=== PATIENT | female | born 1940 | race Two or more races ===

== ENCOUNTER 2020-01-07 10:50 | Inpatient (IN) | payer MEDICARE, OTHER ==
[2020-01-07 11:22] LABS: ABSOLUTE LYMPHOCYTES (AUTO) 0.8 10^3/uL (0.5-4.7); ABSOLUTE NEUT (AUTO) 9.6 10^3/uL (1.7-8.2); BASOPHILS % (AUTO) 0.4 % (0-2); EOSINOPHILS % (AUTO) 0.1 % (0-6); HEMATOCRIT 37.6 % (36.0-47.0); HEMOGLOBIN 12.6 g/dL (12.0-15.5); LYMPHOCYTES % (AUTO) 6.9 % (13-45); MEAN CORPUSCULAR HEMOGLOBIN 28.9 pg (27.0-33.4); MEAN CORPUSCULAR HGB CONC 33.5 g/dL (32.0-36.0); MEAN CORPUSCULAR VOLUME 87 fl (80-97); MONOCYTES % (AUTO) 8.4 % (3-13); PLATELET COUNT 240 10^3/uL (150-450); RED BLOOD COUNT 4.35 10^6/uL (3.72-5.28); RED CELL DISTRIBUTION WIDTH 13.8 % (11.5-14.0); SEGMENTED NEUTROPHILS % (AUTO) 84.2 % (42-78); TOTAL CELLS COUNTED % (AUTO) 100 %; WHITE BLOOD COUNT 11.3 10^3/uL (4.0-10.5)
[2020-01-07 11:39] LABS: ALBUMIN 3.8 g/dL (3.5-5.0); ALKALINE PHOSPHATASE 93 U/L (38-126); ANION GAP 17 (5-19); ASPARTATE AMINO TRANSFERASE 33 U/L (14-36); BILIRUBIN,DIRECT 0.4 mg/dL (0.0-0.4); BILIRUBIN,TOTAL 1.8 mg/dL (0.2-1.3); BLOOD UREA NITROGEN 39 mg/dL (7-20); CALCIUM 11.4 mg/dL (8.4-10.2); CARBON DIOXIDE 24 mmol/L (22-30); CHLORIDE 97 mmol/L (98-107); GLUCOSE 156 mg/dL (75-110); TOTAL PROTEIN 7.4 g/dL (6.3-8.2)
[2020-01-07 11:43] LABS: ALCOHOL < 10 mg/dL (NONE DETECTED)
--- NOTE | 2020-01-07 12:05 | RADIOLOGY REPORT (SQ) ---
EXAM DESCRIPTION: CT HEAD WITHOUT IMAGES COMPLETED DATE/TIME: 01/07/2020 11:52 am REASON FOR STUDY: falls COMPARISON: 06/18/2016 TECHNIQUE: Axial images acquired through the brain without intravenous contrast. Images reviewed wi th bone, brain and subdural windows. Additional sagittal and coronal reconstructions were generated. Images stored on PACS. All CT scanners at this facility use dose modulation, iterative reconstruction, and/or weight based d osing when appropriate to reduce radiation dose to as low as reasonably achievable (ALARA). [facility]: Dose Right [facility]: CareDose [facility]: Dose Right [facility]: Teradose 4D [facility]: [employer] RADIATION DOSE: CT Rad equipment meets quality standard of care and radiation dose reduction techniq ues were employed. CTDIvol: 53.2 mGy. DLP: 1044 mGy-cm. mGy. LIMITATIONS: None. FINDINGS: VENTRICLES: Prominent. CEREBRUM: No masses. No hemorrhage. No midline shift. Areas of low density in the white matter mos t likely due to chronic micro-vascular ischemic change. No evidence for acute infarction. CEREBELLUM: No masses. No hemorrhage. No alteration of density. No evidence for acute infarction. EXTRAAXIAL SPACES: Mild age-related involutional change. No fluid collections. No masses. ORBITS AND GLOBE: No intra- or extraconal masses. Normal contour of globe without masses. CALVARIUM: No fracture. PARANASAL SINUSES: No fluid or mucosal thickening. SOFT TISSUES: No mass or hematoma. OTHER: No other significant finding. IMPRESSION: MILD CHRONIC CHANGES OF ATROPHY AND MICROVASCULAR ISCHEMIA. NO ACUTE PROCESS. EVIDENCE OF ACUTE STROKE: NO. TECHNICAL DOCUMENTATION: JOB ID: [id number] Quality ID # [id number]: Final reports with documentation of one or more dose reduction techniques (e.g., Au tomated exposure control, adjustment of the mA and/or kV according to patient size, use of iterative reconstruction technique) 2010 [employer]- All Rights Reserved Reading location - IP/workstation name: [email or web address]
--- NOTE | 2020-01-07 12:06 | RADIOLOGY REPORT (SQ) ---
EXAM DESCRIPTION: CT CERVICAL SPINE WITHOUT IMAGES COMPLETED DATE/TIME: 01/07/2020 11:52 am REASON FOR STUDY: fall COMPARISON: None. TECHNIQUE: Axial images acquired through the cervical spine without intravenous contrast. Images re viewed with lung, soft tissue and bone windows. Reconstructed coronal and sagittal MPR images review ed. Images stored on PACS. All CT scanners at this facility use dose modulation, iterative reconstruction, and/or weight based d osing when appropriate to reduce radiation dose to as low as reasonably achievable (ALARA). [facility]: Dose Right [facility]: CareDose [facility]: Dose Right [facility]: Teradose 4D [facility]: [employer] RADIATION DOSE: CT Rad equipment meets quality standard of care and radiation dose reduction techniq ues were employed. CTDIvol: 18.7 mGy. DLP: 363 mGy-cm. mGy. LIMITATIONS: None. FINDINGS: ALIGNMENT: Anatomic. MINERALIZATION: Normal. VERTEBRAL BODIES: No fractures or dislocation. DISCS: Mild disc space narrowing. No significant osteophytes posteriorly. Small anterior osteophyte s throughout the cervical spine. FACETS, LATERAL MASSES, POSTERIOR ELEMENTS: No fractures. No dislocation. No acute findings. HARDWARE: None in the spine. VISUALIZED RIBS: No fractures. LUNG APICES AND SOFT TISSUES: No significant or acute findings. OTHER: Calcification in the ligamentum flavum bilaterally at C3-4 C5-C6 and C6-C7. IMPRESSION: Degenerative changes. No acute fracture or dislocation. TECHNICAL DOCUMENTATION: JOB ID: [id number] Quality ID # [id number]: Final reports with documentation of one or more dose reduction techniques (e.g., Au tomated exposure control, adjustment of the mA and/or kV according to patient size, use of iterative reconstruction technique) 2010 [employer]- All Rights Reserved Reading location - IP/workstation name: [email or web address]
[2020-01-07 13:48] LABS: APPEARANCE,URINE CLOUDY; BILIRUBIN,URINE NEGATIVE (NEGATIVE); COLOR,URINE YELLOW; GLUCOSE, URINE NEGATIVE (NEGATIVE); KETONES,URINE 20 mg/dL (NEGATIVE); LEUKOCYTE ESTERASE,URINE MODERATE (NEGATIVE); NITRITE,URINE POSITIVE (NEGATIVE); PROTEIN,URINE NEGATIVE (NEGATIVE); URINE SPECIFIC GRAVITY 1.014; UROBILINOGEN,URINE NEGATIVE mg/dL (<2.0)
[2020-01-07 13:58] LABS: URINE AMPHETAMINES SCREEN NEGATIVE; URINE BARBITURATES SCREEN NEGATIVE; URINE BENZODIAZEPINES SCREEN NEGATIVE; URINE COCAINE SCREEN NEGATIVE; URINE MARIJUANA (THC) SCREEN NEGATIVE; URINE METHADONE SCREEN NEGATIVE; URINE PHENCYCLIDINE SCREEN NEGATIVE
[2020-01-07] MEDS ORDERED: AZITHROMYCIN INJ 500 MG VIAL IV ONE (14:21)
[2020-01-07] MEDS ORDERED: CEFTRIAXONE 1 GM/D5W RTU 1 GM/50 ML RTUPB IV ONE (14:21)
[2020-01-07] MEDS ORDERED: NORMAL SALINE 1000 ML 1,000 ML IV ONE (14:22)
--- NOTE | 2020-01-07 14:23 | ER Document Report ---
ED General - General Chief Complaint: Altered Mental Status Stated Complaint: ALTERED MENTAL STATUS Time Seen by Provider: 01/07/20 13:59 Primary Care Provider: DULCE BAPTISTE MD [Primary Care Provider] - Follow up as needed Mode of Arrival: Medic Information source: Relative - Notes: Patient is a 79-year-old female with hypertension and diabetes presenting to the emergency department via EMS for altered mental status and recurrent falls. Patient's is at the bedside as historian. He states over the last 30 days she has had increased falls at home but has refused to come to the hospital. Over the last week she has developed altered mental status, confusion and continues to have falls at home. Patient's reports that patient has not had anything to eat or drink in the last 3 days. He also reports that she has had a cough over the last week but denies any fevers. She has not had any medications for her symptoms. The reports that EMS has been out to the house several times over the last month to help her up after she has fallen but she has refused transport. TRAVEL OUTSIDE OF THE [place] IN LAST 30 DAYS: No - Related Data Allergies/Adverse Reactions: No Known Allergies Allergy (Verified 01/07/20 12:13) Past Medical History - General Information source: Relative - Social History Smoking Status: Current Every Day Smoker Frequency of alcohol use: None Drug Abuse: None Family History: Other - Unable to obtain, unaware of patient's family medical history - Past Medical History Cardiac Medical History: Reports: Hx Hypercholesterolemia Denies: Hx Atrial Fibrillation, Hx Congestive Heart Failure, Hx Coronary Art yodit Disease, Hx Heart Attack, Hx Hypertension, Hx Peripheral Vascular Disease, Hx Pulmonary Embolism, Hx Heart Murmur Pulmonary Medical History: Denies: Hx Asthma, Hx Bronchitis, Hx COPD, Hx Pneumonia, Hx Respiratory Failure, Hx Sleep Apnea, Hx Tuberculosis Neurological Medical History: Denies: Hx Cerebrovascular Accident, Hx Seizures, Hx Parkinson's Disease Endocrine Medical History: Reports: Hx Diabetes Mellitus Type 2. Denies: Hx Graves' Disease, Hx Hyperthyroidism, Hx Hypothyroidism Renal/ Medical History: Denies: Hx End Stage Renal Disease, Hx Kidney Stones, Hx Peritoneal Dialysis Malignancy Medical History: Denies: Hx Breast Cancer, Hx Cervical Cancer, Hx Leukemia, Hx Lung Cancer, Hx Ovarian Cancer GI Medical History: Denies: Hx Crohn's Disease, Hx Gastroesophageal Reflux Disease, Hx Hiatal Hernia, Hx Irritable Bowel, Hx Liver Failure, Hx Pancreatitis, Hx Ulcer Musculoskeletal Medical History: Reports Hx Arthritis - KNEE, Denies Hx Fibromyalgia, Denies Hx Multiple Sclerosis, Denies Hx Muscular Dystrophy, Denies Hx Systemic Lupus Erythematosus Psychiatric Medical History: Reports: Hx Depression Denies: Hx Bipolar Disorder, Hx Dementia, Hx Post Traumatic Stress Disorder, Hx Schizophrenia Traumatic Medical History: Denies: Hx Fractures Infectious Medical History: Denies: Hx HIV Past Surgical History: Reports: Hx Hysterectomy. Denies: Hx Appendectomy, Hx Bowel Surgery, Hx Section, Hx Cholecystectomy, Hx Colostomy, Hx Coronary Artery Bypass Graft, Hx Gastric Bypass Surgery, Hx Herniorrhaphy, Hx Mastectomy, Hx Pacemaker, Hx Tonsillectomy, Hx Tubal Ligation Review of Systems - Review of Systems Constitutional: Malaise, Other - recurrent falls Respiratory: Cough Neurological/Psychological: Confusion Physical Exam - Vital signs Vitals: Temp Resp Pulse Ox 98.2 F 22 H 96 01/07/20 11:03 01/07/20 11:03 01/07/20 11:03 - Notes Notes: PHYSICAL EXAMINATION: GENERAL: Appears to be stated age, no acute distress. HEAD: Atraumatic, normocephalic. EYES: Pupils equal round and reactive to light, extraocular movements intact, conjunctiva are normal, small amount of yellowish exudates noted to bilateral eyes. ENT: Nares patent, oropharynx clear without exudates. Dry mucous membranes. NECK: Normal range of motion, supple without lymphadenopathy LUNGS: Breath sounds clear to auscultation bilaterally and equal. No wheezes rales or rhonchi. HEART: Regular rate and rhythm without murmurs ABDOMEN: Soft, nontender, nondistended abdomen. No guarding, no rebound. No masses appreciated. Female : deferred Musculoskeletal: Normal range of motion, no pitting or edema. No cyanosis. NEUROLOGICAL: Cranial nerves grossly intact. PSYCH: Normal mood, normal affect. SKIN: Healing abrasions to bilateral knees. Course - Re-evaluation Re-evalutation: 01/07/20 16:50 Call placed the diffuser operator to Dr. Baptiste. Awaiting callback. 01/07/20 17:[address] Baptiste for AMS/UTI. - Vital Signs Vital signs: Temp Pulse Resp BP Pulse Ox 98.2 F 85 15 122/67 96 01/07/20 11:03 01/07/20 11:29 01/07/20 15:01 01/07/20 15:00 01/07/20 15:01 - Laboratory Result Diagrams: 01/07/20 11:10 01/07/20 11:10 Laboratory results interpreted by me: 01/07/20 01/07/20 01/07/20 11:10 11:10 13:30 WBC 11.3 H Lymph % (Auto) 6.9 L Absolute Neuts (auto) 9.6 H Seg Neutrophils % 84.2 H Potassium 3.0 L* Chloride 97 L BUN 39 H Creatinine 1.30 H Est GFR ( Amer) 48 L Est GFR (MDRD) Non-Af 40 L Glucose 156 H POC Glucose Calcium 11.4 H Total Bilirubin 1.8 H Urine Ketones 20 H Urine Blood SMALL H Urine Nitrite POSITIVE H Ur Leukocyte Esterase MODERATE H 01/07/20 15:00 WBC Lymph % (Auto) Absolute Neuts (auto) Seg Neutrophils % Potassium Chloride BUN Creatinine Est GFR ( Amer) Est GFR (MDRD) Non-Af Glucose POC Glucose 138 H Calcium Total Bilirubin Urine Ketones Urine Blood Urine Nitrite Ur Leukocyte Esterase Discharge - Discharge Clinical Impression: Hypokalemia Altered mental status Qualifiers: Altered mental status type: unspecified Qualified Code(s): R41.82 - Altered mental status, unspecified Urinary tract infection Qualifiers: Urinary tract infection type: site unspecified Hematuria presence: with hematuria Qualified Code(s): N39.0 - Urinary tract infection, site not specified Condition: Fair Disposition: ADMITTED INPATIENT Admitting Provider: Cassy Unit Admitted: IMCU Referrals: DULCE BAPTISTE MD [Primary Care Provider] - Follow up as needed
--- NOTE | 2020-01-07 15:15 | RADIOLOGY REPORT (SQ) ---
EXAM DESCRIPTION: CHEST SINGLE VIEW IMAGES COMPLETED DATE/TIME: 01/07/2020 3:04 pm REASON FOR STUDY: cough/altered mental status COMPARISON: 12/09/2012 EXAM PARAMETERS: NUMBER OF VIEWS: One view. TECHNIQUE: Single frontal radiographic view of the chest acquired. RADIATION DOSE: NA LIMITATIONS: None. FINDINGS: LUNGS AND PLEURA: No opacities, masses or pneumothorax. No pleural effusion. MEDIASTINUM AND HILAR STRUCTURES: No masses. Contour normal. HEART AND VASCULAR STRUCTURES: Heart normal in size. Normal vasculature. BONES: No acute findings. HARDWARE: None in the chest. OTHER: No other significant finding. IMPRESSION: NO ACUTE RADIOGRAPHIC FINDING IN THE CHEST. TECHNICAL DOCUMENTATION: JOB ID: [id number] 2010 [employer]- All Rights Reserved Reading location - IP/workstation name: [email or web address]
[2020-01-07] MEDS: POTASSI CL 20 MEQ/50 ML RIDER 20 MEQ/50 ML RTUPB IV SCH ×2 (15:46→17:47)
--- NOTE | 2020-01-07 17:35 | EKG REPORT ---
SEVERITY:- ABNORMAL ECG - SINUS TACHYCARDIA SINUS PAUSE/ARREST WITH ATRIAL ESCAPE BORDERLINE T ABNORMALITIES, DIFFUSE LEADS : Confirmed by: Stefania Mitchell MD 07-Jan-2020 17:35:01
--- NOTE | 2020-01-07 20:40 | PDOC H&P ---
History of Present Illness Admission Date/PCP: 01/07/20 17:44 DULCE BAPTISTE MD History of Present Illness: SITA ROLLINS is a 79 year old femaleShe has a history of type 2 diabetes mellitus, severe osteoarthritis of the right knee, she was brought to the emergency room by family for evaluation of altered mental status, recurrent falls. Patient stated that the last 30 days she has had increased fall at home but she has refused to come to the hospital she is confused, she continues to fall.Patient is well-known to me she has a history of primary hyperparathyroidism with hypercalcemia, in the emergency room she was found to have grossly abnormal urinalysis that suggest urinary tract infection. Past Medical History Cardiac Medical History: Reports: Hyperlipidema Endocrine Medical History: Reports: Diabetes Mellitus Type 2, Obesity, Other - Primary hyperparathyroidism Musculoskeltal Medical History: 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 Denies: Fibromyalgia Psychiatric Medical History: Reports: Depression Past Surgical History Past Surgical History: Reports: Hysterectomy Social History Smoking Status: Current Every Day Smoker Hx Recreational Drug Use: No Hx Prescription Drug Abuse: No Family History Family History: Other - Unable to obtain, unaware of patient's family me dical history Parental Family History Reviewed: Yes Children Family History Reviewed: Yes Sibling(s) Family History Reviewed.: Yes Medication/Allergy Home Medications: Atorvastatin Calcium [Lipitor 20 mg Tablet] 20 mg PO DAILY 12/08/12 Sitagliptin Phosphate [Januvia] 100 mg PO DAILY 12/08/12 Telmisartan/Hydrochlorothiazid [Micardis HCT 80-25 mg Tablet] 1 each PO QHS 12/08/12 Aspirin [Ecotrin 81 mg EC Tablet] 81 mg PO DAILY 01/07/20 Duloxetine HCl 60 mg PO DAILY 01/07/20 Allergies/Adverse Reactions: No Known Allergies Allergy (Verified 01/07/20 12:13) Review of Systems ROS unobtainable: Due to mental status - She is confused Physical Exam Vital Signs: Temp Pulse Resp BP Pulse Ox 97.8 F 85 14 112/56 L 97 01/07/20 19:01 01/07/20 11:29 01/07/20 19:01 01/07/20 19:01 01/07/20 19:01 Intake & Output 01/06/20 01/07/20 01/08/20 06:59 06:59 06:59 Intake Total 1150 Balance 1150 Weight 72.575 kg General appearance: PRESENT: obese Head exam: PRESENT: atraumatic, normocephalic Eye exam: PRESENT: PERRLA Mouth exam: PRESENT: moist, tongue midline Neck exam: PRESENT: full ROM Respiratory exam: PRESENT: clear to auscultation jason Cardiovascular exam: PRESENT: RRR, +S1, +S2 GI/Abdominal exam: PRESENT: normal bowel sounds, soft Rectal exam: PRESENT: deferred Extremities exam: PRESENT: pedal edema Musculoskeletal exam: PRESENT: deformity, other - Swelling and deformity of the right knee Neurological exam: PRESENT: alert, CN II-XII grossly intact Psychiatric exam: PRESENT: appropriate affect, normal mood Skin exam: PRESENT: dry, intact, warm Results Laboratory Results: 01/07/20 11:10 01/07/20 11:10 01/07/20 01/07/20 01/07/20 11:10 11:10 13:30 WBC 11.3 H RBC 4.35 Hgb 12.6 Hct 37.6 MCV 87 MCH 28.9 MCHC 33.5 RDW 13.8 Plt Count 240 Seg Neutrophils % 84.2 H Sodium 137.5 Potassium 3.0 L* Chloride 97 L Carbon Dioxide 24 Anion Gap 17 BUN 39 H Creatinine 1.30 H Est GFR ( Amer) 48 L Glucose 156 H Calcium 11.4 H Magnesium 1.6 Total Bilirubin 1.8 H AST 33 Alkaline Phosphatase 93 Total Protein 7.4 Albumin 3.8 Urine Color YELLOW Urine Appearance CLOUDY Urine pH 5.0 Ur Specific Holly 1.014 Urine Protein NEGATIVE Urine Glucose (UA) NEGATIVE Urine Ketones 20 H Urine Blood SMALL H Urine Nitrite POSITIVE H Ur Leukocyte Esterase MODERATE H Urine WBC (Auto) 28 Urine RBC (Auto) 1 Impressions: Cervical Spine CT 01/07/20 00:00 IMPRESSION: Degenerative changes. No acute fracture or dislocation. Head CT 01/07/20 00:00 IMPRESSION: MILD CHRONIC CHANGES OF ATROPHY AND MICROVASCULAR ISCHEMIA. NO ACUTE PROCESS. EVIDENCE OF ACUTE STROKE: NO. Chest X-Ray 01/07/20 14:20 IMPRESSION: NO ACUTE RADIOGRAPHIC FINDING IN THE CHEST. Assessment & Plan - Diagnosis (1) Metabolic encephalopathy Is this a current diagnosis for this admission?: Yes Plan: She has metabolic encephalopathy due to combination of factors including hypercalcemia, urinary tract infection, dehydration from poor intake, treat with normal saline (2) Hypercalcemia Is this a current diagnosis for this admission?: Yes Plan: The hypercalcemia is from primary hyperparathyroidism, Treat with hydration for now (3) Acute kidney injury Is this a current diagnosis for this admission?: Yes Plan: This is most likely prerenal azotemia from poor intake (4) Elevated troponin Is this a current diagnosis for this admission?: Yes Plan: This needs further evaluation (5) T2DM (type 2 diabetes mellitus) Qualifiers: Diabetes mellitus termite exterminator insulin use: without usp use Diabetes mellitus complication status: with neurologic complications Diabetes mellitus complication detail: with polyneuropathy Qualified Code(s): E11.42 - Type 2 diabetes mellitus with diabetic polyneuropathy Is this a current diagnosis for this admission?: Yes (6) Osteoarthritis of right knee Qualifiers: Osteoarthritis type: primary Qualified Code(s): M17.11 - Unilateral primary osteoarthritis, right knee Is this a current diagnosis for this admission?: Yes (7) Urinary tract infection Qualifiers: Urinary tract infection type: site unspecified Hematuria presence: without hematuria Qualified Code(s): N39.0 - Urinary tract infection, site not specified Is this a current diagnosis for this admission?: Yes Plan: Treat with IV antibiotic (8) Primary hyperparathyroidism Is this a current diagnosis for this admission?: Yes
[2020-01-07 21:08] LABS: FREE T4 (FREE THYROXINE) 1.8 ng/dL (0.78-2.19)
[2020-01-07 21:22] LABS: THYROID STIMULATING HORMONE 0.23 uIU/mL (0.47-4.68)
[2020-01-07] MEDS: HEPARIN SOD (PORCINE) 5,000 UNIT/ML 1 ML VIAL SUBCUT SCH ×2 (21:44→22:45)
[2020-01-07] MEDS: NORMAL SALINE 1000 ML 1,000 ML IV PRN (23:15)
[2020-01-07 23:22] LABS: INTERNATIONAL RATION (INR) 1.11; PROTHROMBIN TIME 14.3 SEC (11.4-15.4)
[2020-01-07 23:38] LABS: PHOSPHORUS 2.6 mg/dL (2.5-4.5)
[2020-01-07 23:51] LABS: CREATINE KINASE MB 4.94 ng/mL (<4.55)
[2020-01-08 00:06] LABS: TROPONIN I 0.144 ng/mL
[2020-01-08] MEDS: HEPARIN SOD (PORCINE) 5,000 UNIT/ML 1 ML VIAL SUBCUT SCH ×2 (06:13→13:22)
[2020-01-08 07:18] LABS: ABSOLUTE EOSINOPHILS # (AUTO) 0.2 10^3/uL (0.0-0.6); ABSOLUTE LYMPHOCYTES (AUTO) 1.9 10^3/uL (0.5-4.7); ABSOLUTE MONOCYTES (AUTO) 0.8 10^3/uL (0.1-1.4); ABSOLUTE NEUT (AUTO) 6.4 10^3/uL (1.7-8.2); BASOPHILS % (AUTO) 0.4 % (0-2); EOSINOPHILS % (AUTO) 1.9 % (0-6); HEMATOCRIT 36.1 % (36.0-47.0); LYMPHOCYTES % (AUTO) 20.2 % (13-45); MEAN CORPUSCULAR HEMOGLOBIN 28.8 pg (27.0-33.4); MEAN CORPUSCULAR HGB CONC 33.1 g/dL (32.0-36.0); MEAN CORPUSCULAR VOLUME 87 fl (80-97); MONOCYTES % (AUTO) 8.9 % (3-13); PLATELET COUNT 229 10^3/uL (150-450); RED BLOOD COUNT 4.16 10^6/uL (3.72-5.28); RED CELL DISTRIBUTION WIDTH 13.8 % (11.5-14.0); SEGMENTED NEUTROPHILS % (AUTO) 68.6 % (42-78); TOTAL CELLS COUNTED % (AUTO) 100 %; WHITE BLOOD COUNT 9.3 10^3/uL (4.0-10.5)
[2020-01-08 07:43] LABS: ALKALINE PHOSPHATASE 74 U/L (38-126); ANION GAP 10 (5-19); ASPARTATE AMINO TRANSFERASE 26 U/L (14-36); BILIRUBIN,DIRECT 0.2 mg/dL (0.0-0.4); BILIRUBIN,TOTAL 1.1 mg/dL (0.2-1.3); BLOOD UREA NITROGEN 29 mg/dL (7-20); CALCIUM 10.5 mg/dL (8.4-10.2); CARBON DIOXIDE 25 mmol/L (22-30); CHLORIDE 105 mmol/L (98-107); CHOLESTEROL 136.05 mg/dL (0-200); GLUCOSE 112 mg/dL (75-110); POTASSIUM 3.1 mmol/L (3.6-5.0); TOTAL PROTEIN 6.3 g/dL (6.3-8.2); TRIGLYCERIDES 107 mg/dL (<150)
[2020-01-08 07:54] LABS: DIRECT LDL 79 mg/dL (<100)
[2020-01-08 07:55] LABS: CREATINE KINASE MB 3.45 ng/mL (<4.55); TROPONIN I 0.114 ng/mL
[2020-01-08] MEDS ORDERED: (PENDING PHARMACY ID) (Telmisartan/Hydrochlorothiazid [Micardis Hct 80-25 Mg Tablet] 1 EAC PO SCH (08:15)
[2020-01-08] MEDS: CEFTRIAXONE 1 GM/D5W RTU 1 GM/50 ML RTUPB IV SCH (09:47)
[2020-01-08] MEDS: DULOXETINE HCL 30 MG CAPSULE.DR PO SCH (09:48)
[2020-01-08] MEDS: ATORVASTATIN CALCIUM 20 MG TABLET PO SCH (09:48)
[2020-01-08] MEDS: SITAGLIPTIN PHOSPHATE 50 MG TABLET PO SCH (09:48)
[2020-01-08] MEDS: ASPIRIN 81 MG TABLET, ENT COATED PO SCH (09:48)
[2020-01-08] MEDS ORDERED: (PENDING PHARMACY ID) (Duloxetine Hcl [Duloxetine Hcl] 60 MG) PO SCH (10:00)
[2020-01-08 11:33] LABS: CREATINE KINASE MB 3.02 ng/mL (<4.55); TROPONIN I 0.098 ng/mL
[2020-01-08] MEDS: POTASSI CL 20 MEQ/50 ML RIDER 20 MEQ/50 ML RTUPB IV SCH ×2 (18:21→20:22)
--- NOTE | 2020-01-08 19:11 | RADIOLOGY REPORT (SQ) ---
EXAM DESCRIPTION: KNEE RIGHT 2 VIEWS IMAGES COMPLETED DATE/TIME: 01/08/2020 6:00 pm REASON FOR STUDY: right knee swelling COMPARISON: None. NUMBER OF VIEWS: Two views. TECHNIQUE: AP, and cross-table lateral radiographic images acquired of the right knee. LIMITATIONS: None. FINDINGS: MINERALIZATION: Osteopenia. BONES: No acute fracture or dislocation. No worrisome bone lesions. JOINT: Marked joint space narrowing medial compartment of the knee. Mild to moderate narrowing at t he lateral and patellofemoral compartments. Marginal and patellar pole osteophytes. Small suprapate llar effusion. Slight chondrocalcinosis suggested in the lateral compartment. SOFT TISSUES: No soft tissue swelling. No radio-opaque foreign body. OTHER: No other significant finding. IMPRESSION: 1. Tricompartmental osteoarthrosis more pronounced at the medial compartment. 2. No acute osseous findings. TECHNICAL DOCUMENTATION: JOB ID: [id number] 2010 [employer]- All Rights Reserved Reading location - IP/workstation name: [email or web address]
[2020-01-08] MEDS ORDERED: HEPARIN SOD (PORCINE) 1,000 UNIT/ML 10 ML VIAL IV ONE (19:44)
[2020-01-08] MEDS ORDERED: HEPARIN SOD (PORCINE) 1,000 UNIT/ML 10 ML VIAL IV PRN ×2 (20:00→22:45)
--- NOTE | 2020-01-08 20:12 | PDOC PROGRESS REPORT ---
Subjective Progress Note for:: 01/08/20 Subjective:: Patient seen by the bedside, she is more alert today than yesterday, a venous Doppler was done today of the extremities, positive for deep vein thrombosis Reason For Visit: HYPERCALCEMIC ENCEPHALOPATHY Physical Exam Vital Signs: Temp Pulse Resp BP Pulse Ox 97.8 F 84 16 115/57 L 91 L 01/08/20 15:21 01/08/20 15:21 01/08/20 15:21 01/08/20 15:21 01/08/20 15:21 Intake & Output 01/07/20 01/08/20 01/09/20 06:59 06:59 06:59 Intake Total 1150 720 Balance 1150 720 Weight 82.1 kg General appearance: PRESENT: no acute distress Eye exam: PRESENT: PERRLA Respiratory exam: PRESENT: clear to auscultation jason Cardiovascular exam: PRESENT: +S1, +S2 GI/Abdominal exam: PRESENT: soft Neurological exam: PRESENT: alert Results Laboratory Results: 01/08/20 06:00 01/08/20 06:00 01/07/20 01/07/20 01/07/20 11:10 23:03 23:03 WBC RBC Hgb Hct MCV MCH MCHC RDW Plt Count Seg Neutrophils % Sodium Potassium Chloride Carbon Dioxide Anion Gap BUN Creatinine Est GFR ( Amer) Glucose Calcium Phosphorus 2.6 Magnesium 1.7 Total Bilirubin AST Alkaline Phosphatase Ammonia < 8.7 L Total Protein Albumin Triglycerides Cholesterol LDL Cholesterol Direct VLDL Cholesterol HDL Cholesterol Amylase 41 Lipase 56.6 TSH 0.23 L Free T4 1.80 01/08/20 01/08/20 06:00 06:00 WBC 9.3 RBC 4.16 Hgb 12.0 Hct 36.1 MCV 87 MCH 28.8 MCHC 33.1 RDW 13.8 Plt Count 229 Seg Neutrophils % 68.6 Sodium 139.5 Potassium 3.1 L Chloride 105 Carbon Dioxide 25 Anion Gap 10 BUN 29 H Creatinine 0.73 Est GFR ( Amer) > 60 Glucose 112 H Calcium 10.5 H Phosphorus Magnesium Total Bilirubin 1.1 AST 26 Alkaline Phosphatase 74 Ammonia Total Protein 6.3 Albumin 3.0 L Triglycerides 107 Cholesterol 136.05 LDL Cholesterol Direct 79 VLDL Cholesterol 21.0 HDL Cholesterol 36 L Amylase Lipase TSH Free T4 01/07/20 01/07/20 01/08/20 23:03 23:03 06:00 Creatine Kinase 84 60 CK-MB (CK-2) 4.94 H Troponin I 0.144 01/08/20 01/08/20 01/08/20 06:00 10:47 10:47 Creatine Kinase 52 CK-MB (CK-2) 3.45 3.02 Troponin I 0.114 0.098 Impressions: Cervical Spine CT 01/07/20 00:00 IMPRESSION: Degenerative changes. No acute fracture or dislocation. Head CT 01/07/20 00:00 IMPRESSION: MILD CHRONIC CHANGES OF ATROPHY AND MICROVASCULAR ISCHEMIA. NO ACUTE PROCESS. EVIDENCE OF ACUTE STROKE: NO. Chest X-Ray 01/07/20 14:20 IMPRESSION: NO ACUTE RADIOGRAPHIC FINDING IN THE CHEST. Knee X-Ray 01/08/20 00:00 IMPRESSION: 1. Tricompartmental osteoarthrosis more pronounced at the medial compartment. 2. No acute osseous findings. Assessment & Plan - Diagnosis (1) Metabolic encephalopathy Is this a current diagnosis for this admission?: Yes Plan: Continue hydration with fluid patient is more alert today (2) Hypercalcemia Is this a current diagnosis for this admission?: Yes (3) Acute kidney injury Is this a current diagnosis for this admission?: Yes (4) Elevated troponin Is this a current diagnosis for this admission?: Yes Plan: This is probably from PE, requires CTA chest (5) T2DM (type 2 diabetes mellitus) Qualifiers: Diabetes mellitus tank terminal gauger insulin use: without half-way use Diabetes mellitus complication status: with neurologic complications Diabetes mellitus complication detail: with polyneuropathy Qualified Code(s): E11.42 - Type 2 diabetes mellitus with diabetic polyneuropathy Is this a current diagnosis for this admission?: Yes (6) Osteoarthritis of right knee Qualifiers: Osteoarthritis type: primary Qualified Code(s): M17.11 - Unilateral primary osteoarthritis, right knee Is this a current diagnosis for this admission?: Yes (7) Urinary tract infection Qualifiers: Urinary tract infection type: site unspecified Hematuria presence: without hematuria Qualified Code(s): N39.0 - Urinary tract infection, site not specified Is this a current diagnosis for this admission?: Yes Plan: Continue IV antibiotic (8) Primary hyperparathyroidism Is this a current diagnosis for this admission?: Yes (9) Deep vein thrombosis (DVT) Qualifiers: DVT location: lower extremity Affected thrombotic vein of extremity: unspecified vein of extremity Chronicity: acute Laterality: unspecified laterality Qualified Code(s): I82.409 - Acute embolism and thrombosis of unspecified deep veins of unspecified lower extremity Is this a current diagnosis for this admission?: Yes Plan: Start IV heparin high-dose protocol - Time Time Spent with patient: 35 or more minutes Level of Care: IMCU
[2020-01-08 20:38] LABS: ABSOLUTE EOSINOPHILS # (AUTO) 0.2 10^3/uL (0.0-0.6); ABSOLUTE LYMPHOCYTES (AUTO) 1.7 10^3/uL (0.5-4.7); ABSOLUTE MONOCYTES (AUTO) 0.7 10^3/uL (0.1-1.4); ABSOLUTE NEUT (AUTO) 5.5 10^3/uL (1.7-8.2); BASOPHILS % (AUTO) 0.6 % (0-2); HEMOGLOBIN 11.7 g/dL (12.0-15.5); LYMPHOCYTES % (AUTO) 20.5 % (13-45); MEAN CORPUSCULAR HEMOGLOBIN 29.1 pg (27.0-33.4); MEAN CORPUSCULAR HGB CONC 33.5 g/dL (32.0-36.0); MEAN CORPUSCULAR VOLUME 87 fl (80-97); MONOCYTES % (AUTO) 9.2 % (3-13); PLATELET COUNT 234 10^3/uL (150-450); RED BLOOD COUNT 4.03 10^6/uL (3.72-5.28); RED CELL DISTRIBUTION WIDTH 13.7 % (11.5-14.0); SEGMENTED NEUTROPHILS % (AUTO) 67.7 % (42-78); TOTAL CELLS COUNTED % (AUTO) 100 %; WHITE BLOOD COUNT 8.1 10^3/uL (4.0-10.5)
[2020-01-08 20:43] LABS: INTERNATIONAL RATION (INR) 1.07
[2020-01-08 20:44] LABS: PARTIAL THROMBOPLASTIN TIME 33.1 SEC (23.5-35.8)
--- NOTE | 2020-01-08 20:55 | RADIOLOGY REPORT (SQ) ---
EXAM DESCRIPTION: US EXTREMITY VEINS BILATERAL COMPLETED DATE/TME: 01/08/2020 00:00 CLINICAL HISTORY: 79 years, Female, leg swelling COMPARISON: None. TECHNIQUE: LIMITATIONS: None. FINDINGS: There is thrombosis of the right common femoral, femoral, popliteal and calf veins. There is also thrombus in the right greater saphenous vein and short saphenous vein. There is also DVT involving the left posterior tibial vein. IMPRESSION: Bilateral DVT, much more extensive on the right side. Greater and short saphenous vein thrombus on the right side. copyright 2010 [employer] All Rights Reserved
[2020-01-08] MEDS: HEPARIN SODIUM,PORCINE/D5W 25,000 UNIT/250 ML RTUINJ IV PRN (21:49)
--- NOTE | 2020-01-08 21:54 | RADIOLOGY REPORT (SQ) ---
CT CHEST ANGIOGRAPHY WITHOUT THEN WITH IV CONTRAST HISTORY: Shortness of breath. COMPARISON: None. TECHNIQUE: CT angiogram of the chest with IV contrast. 3-D MIP images were obtained in coronal and sagittal reconstructions. This exam was performed according to our departmental dose-optimization program, which includes automated exposure control, adjustment of the mA and/or kV according to patient size and/or use of iterative reconstruction technique. FINDINGS: There are multiple occlusive clots in the bilateral upper and lower lobe segmental branches as well as the right middle lobe segmental branch, consistent with acute bilateral peripheral PE. No saddle embolus or right heart strain is seen. The thyroid gland is normal. No mediastinal or hilar adenopathy. The heart size is normal without pericardial effusion. The thoracic aorta is normal caliber. No consolidation, pleural effusion, or pneumothorax is identified. The visualized upper abdomen demonstrates hyperdense sludge in the gallbladder but no acute findings. No acute osseous findings are seen. IMPRESSION: Acute bilateral PE but without evidence of saddle embolus or right heart strain.
[2020-01-08] MEDS: LOSARTAN POTASSIUM 50 MG TABLET PO SCH (22:27)
[2020-01-08] MEDS: HYDROCHLOROTHIAZIDE 25 MG TABLET PO SCH (22:28)
[2020-01-08] MEDS: NORMAL SALINE 1000 ML 1,000 ML IV PRN (22:32)
--- NOTE | 2020-01-09 02:28 | EKG REPORT ---
SEVERITY:- NORMAL ECG - SINUS RHYTHM : Confirmed by: Stefania Mitchell MD 09-Jan-2020 02:27:15
[2020-01-09 05:00] LABS: ABSOLUTE BASOPHILS # (AUTO) 0.1 10^3/uL (0.0-0.2); ABSOLUTE EOSINOPHILS # (AUTO) 0.2 10^3/uL (0.0-0.6); ABSOLUTE LYMPHOCYTES (AUTO) 1.7 10^3/uL (0.5-4.7); ABSOLUTE MONOCYTES (AUTO) 0.8 10^3/uL (0.1-1.4); ABSOLUTE NEUT (AUTO) 5.6 10^3/uL (1.7-8.2); BASOPHILS % (AUTO) 0.8 % (0-2); EOSINOPHILS % (AUTO) 2.4 % (0-6); HEMOGLOBIN 11.7 g/dL (12.0-15.5); LYMPHOCYTES % (AUTO) 20.3 % (13-45); MEAN CORPUSCULAR HGB CONC 33.3 g/dL (32.0-36.0); MEAN CORPUSCULAR VOLUME 87 fl (80-97); MONOCYTES % (AUTO) 9.2 % (3-13); PLATELET COUNT 220 10^3/uL (150-450); RED BLOOD COUNT 4.02 10^6/uL (3.72-5.28); SEGMENTED NEUTROPHILS % (AUTO) 67.3 % (42-78); TOTAL CELLS COUNTED % (AUTO) 100 %; WHITE BLOOD COUNT 8.3 10^3/uL (4.0-10.5)
[2020-01-09] MEDS: NORMAL SALINE 1000 ML 1,000 ML IV PRN ×2 (08:46→19:56)
[2020-01-09] MEDS: SITAGLIPTIN PHOSPHATE 50 MG TABLET PO SCH (10:58)
[2020-01-09] MEDS: ASPIRIN 81 MG TABLET, ENT COATED PO SCH (10:58)
[2020-01-09] MEDS: ATORVASTATIN CALCIUM 20 MG TABLET PO SCH (10:58)
[2020-01-09] MEDS: DULOXETINE HCL 30 MG CAPSULE.DR PO SCH (10:59)
[2020-01-09] MEDS: CEFTRIAXONE 1 GM/D5W RTU 1 GM/50 ML RTUPB IV SCH (10:59)
--- NOTE | 2020-01-09 11:13 | EKG REPORT ---
SEVERITY:- BORDERLINE ECG - SINUS RHYTHM ATRIAL PREMATURE COMPLEX BORDERLINE T ABNORMALITIES, ANTERIOR LEADS : Confirmed by: Stefania Mitchell MD 09-Jan-2020 11:13:24
--- NOTE | 2020-01-09 12:12 | PDOC CONSULTATION ---
Consultation-Blank Consultation: CARDIOLOGY CONSULTATION by Dr. Stefania Mitchell on 01/09/2020. Patient seen at 10 AM. 60 minutes spent on this patient with more than 50% time spent in direct patient care. REASON FOR CONSULTATION: Patient with episodic bradycardia. CONSULT REQUESTING PHYSICIAN: Dr. Madera. HISTORY OF PRESENT ILLNESS: Patient is a 79-year-old Afro-[place] female with known history of hypertension, diabetes mellitus, primary hyperparathyroidism was admitted with confusion and frequent falls. She was found to have a negative CT of the head for acute stroke but showed microvascular ischemia. She also had a pulmonary embolism by CT pulmonary CTA and the right leg thrombus in the right greater and short saphenous vein. She also found to have a urinary tract infection by urinalysis. At present the patient is confused but denies any chest pain discomfort. She was noted to have sudden episodes of periodic si nus bradycardia with a heart rate sometimes in the high 20s around 29 to the low 30s. But this was a short period of time. At this time the patient was not seen to be retching or straining or vomiting or having dry heaves. She was not straining. There was no hemodynamic compromise with a stable blood pressure and the patient's baseline confusion did not increase. Hence the patient is asymptomatic from her sinus bradycardia. Of note she is not on AV or SA pia blocking agents. Initially her calcium was high and now is coming down and today was normal at 9.9 Past Medical History Cardiac Medical History: Reports: Hyperlipidema Endocrine Medical History: Reports: Diabetes Mellitus Type 2, Obesity, Other - Primary hyperparathyroidism Musculoskeltal Medical History: 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 Denies: Fibromyalgia Psychiatric Medical History: Reports: Depression Past Surgical History Past Surgical History: Reports: Hysterectomy Social History Smoking Status: Current Every Day Smoker Hx Recreational Drug Use: No Hx Prescription Drug Abuse: No Family History Family History: Other - Unable to obtain, unaware of patient's family medical history Parental Family History Reviewed: Yes Children Family History Reviewed: Yes Sibling(s) Family History Reviewed.: Yes RESUSCITATION STATUS: The patient is a full code the patient's is a surrogate healthcare decision maker. Medication/Allergy Home Medications: Atorvastatin Calcium [Lipitor 20 mg Tablet] 20 mg PO DAILY 12/08/12 Sitagliptin Phosphate [Januvia] 100 mg PO DAILY 12/08/12 Telmisartan/Hydrochlorothiazid [Micardis HCT 80-25 mg Tablet] 1 each PO QHS 12/08/12 Aspirin [Ecotrin 81 mg EC Tablet] 81 mg PO DAILY 01/07/20 Duloxetine HCl 60 mg PO DAILY 01/07/20 Allergies/Adverse Reactions: No Known Allergies Current Medications Generic Name Dose Route Start Last Admin Trade Name Freq PRN Reason Stop Dose Admin Aspirin 81 mg 01/08/20 10:00 01/09/20 10:58 Ecotrin 81 Mg Ec Tablet PO 02/07/20 09:59 81 mg DAILY RAMIN Administration Atorvastatin Calcium 20 mg 01/08/20 10:00 01/09/20 10:58 Lipitor 20 Mg Tablet PO 02/07/20 09:59 20 mg DAILY RAMIN Administration Duloxetine HCl 60 mg 01/08/20 10:00 01/09/20 10:59 Cymbalta 30 Mg Capsule. PO 02/07/20 09:59 60 mg DAILY RAMIN Administration Heparin Sodium (Porcine) 0 - 15,000 unit 01/08/20 22:45 Heparin Inj 1,000 Unit/Ml 10 Ml Vial IV 02/07/20 22:44 .BOLUS PER PROTOCOL PRN RESPOND TO aPTT VALUE Protocol Hydrochlorothiazide 25 mg 01/08/20 22:00 01/09/20 22:31 Hydrodiuril 25 Mg Tablet PO 02/07/20 21:59 25 mg QHS RAMIN Administration Sodium Chloride 1,000 mls @ 100 mls/hr 01/07/20 19:45 01/09/20 19:56 Nacl 0.9% 1000 Ml Iv Soln IV 02/06/20 19:44 100 mls/hr CONTINUOUS PRN Administration THIS MED IS NOT "PRN" Ceftriaxone Sodium/Dextrose 1 gm in 50 mls @ 100 mls/hr 01/08/20 10:00 01/09/20 11:45 Rocephin Rtu 1 Gm/D5w 50 Ml Premix IV 01/15/20 09:59 Infused DAILY RAMIN Infusion Heparin Sodium/Dextrose 25,000 unit in 250 mls @ 0 mls/hr 01/08/20 20:00 01/09/20 18:28 Heparin Rtu 25,000 Unit/250 Ml D5w Premix IV 02/07/20 19:59 985 unit/hr .CONTINUOUS PRN 9.85 mls/hr THIS MED IS NOT "PRN" Administration Protocol Titrate Losartan Potassium 100 mg 01/08/20 22:00 01/09/20 22:32 Cozaar 50 Mg Tablet PO 02/07/20 21:59 100 mg QHS RAMIN Administration Sitagliptin Phosphate 100 mg 01/08/20 10:00 01/09/20 10:58 Januvia 50 Mg Tablet PO 02/07/20 09:59 100 mg DAILY RAMIN Administration Discontinued Medications Generic Name Dose Route Start Last Admin Trade Name Lidia PRN Reason Stop Dose Admin Azithromycin 500 mg 01/07/20 14:21 01/07/20 15:30 Zithromax Inj 500 Mg Vial IV 01/07/20 14:22 500 mg IVBAG (ED) ONE Administration Heparin Sodium (Porcine) 5,000 unit 01/07/20 20:00 01/08/20 13:22 Heparin Inj 5,000 Units/Ml 1 Ml Vial SUBCUT 02/06/20 19:59 5,000 unit Q8 RAMIN Administration Heparin Sodium (Porcine) 6,600 unit 01/08/20 19:44 01/08/20 21:47 Heparin Inj 1,000 Unit/Ml 10 Ml Vial 80 unit/kg (6600 unit) 01/08/20 19:45 6,600 units IV Administration NOW ONE Ceftriaxone Sodium/Dextrose 1 gm in 50 mls @ 100 mls/hr 01/07/20 14:21 01/07/20 15:36 Rocephin Rtu 1 Gm/D5w 50 Ml Premix IV 01/07/20 14:50 Infused NOW ONE Infusion Potassium Chloride/Water 20 meq in 50 mls @ 25 mls/hr 01/07/20 14:30 01/07/20 19:47 Potassium Chloride Corey 20 Meq/50 Ml IV 01/07/20 18:29 Infused Q2H RAMIN Infusion Sodium Chloride 1,000 mls @ 0 mls/hr 01/07/20 14:22 01/07/20 16:05 Nacl 0.9% 1000 Ml Iv Soln IV 01/07/20 14:23 Infused BOLUS ONE Infusion Wide Open Potassium Chloride/Water 20 meq in 50 mls @ 25 mls/hr 01/08/20 15:00 01/08/20 22:22 Potassium Chloride Corey 20 Meq/50 Ml IV 01/08/20 18:59 Infused Q2H RAMIN Infusion Review of Systems ROS unobtainable: Due to mental status - She is confused Physical Exam: The patient is mildly obese. In no acute distress is confused. Selected Entries 01/09/20 12:00 Temperature 97.4 F Temperature Oral Source Pulse Rate 79 Respiratory 18 Rate Blood Pressure 139/65 H [Right Upper Arm] Blood Pressure 89 Mean [Right Upper Arm] Blood Pressure Supine Position [Right Upper Arm] O2 Sat by Pulse 99 Oximetry Oxygen Delivery Room Air Method ( includes room air) HEAD: Atraumatic, normocephalic. EYES: Pupils equal round and reactive to light, extraocular movements intact, sclera anicteric, conjunctiva are normal. ENT: TMs normal, nares patent, oropharynx clear without exudates. Moist mucous membranes. NECK: Normal range of motion, supple without lymphadenopathy or JVD. LUNGS: Breath sounds clear to auscultation bilaterally and equal. No wheezes rales or rhonchi. There is no chest wall tenderness HEART: S1-S2 is heard. S1 is of normal intensity. There is no S3 gallop. There is no S4 gallop. There is systolic murmur left sternal border and the apex, there is no rub ABDOMEN: Soft, nontender, normoactive bowel sounds. No guarding, no rebound. No masses appreciated. EXTREMITIES: Normal range of motion, no pitting or edema. No clubbing or cyanosis. NEUROLOGICAL: The patient is conscious awake alert but confused. She moves all 4 extremities. PSYCHIATRIC: The patient does not appear to be anxious or agitated. Labs- Entire Visit 01/07/20 01/07/20 01/07/20 11:10 11:10 11:10 WBC 11.3 H RBC 4.35 Hgb 12.6 Hct 37.6 MCV 87 MCH 28.9 MCHC 33.5 RDW 13.8 Plt Count 240 Lymph % (Auto) 6.9 L [place] % (Auto) 8.4 Eos % (Auto) 0.1 Baso % (Auto) 0.4 Absolute Neuts (auto) 9.6 H Absolute Lymphs (auto) 0.8 Absolute Monos (auto) 1.0 Absolute Eos (auto) 0.0 Absolute Basos (auto) 0.0 Seg Neutrophils % 84.2 H PT INR APTT Sodium 137.5 Potassium 3.0 L* Chloride 97 L Carbon Dioxide 24 Anion Gap 17 BUN 39 H Creatinine 1.30 H Est GFR ( Amer) 48 L Est GFR (Non-Af Amer) Est GFR (MDRD) Non-Af 40 L Glucose 156 H POC Glucose Hemoglobin A1c % Calcium 11.4 H Phosphorus Magnesium 1.6 Total Bilirubin 1.8 H Direct Bilirubin 0.4 Neonat Total Bilirubin Not Reportable Neonat Direct Bilirubin Not Reportable Neonat Indirect Bili Not Reportable AST 33 ALT 17 Alkaline Phosphatase 93 Ammonia Creatine Kinase CK-MB (CK-2) Troponin I Total Protein 7.4 Albumin 3.8 Triglycerides Cholesterol LDL Cholesterol Direct VLDL Cholesterol HDL Cholesterol Amylase Lipase EGFR TSH 0.23 L Free T4 1.80 Urine Color Urine Appearance Urine pH Ur Specific [place] Urine Protein Urine Glucose (UA) Urine Ketones Urine Blood Urine Nitrite Urine Bilirubin Urine Urobilinogen Ur Leukocyte Esterase Urine WBC (Auto) Urine RBC (Auto) U Hyaline Cast (Auto) Urine Bacteria (Auto) Urine WBC Clumps Squamous Epi Cells Auto Urine Mucus (Auto) Urine Ascorbic Acid Urine Opiates Screen Urine Methadone Screen Ur Barbiturates Screen Ur Phencyclidine Scrn Ur Amphetamines Screen U Benzodiazepines Scrn Urine Cocaine Screen U Marijuana (THC) Screen Serum Alcohol < 10 01/07/20 01/07/20 01/07/20 13:30 13:30 15:00 WBC RBC Hgb Hct MCV MCH MCHC RDW Plt Count Lymph % (Auto) [place] % (Auto) Eos % (Auto) Baso % (Auto) Absolute Neuts (auto) Absolute Lymphs (auto) Absolute Monos (auto) Absolute Eos (auto) Absolute Basos (auto) Seg Neutrophils % PT INR APTT Sodium Potassium Chloride Carbon Dioxide Anion Gap BUN Creatinine Est GFR ( Amer) Est GFR (Non-Af Amer) Est GFR (MDRD) Non-Af Glucose POC Glucose 138 H Hemoglobin A1c % Calcium Phosphorus Magnesium Total Bilirubin Direct Bilirubin Neonat Total Bilirubin Neonat Direct Bilirubin Neonat Indirect Bili AST ALT Alkaline Phosphatase Ammonia Creatine Kinase CK-MB (CK-2) Troponin I Total Protein Albumin Triglycerides Cholesterol LDL Cholesterol Direct VLDL Cholesterol HDL Cholesterol Amylase Lipase EGFR TSH Free T4 Urine Color YELLOW Urine Appearance CLOUDY Urine pH 5.0 Ur Specific [place] 1.014 Urine Protein NEGATIVE Urine Glucose (UA) NEGATIVE Urine Ketones 20 H Urine Blood SMALL H Urine Nitrite POSITIVE H Urine Bilirubin NEGATIVE Urine Urobilinogen NEGATIVE Ur Leukocyte Esterase MODERATE H Urine WBC (Auto) 28 Urine RBC (Auto) 1 U Hyaline Cast (Auto) 8 Urine Bacteria (Auto) 3+ Urine WBC Clumps MOD Squamous Epi Cells Auto 1 Urine Mucus (Auto) RARE Urine Ascorbic Acid NEGATIVE Urine Opiates Screen NEGATIVE Urine Methadone Screen NEGATIVE Ur Barbiturates Screen NEGATIVE Ur Phencyclidine Scrn NEGATIVE Ur Amphetamines Screen NEGATIVE U Benzodiazepines Scrn NEGATIVE Urine Cocaine Screen NEGATIVE U Marijuana (THC) Screen NEGATIVE Serum Alcohol 01/07/20 01/07/20 01/07/20 23:03 23:03 23:03 WBC RBC Hgb Hct MCV MCH MCHC RDW Plt Count Lymph % (Auto) [place] % (Auto) Eos % (Auto) Baso % (Auto) Absolute Neuts (auto) Absolute Lymphs (auto) Absolute Monos (auto) Absolute Eos (auto) Absolute Basos (auto) Seg Neutrophils % PT 14.3 INR 1.11 APTT 26.0 Sodium Potassium Chloride Carbon Dioxide Anion Gap BUN Creatinine Est GFR ( Amer) Est GFR (Non-Af Amer) Est GFR (MDRD) Non-Af Glucose POC Glucose Hemoglobin A1c % Calcium Phosphorus 2.6 Magnesium 1.7 Total Bilirubin Direct Bilirubin Neonat Total Bilirubin Neonat Direct Bilirubin Neonat Indirect Bili AST ALT Alkaline Phosphatase Ammonia < 8.7 L Creatine Kinase CK-MB (CK-2) Troponin I Total Protein Albumin Triglycerides Cholesterol LDL Cholesterol Direct VLDL Cholesterol HDL Cholesterol Amylase 41 Lipase 56.6 EGFR TSH Free T4 Urine Color Urine Appearance Urine pH Ur Specific [place] Urine Protein Urine Glucose (UA) Urine Ketones Urine Blood Urine Nitrite Urine Bilirubin Urine Urobilinogen Ur Leukocyte Esterase Urine WBC (Auto) Urine RBC (Auto) U Hyaline Cast (Auto) Urine Bacteria (Auto) Urine WBC Clumps Squamous Epi Cells Auto Urine Mucus (Auto) Urine Ascorbic Acid Urine Opiates Screen Urine Methadone Screen Ur Barbiturates Screen Ur Phencyclidine Scrn Ur Amphetamines Screen U Benzodiazepines Scrn Urine Cocaine Screen U Marijuana (THC) Screen Serum Alcohol 01/07/20 01/07/20 01/08/20 23:03 23:03 06:00 WBC RBC Hgb Hct MCV MCH MCHC RDW Plt Count Lymph % (Auto) [place] % (Auto) Eos % (Auto) Baso % (Auto) Absolute Neuts (auto) Absolute Lymphs (auto) Absolute Monos (auto) Absolute Eos (auto) Absolute Basos (auto) Seg Neutrophils % PT INR APTT Sodium Potassium Chloride Carbon Dioxide Anion Gap BUN Creatinine Est GFR ( Amer) Est GFR (Non-Af Amer) Est GFR (MDRD) Non-Af Glucose POC Glucose Hemoglobin A1c % Calcium Phosphorus Magnesium Total Bilirubin Direct Bilirubin Neonat Total Bilirubin Neonat Direct Bilirubin Neonat Indirect Bili AST ALT Alkaline Phosphatase Ammonia Creatine Kinase 84 60 CK-MB (CK-2) 4.94 H Troponin I 0.144 Total Protein Albumin Triglycerides Cholesterol LDL Cholesterol Direct VLDL Cholesterol HDL Cholesterol Amylase Lipase EGFR TSH Free T4 Urine Color Urine Appearance Urine pH Ur Specific [place] Urine Protein Urine Glucose (UA) Urine Ketones Urine Blood Urine Nitrite Urine Bilirubin Urine Urobilinogen Ur Leukocyte Esterase Urine WBC (Auto) Urine RBC (Auto) U Hyaline Cast (Auto) Urine Bacteria (Auto) Urine WBC Clumps Squamous Epi Cells Auto Urine Mucus (Auto) Urine Ascorbic Acid Urine Opiates Screen Urine Methadone Screen Ur Barbiturates Screen Ur Phencyclidine Scrn Ur Amphetamines Screen U Benzodiazepines Scrn Urine Cocaine Screen U Marijuana (THC) Screen Serum Alcohol 01/08/20 01/08/20 01/08/20 06:00 06:00 06:00 WBC 9.3 RBC 4.16 Hgb 12.0 Hct 36.1 MCV 87 MCH 28.8 MCHC 33.1 RDW 13.8 Plt Count 229 Lymph % (Auto) 20.2 [place] % (Auto) 8.9 Eos % (Auto) 1.9 Baso % (Auto) 0.4 Absolute Neuts (auto) 6.4 Absolute Lymphs (auto) 1.9 Absolute Monos (auto) 0.8 Absolute Eos (auto) 0.2 Absolute Basos (auto) 0.0 Seg Neutrophils % 68.6 PT INR APTT Sodium 139.5 Potassium 3.1 L Chloride 105 Carbon Dioxide 25 Anion Gap 10 BUN 29 H Creatinine 0.73 Est GFR ( Amer) > 60 Est GFR (Non-Af Amer) Est GFR (MDRD) Non-Af > 60 Glucose 112 H POC Glucose Hemoglobin A1c % Calcium 10.5 H Phosphorus Magnesium Total Bilirubin 1.1 Direct Bilirubin 0.2 Neonat Total Bilirubin Not Reportable Neonat Direct Bilirubin Not Reportable Neonat Indirect Bili Not Reportable AST 26 ALT 13 Alkaline Phosphatase 74 Ammonia Creatine Kinase CK-MB (CK-2) 3.45 Troponin I 0.114 Total Protein 6.3 Albumin 3.0 L Triglycerides 107 Cholesterol 136.05 LDL Cholesterol Direct 79 VLDL Cholesterol 21.0 HDL Cholesterol 36 L Amylase Lipase EGFR TSH Free T4 Urine Color Urine Appearance Urine pH Ur Specific [place] Urine Protein Urine Glucose (UA) Urine Ketones Urine Blood Urine Nitrite Urine Bilirubin Urine Urobilinogen Ur Leukocyte Esterase Urine WBC (Auto) Urine RBC (Auto) U Hyaline Cast (Auto) Urine Bacteria (Auto) Urine WBC Clumps Squamous Epi Cells Auto Urine Mucus (Auto) Urine Ascorbic Acid Urine Opiates Screen Urine Methadone Screen Ur Barbiturates Screen Ur Phencyclidine Scrn Ur Amphetamines Screen U Benzodiazepines Scrn Urine Cocaine Screen U Marijuana (THC) Screen Serum Alcohol 01/08/20 01/08/20 01/08/20 06:00 08:20 10:47 WBC RBC Hgb Hct MCV MCH MCHC RDW Plt Count Lymph % (Auto) [place] % (Auto) Eos % (Auto) Baso % (Auto) Absolute Neuts (auto) Absolute Lymphs (auto) Absolute Monos (auto) Absolute Eos (auto) Absolute Basos (auto) Seg Neutrophils % PT INR APTT Sodium Potassium Chloride Carbon Dioxide Anion Gap BUN Creatinine Est GFR ( Amer) Est GFR (Non-Af Amer) Est GFR (MDRD) Non-Af Glucose POC Glucose 120 H Hemoglobin A1c % 6.5 H Calcium Phosphorus Magnesium Total Bilirubin Direct Bilirubin Neonat Total Bilirubin Neonat Direct Bilirubin Neonat Indirect Bili AST ALT Alkaline Phosphatase Ammonia Creatine Kinase 52 CK-MB (CK-2) Troponin I Total Protein Albumin Triglycerides Cholesterol LDL Cholesterol Direct VLDL Cholesterol HDL Cholesterol Amylase Lipase EGFR TSH Free T4 Urine Color Urine Appearance Urine pH Ur Specific [place] Urine Protein Urine Glucose (UA) Urine Ketones Urine Blood Urine Nitrite Urine Bilirubin Urine Urobilinogen Ur Leukocyte Esterase Urine WBC (Auto) Urine RBC (Auto) U Hyaline Cast (Auto) Urine Bacteria (Auto) Urine WBC Clumps Squamous Epi Cells Auto Urine Mucus (Auto) Urine Ascorbic Acid Urine Opiates Screen Urine Methadone Screen Ur Barbiturates Screen Ur Phencyclidine Scrn Ur Amphetamines Screen U Benzodiazepines Scrn Urine Cocaine Screen U Marijuana (THC) Screen Serum Alcohol 01/08/20 01/08/20 01/08/20 10:47 11:16 18:23 WBC RBC Hgb Hct MCV MCH MCHC RDW Plt Count Lymph % (Auto) [place] % (Auto) Eos % (Auto) Baso % (Auto) Absolute Neuts (auto) Absolute Lymphs (auto) Absolute Monos (auto) Absolute Eos (auto) Absolute Basos (auto) Seg Neutrophils % PT INR APTT Sodium Potassium Chloride Carbon Dioxide Anion Gap BUN Creatinine Est GFR ( Amer) Est GFR (Non-Af Amer) Est GFR (MDRD) Non-Af Glucose POC Glucose 156 H 102 Hemoglobin A1c % Calcium Phosphorus Magnesium Total Bilirubin Direct Bilirubin Neonat Total Bilirubin Neonat Direct Bilirubin Neonat Indirect Bili AST ALT Alkaline Phosphatase Ammonia Creatine Kinase CK-MB (CK-2) 3.02 Troponin I 0.098 Total Protein Albumin Triglycerides Cholesterol LDL Cholesterol Direct VLDL Cholesterol HDL Cholesterol Amylase Lipase EGFR TSH Free T4 Urine Color Urine Appearance Urine pH Ur Specific [place] Urine Protein Urine Glucose (UA) Urine Ketones Urine Blood Urine Nitrite Urine Bilirubin Urine Urobilinogen Ur Leukocyte Esterase Urine WBC (Auto) Urine RBC (Auto) U Hyaline Cast (Auto) Urine Bacteria (Auto) Urine WBC Clumps Squamous Epi Cells Auto Urine Mucus (Auto) Urine Ascorbic Acid Urine Opiates Screen Urine Methadone Screen Ur Barbiturates Screen Ur Phencyclidine Scrn Ur Amphetamines Screen U Benzodiazepines Scrn Urine Cocaine Screen U Marijuana (THC) Screen Serum Alcohol 01/08/20 01/08/20 01/08/20 20:10 20:10 21:09 WBC 8.1 RBC 4.03 Hgb 11.7 L Hct 35.0 L MCV 87 MCH 29.1 MCHC 33.5 RDW 13.7 Plt Count 234 Lymph % (Auto) 20.5 [place] % (Auto) 9.2 Eos % (Auto) 2.0 Baso % (Auto) 0.6 Absolute Neuts (auto) 5.5 Absolute Lymphs (auto) 1.7 Absolute Monos (auto) 0.7 Absolute Eos (auto) 0.2 Absolute Basos (auto) 0.0 Seg Neutrophils % 67.7 PT 14.0 INR 1.07 APTT 33.1 Sodium Potassium Chloride Carbon Dioxide Anion Gap BUN Creatinine Est GFR ( Amer) Est GFR (Non-Af Amer) Est GFR (MDRD) Non-Af Glucose POC Glucose 104 Hemoglobin A1c % Calcium Phosphorus Magnesium Total Bilirubin Direct Bilirubin Neonat Total Bilirubin Neonat Direct Bilirubin Neonat Indirect Bili AST ALT Alkaline Phosphatase Ammonia Creatine Kinase CK-MB (CK-2) Troponin I Total Protein Albumin Triglycerides Cholesterol LDL Cholesterol Direct VLDL Cholesterol HDL Cholesterol Amylase Lipase EGFR TSH Free T4 Urine Color Urine Appearance Urine pH Ur Specific [place] Urine Protein Urine Glucose (UA) Urine Ketones Urine Blood Urine Nitrite Urine Bilirubin Urine Urobilinogen Ur Leukocyte Esterase Urine WBC (Auto) Urine RBC (Auto) U Hyaline Cast (Auto) Urine Bacteria (Auto) Urine WBC Clumps Squamous Epi Cells Auto Urine Mucus (Auto) Urine Ascorbic Acid Urine Opiates Screen Urine Methadone Screen Ur Barbiturates Screen Ur Phencyclidine Scrn Ur Amphetamines Screen U Benzodiazepines Scrn Urine Cocaine Screen U Marijuana (THC) Screen Serum Alcohol 01/09/20 01/09/20 01/09/20 03:44 03:44 08:20 WBC 8.3 RBC 4.02 Hgb 11.7 L Hct 35.0 L MCV 87 MCH 29.0 MCHC 33.3 RDW 14.0 Plt Count 220 Lymph % (Auto) 20.3 [place] % (Auto) 9.2 Eos % (Auto) 2.4 Baso % (Auto) 0.8 Absolute Neuts (auto) 5.6 Absolute Lymphs (auto) 1.7 Absolute Monos (auto) 0.8 Absolute Eos (auto) 0.2 Absolute Basos (auto) 0.1 Seg Neutrophils % 67.3 PT INR APTT > 235.0 H* Sodium Potassium Chloride Carbon Dioxide Anion Gap BUN Creatinine Est GFR ( Amer) Est GFR (Non-Af Amer) Est GFR (MDRD) Non-Af Glucose POC Glucose 102 Hemoglobin A1c % Calcium Phosphorus Magnesium Total Bilirubin Direct Bilirubin Neonat Total Bilirubin Neonat Direct Bilirubin Neonat Indirect Bili AST ALT Alkaline Phosphatase Ammonia Creatine Kinase CK-MB (CK-2) Troponin I Total Protein Albumin Triglycerides Cholesterol LDL Cholesterol Direct VLDL Cholesterol HDL Cholesterol Amylase Lipase EGFR TSH Free T4 Urine Color Urine Appearance Urine pH Ur Specific [place] Urine Protein Urine Glucose (UA) Urine Ketones Urine Blood Urine Nitrite Urine Bilirubin Urine Urobilinogen Ur Leukocyte Esterase Urine WBC (Auto) Urine RBC (Auto) U Hyaline Cast (Auto) Urine Bacteria (Auto) Urine WBC Clumps Squamous Epi Cells Auto Urine Mucus (Auto) Urine Ascorbic Acid Urine Opiates Screen Urine Methadone Screen Ur Barbiturates Screen Ur Phencyclidine Scrn Ur Amphetamines Screen U Benzodiazepines Scrn Urine Cocaine Screen U Marijuana (THC) Screen Serum Alcohol 01/09/20 01/09/20 01/09/20 11:18 13:40 15:23 WBC RBC Hgb Hct MCV MCH MCHC RDW Plt Count Lymph % (Auto) [place] % (Auto) Eos % (Auto) Baso % (Auto) Absolute Neuts (auto) Absolute Lymphs (auto) Absolute Monos (auto) Absolute Eos (auto) Absolute Basos (auto) Seg Neutrophils % PT INR APTT > 235.0 H* Sodium Cancelled Potassium Cancelled Chloride Cancelled Carbon Dioxide Cancelled Anion Gap Cancelled BUN Cancelled Creatinine Cancelled Est GFR ( Amer) Cancelled Est GFR (Non-Af Amer) Cancelled Est GFR (MDRD) Non-Af Cancelled Glucose Cancelled POC Glucose 104 Hemoglobin A1c % Calcium Cancelled Phosphorus Magnesium Total Bilirubin Cancelled Direct Bilirubin Cancelled Neonat Total Bilirubin Cancelled Neonat Direct Bilirubin Cancelled Neonat Indirect Bili Cancelled AST Cancelled ALT Cancelled Alkaline Phosphatase Cancelled Ammonia Creatine Kinase CK-MB (CK-2) Troponin I Total Protein Cancelled Albumin Cancelled Triglycerides Cholesterol LDL Cholesterol Direct VLDL Cholesterol HDL Cholesterol Amylase Lipase EGFR Cancelled TSH Free T4 Urine Color Urine Appearance Urine pH Ur Specific [place] Urine Protein Urine Glucose (UA) Urine Ketones Urine Blood Urine Nitrite Urine Bilirubin Urine Urobilinogen Ur Leukocyte Esterase Urine WBC (Auto) Urine RBC (Auto) U Hyaline Cast (Auto) Urine Bacteria (Auto) Urine WBC Clumps Squamous Epi Cells Auto Urine Mucus (Auto) Urine Ascorbic Acid Urine Opiates Screen Urine Methadone Screen Ur Barbiturates Screen Ur Phencyclidine Scrn Ur Amphetamines Screen U Benzodiazepines Scrn Urine Cocaine Screen U Marijuana (THC) Screen Serum Alcohol 01/09/20 01/09/20 01/09/20 16:29 21:06 21:20 WBC RBC Hgb Hct MCV MCH MCHC RDW Plt Count Lymph % (Auto) [place] % (Auto) Eos % (Auto) Baso % (Auto) Absolute Neuts (auto) Absolute Lymphs (auto) Absolute Monos (auto) Absolute Eos (auto) Absolute Basos (auto) Seg Neutrophils % PT INR APTT Sodium 137.1 Potassium 3.1 L Chloride 106 Carbon Dioxide 26 Anion Gap 5 BUN 14 Creatinine 0.64 Est GFR ( Amer) > 60 Est GFR (Non-Af Amer) Est GFR (MDRD) Non-Af > 60 Glucose 107 POC Glucose 109 105 Hemoglobin A1c % Calcium 9.9 Phosphorus Magnesium Total Bilirubin 0.9 Direct Bilirubin 0.1 Neonat Total Bilirubin Not Reportable Neonat Direct Bilirubin Not Reportable Neonat Indirect Bili Not Reportable AST 24 ALT 13 Alkaline Phosphatase 73 Ammonia Creatine Kinase CK-MB (CK-2) Troponin I Total Protein 6.3 Albumin 3.0 L Triglycerides Cholesterol LDL Cholesterol Direct VLDL Cholesterol HDL Cholesterol Amylase Lipase EGFR TSH Free T4 Urine Color Urine Appearance Urine pH Ur Specific [place] Urine Protein Urine Glucose (UA) Urine Ketones Urine Blood Urine Nitrite Urine Bilirubin Urine Urobilinogen Ur Leukocyte Esterase Urine WBC (Auto) Urine RBC (Auto) U Hyaline Cast (Auto) Urine Bacteria (Auto) Urine WBC Clumps Squamous Epi Cells Auto Urine Mucus (Auto) Urine Ascorbic Acid Urine Opiates Screen Urine Methadone Screen Ur Barbiturates Screen Ur Phencyclidine Scrn Ur Amphetamines Screen U Benzodiazepines Scrn Urine Cocaine Screen U Marijuana (THC) Screen Serum Alcohol 01/09/20 21:20 WBC RBC Hgb Hct MCV MCH MCHC RDW Plt Count Lymph % (Auto) [place] % (Auto) Eos % (Auto) Baso % (Auto) Absolute Neuts (auto) Absolute Lymphs (auto) Absolute Monos (auto) Absolute Eos (auto) Absolute Basos (auto) Seg Neutrophils % PT INR APTT 156.9 H* Sodium Potassium Chloride Carbon Dioxide Anion Gap BUN Creatinine Est GFR ( Amer) Est GFR (Non-Af Amer) Est GFR (MDRD) Non-Af Glucose POC Glucose Hemoglobin A1c % Calcium Phosphorus Magnesium Total Bilirubin Direct Bilirubin Neonat Total Bilirubin Neonat Direct Bilirubin Neonat Indirect Bili AST ALT Alkaline Phosphatase Ammonia Creatine Kinase CK-MB (CK-2) Troponin I Total Protein Albumin Triglycerides Cholesterol LDL Cholesterol Direct VLDL Cholesterol HDL Cholesterol Amylase Lipase EGFR TSH Free T4 Urine Color Urine Appearance Urine pH Ur Specific [place] Urine Protein Urine Glucose (UA) Urine Ketones Urine Blood Urine Nitrite Urine Bilirubin Urine Urobilinogen Ur Leukocyte Esterase Urine WBC (Auto) Urine RBC (Auto) U Hyaline Cast (Auto) Urine Bacteria (Auto) Urine WBC Clumps Squamous Epi Cells Auto Urine Mucus (Auto) Urine Ascorbic Acid Urine Opiates Screen Urine Methadone Screen Ur Barbiturates Screen Ur Phencyclidine Scrn Ur Amphetamines Screen U Benzodiazepines Scrn Urine Cocaine Screen U Marijuana (THC) Screen Serum Alcohol Cervical Spine CT 01/07/20 00:00 IMPRESSION: Degenerative changes. No acute fracture or dislocation. Head CT 01/07/20 00:00 IMPRESSION: MILD CHRONIC CHANGES OF ATROPHY AND MICROVASCULAR ISCHEMIA. NO ACUTE PROCESS. EVIDENCE OF ACUTE STROKE: NO. Chest X-Ray 01/07/20 14:20 IMPRESSION: NO ACUTE RADIOGRAPHIC FINDING IN THE CHEST. Chest/Abdomen CTA 01/08/20 00:00 IMPRESSION: Acute bilateral PE but without evidence of saddle embolus or right heart strain. Knee X-Ray 01/08/20 00:00 IMPRESSION: 1. Tricompartmental osteoarthrosis more pronounced at the medial compartment. 2. No acute osseous findings. Venous Doppler Study 01/08/20 00:00 IMPRESSION: Bilateral DVT, much more extensive on the right side. Greater and short saphenous vein thrombus on the right side. EKG on 01/06: Shows sinus tachycardia sinus arrest/pause with atrial escape rhythm. Diffuse nonspecific T changes. EKG on 01/08/2020 shows sinus rhythm within normal limits. The patient's EKG on 01/09/2020 shows sinus rhythm with anterior anterior lateral nonspecific minor T changes. Monitor strip shows periodic episodic bradycardia. IMPRESSION/RECOMMENDATION: 1. Asymptomatic episodes of Sinus bradycardia: Most likely secondary to hypercalcemia and increased vagal tone. At present no treatment needed since the patient is hemodynamically stable and without symptoms. Would strongly recommend not to treat the patient with AV pia or SA pia blocking agents. 2. Confusion and frequent falls: Most likely secondary to hypercalcemia and urinary tract infection. No definite evidence of CVA. 3. Bilateral pulmonary embolism: Continue anticoagulation. Strongly recommend echocardiographic for LV ejection fraction and degree of pulmonary hypertension 4. History of DVT on the right leg. Continue anticoagulation as being. 5. Hypertension: Blood pressure seems to be well controlled. 6. Diabetes mellitus: Continue antidiabetic treatment and Accu-Cheks as per protocol. 7. Primary hyperparathyroidism: Treatment as per Dr. Madera. 8. Depression: Seems to be well controlled. Medications reviewed. Medical regimen and management plan discussed with attending provider Dr. Madera. Medical decision making is of high complexity. 60 minutes spent as patient more than 50% of time spent in direct patient care. Will follow
--- NOTE | 2020-01-09 15:34 | PDOC PROGRESS REPORT ---
Subjective Progress Note for:: 01/09/20 Subjective:: Patient seen by the bedside, she has severe bilateral pulmonary embolism associated with bilateral deep vein thrombosis of the lower extremities. She has low appetite, left conjunctival hemorrhage, she also have episode of severe sinus bradycardia Reason For Visit: HYPERCALCEMIC ENCEPHALOPATHY Physical Exam Vital Signs: Temp Pulse Resp BP Pulse Ox 97.4 F 79 18 139/65 H 100 01/09/20 12:00 01/09/20 12:00 01/09/20 12:00 01/09/20 12:00 01/09/20 12:00 Intake & Output 01/08/20 01/09/20 01/10/20 06:59 06:59 06:59 Intake Total 1150 2264 1672 Balance 1150 2264 1672 Weight 82.1 kg 84.2 kg General appearance: PRESENT: no acute distress Eye exam: PRESENT: other - Conjunctival hemorrhage Respiratory exam: PRESENT: clear to auscultation jason Cardiovascular exam: PRESENT: +S1, +S2 GI/Abdominal exam: PRESENT: soft Extremities exam: PRESENT: pedal edema Neurological exam: PRESENT: alert Results Laboratory Results: 01/09/20 03:44 01/08/20 06:00 01/08/20 01/09/20 20:10 03:44 WBC 8.1 8.3 RBC 4.03 4.02 Hgb 11.7 L 11.7 L Hct 35.0 L 35.0 L MCV 87 87 MCH 29.1 29.0 MCHC 33.5 33.3 RDW 13.7 14.0 Plt Count 234 220 Seg Neutrophils % 67.7 67.3 01/07/20 13:30 Clean Catch Midstream Urine Culture - Final Escherichia Coli 01/07/20 01/07/20 01/08/20 23:03 23:03 06:00 Creatine Kinase 84 60 CK-MB (CK-2) 4.94 H Troponin I 0.144 01/08/20 01/08/20 01/08/20 06:00 10:47 10:47 Creatine Kinase 52 CK-MB (CK-2) 3.45 3.02 Troponin I 0.114 0.098 Impressions: Cervical Spine CT 01/07/20 00:00 IMPRESSION: Degenerative changes. No acute fracture or dislocation. Head CT 01/07/20 00:00 IMPRESSION: MILD CHRONIC CHANGES OF ATROPHY AND MICROVASCULAR ISCHEMIA. NO ACUTE PROCESS. EVIDENCE OF ACUTE STROKE: NO. Chest X-Ray 01/07/20 14:20 IMPRESSION: NO ACUTE RADIOGRAPHIC FINDING IN THE CHEST. Chest/Abdomen CTA 01/08/20 00:00 IMPRESSION: Acute bilateral PE but without evidence of saddle embolus or right heart strain. Knee X-Ray 01/08/20 00:00 IMPRESSION: 1. Tricompartmental osteoarthrosis more pronounced at the medial compartment. 2. No acute osseous findings. Venous Doppler Study 01/08/20 00:00 IMPRESSION: Bilateral DVT, much more extensive on the right side. Greater and short saphenous vein thrombus on the right side. copyright 2010 [employer]- All Rights Reserved Assessment & Plan - Diagnosis (1) Metabolic encephalopathy Is this a current diagnosis for this admission?: Yes Plan: improved (2) Hypercalcemia Is this a current diagnosis for this admission?: Yes (3) Acute kidney injury Is this a current diagnosis for this admission?: Yes Plan: resolved (4) Elevated troponin Is this a current diagnosis for this admission?: Yes (5) T2DM (type 2 diabetes mellitus) Qualifiers: Diabetes mellitus flarer insulin use: without nursing home use Diabetes mellitus complication status: with neurologic complications Diabetes mellitus complication detail: with polyneuropathy Qualified Code(s): E11.42 - Type 2 diabetes mellitus with diabetic polyneuropathy Is this a current diagnosis for this admission?: Yes (6) Osteoarthritis of right knee Qualifiers: Osteoarthritis type: primary Qualified Code(s): M17.11 - Unilateral primary osteoarthritis, right knee Is this a current diagnosis for this admission?: Yes (7) Urinary tract infection Qualifiers: Urinary tract infection type: site unspecified Hematuria presence: without hematuria Qualified Code(s): N39.0 - Urinary tract infection, site not specified Is this a current diagnosis for this admission?: Yes Plan: Continue IV antibiotic (8) Primary hyperparathyroidism Is this a current diagnosis for this admission?: Yes Plan: 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 (9) Deep vein thrombosis (DVT) Qualifiers: DVT location: lower extremity Affected thrombotic vein of extremity: uns pecified vein of extremity Chronicity: acute Laterality: bilateral Qualified Code(s): I82.403 - Acute embolism and thrombosis of unspecified deep veins of lower extremity, bilateral Is this a current diagnosis for this admission?: Yes (10) Pulmonary embolism Qualifiers: Pulmonary embolism type: multiple subsegmental (without acute cor pulmonale) Qualified Code(s): I26.94 - Multiple subsegmental pulmonary emboli without acute cor pulmonale Is this a current diagnosis for this admission?: Yes Plan: She has severe pulmonary embolism, patient started on IV heparin, will maintain patient on IV heparin for 7 days which will coincide with the 7 days recommended for the loading dose of Eliquis. She has such a large clot burden that it is imperative that she continue IV heparin, she has blood clot in both lower extremities very extensive, she has blood clot in both lung field very extensive (11) Conjunctival hemorrhage of left eye Is this a current diagnosis for this admission?: Yes - Time Time Spent with patient: 35 or more minutes Level of Care: IMCU
[2020-01-09] MEDS: HEPARIN SODIUM,PORCINE/D5W 25,000 UNIT/250 ML RTUINJ IV PRN (18:28)
[2020-01-09 22:08] LABS: ALKALINE PHOSPHATASE 73 U/L (38-126); ANION GAP 5 (5-19); ASPARTATE AMINO TRANSFERASE 24 U/L (14-36); BILIRUBIN,DIRECT 0.1 mg/dL (0.0-0.4); BILIRUBIN,TOTAL 0.9 mg/dL (0.2-1.3); BLOOD UREA NITROGEN 14 mg/dL (7-20); CALCIUM 9.9 mg/dL (8.4-10.2); CARBON DIOXIDE 26 mmol/L (22-30); CHLORIDE 106 mmol/L (98-107); GLUCOSE 107 mg/dL (75-110); POTASSIUM 3.1 mmol/L (3.6-5.0); TOTAL PROTEIN 6.3 g/dL (6.3-8.2)
[2020-01-09] MEDS: HYDROCHLOROTHIAZIDE 25 MG TABLET PO SCH (22:31)
[2020-01-09] MEDS: LOSARTAN POTASSIUM 50 MG TABLET PO SCH (22:32)
[2020-01-10 05:30] LABS: ABSOLUTE BASOPHILS # (AUTO) 0.1 10^3/uL (0.0-0.2); ABSOLUTE EOSINOPHILS # (AUTO) 0.2 10^3/uL (0.0-0.6); ABSOLUTE LYMPHOCYTES (AUTO) 1.7 10^3/uL (0.5-4.7); ABSOLUTE MONOCYTES (AUTO) 0.7 10^3/uL (0.1-1.4); ABSOLUTE NEUT (AUTO) 4.8 10^3/uL (1.7-8.2); BASOPHILS % (AUTO) 0.8 % (0-2); HEMATOCRIT 32.5 % (36.0-47.0); HEMOGLOBIN 10.9 g/dL (12.0-15.5); LYMPHOCYTES % (AUTO) 22.4 % (13-45); MEAN CORPUSCULAR HGB CONC 33.5 g/dL (32.0-36.0); MEAN CORPUSCULAR VOLUME 87 fl (80-97); PLATELET COUNT 263 10^3/uL (150-450); RED BLOOD COUNT 3.75 10^6/uL (3.72-5.28); SEGMENTED NEUTROPHILS % (AUTO) 64.8 % (42-78); TOTAL CELLS COUNTED % (AUTO) 100 %; WHITE BLOOD COUNT 7.4 10^3/uL (4.0-10.5)
[2020-01-10] MEDS: ASPIRIN 81 MG TABLET, ENT COATED PO SCH (09:08)
[2020-01-10] MEDS: POTASSIUM CHLORIDE 10 MEQ TABLET.ER PO SCH (09:08)
[2020-01-10] MEDS: ATORVASTATIN CALCIUM 20 MG TABLET PO SCH (09:08)
[2020-01-10] MEDS: DULOXETINE HCL 30 MG CAPSULE.DR PO SCH (09:08)
[2020-01-10] MEDS: SITAGLIPTIN PHOSPHATE 50 MG TABLET PO SCH (09:08)
[2020-01-10] MEDS: NORMAL SALINE 1000 ML 1,000 ML IV PRN (12:19)
[2020-01-10] MEDS: CEFTRIAXONE 1 GM/D5W RTU 1 GM/50 ML RTUPB IV SCH (12:19)
--- NOTE | 2020-01-10 19:19 | Progress Note ---
Provider Note Provider Note: CARDIOLOGY PROGRESS NOTE by Dr. Stefania Mitchell on 01/10/2020 PHYSICAL EXAMINATION: The patient is mildly obese. She is confused but in no acute distress. She is not agitated. Selected Entries 01/10/20 17:19 Temperature 98.1 F Temperature Oral Source Pulse Rate 84 Respiratory 18 Rate Blood Pressure 141/70 H Blood Pressure 93 Mean BP Location Right Arm BP Position Supine O2 Sat by Pulse 96 Oximetry Oxygen Delivery Room Air Method HEAD: Atraumatic, normocephalic. EYES: Pupils equal round and reactive to light, extraocular movements intact, sclera anicteric, conjunctiva are normal. ENT: TMs normal, nares patent, oropharynx clear without exudates. Moist mucous membranes. NECK: Normal range of motion, supple without lymphadenopathy or JVD. LUNGS: Breath sounds clear to auscultation bilaterally and equal. No wheezes rales or rhonchi. There is no chest wall tenderness HEART: S1-S2 is heard. S1 is of normal intensity. There is no S3 gallop. There is no S4 gallop. There is systolic murmur left sternal border and the apex, there is no rub ABDOMEN: Soft, nontender, normoactive bowel sounds. No guarding, no rebound. No masses appreciated. EXTREMITIES: Normal range of motion, no pitting or edema. No clubbing or cyanosis. NEUROLOGICAL: The patient is conscious awake alert but confused. She moves all 4 extremities. PSYCHIATRIC: The patient does not appear to be anxious or agitated. Labs- All tests 24 hr 01/09/20 01/10/20 01/10/20 03:44 04:22 04:22 WBC 7.4 RBC 3.75 Hgb 10.9 L Hct 32.5 L MCV 87 MCH 29.0 MCHC 33.5 RDW 14.0 Plt Count 263 Lymph % (Auto) 22.4 Cobb % (Auto) 9.0 Eos % (Auto) 3.0 Baso % (Auto) 0.8 Absolute Neuts (auto) 4.8 Absolute Lymphs (auto) 1.7 Absolute Monos (auto) 0.7 Absolute Eos (auto) 0.2 Absolute Basos (auto) 0.1 Seg Neutrophils % 64.8 APTT > 235.0 H* 62.3 H POC Glucose 01/10/20 01/10/20 01/10/20 07:34 13:45 17:17 WBC RBC Hgb Hct MCV MCH MCHC RDW Plt Count Lymph % (Auto) Cobb % (Auto) Eos % (Auto) Baso % (Auto) Absolute Neuts (auto) Absolute Lymphs (auto) Absolute Monos (auto) Absolute Eos (auto) Absolute Basos (auto) Seg Neutrophils % APTT POC Glucose 107 97 96 01/10/20 21:06 WBC RBC Hgb Hct MCV MCH MCHC RDW Plt Count Lymph % (Auto) Cobb % (Auto) Eos % (Auto) Baso % (Auto) Absolute Neuts (auto) Absolute Lymphs (auto) Absolute Monos (auto) Absolute Eos (auto) Absolute Basos (auto) Seg Neutrophils % APTT POC Glucose [address] 01/07/20 00:00 IMPRESSION: Degenerative changes. No acute fracture or dislocation. Head CT 01/07/20 00:00 IMPRESSION: MILD CHRONIC CHANGES OF ATROPHY AND MICROVASCULAR ISCHEMIA. NO ACUTE PROCESS. EVIDENCE OF ACUTE STROKE: NO. Chest X-Ray 01/07/20 14:20 IMPRESSION: NO ACUTE RADIOGRAPHIC FINDING IN THE CHEST. Chest/Abdomen CTA 01/08/20 00:00 IMPRESSION: Acute bilateral PE but without evidence of saddle embolus or right heart strain. Knee X-Ray 01/08/20 00:00 IMPRESSION: 1. Tricompartmental osteoarthrosis more pronounced at the medial compartment. 2. No acute osseous findings. Venous Doppler Study 01/08/20 00:00 IMPRESSION: Bilateral DVT, much more extensive on the right side. Greater and short saphenous vein thrombus on the right side. copyright 2010 [employer]- All Rights Reserved IMPRESSION/RECOMMENDATION: 1. Asymptomatic episodes of Sinus bradycardia: Most likely secondary to hypercalcemia and increased vagal tone. At present no treatment needed since the patient is hemodynamically stable and without symptoms. Would strongly recommend not to treat the patient with AV pia or SA pia blocking agents. Told this is improved and the lowers the heart rate is gone down is in the low 50s. 2. Confusion and frequent falls: Most likely secondary to hypercalcemia and urinary tract infection. No definite evidence of CVA. 3. Bilateral pulmonary embolism: Continue anticoagulation. Strongly recommend echocardiographic for LV ejection fraction and degree of pulmonary hypertension 4. History of DVT on the right leg. Continue anticoagulation as being. 5. Hypertension: Blood pressure seems to be well controlled. 6. Diabetes mellitus: Continue antidiabetic treatment and Accu-Cheks as per protocol. 7. Primary hyperparathyroidism: Treatment as per Dr. Madera. 8. Depression: Seems to be well controlled. Medications reviewed. Medical regimen and management plan discussed with attending provider Dr. Madera. Medical decision making is of high complexity. 60 minutes spent as patient more than 50% of time spent in direct patient care. Will follow
--- NOTE | 2020-01-10 20:50 | PDOC PROGRESS REPORT ---
Subjective Progress Note for:: 01/10/20 Subjective:: Patient seen by the bedside, she has occasional confusion, she has massive pulmonary embolism, bilaterally and also extensive deep vein thrombosis of both lower extremities she will continue IV heparin for a total of 7 days .She is not eating quite well she has low appetite Reason For Visit: HYPERCALCEMIC ENCEPHALOPATHY Physical Exam Vital Signs: Temp Pulse Resp BP Pulse Ox 98.1 F 84 18 141/70 H 96 01/10/20 17:19 01/10/20 17:19 01/10/20 17:19 01/10/20 17:19 01/10/20 17:19 Intake & Output 01/09/20 01/10/20 01/11/20 06:59 06:59 06:59 Intake Total 2264 3876 310 Balance 2264 3876 310 Weight 84.2 kg 87 kg General appearance: PRESENT: no acute distress Eye exam: PRESENT: PERRLA Respiratory exam: PRESENT: clear to auscultation jason Cardiovascular exam: PRESENT: +S1, +S2 GI/Abdominal exam: PRESENT: soft Neurological exam: PRESENT: alert, CN II-XII grossly intact Results Laboratory Results: 01/10/20 04:22 01/09/20 21:20 01/09/20 01/10/20 21:20 04:22 WBC 7.4 RBC 3.75 Hgb 10.9 L Hct 32.5 L MCV 87 MCH 29.0 MCHC 33.5 RDW 14.0 Plt Count 263 Seg Neutrophils % 64.8 Sodium 137.1 Potassium 3.1 L Chloride 106 Carbon Dioxide 26 Anion Gap 5 BUN 14 Creatinine 0.64 Est GFR ( Amer) > 60 Glucose 107 Calcium 9.9 Total Bilirubin 0.9 AST 24 Alkaline Phosphatase 73 Total Protein 6.3 Albumin 3.0 L 01/07/20 01/07/20 01/08/20 23:03 23:03 06:00 Creatine Kinase 84 60 CK-MB (CK-2) 4.94 H Troponin I 0.144 01/08/20 01/08/20 01/08/20 06:00 10:47 10:47 Creatine Kinase 52 CK-MB (CK-2) 3.45 3.02 Troponin I 0.114 0.098 Impressions: Cervical Spine CT 01/07/20 00:00 IMPRESSION: Degenerative changes. No acute fracture or dislocation. Head CT 01/07/20 00:00 IMPRESSION: MILD CHRONIC CHANGES OF ATROPHY AND MICROVASCULAR ISCHEMIA. NO ACUTE PROCESS. EVIDENCE OF ACUTE STROKE: NO. Chest X-Ray 01/07/20 14:20 IMPRESSION: NO ACUTE RADIOGRAPHIC FINDING IN THE CHEST. Chest/Abdomen CTA 01/08/20 00:00 IMPRESSION: Acute bilateral PE but without evidence of saddle embolus or right heart strain. Knee X-Ray 01/08/20 00:00 IMPRESSION: 1. Tricompartmental osteoarthrosis more pronounced at the medial compartment. 2. No acute osseous findings. Venous Doppler Study 01/08/20 00:00 IMPRESSION: Bilateral DVT, much more extensive on the right side. Greater and short saphenous vein thrombus on the right side. copyright 2011 [employer]- All Rights Reserved Assessment & Plan - Diagnosis (1) Metabolic encephalopathy Is this a current diagnosis for this admission?: Yes Plan: Patient still have occasional confusion (2) Hypercalcemia Is this a current diagnosis for this admission?: Yes (3) Acute kidney injury Is this a current diagnosis for this admission?: Yes Plan: Resolved (4) Elevated troponin Is this a current diagnosis for this admission?: Yes Plan: related to PE (5) T2DM (type 2 diabetes mellitus) Qualifiers: Diabetes mellitus watermelon harvesting supervisor insulin use: without watermelon harvesting supervisor use Diabetes mellitus complication status: with neurologic complications Diabetes mellitus complication detail: with polyneuropathy Qualified Code(s): E11.42 - Type 2 diabetes mellitus with diabetic polyneuropathy Is this a current diagnosis for this admission?: Yes (6) Osteoarthritis of right knee Qualifiers: Osteoarthritis type: primary Qualified Code(s): M17.11 - Unilateral primary osteoarthritis, right knee Is this a current diagnosis for this admission?: Yes (7) Urinary tract infection Qualifiers: Urinary tract infection type: site unspecified Hematuria presence: without hematuria Qualified Code(s): N39.0 - Urinary tract infection, site not specified Is this a current diagnosis for this admission?: Yes (8) Primary hyperparathyroidism Is this a current diagnosis for this admission?: Yes Plan: 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 (9) Deep vein thrombosis (DVT) Qualifiers: DVT location: lower extremity Affected thrombotic vein of extremity: unspecified vein of extremity Chronicity: acute Laterality: bilateral Qualified Code(s): I82.403 - Acute embolism and thrombosis of unspecified deep veins of lower extremity, bilateral Is this a current diagnosis for this admission?: Yes Plan: Continue IV heparin (10) Pulmonary embolism Qualifiers: Pulmonary embolism type: multiple subsegmental (without acute cor pulmonale) Qualified Code(s): I26.94 - Multiple subsegmental pulmonary emboli without acute cor pulmonale Is this a current diagnosis for this admission?: Yes Plan: Continue intravenous heparin (11) Conjunctival hemorrhage of left eye Is this a current diagnosis for this admission?: Yes - Time Time Spent with patient: 25-34 minutes Level of Care: IMCU Medications reviewed and adjusted accordingly: Yes
[2020-01-10] MEDS: HYDROCHLOROTHIAZIDE 25 MG TABLET PO SCH (21:35)
[2020-01-10] MEDS: LOSARTAN POTASSIUM 50 MG TABLET PO SCH (21:35)
[2020-01-11] MEDS: NORMAL SALINE 1000 ML 1,000 ML IV PRN ×3 (01:18→22:05)
[2020-01-11] MEDS: HEPARIN SODIUM,PORCINE/D5W 25,000 UNIT/250 ML RTUINJ IV PRN (01:23)
[2020-01-11 09:37] LABS: ABSOLUTE BASOPHILS # (AUTO) 0.1 10^3/uL (0.0-0.2); ABSOLUTE EOSINOPHILS # (AUTO) 0.2 10^3/uL (0.0-0.6); ABSOLUTE LYMPHOCYTES (AUTO) 1.7 10^3/uL (0.5-4.7); ABSOLUTE MONOCYTES (AUTO) 0.7 10^3/uL (0.1-1.4); ABSOLUTE NEUT (AUTO) 5.5 10^3/uL (1.7-8.2); BASOPHILS % (AUTO) 0.7 % (0-2); EOSINOPHILS % (AUTO) 2.8 % (0-6); HEMATOCRIT 32.6 % (36.0-47.0); HEMOGLOBIN 10.7 g/dL (12.0-15.5); LYMPHOCYTES % (AUTO) 20.5 % (13-45); MEAN CORPUSCULAR HEMOGLOBIN 28.7 pg (27.0-33.4); MEAN CORPUSCULAR HGB CONC 32.8 g/dL (32.0-36.0); MEAN CORPUSCULAR VOLUME 87 fl (80-97); MONOCYTES % (AUTO) 8.7 % (3-13); PLATELET COUNT 315 10^3/uL (150-450); RED BLOOD COUNT 3.73 10^6/uL (3.72-5.28); SEGMENTED NEUTROPHILS % (AUTO) 67.3 % (42-78); TOTAL CELLS COUNTED % (AUTO) 100 %; WHITE BLOOD COUNT 8.2 10^3/uL (4.0-10.5)
[2020-01-11 10:00] LABS: ALBUMIN 2.7 g/dL (3.5-5.0); ALKALINE PHOSPHATASE 75 U/L (38-126); ANION GAP 7 (5-19); ASPARTATE AMINO TRANSFERASE 27 U/L (14-36); BILIRUBIN,DIRECT 0.1 mg/dL (0.0-0.4); BILIRUBIN,TOTAL 0.9 mg/dL (0.2-1.3); BLOOD UREA NITROGEN 6 mg/dL (7-20); CALCIUM 9.7 mg/dL (8.4-10.2); CARBON DIOXIDE 25 mmol/L (22-30); CHLORIDE 108 mmol/L (98-107); GLUCOSE 91 mg/dL (75-110); TOTAL PROTEIN 5.9 g/dL (6.3-8.2)
[2020-01-11 10:06] LABS: POTASSIUM 2.8 mmol/L (3.6-5.0)
[2020-01-11] MEDS: SITAGLIPTIN PHOSPHATE 50 MG TABLET PO SCH ×3 (10:59→11:35)
[2020-01-11] MEDS: ASPIRIN 81 MG TABLET, ENT COATED PO SCH ×3 (11:00→11:36)
[2020-01-11] MEDS: ATORVASTATIN CALCIUM 20 MG TABLET PO SCH ×3 (11:00→11:35)
[2020-01-11] MEDS: CEFTRIAXONE 1 GM/D5W RTU 1 GM/50 ML RTUPB IV SCH (11:00)
[2020-01-11] MEDS: POTASSIUM CHLORIDE 10 MEQ TABLET.ER PO SCH ×3 (11:00→17:48)
[2020-01-11] MEDS: DULOXETINE HCL 30 MG CAPSULE.DR PO SCH ×3 (11:00→11:35)
[2020-01-11] MEDS ORDERED: POTASSIUM CHLORIDE 10 MEQ TABLET.ER PO ONE (12:00)
--- NOTE | 2020-01-11 15:51 | PDOC PROGRESS REPORT ---
Subjective Progress Note for:: 01/11/20 Subjective:: Patient seen by the bedside she has severe hypokalemia, She has severe bilateral pulmonary embolism, bilateral deep vein thrombosis of the lower extremities Reason For Visit: HYPERCALCEMIC ENCEPHALOPATHY Physical Exam Vital Signs: Temp Pulse Resp BP Pulse Ox 97.9 F 80 16 156/89 H 93 01/11/20 11:31 01/11/20 11:31 01/11/20 11:31 01/11/20 11:31 01/11/20 11:31 Intake & Output 01/10/20 01/11/20 01/12/20 06:59 06:59 06:59 Intake Total 3876 1560 987 Balance 3876 1560 987 Weight 87 kg 88.1 kg General appearance: PRESENT: no acute distress Eye exam: PRESENT: PERRLA Respiratory exam: PRESENT: clear to auscultation jason Cardiovascular exam: PRESENT: +S1, +S2 GI/Abdominal exam: PRESENT: soft Neurological exam: PRESENT: alert, CN II-XII grossly intact Results Laboratory Results: 01/11/20 06:47 01/11/20 06:47 01/11/20 01/11/20 06:47 06:47 WBC 8.2 RBC 3.73 Hgb 10.7 L Hct 32.6 L MCV 87 MCH 28.7 MCHC 32.8 RDW 14.0 Plt Count 315 Seg Neutrophils % 67.3 Sodium 139.5 Potassium 2.8 L* Chloride 108 H Carbon Dioxide 25 Anion Gap 7 BUN 6 L Creatinine 0.67 Est GFR ( Amer) > 60 Glucose 91 Calcium 9.7 Total Bilirubin 0.9 AST 27 Alkaline Phosphatase 75 Total Protein 5.9 L Albumin 2.7 L 01/07/20 01/07/20 01/08/20 23:03 23:03 06:00 Creatine Kinase 84 60 CK-MB (CK-2) 4.94 H Troponin I 0.144 01/08/20 01/08/20 01/08/20 06:00 10:47 10:47 Creatine Kinase 52 CK-MB (CK-2) 3.45 3.02 Troponin I 0.114 0.098 Impressions: Cervical Spine CT 01/07/20 00:00 IMPRESSION: Degenerative changes. No acute fracture or dislocation. Head CT 01/07/20 00:00 IMPRESSION: MILD CHRONIC CHANGES OF ATROPHY AND MICROVASCULAR ISCHEMIA. NO ACUTE PROCESS. EVIDENCE OF ACUTE STROKE: NO. Chest X-Ray 01/07/20 14:20 IMPRESSION: NO ACUTE RADIOGRAPHIC FINDING IN THE CHEST. Chest/Abdomen CTA 01/08/20 00:00 IMPRESSION: Acute bilateral PE but without evidence of saddle embolus or right heart strain. Knee X-Ray 01/08/20 00:00 IMPRESSION: 1. Tricompartmental osteoarthrosis more pronounced at the medial compartment. 2. No acute osseous findings. Venous Doppler Study 01/08/20 00:00 IMPRESSION: Bilateral DVT, much more extensive on the right side. Greater and short saphenous vein thrombus on the right side. copyright 2010 [employer]- All Rights Reserved Assessment & Plan - Diagnosis (1) Metabolic encephalopathy Is this a current diagnosis for this admission?: Yes Plan: Patient still have occasional confusion,but improved compared to previously (2) Hypercalcemia Is this a current diagnosis for this admission?: Yes Plan: improved (3) Acute kidney injury Is this a current diagnosis for this admission?: Yes Plan: resolved (4) Elevated troponin Is this a current diagnosis for this admission?: Yes Plan: related to PE (5) T2DM (type 2 diabetes mellitus) Qualifiers: Diabetes mellitus exterminator helper termite insulin use: without exterminator helper termite use Diabetes mellitus complication status: with neurologic complications Diabetes mellitus complication detail: with polyneuropathy Qualified Code(s): E11.42 - Type 2 diabetes mellitus with diabetic polyneuropathy Is this a current diagnosis for this admission?: Yes (6) Osteoarthritis of right knee Qualifiers: Osteoarthritis type: primary Qualified Code(s): M17.11 - Unilateral primary osteoarthritis, right knee Is this a current diagnosis for this admission?: Yes (7) Urinary tract infection Qualifiers: Urinary tract infection type: site unspecified Hematuria presence: without hematuria Qualified Code(s): N39.0 - Urinary tract infection, site not specified Is this a current diagnosis for this admission?: Yes (8) Primary hyperparathyroidism Is this a current diagnosis for this admission?: Yes Plan: 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 (9) Deep vein thrombosis (DVT) Qualifiers: DVT location: lower extremity Affected thrombotic vein of extremity: unspecified vein of extremity Chronicity: acute Laterality: bilateral Qualified Code(s): I82.403 - Acute embolism and thrombosis of unspecified deep veins of lower extremity, bilateral Is this a current diagnosis for this admission?: Yes Plan: Continue IV heparin (10) Pulmonary embolism Qualifiers: Pulmonary embolism type: multiple subsegmental (without acute cor pulmonale) Qualified Code(s): I26.94 - Multiple subsegmental pulmonary emboli without acute cor pulmonale Is this a current diagnosis for this admission?: Yes Plan: Continue intravenous heparin for total of 7 days after which she will be on eliquis lifelong (11) Conjunctival hemorrhage of left eye Is this a current diagnosis for this admission?: Yes Plan: improved (12) E. coli UTI Is this a current diagnosis for this admission?: Yes Plan: Continue IV antibiotic,rocephin - Time Time Spent with patient: 35 or more minutes Level of Care: IMCU
[2020-01-11] MEDS: LOSARTAN POTASSIUM 50 MG TABLET PO SCH (22:05)
[2020-01-11] MEDS: HYDROCHLOROTHIAZIDE 25 MG TABLET PO SCH (22:06)
--- NOTE | 2020-01-11 23:24 | Progress Note ---
Provider Note Provider Note: CARDIOLOGY PROGRESS NOTE by Dr. Stefania Mitchell on 01/11/2020. SUBJECTIVE: The patient appears to be confused. She moves all 4 extremities. There is no further episodes of bradycardia. There is no atrial or ventricular arrhythmias seen on the monitor. Selected Entries 01/11/20 11:31 Temperature 97.9 F Temperature Oral Source Pulse Rate 80 Respiratory 16 Rate Blood Pressure 156/89 H Blood Pressure 111 Mean BP Location Right Arm BP Position Sitting O2 Sat by Pulse 93 Oximetry Oxygen Delivery Room Air Method HEAD: Atraumatic, normocephalic. EYES: Pupils equal round and reactive to light, extraocular movements intact, sclera anicteric, conjunctiva are normal. ENT: TMs normal, nares patent, oropharynx clear without exudates. Moist mucous membranes. NECK: Normal range of motion, supple without lymphadenopathy or JVD. LUNGS: Breath sounds clear to auscultation bilaterally and equal. No wheezes rales or rhonchi. There is no chest wall tenderness HEART: S1-S2 is heard. S1 is of normal intensity. There is no S3 gallop. There is no S4 gallop. There is systolic murmur left sternal border and the apex, there is no rub ABDOMEN: Soft, nontender, normoactive bowel sounds. No guarding, no rebound. No masses appreciated. EXTREMITIES: Normal range of motion, no pitting or edema. No clubbing or cyanosis. NEUROLOGICAL: The patient is conscious awake alert but confused. She moves all 4 extremities. PSYCHIATRIC: The patient does not appear to be anxious or agitated. Labs- All tests 24 hr 01/11/20 01/11/20 01/11/20 06:47 06:47 06:47 WBC 8.2 RBC 3.73 Hgb 10.7 L Hct 32.6 L MCV 87 MCH 28.7 MCHC 32.8 RDW 14.0 Plt Count 315 Lymph % (Auto) 20.5 Jackson % (Auto) 8.7 Eos % (Auto) 2.8 Baso % (Auto) 0.7 Absolute Neuts (auto) 5.5 Absolute Lymphs (auto) 1.7 Absolute Monos (auto) 0.7 Absolute Eos (auto) 0.2 Absolute Basos (auto) 0.1 Seg Neutrophils % 67.3 APTT 83.5 H Sodium 139.5 Potassium 2.8 L* Chloride 108 H Carbon Dioxide 25 Anion Gap 7 BUN 6 L Creatinine 0.67 Est GFR ( Amer) > 60 Est GFR (MDRD) Non-Af > 60 Glucose 91 POC Glucose Calcium 9.7 Total Bilirubin 0.9 Direct Bilirubin 0.1 Neonat Total Bilirubin Not Reportable Neonat Direct Bilirubin Not Reportable Neonat Indirect Bili Not Reportable AST 27 ALT 16 Alkaline Phosphatase 75 Total Protein 5.9 L Albumin 2.7 L 01/11/20 01/11/20 01/11/20 07:38 11:31 16:08 WBC RBC Hgb Hct MCV MCH MCHC RDW Plt Count Lymph % (Auto) Jackson % (Auto) Eos % (Auto) Baso % (Auto) Absolute Neuts (auto) Absolute Lymphs (auto) Absolute Monos (auto) Absolute Eos (auto) Absolute Basos (auto) Seg Neutrophils % APTT Sodium Potassium Chloride Carbon Dioxide Anion Gap BUN Creatinine Est GFR ( Amer) Est GFR (MDRD) Non-Af Glucose POC Glucose 97 93 86 Calcium Total Bilirubin Direct Bilirubin Neonat Total Bilirubin Neonat Direct Bilirubin Neonat Indirect Bili AST ALT Alkaline Phosphatase Total Protein Albumin 01/11/20 21:20 WBC RBC Hgb Hct MCV MCH MCHC RDW Plt Count Lymph % (Auto) Jackson % (Auto) Eos % (Auto) Baso % (Auto) Absolute Neuts (auto) Absolute Lymphs (auto) Absolute Monos (auto) Absolute Eos (auto) Absolute Basos (auto) Seg Neutrophils % APTT Sodium Potassium Chloride Carbon Dioxide Anion Gap BUN Creatinine Est GFR ( Amer) Est GFR (MDRD) Non-Af Glucose POC Glucose 94 Calcium Total Bilirubin Direct Bilirubin Neonat Total Bilirubin Neonat Direct Bilirubin Neonat Indirect Bili AST ALT Alkaline Phosphatase Total Protein Albumin Cervical Spine CT 01/07/20 00:00 IMPRESSION: Degenerative changes. No acute fracture or dislocation. Head CT 01/07/20 00:00 IMPRESSION: MILD CHRONIC CHANGES OF ATROPHY AND MICROVASCULAR ISCHEMIA. NO ACUTE PROCESS. EVIDENCE OF ACUTE STROKE: NO. Chest X-Ray 01/07/20 14:20 IMPRESSION: NO ACUTE RADIOGRAPHIC FINDING IN THE CHEST. Chest/Abdomen CTA 01/08/20 00:00 IMPRESSION: Acute bilateral PE but without evidence of saddle embolus or right heart strain. Knee X-Ray 01/08/20 00:00 IMPRESSION: 1. Tricompartmental osteoarthrosis more pronounced at the medial compartment. 2. No acute osseous findings. Venous Doppler Study 01/08/20 00:00 IMPRESSION: Bilateral DVT, much more extensive on the right side. Greater and short saphenous vein thrombus on the right side. copyright 2011 [employer]- All Rights Reserved IMPRESSION/RECOMMENDATION: 1. Asymptomatic episodes of Sinus bradycardia: Most likely secondary to hypercalcemia and increased vagal tone. At present no treatment needed since the patient is hemodynamically stable and without symptoms. Would strongly recommend not to treat the patient with AV pia or SA pia blocking agents. Told this is improved and the lowers the heart rate is gone down is in the low 5 0s. 2. Confusion and frequent falls: Most likely secondary to hypercalcemia and urinary tract infection. No definite evidence of CVA. 3. Bilateral pulmonary embolism: Continue anticoagulation. Strongly recommend echocardiographic for LV ejection fraction and degree of pulmonary hypertension 4. History of DVT on the right leg. Continue anticoagulation as being. 5. Hypertension: Blood pressure seems to be well controlled. 6. Diabetes mellitus: Continue antidiabetic treatment and Accu-Cheks as per protocol. 7. Primary hyperparathyroidism: Treatment as per Dr. Madera. 8. Depression: Seems to be well controlled. Medications reviewed. Medical regimen and management plan discussed with attending provider Dr. Madera. Medical decision making is of moderate complexity. Cardiac status is stable. We will sign off and follow the patient in the office if the patient desires to follow-up with me in the office.
[2020-01-12] MEDS: HEPARIN SODIUM,PORCINE/D5W 25,000 UNIT/250 ML RTUINJ IV PRN (07:51)
[2020-01-12] MEDS: NORMAL SALINE 1000 ML 1,000 ML IV PRN ×2 (07:51→17:25)
[2020-01-12] MEDS: POTASSIUM CHLORIDE 10 MEQ TABLET.ER PO SCH ×3 (07:51→17:21)
[2020-01-12 08:22] LABS: ABSOLUTE BASOPHILS # (AUTO) 0.1 10^3/uL (0.0-0.2); ABSOLUTE EOSINOPHILS # (AUTO) 0.3 10^3/uL (0.0-0.6); ABSOLUTE LYMPHOCYTES (AUTO) 1.8 10^3/uL (0.5-4.7); ABSOLUTE MONOCYTES (AUTO) 0.8 10^3/uL (0.1-1.4); ABSOLUTE NEUT (AUTO) 6.5 10^3/uL (1.7-8.2); BASOPHILS % (AUTO) 0.9 % (0-2); EOSINOPHILS % (AUTO) 3.1 % (0-6); HEMATOCRIT 30.6 % (36.0-47.0); HEMOGLOBIN 10.2 g/dL (12.0-15.5); LYMPHOCYTES % (AUTO) 18.9 % (13-45); MEAN CORPUSCULAR HEMOGLOBIN 29.1 pg (27.0-33.4); MEAN CORPUSCULAR HGB CONC 33.5 g/dL (32.0-36.0); MEAN CORPUSCULAR VOLUME 87 fl (80-97); MONOCYTES % (AUTO) 8.2 % (3-13); PLATELET COUNT 342 10^3/uL (150-450); RED BLOOD COUNT 3.52 10^6/uL (3.72-5.28); SEGMENTED NEUTROPHILS % (AUTO) 68.9 % (42-78); TOTAL CELLS COUNTED % (AUTO) 100 %; WHITE BLOOD COUNT 9.5 10^3/uL (4.0-10.5)
[2020-01-12 08:26] LABS: ALBUMIN 2.6 g/dL (3.5-5.0); ALKALINE PHOSPHATASE 65 U/L (38-126); ANION GAP 5 (5-19); ASPARTATE AMINO TRANSFERASE 28 U/L (14-36); BILIRUBIN,TOTAL 0.7 mg/dL (0.2-1.3); BLOOD UREA NITROGEN 4 mg/dL (7-20); CALCIUM 9.3 mg/dL (8.4-10.2); CARBON DIOXIDE 23 mmol/L (22-30); CHLORIDE 112 mmol/L (98-107); GLUCOSE 86 mg/dL (75-110); POTASSIUM 3.7 mmol/L (3.6-5.0); TOTAL PROTEIN 5.6 g/dL (6.3-8.2)
[2020-01-12] MEDS: CEFTRIAXONE 1 GM/D5W RTU 1 GM/50 ML RTUPB IV SCH (09:30)
[2020-01-12] MEDS: DULOXETINE HCL 30 MG CAPSULE.DR PO SCH (09:30)
[2020-01-12] MEDS: SITAGLIPTIN PHOSPHATE 50 MG TABLET PO SCH (09:30)
[2020-01-12] MEDS: ASPIRIN 81 MG TABLET, ENT COATED PO SCH (09:31)
[2020-01-12] MEDS: ATORVASTATIN CALCIUM 20 MG TABLET PO SCH (09:31)
--- NOTE | 2020-01-12 17:04 | PDOC PROGRESS REPORT ---
Subjective Progress Note for:: 01/12/20 Subjective:: Patient is sleepy but arousable, she has a better sensorium today Reason For Visit: HYPERCALCEMIC ENCEPHALOPATHY Physical Exam Vital Signs: Temp Pulse Resp BP Pulse Ox 98.2 F 89 16 126/66 H 96 01/12/20 15:38 01/12/20 15:38 01/12/20 15:38 01/12/20 15:38 01/12/20 15:38 Intake & Output 01/11/20 01/12/20 01/13/20 06:59 06:59 06:59 Intake Total 1560 2287 1531 Balance 1560 2287 1531 Weight 88.1 kg 88.3 kg General appearance: PRESENT: no acute distress Eye exam: PRESENT: PERRLA Respiratory exam: PRESENT: clear to auscultation jason Cardiovascular exam: PRESENT: +S1, +S2 GI/Abdominal exam: PRESENT: soft Neurological exam: PRESENT: alert Results Laboratory Results: 01/12/20 05:47 01/12/20 05:47 01/12/20 01/12/20 05:47 05:47 WBC 9.5 RBC 3.52 L Hgb 10.2 L Hct 30.6 L MCV 87 MCH 29.1 MCHC 33.5 RDW 14.0 Plt Count 342 Seg Neutrophils % 68.9 Sodium 139.5 Potassium 3.7 Chloride 112 H Carbon Dioxide 23 Anion Gap 5 BUN 4 L Creatinine 0.58 Est GFR ( Amer) > 60 Glucose 86 Calcium 9.3 Total Bilirubin 0.7 AST 28 Alkaline Phosphatase 65 Total Protein 5.6 L Albumin 2.6 L 01/07/20 16:36 Blood Blood Culture - Final NO GROWTH IN 5 DAYS 01/07/20 15:04 Blood Blood Culture - Final NO GROWTH IN 5 DAYS 01/07/20 01/07/20 01/08/20 23:03 23:03 06:00 Creatine Kinase 84 60 CK-MB (CK-2) 4.94 H Troponin I 0.144 01/08/20 01/08/20 01/08/20 06:00 10:47 10:47 Creatine Kinase 52 CK-MB (CK-2) 3.45 3.02 Troponin I 0.114 0.098 Impressions: Cervical Spine CT 01/07/20 00:00 IMPRESSION: Degenerative changes. No acute fracture or dislocation. Head CT 01/07/20 00:00 IMPRESSION: MILD CHRONIC CHANGES OF ATROPHY AND MICROVASCULAR ISCHEMIA. NO ACUTE PROCESS. EVIDENCE OF ACUTE STROKE: NO. Chest X-Ray 01/07/20 14:20 IMPRESSION: NO ACUTE RADIOGRAPHIC FINDING IN THE CHEST. Chest/Abdomen CTA 01/08/20 00:00 IMPRESSION: Acute bilateral PE but without evidence of saddle embolus or right heart strain. Knee X-Ray 01/08/20 00:00 IMPRESSION: 1. Tricompartmental osteoarthrosis more pronounced at the medial compartment. 2. No acute osseous findings. Venous Doppler Study 01/08/20 00:00 IMPRESSION: Bilateral DVT, much more extensive on the right side. Greater and short saphenous vein thrombus on the right side. copyright 2011 [employer]- All Rights Reserved Assessment & Plan - Diagnosis (1) Metabolic encephalopathy Is this a current diagnosis for this admission?: Yes Plan: Patient still have occasional confusion,but improved compared to previously (2) Hypercalcemia Is this a current diagnosis for this admission?: Yes Plan: improved (3) Acute kidney injury Is this a current diagnosis for this admission?: Yes Plan: resolved (4) Elevated troponin Is this a current diagnosis for this admission?: Yes Plan: related to PE (5) T2DM (type 2 diabetes mellitus) Qualifiers: Diabetes mellitus correction insulin use: without correction use Diabetes mellitus complication status: with neurologic complications Diabetes mellitus complication detail: with polyneuropathy Qualified Code(s): E11.42 - Type 2 diabetes mellitus with diabetic polyneuropathy Is this a current diagnosis for this admission?: Yes Plan: continue treatment (6) Osteoarthritis of right knee Qualifiers: Osteoarthritis type: primary Qualified Code(s): M17.11 - Unilateral primary osteoarthritis, right knee Is this a current diagnosis for this admission?: Yes Plan: she may need right knee replacement (7) Urinary tract infection Qualifiers: Urinary tract infection type: site unspecified Hematuria presence: without hematuria Qualified Code(s): N39.0 - Urinary tract infection, site not specified Is this a current diagnosis for this admission?: Yes Plan: Continue IV antibiotic (8) Primary hyperparathyroidism Is this a current diagnosis for this admission?: Yes Plan: 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 (9) Deep vein thrombosis (DVT) Qualifiers: DVT location: lower extremity Affected thrombotic vein of extremity: unspecified vein of extremity Chronicity: acute Laterality: bilateral Qualified Code(s): I82.403 - Acute embolism and thrombosis of unspecified deep veins of lower extremity, bilateral Is this a current diagnosis for this admission?: Yes Plan: Continue IV heparin (10) Pulmonary embolism Qualifiers: Pulmonary embolism type: multiple subsegmental (without acute cor pulmonale) Qualified Code(s): I26.94 - Multiple subsegmental pulmonary emboli without acute cor pulmonale Is this a current diagnosis for this admission?: Yes Plan: Continue intravenous heparin for total of 7 days after which she will be on eliquis lifelong (11) Conjunctival hemorrhage of left eye Is this a current diagnosis for this admission?: Yes (12) E. coli UTI Is this a current diagnosis for this admission?: Yes Plan: Continue IV antibiotic,rocephin - Time Time Spent with patient: 35 or more minutes Level of Care: IMCU
[2020-01-12] MEDS: LOSARTAN POTASSIUM 50 MG TABLET PO SCH (21:06)
[2020-01-12] MEDS: HYDROCHLOROTHIAZIDE 25 MG TABLET PO SCH (21:06)
[2020-01-13] MEDS: NORMAL SALINE 1000 ML 1,000 ML IV PRN ×2 (03:30→07:44)
[2020-01-13 05:46] LABS: HEMATOCRIT 30.9 % (36.0-47.0); HEMOGLOBIN 10.7 g/dL (12.0-15.5); MEAN CORPUSCULAR HEMOGLOBIN 29.7 pg (27.0-33.4); MEAN CORPUSCULAR HGB CONC 34.5 g/dL (32.0-36.0); MEAN CORPUSCULAR VOLUME 86 fl (80-97); PLATELET COUNT 358 10^3/uL (150-450); RED CELL DISTRIBUTION WIDTH 14.2 % (11.5-14.0); WHITE BLOOD COUNT 9.2 10^3/uL (4.0-10.5)
[2020-01-13 06:05] LABS: ANION GAP 5 (5-19); BLOOD UREA NITROGEN 3 mg/dL (7-20); CALCIUM 9.4 mg/dL (8.4-10.2); CARBON DIOXIDE 22 mmol/L (22-30); CHLORIDE 112 mmol/L (98-107); GLUCOSE 95 mg/dL (75-110)
[2020-01-13] MEDS ORDERED: NORMAL SALINE 1000 ML 1,000 ML IV PRN (07:08)
[2020-01-13] MEDS: DULOXETINE HCL 30 MG CAPSULE.DR PO SCH (10:09)
[2020-01-13] MEDS: CEFTRIAXONE 1 GM/D5W RTU 1 GM/50 ML RTUPB IV SCH (10:09)
[2020-01-13] MEDS: ATORVASTATIN CALCIUM 20 MG TABLET PO SCH (10:09)
[2020-01-13] MEDS: ASPIRIN 81 MG TABLET, ENT COATED PO SCH (10:09)
[2020-01-13] MEDS: HEPARIN SODIUM,PORCINE/D5W 25,000 UNIT/250 ML RTUINJ IV PRN (10:09)
[2020-01-13] MEDS: SITAGLIPTIN PHOSPHATE 50 MG TABLET PO SCH (10:10)
--- NOTE | 2020-01-13 14:38 | PDOC PROGRESS REPORT ---
Subjective Progress Note for:: 01/13/20 Subjective:: Patient seen by the bedside slowly making improvement, she has massive bilateral pulmonary embolism, extensive bilateral deep vein thrombosis, presently on IV heparin she will continue IV heparin for a total of 7 days. The hypokalemia is corrected, discontinue potassium replacement therapy, reduce IV fluid rate to KVO at 30 cc/h. She has UTI on antibiotic Reason For Visit: HYPERCALCEMIC ENCEPHALOPATHY Physical Exam Vital Signs: Temp Pulse Resp BP Pulse Ox 97.9 F 88 16 129/59 H 96 01/13/20 11:45 01/13/20 11:45 01/13/20 11:45 01/13/20 11:45 01/13/20 11:45 Intake & Output 01/12/20 01/13/20 01/14/20 06:59 06:59 06:59 Intake Total 2287 3699 1014 Balance 2287 3699 1014 Weight 88.3 kg 92.9 kg General appearance: PRESENT: no acute distress Eye exam: PRESENT: PERRLA Respiratory exam: PRESENT: clear to auscultation jason Cardiovascular exam: PRESENT: +S1, +S2 GI/Abdominal exam: PRESENT: soft Neurological exam: PRESENT: alert, CN II-XII grossly intact Results Laboratory Results: 01/13/20 05:22 01/13/20 05:22 01/13/20 01/13/20 05:22 05:22 WBC 9.2 RBC 3.60 L Hgb 10.7 L Hct 30.9 L MCV 86 MCH 29.7 MCHC 34.5 RDW 14.2 H Plt Count 358 Sodium 138.9 Potassium 4.0 Chloride 112 H Carbon Dioxide 22 Anion Gap 5 BUN 3 L Creatinine 0.61 Est GFR ( Amer) > 60 Glucose 95 Calcium 9.4 01/07/20 16:36 Blood Blood Culture - Final NO GROWTH IN 5 DAYS 01/07/20 15:04 Blood Blood Culture - Final NO GROWTH IN 5 DAYS 01/07/20 01/07/20 01/08/20 23:03 23:03 06:00 Creatine Kinase 84 60 CK-MB (CK-2) 4.94 H Troponin I 0.144 01/08/20 01/08/20 01/08/20 06:00 10:47 10:47 Creatine Kinase 52 CK-MB (CK-2) 3.45 3.02 Troponin I 0.114 0.098 Impressions: Cervical Spine CT 01/07/20 00:00 IMPRESSION: Degenerative changes. No acute fracture or dislocation. Head CT 01/07/20 00:00 IMPRESSION: MILD CHRONIC CHANGES OF ATROPHY AND MICROVASCULAR ISCHEMIA. NO ACUTE PROCESS. EVIDENCE OF ACUTE STROKE: NO. Chest X-Ray 01/07/20 14:20 IMPRESSION: NO ACUTE RADIOGRAPHIC FINDING IN THE CHEST. Chest/Abdomen CTA 01/08/20 00:00 IMPRESSION: Acute bilateral PE but without evidence of saddle embolus or right heart strain. Knee X-Ray 01/08/20 00:00 IMPRESSION: 1. Tricompartmental osteoarthrosis more pronounced at the medial compartment. 2. No acute osseous findings. Venous Doppler Study 01/08/20 00:00 IMPRESSION: Bilateral DVT, much more extensive on the right side. Greater and short saphenous vein thrombus on the right side. copyright 2010 [employer]- All Rights Reserved Assessment & Plan - Diagnosis (1) Metabolic encephalopathy Is this a current diagnosis for this admission?: Yes Plan: This is improved (2) Hypercalcemia Is this a current diagnosis for this admission?: Yes Plan: improved (3) Acute kidney injury Is this a current diagnosis for this admission?: Yes Plan: resolved (4) Elevated troponin Is this a current diagnosis for this admission?: Yes Plan: related to PE (5) T2DM (type 2 diabetes mellitus) Qualifiers: Diabetes mellitus turn operator insulin use: without turn operator use Diabetes mellitus complication status: with neurologic complications Diabetes mellitus complication detail: with polyneuropathy Qualified Code(s): E11.42 - Type 2 diabetes mellitus with diabetic polyneuropathy Is this a current diagnosis for this admission?: Yes Plan: continue treatment (6) Osteoarthritis of right knee Qualifiers: Osteoarthritis type: primary Qualified Code(s): M17.11 - Unilateral primary osteoarthritis, right knee Is this a current diagnosis for this admission?: Yes Plan: she may need right knee replacement (7) Urinary tract infection Qualifiers: Urinary tract infection type: site unspecified Hematuria presence: without hematuria Qualified Code(s): N39.0 - Urinary tract infection, site not specified Is this a current diagnosis for this admission?: Yes Plan: Continue IV antibiotic (8) Primary hyperparathyroidism Is this a current diagnosis for this admission?: Yes Plan: 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 (9) Deep vein thrombosis (DVT) Qualifiers: DVT location: lower extremity Affected thrombotic vein of extremity: unspecified vein of extremity Chronicity: acute Laterality: bilateral Q ualified Code(s): I82.403 - Acute embolism and thrombosis of unspecified deep veins of lower extremity, bilateral Is this a current diagnosis for this admission?: Yes Plan: Continue IV heparin (10) Pulmonary embolism Qualifiers: Pulmonary embolism type: multiple subsegmental (without acute cor pulmonale) Qualified Code(s): I26.94 - Multiple subsegmental pulmonary emboli without acute cor pulmonale Is this a current diagnosis for this admission?: Yes Plan: Continue intravenous heparin for total of 7 days after which she will be on eliquis lifelong (11) Conjunctival hemorrhage of left eye Is this a current diagnosis for this admission?: Yes (12) E. coli UTI Is this a current diagnosis for this admission?: Yes Plan: Continue IV antibiotic,rocephin - Time Time Spent with patient: 35 or more minutes Level of Care: IMCU - Plan Summary Plan Summary: She has unprovoked extensive DVT, pulmonary embolism, there is no value in evaluating for thrombophilia, she will need to be a lifelong treatment with anticoagulant Eliquis
[2020-01-13] MEDS: HYDROCHLOROTHIAZIDE 25 MG TABLET PO SCH (22:13)
[2020-01-13] MEDS: LOSARTAN POTASSIUM 50 MG TABLET PO SCH (22:13)
[2020-01-14] MEDS: NORMAL SALINE 1000 ML 1,000 ML IV PRN (02:05)
[2020-01-14] MEDS: CEFTRIAXONE 1 GM/D5W RTU 1 GM/50 ML RTUPB IV SCH (09:53)
[2020-01-14] MEDS: ATORVASTATIN CALCIUM 20 MG TABLET PO SCH (09:53)
[2020-01-14] MEDS: SITAGLIPTIN PHOSPHATE 50 MG TABLET PO SCH (09:53)
[2020-01-14] MEDS: DULOXETINE HCL 30 MG CAPSULE.DR PO SCH (09:53)
[2020-01-14] MEDS: ASPIRIN 81 MG TABLET, ENT COATED PO SCH (09:53)
[2020-01-14] MEDS: HEPARIN SODIUM,PORCINE/D5W 25,000 UNIT/250 ML RTUINJ IV PRN (15:29)
--- NOTE | 2020-01-14 20:19 | PDOC PROGRESS REPORT ---
Subjective Progress Note for:: 01/14/20 Subjective:: Patient seen by the bedside, she is more engaging today, I explained to her that she will need to stay few more days hopefully discharge sometime this week, she be transition from IV heparin to p.o. Eliquis tomorrow. She still have episode of confusion but overall she is getting better, she also is particularly interested in the right knee arthropathy, that knee will need to be replaced but with the massive PE she has to wait 6 months the minimum before she get this knee replaced Reason For Visit: HYPERCALCEMIC ENCEPHALOPATHY Physical Exam Vital Signs: Temp Pulse Resp BP Pulse Ox 97.7 F 69 19 148/74 H 96 01/14/20 12:35 01/14/20 14:00 01/14/20 12:35 01/14/20 12:35 01/14/20 12:35 Intake & Output 01/13/20 01/14/20 01/15/20 06:59 06:59 06:59 Intake Total 3699 1614 280 Balance 3699 1614 280 Weight 92.9 kg 92.6 kg General appearance: PRESENT: no acute distress Eye exam: PRESENT: PERRLA Respiratory exam: PRESENT: clear to auscultation jason Cardiovascular exam: PRESENT: +S1, +S2 GI/Abdominal exam: PRESENT: soft Neurological exam: PRESENT: alert, CN II-XII grossly intact Results Laboratory Results: 01/13/20 05:22 01/13/20 05:22 01/07/20 01/07/20 01/08/20 23:03 23:03 06:00 Creatine Kinase 84 60 CK-MB (CK-2) 4.94 H Troponin I 0.144 01/08/20 01/08/20 01/08/20 06:00 10:47 10:47 Creatine Kinase 52 CK-MB (CK-2) 3.45 3.02 Troponin I 0.114 0.098 Impressions: Cervical Spine CT 01/07/20 00:00 IMPRESSION: Degenerative changes. No acute fracture or dislocation. Head CT 01/07/20 00:00 IMPRESSION: MILD CHRONIC CHANGES OF ATROPHY AND MICROVASCULAR ISCHEMIA. NO ACUTE PROCESS. EVIDENCE OF ACUTE STROKE: NO. Chest X-Ray 01/07/20 14:20 IMPRESSION: NO ACUTE RADIOGRAPHIC FINDING IN THE CHEST. Chest/Abdomen CTA 01/08/20 00:00 IMPRESSION: Acute bilateral PE but without evidence of saddle embolus or right heart strain. Knee X-Ray 01/08/20 00:00 IMPRESSION: 1. Tricompartmental osteoarthrosis more pronounced at the medial compartment. 2. No acute osseous findings. Venous Doppler Study 01/08/20 00:00 IMPRESSION: Bilateral DVT, much more extensive on the right side. Greater and short saphenous vein thrombus on the right side. copyright 2010 [employer]- All Rights Reserved Assessment & Plan - Diagnosis (1) Metabolic encephalopathy Is this a current diagnosis for this admission?: Yes Plan: This is improved (2) Hypercalcemia Is this a current diagnosis for this admission?: Yes Plan: improved (3) Acute kidney injury Is this a current diagnosis for this admission?: Yes Plan: resolved (4) Elevated troponin Is this a current diagnosis for this admission?: Yes Plan: related to PE (5) T2DM (type 2 diabetes mellitus) Qualifiers: Diabetes mellitus shelter insulin use: without shelter use Diabetes m ellitus complication status: with neurologic complications Diabetes mellitus complication detail: with polyneuropathy Qualified Code(s): E11.42 - Type 2 diabetes mellitus with diabetic polyneuropathy Is this a current diagnosis for this admission?: Yes Plan: continue treatment (6) Osteoarthritis of right knee Qualifiers: Osteoarthritis type: primary Qualified Code(s): M17.11 - Unilateral primary osteoarthritis, right knee Is this a current diagnosis for this admission?: Yes Plan: she may need right knee replacement (7) Urinary tract infection Qualifiers: Urinary tract infection type: site unspecified Hematuria presence: without hematuria Qualified Code(s): N39.0 - Urinary tract infection, site not specified Is this a current diagnosis for this admission?: Yes Plan: Discontinue IV antibiotic, she has had this for 7 days already (8) Primary hyperparathyroidism Is this a current diagnosis for this admission?: Yes (9) Deep vein thrombosis (DVT) Qualifiers: DVT location: lower extremity Affected thrombotic vein of extremity: unspecified vein of extremity Chronicity: acute Laterality: bilateral Qual ified Code(s): I82.403 - Acute embolism and thrombosis of unspecified deep veins of lower extremity, bilateral Is this a current diagnosis for this admission?: Yes Plan: Continue IV heparin (10) Pulmonary embolism Qualifiers: Pulmonary embolism type: multiple subsegmental (without acute cor pulmonale) Qualified Code(s): I26.94 - Multiple subsegmental pulmonary emboli without acute cor pulmonale Is this a current diagnosis for this admission?: Yes (11) Conjunctival hemorrhage of left eye Is this a current diagnosis for this admission?: Yes (12) E. coli UTI Is this a current diagnosis for this admission?: Yes Plan: Discontinue IV antibiotic - Time Time Spent with patient: 35 or more minutes Level of Care: IMCU
[2020-01-14] MEDS: LOSARTAN POTASSIUM 50 MG TABLET PO SCH (21:04)
[2020-01-14] MEDS: HYDROCHLOROTHIAZIDE 25 MG TABLET PO SCH (21:04)
[2020-01-15] MEDS: SITAGLIPTIN PHOSPHATE 50 MG TABLET PO SCH (09:18)
[2020-01-15] MEDS: ATORVASTATIN CALCIUM 20 MG TABLET PO SCH (09:18)
[2020-01-15] MEDS: DULOXETINE HCL 30 MG CAPSULE.DR PO SCH (09:18)
[2020-01-15] MEDS: APIXABAN 5 MG TABLET PO SCH ×2 (09:19→17:27)
--- NOTE | 2020-01-15 15:19 | PDOC CONSULTATION ---
Consultation Consult Date: 01/15/20 Provider Consulted: PAULY AMAYA Consult reason:: Right knee pain History of Present Illness Admission Date/PCP: 01/07/20 17:44 DULCE BAPTISTE MD History of Present Illness: SITA ROLLINS is a 79 year old female 79-year-old black female currently admitted and anticoagulated for pulmonary embolism who was prior to admission a very limited household ambulator because of bilateral right greater than left knee pain. Previous therapy has been pretty limited in terms of topical anti-inflammatory medication and decreasing function. Past Medical History Cardiac Medical History: Reports: Hyperlipidema Denies: Atrial Fibrillation, Congestive Heart Failure, Coronary Artery Disease, Myocardial Infarction, Hypertension, Peripheral Vascular Disease, Pulmonary Embolism, Heart Murmur Pulmonary Medical History: Denies: Asthma, Bronchitis, Chronic Obstructive Pulmonary Disease (COPD), Pneumonia, Respiratory Failure, Sleep Apnea, Tuberculosis Neurological Medical History: Denies: Seizures Endocrine Medical History: Reports: Diabetes Mellitus Type 2, Obesity, Other - Primary hyperparathyroidism Denies: Hyperthyroidism, Hypothyroidism Renal/ Medical History: Denies: End Stage Renal Disease Malignancy Medical History: Denies: Breast Cancer, Cervical Cancer, Leukemia, Lung Cancer, Ovarian Cancer GI Medical History: Denies: Crohn's Disease, Gastroesophageal Reflux Disease, Hiatal Hernia Musculoskeltal Medical History: 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 Denies: Fibromyalgia Psychiatric Medical History: Reports: Depression Denies: Bipolar Disorder, Dementia, Post Traumatic Stress Disorder Hematology: Denies: Anemia, Hemophilia, Sickle Cell Disease Infectious Medical History: Denies: HIV Past Surgical History Past Surgical History: Reports: Hysterectomy Denies: Amputation, Appendectomy, Section, Cholecystectomy, Colostomy, Coronary Artery Bypass Graft, Gastric Bypass Surgery, Herniorrhaphy, Mastectomy, Pacemaker, Tonsillectomy, Tubal Ligation Social History Information Source: Patient, [facility] Records Smoking Status: Current Every Day Smoker Hx Recreational Drug Use: No Hx Prescription Drug Abuse: No Family History Family History: Reviewed & Not Pertinent, Other - Unable to obtain, unaware of patient's family medical history Parental Family History Reviewed: No Children Family History Reviewed: No Sibling(s) Family History Reviewed.: No Medication/Allergy Home Medications: Atorvastatin Calcium [Lipitor 20 mg Tablet] 20 mg PO DAILY 12/08/12 Sitagliptin Phosphate [Januvia] 100 mg PO DAILY 12/08/12 Telmisartan/Hydrochlorothiazid [Micardis HCT 80-25 mg Tablet] 1 each PO QHS 12/08/12 Aspirin [Ecotrin 81 mg EC Tablet] 81 mg PO DAILY 01/07/20 Duloxetine HCl 60 mg PO DAILY 01/07/20 Allergies/Adverse Reactions: No Known Allergies Allergy (Verified 01/07/20 12:13) Review of Systems All systems: as per [facility] Physical Exam Vital Signs: Temp Pulse Resp BP Pulse Ox 36.4 C 72 15 116/65 98 01/15/20 11:10 01/15/20 14:00 01/15/20 11:10 01/15/20 11:10 01/15/20 11:10 Intake & Output 01/14/20 01/15/20 01/16/20 06:59 06:59 06:59 Intake Total 1614 517 237 Output Total 0 Balance 1614 517 237 Weight 92.6 kg 91.2 kg Physical Exam: Obese elderly black female lying in hospital bed. Patient is conversant. General appearance: PRESENT: mild distress, obese Respiratory exam: PRESENT: unlabored Cardiovascular exam: PRESENT: RRR Pulses: PRESENT: +1 pedal pulses bilateral Vascular exam: PRESENT: normal capillary refill GI/Abdominal exam: PRESENT: soft Rectal exam: PRESENT: deferred Musculoskeletal exam: PRESENT: other - Bilateral genuine varum deformity. Right has a considerable effusion and global tenderness to palpation. Range of motion is limited by discomfort. Distal neurovascular semination is intact. Results Laboratory Results: 01/13/20 05:22 01/13/20 05:22 01/07/20 01/07/20 01/08/20 23:03 23:03 06:00 Creatine Kinase 84 60 CK-MB (CK-2) 4.94 H Troponin I 0.144 01/08/20 01/08/20 01/08/20 06:00 10:47 10:47 Creatine Kinase 52 CK-MB (CK-2) 3.45 3.02 Troponin I 0.114 0.098 Impressions: Cervical Spine CT 01/07/20 00:00 IMPRESSION: Degenerative changes. No acute fracture or dislocation. Head CT 01/07/20 00:00 IMPRESSION: MILD CHRONIC CHANGES OF ATROPHY AND MICROVASCULAR ISCHEMIA. NO ACUTE PROCESS. EVIDENCE OF ACUTE STROKE: NO. Chest X-Ray 01/07/20 14:20 IMPRESSION: NO ACUTE RADIOGRAPHIC FINDING IN THE CHEST. Chest/Abdomen CTA 01/08/20 00:00 IMPRESSION: Acute bilateral PE but without evidence of saddle embolus or right heart strain. Knee X-Ray 01/08/20 00:00 IMPRESSION: 1. Tricompartmental osteoarthrosis more pronounced at the medial compartment. 2. No acute osseous findings. Venous Doppler Study 01/08/20 00:00 IMPRESSION: Bilateral DVT, much more extensive on the right side. Greater and short saphenous vein thrombus on the right side. copyright 2010 [employer]- All Rights Reserved Status: Image reviewed by me - Right knee demonstrates a significant varus angulation with loss of medial joint space, [id number] articulation, subchondral sclerosis, and osteophyte formation Assessment & Plan - Diagnosis (1) Osteoarthritis of right knee Qualifiers: Osteoarthritis type: primary Qualified Code(s): M17.11 - Unilateral primary osteoarthritis, right knee Is this a current diagnosis for this admission?: Yes Plan: 79-year-old black female limited household ambulator at least in part due to severe knee osteoarthritis. At this point the patient is not a surgical candidate. Likewise because of her ongoing anticoagulation not comfortable with an intra-articular injection. This leaves with bracing as a potential option to improve the patient's situation. I taken the liberty of ordering a valgus producing right knee brace. When she has this attempt to physical therapy to mobilize the patient should be considered. - Time Time Spent: 50 to 70 Minutes Anticipated discharge: Other Within: Other
--- NOTE | 2020-01-15 20:01 | PDOC PROGRESS REPORT ---
Subjective Progress Note for:: 01/15/20 Subjective:: Patient seen by the bedside, she was transitioned to p.o. Ambreenpuenet today, consultation requested from orthopedic, not a candidate for surgery, she will need physical therapy anticipate discharge either home or long-term Reason For Visit: HYPERCALCEMIC ENCEPHALOPATHY Physical Exam Vital Signs: Temp Pulse Resp BP Pulse Ox 98.1 F 81 20 141/64 H 96 01/15/20 19:28 01/15/20 19:28 01/15/20 19:28 01/15/20 19:28 01/15/20 19:28 Intake & Output 01/14/20 01/15/20 01/16/20 06:59 06:59 06:59 Intake Total 1614 517 355 Output Total 0 Balance 1614 517 355 Weight 92.6 kg 91.2 kg General appearance: PRESENT: no acute distress Eye exam: PRESENT: PERRLA Respiratory exam: PRESENT: clear to auscultation jason Cardiovascular exam: PRESENT: +S1, +S2 Neurological exam: PRESENT: alert, CN II-XII grossly intact Results Laboratory Results: 01/13/20 05:22 01/13/20 05:22 01/07/20 01/07/20 01/08/20 23:03 23:03 06:00 Creatine Kinase 84 60 CK-MB (CK-2) 4.94 H Troponin I 0.144 01/08/20 01/08/20 01/08/20 06:00 10:47 10:47 Creatine Kinase 52 CK-MB (CK-2) 3.45 3.02 Troponin I 0.114 0.098 Impressions: Cervical Spine CT 01/07/20 00:00 IMPRESSION: Degenerative changes. No acute fracture or dislocation. Head CT 01/07/20 00:00 IMPRESSION: MILD CHRONIC CHANGES OF ATROPHY AND MICROVASCULAR ISCHEMIA. NO ACUTE PROCESS. EVIDENCE OF ACUTE STROKE: NO. Chest X-Ray 01/07/20 14:20 IMPRESSION: NO ACUTE RADIOGRAPHIC FINDING IN THE CHEST. Chest/Abdomen CTA 01/08/20 00:00 IMPRESSION: Acute bilateral PE but without evidence of saddle embolus or right heart strain. Knee X-Ray 01/08/20 00:00 IMPRESSION: 1. Tricompartmental osteoarthrosis more pronounced at the medial compartment. 2. No acute osseous findings. Venous Doppler Study 01/08/20 00:00 IMPRESSION: Bilateral DVT, much more extensive on the right side. Greater and short saphenous vein thrombus on the right side. copyright 2010 [employer]- All Rights Reserved Assessment & Plan - Diagnosis (1) Metabolic encephalopathy Is this a current diagnosis for this admission?: Yes Plan: This is improved (2) Hypercalcemia Is this a current diagnosis for this admission?: Yes Plan: improved (3) Acute kidney injury Is this a current diagnosis for this admission?: Yes Plan: resolved (4) Elevated troponin Is this a current diagnosis for this admission?: Yes Plan: related to PE (5) T2DM (type 2 diabetes mellitus) Qualifiers: Diabetes mellitus nursing home insulin use: without watermelon harvesting supervisor use Diabetes mellitus complication status: with neurologic complications Diabetes mellitus complication detail: with polyneuropathy Qualified Code(s): E11.42 - Type 2 diabetes mellitus with diabetic polyneuropathy Is this a current diagnosis for this admission?: Yes (6) Osteoarthritis of right knee Qualifiers: Osteoarthritis type: primary Qualified Code(s): M17.11 - Unilateral primary osteoarthritis, right knee Is this a current diagnosis for this admission?: Yes (7) Urinary tract infection Qualifiers: Urinary tract infection type: site unspecified Hematuria presence: without hematuria Qualified Code(s): N39.0 - Urinary tract infection, site not specified Is this a current diagnosis for this admission?: Yes Plan: Discontinue IV antibiotic, she has had this for 7 days already (8) Primary hyperparathyroidism Is this a current diagnosis for this admission?: Yes (9) Deep vein thrombosis (DVT) Qualifiers: DVT location: lower extremity Affected thrombotic vein of extremity: unspecified vein of extremity Chronicity: acute Laterality: bilateral Qualified Code(s): I82.403 - Acute embolism and thrombosis of unspecified deep veins of lower extremity, bilateral Is this a current diagnosis for this admission?: Yes (10) Pulmonary embolism Qualifiers: Pulmonary embolism type: multiple subsegmental (without acute cor pulmonale) Qualified Code(s): I26.94 - Multiple subsegmental pulmonary emboli without acute cor pulmonale Is this a current diagnosis for this admission?: Yes Plan: Start Eliquis 5 mg p.o. twice daily (11) Conjunctival hemorrhage of left eye Is this a current diagnosis for this admission?: Yes (12) E. coli UTI Is this a current diagnosis for this admission?: Yes - Time Time Spent with patient: 25-34 minutes Level of Care: IMCU Medications reviewed and adjusted accordingly: Yes
[2020-01-15] MEDS: HYDROCHLOROTHIAZIDE 25 MG TABLET PO SCH (23:25)
[2020-01-15] MEDS: LOSARTAN POTASSIUM 50 MG TABLET PO SCH (23:25)
[2020-01-16] MEDS: ATORVASTATIN CALCIUM 20 MG TABLET PO SCH (10:08)
[2020-01-16] MEDS: APIXABAN 5 MG TABLET PO SCH ×2 (10:08→17:16)
[2020-01-16] MEDS: DULOXETINE HCL 30 MG CAPSULE.DR PO SCH (10:08)
[2020-01-16] MEDS: SITAGLIPTIN PHOSPHATE 50 MG TABLET PO SCH (10:08)
--- NOTE | 2020-01-16 16:45 | PDOC PROGRESS REPORT ---
Subjective Progress Note for:: 01/16/20 Subjective:: Patient seen by the bedside she refused to go to a facility for rehabilitation. She is deconditioned, she would benefit from physical therapy but she prefers to be discharged home for physical therapy. She was transitioned to p.o. Eliquis yesterday, I explained to her that she will be on anticoagulant lifelong, hopefully discharge home on Tuesday PT is working with her today and tomorrow Reason For Visit: HYPERCALCEMIC ENCEPHALOPATHY Physical Exam Vital Signs: Temp Pulse Resp BP Pulse Ox 98.3 F 97 18 138/44 H 96 01/16/20 11:41 01/16/20 14:00 01/16/20 11:41 01/16/20 11:41 01/16/20 11:41 Intake & Output 01/15/20 01/16/20 01/17/20 06:59 06:59 06:59 Intake Total 517 355 355 Output Total 0 Balance 517 355 355 Weight 91.2 kg 90 kg General appearance: PRESENT: no acute distress Eye exam: PRESENT: PERRLA Respiratory exam: PRESENT: clear to auscultation jason Cardiovascular exam: PRESENT: +S1, +S2 GI/Abdominal exam: PRESENT: soft Neurological exam: PRESENT: alert Results Laboratory Results: 01/13/20 05:22 01/13/20 05:22 01/07/20 01/07/20 01/08/20 23:03 23:03 06:00 Creatine Kinase 84 60 CK-MB (CK-2) 4.94 H Troponin I 0.144 01/08/20 01/08/20 01/08/20 06:00 10:47 10:47 Creatine Kinase 52 CK-MB (CK-2) 3.45 3.02 Troponin I 0.114 0.098 Impressions: Cervical Spine CT 01/07/20 00:00 IMPRESSION: Degenerative changes. No acute fracture or dislocation. Head CT 01/07/20 00:00 IMPRESSION: MILD CHRONIC CHANGES OF ATROPHY AND MICROVASCULAR ISCHEMIA. NO ACUTE PROCESS. EVIDENCE OF ACUTE STROKE: NO. Chest X-Ray 01/07/20 14:20 IMPRESSION: NO ACUTE RADIOGRAPHIC FINDING IN THE CHEST. Chest/Abdomen CTA 01/08/20 00:00 IMPRESSION: Acute bilateral PE but without evidence of saddle embolus or right heart strain. Knee X-Ray 01/08/20 00:00 IMPRESSION: 1. Tricompartmental osteoarthrosis more pronounced at the medial compartment. 2. No acute osseous findings. Venous Doppler Study 01/08/20 00:00 IMPRESSION: Bilateral DVT, much more extensive on the right side. Greater and short saphenous vein thrombus on the right side. copyright 2010 [employer]- All Rights Reserved Assessment & Plan - Diagnosis (1) Metabolic encephalopathy Is this a current diagnosis for this admission?: Yes Plan: This is improved (2) Hypercalcemia Is this a current diagnosis for this admission?: Yes Plan: improved (3) Acute kidney injury Is this a current diagnosis for this admission?: Yes Plan: resolved (4) Elevated troponin Is this a current diagnosis for this admission?: Yes Plan: related to PE (5) T2DM (type 2 diabetes mellitus) Qualifiers: Diabetes mellitus nursing home insulin use: without nursing home use Diabetes mellitus complication status: with neurologic complications Diabetes mellitus complication detail: with polyneuropathy Qualified Code(s): E11.42 - Type 2 diabetes mellitus with diabetic polyneuropathy Is this a current diagnosis for this admission?: Yes (6) Osteoarthritis of right knee Qualifiers: Osteoarthritis type: primary Qualified Code(s): M17.11 - Unilateral primary osteoarthritis, right knee Is this a current diagnosis for this admission?: Yes (7) Urinary tract infection Qualifiers: Urinary tract infection type: site unspecified Hematuria presence: without hematuria Qualified Code(s): N39.0 - Urinary tract infection, site not specified Is this a current diagnosis for this admission?: Yes (8) Primary hyperparathyroidism Is this a current diagnosis for this admission?: Yes (9) Deep vein thrombosis (DVT) Qualifiers: DVT location: lower extremity Affected thrombotic vein of extremity: unspecified vein of extremity Chronicity: acute Laterality: bilateral Qualified Code(s): I82.403 - Acute embolism and thrombosis of unspecified deep veins of lower extremity, bilateral Is this a current diagnosis for this admission?: Yes (10) Pulmonary embolism Qualifiers: Pulmonary embolism type: multiple subsegmental (without acute cor pulmonale) Qualified Code(s): I26.94 - Multiple subsegmental pulmonary emboli without acute cor pulmonale Is this a current diagnosis for this admission?: Yes Plan: continue Eliquis 5 mg p.o. twice daily (11) Conjunctival hemorrhage of left eye Is this a current diagnosis for this admission?: Yes (12) E. coli UTI Is this a current diagnosis for this admission?: Yes - Time Time Spent with patient: 25-34 minutes Level of Care: IMCU - Plan Summary Plan Summary: I also explained to the patient spouse regarding plan of care
[2020-01-16] MEDS: LOSARTAN POTASSIUM 50 MG TABLET PO SCH (21:19)
[2020-01-16] MEDS: HYDROCHLOROTHIAZIDE 25 MG TABLET PO SCH (21:19)
[2020-01-17] MEDS: ATORVASTATIN CALCIUM 20 MG TABLET PO SCH (09:35)
[2020-01-17] MEDS: SITAGLIPTIN PHOSPHATE 50 MG TABLET PO SCH (09:36)
[2020-01-17] MEDS: DULOXETINE HCL 30 MG CAPSULE.DR PO SCH (09:36)
[2020-01-17] MEDS: APIXABAN 5 MG TABLET PO SCH ×2 (09:37→17:32)
--- NOTE | 2020-01-17 15:20 | RADIOLOGY REPORT (SQ) ---
EXAM DESCRIPTION: NM PARATHYROID IMAGING IMAGES COMPLETED DATE/TIME: 01/17/2020 2:22 pm REASON FOR STUDY: PRIMARY HYPERPARATHYROIDISM COMPARISON: CTA chest performed 01/08/2020 RADIONUCLIDE AND DOSE: 20.4 millicuries Tc-99m Sestamibi. The route of agent administration: Intravenous ADDITIONAL DRUGS AND DOSES: None. TECHNIQUE: Early and delayed images of the neck acquired following radionuclide administration. LIMITATIONS: None. FINDINGS: Thyroid: Normal size. Homogeneous activity. Normal washout. No focal lesions. Parathyroid: Persistent focal activity is seen within the superior mediastinum to the left of midline . Retrospective evaluation of comparison CT imaging reveals this to be on the basis of a 2.0 x 1.7 x 1.9 cm soft tissue attenuation nodule within the superior, anterior mediastinum, consistent with a p arathyroid adenoma. Other: No other significant findings. IMPRESSION: A focus of persistent radiotracer activity within the superior, anterior mediastinum cor relates to a 2.0 x 1.7 x 1.9 cm soft tissue attenuation nodule on comparison CT imaging, consistent w ith a parathyroid adenoma. TECHNICAL DOCUMENTATION: JOB ID: [id number] 2010 [email or web address]- All Rights Reserved Reading location - IP/workstation name: [email or web address]
--- NOTE | 2020-01-17 19:46 | PDOC DISCHARGE SUMMARY ---
Impression - Admit/DC Date/PCP Admission Date/Primary Care Provider: 01/07/20 17:44 DULCE BAPTISTE MD Discharge Date: 01/18/20 - Discharge Diagnosis (1) Pulmonary embolism Is this a current diagnosis for this admission?: Yes (2) Metabolic encephalopathy Is this a current diagnosis for this admission?: Yes (3) Hypercalcemia Is this a current diagnosis for this admission?: Yes (4) Acute kidney injury Is this a current diagnosis for this admission?: Yes (5) Elevated troponin Is this a current diagnosis for this admission?: Yes (6) T2DM (type 2 diabetes mellitus) Is this a current diagnosis for this admission?: Yes (7) Osteoarthritis of right knee Is this a current diagnosis for this admission?: Yes (8) Urinary tract infection Is this a current diagnosis for this admission?: Yes (9) Primary hyperparathyroidism Is this a current diagnosis for this admission?: Yes (10) Conjunctival hemorrhage of left eye Is this a current diagnosis for this admission?: Yes (11) E. coli UTI Is this a current diagnosis for this admission?: Yes (12) Deep vein thrombosis of bilateral lower extremities Is this a current diagnosis for this admission?: Yes (13) Parathyroid adenoma Is this a current diagnosis for this admission?: Yes - Additional Information Referrals: DULCE BAPTISTE MD [Primary Care Provider] - Follow up as needed Prescriptions: Apixaban [Eliquis 5 mg Tablet] 5 mg PO BID #60 tablet Home Medications: Atorvastatin Calcium [Lipitor 20 mg Tablet] 20 mg PO DAILY 12/08/12 Sitagliptin Phosphate [Januvia] 100 mg PO DAILY 12/08/12 Telmisartan/Hydrochlorothiazid [Micardis HCT 80-25 mg Tablet] 1 each PO QHS 12/08/12 Duloxetine HCl 60 mg PO DAILY 01/07/20 Apixaban [Eliquis 5 mg Tablet] 5 mg PO BID #60 tablet 01/17/20 History of Present Illiness History of Present Illness: SITA ROLLINS is a 79 year old femaleShe has a history of type 2 diabetes mellitus, severe osteoarthritis of the right knee, she was brought to the emergency room by family for evaluation of altered mental status, recurrent falls. Patient stated that the last 30 days she has had increased fall at home but she has refused to come to the hospital she is confused, she continues to fall.Patient is well-known to me she has a history of primary hyperparathyroidism with hypercalcemia, in the emergency room she was found to have grossly abnormal urinalysis that suggest urinary tract infection. Hospital Course Hospital Course: Patient was admitted for the management of severe bilateral pulmonary embolism associated with severe bilateral lower extremity deep vein thrombosis, proximal extensive, unprovoked thromboembolism.She was treated with intravenous heparin for a total of 7 days because of the large blood clot burden.This duration also correlates with the duration For the administration of loading dose of Eliquis. She also have hypercalcemia secondary to primary hyperparathyroidism, a parathyroid nuclear medicine imaging was obtained that confirmed adenoma of the parathyroid gland. She is not particularly a good candidate for surgical treatment she also have disabling osteoarthritis of the knees the right worse than the left she was seen in consultation by orthopedic Dr. Kee, conservative approach was recommended.,There was E. coli UTI treated with intravenous ceftriaxone. It was highly recommended that patient be transferred to facility for rehabilitation and physical therapy but she declined that option. 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 Physical Exam Vital Signs: Temp Pulse Resp BP Pulse Ox 98.4 F 88 18 154/58 H 95 01/17/20 16:29 01/17/20 16:29 01/17/20 16:29 01/17/20 16:29 01/17/20 16:29 Intake & Output 01/16/20 01/17/20 01/18/20 06:59 06:59 06:59 Intake Total 355 1070 795 Output Total 0 Balance 355 1070 795 Weight 90 kg 93.5 kg 93.5 kg General appearance: PRESENT: no acute distress Eye exam: PRESENT: PERRLA Respiratory exam: PRESENT: clear to auscultation jason Cardiovascular exam: PRESENT: +S1, +S2 GI/Abdominal exam: PRESENT: soft Neurological exam: PRESENT: alert, CN II-XII grossly intact Results Laboratory Results: WBC 9.2 10^3/uL (4.0-10.5) 01/13/20 05:22 RBC 3.60 10^6/uL (3.72-5.28) L 01/13/20 05:22 Hgb 10.7 g/dL (12.0-15.5) L 01/13/20 05:22 Hct 30.9 % (36.0-47.0) L 01/13/20 05:22 MCV 86 fl (80-97) 01/13/20 05:22 MCH 29.7 pg (27.0-33.4) 01/13/20 05:22 MCHC 34.5 g/dL (32.0-36.0) 01/13/20 05:22 RDW 14.2 % (11.5-14.0) H 01/13/20 05:22 Plt Count 358 10^3/uL (150-450) 01/13/20 05:22 Lymph % (Auto) 18.9 % (13-45) 01/12/20 05:47 Cassia % (Auto) 8.2 % (3-13) 01/12/20 05:47 Eos % (Auto) 3.1 % (0-6) 01/12/20 05:47 Baso % (Auto) 0.9 % (0-2) 01/12/20 05:47 Absolute Neuts (auto) 6.5 10^3/uL (1.7-8.2) 01/12/20 05:47 Absolute Lymphs (auto) 1.8 10^3/uL (0.5-4.7) 01/12/20 05:47 Absolute Monos (auto) 0.8 10^3/uL (0.1-1.4) 01/12/20 05:47 Absolute Eos (auto) 0.3 10^3/uL (0.0-0.6) 01/12/20 05:47 Absolute Basos (auto) 0.1 10^3/uL (0.0-0.2) 01/12/20 05:47 Seg Neutrophils % 68.9 % (42-78) 01/12/20 05:47 PT 14.0 SEC (11.4-15.4) 01/08/20 20:10 INR 1.07 01/08/20 20:10 APTT 57.7 SEC (23.5-35.8) H 01/15/20 06:11 Sodium 138.9 mmol/L (137-145) 01/13/20 05:22 Potassium 4.0 mmol/L (3.6-5.0) 01/13/20 05:22 Chloride 112 mmol/L (98-107) H 01/13/20 05:22 Carbon Dioxide 22 mmol/L (22-30) 01/13/20 05:22 Anion Gap 5 (5-19) 01/13/20 05:22 BUN 3 mg/dL (7-20) L 01/13/20 05:22 Creatinine 0.61 mg/dL (0.52-1.25) 01/13/20 05:22 Est GFR ( Amer) > 60 (>60) 01/13/20 05:22 Est GFR (Non-Af Amer) Cancelled 01/09/20 15:23 Est GFR (MDRD) Non-Af > 60 (>60) 01/13/20 05:22 Glucose 95 mg/dL (75-110) 01/13/20 05:22 POC Glucose 103 mg/dL (70-110) 01/17/20 16:29 Hemoglobin A1c % 6.5 % (4.7-6.0) H 01/08/20 06:00 Calcium 9.4 mg/dL (8.4-10.2) 01/13/20 05:22 Phosphorus 2.6 mg/dL (2.5-4.5) 01/07/20 23:03 Magnesium 1.7 mg/dL (1.6-2.3) 01/07/20 23:03 Total Bilirubin 0.7 mg/dL (0.2-1.3) 01/12/20 05:47 Direct Bilirubin 0.0 mg/dL (0.0-0.4) 01/12/20 05:47 Neonat Total Bilirubin Not Reportable 01/12/20 05:47 Neonat Direct Bilirubin Not Reportable 01/12/20 05:47 Neonat Indirect Bili Not Reportable 01/12/20 05:47 AST 28 U/L (14-36) 01/12/20 05:47 ALT 16 U/L (<35) 01/12/20 05:47 Alkaline Phosphatase 65 U/L (38-126) 01/12/20 05:47 Ammonia < 8.7 umol/L (9-33) L 01/07/20 23:03 Creatine Kinase 52 U/L (30-135) 01/08/20 10:47 CK-MB (CK-2) 3.02 ng/mL (<4.55) 01/08/20 10:47 Troponin I 0.098 ng/mL 01/08/20 10:47 Total Protein 5.6 g/dL (6.3-8.2) L 01/12/20 05:47 Albumin 2.6 g/dL (3.5-5.0) L 01/12/20 05:47 Triglycerides 107 mg/dL (<150) 01/08/20 06:00 Cholesterol 136.05 mg/dL (0-200) 01/08/20 06:00 LDL Cholesterol Direct 79 mg/dL (<100) 01/08/20 06:00 VLDL Cholesterol 21.0 mg/dL (10-31) 01/08/20 06:00 HDL Cholesterol 36 mg/dL (>40) L 01/08/20 06:00 Amylase 41 U/L (30-110) 01/07/20 23:03 Lipase 56.6 U/L (23-300) 01/07/20 23:03 EGFR Cancelled 01/09/20 15:23 TSH 0.23 uIU/mL (0.47-4.68) L 01/07/20 11:10 Free T4 1.80 ng/dL (0.78-2.19) 01/07/20 11:10 Urine Color YELLOW 01/07/20 13:30 Urine Appearance CLOUDY 01/07/20 13:30 Urine pH 5.0 (5.0-9.0) 01/07/20 13:30 Ur Specific [place] 1.014 01/07/20 13:30 Urine Protein NEGATIVE mg/dL (NEGATIVE) 01/07/20 13:30 Urine Glucose (UA) NEGATIVE mg/dL (NEGATIVE) 01/07/20 13:30 Urine Ketones 20 mg/dL (NEGATIVE) H 01/07/20 13:30 Urine Blood SMALL (NEGATIVE) H 01/07/20 13:30 Urine Nitrite POSITIVE (NEGATIVE) H 01/07/20 13:30 Urine Bilirubin NEGATIVE (NEGATIVE) 01/07/20 13:30 Urine Urobilinogen NEGATIVE mg/dL (<2.0) 01/07/20 13:30 Ur Leukocyte Esterase MODERATE (NEGATIVE) H 01/07/20 13:30 Urine WBC (Auto) 28 /HPF 01/07/20 13:30 Urine RBC (Auto) 1 /HPF 01/07/20 13:30 U Hyaline Cast (Auto) 8 /LPF 01/07/20 13:30 Urine Bacteria (Auto) 3+ /HPF 01/07/20 13:30 Urine WBC Clumps MOD /HPF 01/07/20 13:30 Squamous Epi Cells Auto 1 /HPF 01/07/20 13:30 Urine Mucus (Auto) RARE /LPF 01/07/20 13:30 Urine Ascorbic Acid NEGATIVE (NEGATIVE) 01/07/20 13:30 Urine Opiates Screen NEGATIVE 01/07/20 13:30 Urine Methadone Screen NEGATIVE 01/07/20 13:30 Ur Barbiturates Screen NEGATIVE 01/07/20 13:30 Ur Phencyclidine Scrn NEGATIVE 01/07/20 13:30 Ur Amphetamines Screen NEGATIVE 01/07/20 13:30 U Benzodiazepines Scrn NEGATIVE 01/07/20 13:30 Urine Cocaine Screen NEGATIVE 01/07/20 13:30 U Marijuana (THC) Screen NEGATIVE 01/07/20 13:30 Serum Alcohol < 10 mg/dL (NONE DETECTED) 01/07/20 11:10 01/07/20 01/08/20 01/08/20 23:03 06:00 10:47 CK-MB (CK-2) 4.94 H 3.45 3.02 Troponin I 0.144 0.114 0.098 Impressions: Cervical Spine CT 01/07/20 00:00 IMPRESSION: Degenerative changes. No acute fracture or dislocation. Head CT 01/07/20 00:00 IMPRESSION: MILD CHRONIC CHANGES OF ATROPHY AND MICROVASCULAR ISCHEMIA. NO ACUTE PROCESS. EVIDENCE OF ACUTE STROKE: NO. Chest X-Ray 01/07/20 14:20 IMPRESSION: NO ACUTE RADIOGRAPHIC FINDING IN THE CHEST. Chest/Abdomen CTA 01/08/20 00:00 IMPRESSION: Acute bilateral PE but without evidence of saddle embolus or right heart strain. Knee X-Ray 01/08/20 00:00 IMPRESSION: 1. Tricompartmental osteoarthrosis more pronounced at the medial compartment. 2. No acute osseous findings. Venous Doppler Study 01/08/20 00:00 IMPRESSION: Bilateral DVT, much more extensive on the right side. Greater and short saphenous vein thrombus on the right side. copyright 2011 [employer]- All Rights Reserved Parathyroid Scan Nuclear Medicine 01/17/20 00:00 IMPRESSION: A focus of persistent radiotracer activity within the superior, anterior mediastinum correlates to a 2.0 x 1.7 x 1.9 cm soft tissue attenuation nodule on comparison CT imaging, consistent with a parathyroid adenoma. Stroke Is this a Stroke Patient?: No Acute Heart Failure - Is this a Heart Failure Patient?: No
--- NOTE | 2020-01-17 19:54 | PDOC PROGRESS REPORT ---
Subjective Progress Note for:: 01/17/20 Subjective:: Patient seen by the bedside, she be discharged home tomorrow, she will be discharged home with home PT and physical therapy Reason For Visit: HYPERCALCEMIC ENCEPHALOPATHY Physical Exam Vital Signs: Temp Pulse Resp BP Pulse Ox 98.4 F 88 18 154/58 H 95 01/17/20 16:29 01/17/20 16:29 01/17/20 16:29 01/17/20 16:29 01/17/20 16:29 Intake & Output 01/16/20 01/17/20 01/18/20 06:59 06:59 06:59 Intake Total 355 1070 795 Output Total 0 Balance 355 1070 795 Weight 90 kg 93.5 kg 93.5 kg General appearance: PRESENT: no acute distress Eye exam: PRESENT: PERRLA Respiratory exam: PRESENT: clear to auscultation jason Cardiovascular exam: PRESENT: +S1, +S2 GI/Abdominal exam: PRESENT: soft Neurological exam: PRESENT: alert, CN II-XII grossly intact Results Laboratory Results: 01/13/20 05:22 01/13/20 05:22 01/07/20 01/07/20 01/08/20 23:03 23:03 06:00 Creatine Kinase 84 60 CK-MB (CK-2) 4.94 H Troponin I 0.144 01/08/20 01/08/20 01/08/20 06:00 10:47 10:47 Creatine Kinase 52 CK-MB (CK-2) 3.45 3.02 Troponin I 0.114 0.098 Impressions: Cervical Spine CT 01/07/20 00:00 IMPRESSION: Degenerative changes. No acute fracture or dislocation. Head CT 01/07/20 00:00 IMPRESSION: MILD CHRONIC CHANGES OF ATROPHY AND MICROVASCULAR ISCHEMIA. NO ACUTE PROCESS. EVIDENCE OF ACUTE STROKE: NO. Chest X-Ray 01/07/20 14:20 IMPRESSION: NO ACUTE RADIOGRAPHIC FINDING IN THE CHEST. Chest/Abdomen CTA 01/08/20 00:00 IMPRESSION: Acute bilateral PE but without evidence of saddle embolus or right heart strain. Knee X-Ray 01/08/20 00:00 IMPRESSION: 1. Tricompartmental osteoarthrosis more pronounced at the medial compartment. 2. No acute osseous findings. Venous Doppler Study 01/08/20 00:00 IMPRESSION: Bilateral DVT, much more extensive on the right side. Greater and short saphenous vein thrombus on the right side. copyright 2010 [employer]- All Rights Reserved Parathyroid Scan Nuclear Medicine 01/17/20 00:00 IMPRESSION: A focus of persistent radiotracer activity within the superior, anterior mediastinum correlates to a 2.0 x 1.7 x 1.9 cm soft tissue attenuation nodule on comparison CT imaging, consistent with a parathyroid adenoma. Assessment & Plan - Diagnosis (1) Pulmonary embolism Qualifiers: Pulmonary embolism type: multiple subsegmental (without acute cor pulmonale) Qualified Code(s): I26.94 - Multiple subsegmental pulmonary emboli without acute cor pulmonale Is this a current diagnosis for this admission?: Yes (2) Metabolic encephalopathy Is this a current diagnosis for this admission?: Yes (3) Hypercalcemia Is this a current diagnosis for this admission?: Yes (4) Acute kidney injury Is this a current diagnosis for this admission?: Yes (5) Elevated troponin Is this a current diagnosis for this admission?: Yes (6) T2DM (type 2 diabetes mellitus) Qualifiers: Diabetes mellitus terminal manager insulin use: without mcfp use Diabetes mellitus complication status: with neurologic complications Diabetes mellitus complication detail: with polyneuropathy Qualified Code(s): E11.42 - Type 2 diabetes mellitus with diabetic polyneuropathy Is this a current diagnosis for this admission?: Yes (7) Osteoarthritis of right knee Qualifiers: Osteoarthritis type: primary Qualified Code(s): M17.11 - Unilateral primary osteoarthritis, right knee Is this a current diagnosis for this admission?: Yes (8) Urinary tract infection Qualifiers: Urinary tract infection type: site unspecified Hematuria presence: without hematuria Qualified Code(s): N39.0 - Urinary tract infection, site not specified Is this a current diagnosis for this admission?: Yes (9) Primary hyperparathyroidism Is this a current diagnosis for this admission?: Yes (10) Conjunctival hemorrhage of left eye Is this a current diagnosis for this admission?: Yes (11) E. coli UTI Is this a current diagnosis for this admission?: Yes (12) Deep vein thrombosis of bilateral lower extremities Is this a current diagnosis for this admission?: Yes (13) Parathyroid adenoma Is this a current diagnosis for this admission?: Yes - Time Time Spent with patient: 15-24 minutes Level of Care: [facility]
[2020-01-17] MEDS: LOSARTAN POTASSIUM 50 MG TABLET PO SCH (21:36)
[2020-01-17] MEDS: HYDROCHLOROTHIAZIDE 25 MG TABLET PO SCH (21:36)
[2020-01-18 09:17] VITALS: BP 166/77
[2020-01-18] MEDS: DULOXETINE HCL 30 MG CAPSULE.DR PO SCH (09:28)
[2020-01-18] MEDS: SITAGLIPTIN PHOSPHATE 50 MG TABLET PO SCH (09:28)
[2020-01-18] MEDS: APIXABAN 5 MG TABLET PO SCH (09:28)
[2020-01-18] MEDS: ATORVASTATIN CALCIUM 20 MG TABLET PO SCH (09:28)
== END 2020-01-18 10:50 | disposition home or self-care (01) | DRG 175 ==
LOC: ER 10:50 → EH 17:44 → 5 20:35 → 3W 01-13 15:00
PROVIDERS: ADMIT Internal Medicine; ATTEND Internal Medicine
DX: I26.94 Multiple subsegmental thrombotic pulmonary emboli without acute cor pulmonale (principal); G93.41 Metabolic encephalopathy; N17.9 Acute kidney failure, unspecified; N39.0 Urinary tract infection, site not specified; I82.403 Acute embolism and thrombosis of unspecified deep veins of lower extremity, bilateral; E86.0 Dehydration; E11.42 Type 2 diabetes mellitus with diabetic polyneuropathy; B96.20 Unspecified Escherichia coli [E. coli] as the cause of diseases classified elsewhere; R79.89 Other specified abnormal findings of blood chemistry; M17.11 Unilateral primary osteoarthritis, right knee; E21.0 Primary hyperparathyroidism; H11.32 Conjunctival hemorrhage, left eye; D35.1 Benign neoplasm of parathyroid gland; R29.6 Repeated falls; E78.5 Hyperlipidemia, unspecified; F32.9 Major depressive disorder, single episode, unspecified; F17.200 Nicotine dependence, unspecified, uncomplicated; E66.9 Obesity, unspecified; M21.10 Varus deformity, not elsewhere classified, unspecified site; I10 Essential (primary) hypertension; E87.6 Hypokalemia; R00.1 Bradycardia, unspecified; Z79.01 Long term (current) use of anticoagulants; Z79.84 Long term (current) use of oral hypoglycemic drugs; Z79.899 Other long term (current) drug therapy; Z68.35 Body mass index [BMI] 35.0-35.9, adult; Z86.718 Personal history of other venous thrombosis and embolism; Z91.19 Patient's noncompliance with other medical treatment and regimen
CPT/HCPCS: 36415; 51701; 70450; 71045; 71275; 72125; 78070; 80048; 80053; 80061; 80307; 81001; 82140; 82150; 82550; 82553; 82962; 83036; 83690; 83735; 84100; 84439; 84443; 84484; 85025; 85027; 85610; 85730; 87040; 87086; 87088; 87186; 93005; 93010; 93970; 96365; 96366; 96367; 96368; 99285; A9500; J0456; J0696; J1644; J3480; J7030; Q9969

== ENCOUNTER 2020-02-04 20:31 | Inpatient (IN) | payer MEDICARE ==
--- NOTE | 2020-02-04 21:24 | ER Document Report ---
ED General - General Stated Complaint: ALTERED MENTAL STATUS Time Seen by Provider: 02/04/20 21:11 Notes: Patient is a 79-year-old female that comes emergency department for chief complaint of altered mental status. Daughter states that patient was last conversational and at baseline this morning, she essentially slept all day, she woke this evening agitated and incoherent. Patient does have dementia at baseline but this is not her baseline. Patient has not had fever, vomiting, injuries, or any other symptoms reportedly. Patient did not take her daily medications today. Past medical history does include pulmonary emboli, DVT, and she is on Eliquis. Remaining medical history includes type 2 diabetes, primary hyperparathyroidism, hyperlipidemia, hypothyroidism, hysterectomy. She lives at home with her daughter. TRAVEL OUTSIDE OF THE [place] IN LAST 30 DAYS: No - Related Data Allergies/Adverse Reactions: No Known Allergies Allergy (Verified 01/07/20 12:13) Past Medical History - General Information source: Relative - Daughter - Social History Smoking Status: Never Smoker Frequency of alcohol use: None Drug Abuse: None Lives with: Family Family History: Reviewed & Not Pertinent, Other - Unable to obtain, unaware of patient's family medical history - Past Medical History Cardiac Medical History: Reports: Hx Hypercholesterolemia Denies: Hx Atrial Fibrillation, Hx Congestive Heart Failure, Hx Coronary Artery Disease, Hx Heart Attack, Hx Hypertension, Hx Peripheral Vascular Disease, Hx Pulmonary Embolism, Hx Heart Murmur Pulmonary Medical History: Denies: Hx Asthma, Hx Bronchitis, Hx COPD, Hx Pneumonia, Hx Respiratory Failure, Hx Sleep Apnea, Hx Tuberculosis Neurological Medical History: Denies: Hx Cerebrovascular Accident, Hx Seizures, Hx Parkinson's Disease Endocrine Medical History: Reports: Hx Diabetes Mellitus Type 2. Denies: Hx Graves' Disease, Hx Hyperthyroidism, Hx Hypothyroidism Renal/ Medical History: Denies: Hx End Stage Renal Disease, Hx Kidney Stones, Hx Peritoneal Dialysis Malignancy Medical History: Denies: Hx Breast Cancer, Hx Cervical Cancer, Hx Leukemia, Hx Lung Cancer, Hx Ovarian Cancer GI Medical History: Denies: Hx Crohn's Disease, Hx Gastroesophageal Reflux Disease, Hx Hiatal Hernia, Hx Irritable Bowel, Hx Liver Failure, Hx Pancrea titis, Hx Ulcer Musculoskeletal Medical History: Reports Hx Arthritis - KNEE, Denies Hx Fibromyalgia, Denies Hx Multiple Sclerosis, Denies Hx Muscular Dystrophy, Denies Hx Systemic Lupus Erythematosus Psychiatric Medical History: Reports: Hx Depression Denies: Hx Bipolar Disorder, Hx Dementia, Hx Post Traumatic Stress Disorder, Hx Schizophrenia Traumatic Medical History: Denies: Hx Fractures Infectious Medical History: Denies: Hx HIV Past Surgical History: Reports: Hx Hysterectomy. Denies: Hx Appendectomy, Hx Bowel Surgery, Hx Section, Hx Cholecystectomy, Hx Colostomy, Hx Coronary Artery Bypass Graft, Hx Gastric Bypass Surgery, Hx Herniorrhaphy, Hx Mastectomy, Hx Pacemaker, Hx Tonsillectomy, Hx Tubal Ligation Review of Systems - Review of Systems Constitutional: See HPI EENT: No symptoms reported Cardiovascular: No symptoms reported Respiratory: No symptoms reported Gastrointestinal: No symptoms reported Genitourinary: No symptoms reported Female Genitourinary: No symptoms reported Musculoskeletal: No symptoms reported Skin: No symptoms reported Hematologic/Lymphatic: No symptoms reported Neurological/Psychological: See HPI Physical Exam - Vital signs Vitals: Resp Pulse Ox 17 94 02/04/20 20:40 02/04/20 20:40 - Notes Notes: GENERAL: Sleeping but easily aroused, does not appear to be in pain HEAD: Normocephalic, atraumatic. EYES: Pupils equal, round, and reactive to light. Extraocular movements intact. ENT: Oral mucosa dry, tongue midline. Oropharynx unremarkable. Airway patent. Nares patent, sinuses non-tender NECK: Full range of motion. Supple. Trachea midline. No lymphadenopathy. LUNGS: Clear to auscultation bilaterally, no wheezes, rales, or rhonchi. No respiratory distress. Non-tender chest wall. HEART: Regular rate, extrasystoles noted, no murmur ABDOMEN: Soft, non-tender. Non-distended. EXTREMITIES: Moves all 4 extremities spontaneously. No edema, normal radial and dorsalis pedis pulses bilaterally. No cyanosis. BACK: no cervical, thoracic, lumbar midline tenderness. No saddle anesthesia, normal distal neurovascular exam. Moves all extremities in full range of motion. NEUROLOGICAL: Easily arouses and even arouses spontaneously but is not oriented to person, place, or events. Will not follow directions. GCS of 12. Strength 5/5 in all extremities. PSYCH: Normal affect, normal mood. SKIN: Some skin breakdown in the folds of the pannus and groin Course - Re-evaluation Re-evalutation: Patient is arousable and will interact slightly but will not follow specific direction. She is completely disoriented. She is hypertensive although she has not taken her blood pressure medication today per her daughter. She is on Eliquis, CAT scan of the head will be performed now. Remaining work-up pending. She is not febrile, not tachycardic, not hypotensive. CT of the head with no acute findings. Chest x-ray with no new findings compared to prior but patient does have pulmonary embolisms. CBC unremarkable, chemistry shows hypokalemia at 2.4, magnesium checked and is also low, she is receiving both. QTC is not significantly prolonged although patient does have intermittently irregular heart rates and missed beats or PACs. Urinalysis noted to be infected. Started on antibiotics. Discussed with daughter all the details, patient will require admission for altered mental status, urinary tract infection, hypokalemia, hypomagnesemia. She states appreciation and agreement. Discussed with Dr. Madera, patient's provider and the hospitalist, he accepts patient to telemetry full admission. - Vital Signs Vital signs: Temp Pulse Resp BP Pulse Ox 98.1 F 14 180/90 H 94 02/04/20 21:39 02/04/20 22:05 02/04/20 22:24 02/04/20 22:25 - Laboratory Result Diagrams: 02/04/20 20:45 02/05/20 00:51 Laboratory results interpreted by me: 02/04/20 02/04/20 02/04/20 20:45 20:45 20:45 RDW 16.2 H Lymph % (Auto) 11.8 L Seg Neutrophils % 81.4 H PT 17.8 H Potassium 2.4 L* Chloride 93 L BUN 3 L Glucose 144 H Magnesium Albumin 3.4 L TSH Urine Protein Urine Ketones Urine Blood Urine Nitrite Ur Leukocyte Esterase 02/04/20 02/04/20 02/04/20 20:45 20:45 22:05 RDW Lymph % (Auto) Seg Neutrophils % PT Potassium Chloride BUN Glucose Magnesium 1.5 L Albumin TSH 0.31 L Urine Protein 30 H Urine Ketones 80 H Urine Blood SMALL H Urine Nitrite POSITIVE H Ur Leukocyte Esterase TRACE H - EKG Interpretation by Me Additional EKG results interpreted by me: EKG shows sinus rhythm with PACs and occasional dropped beat. QTc 458. No T wave inversions or ST segment changes in consecutive leads. Discharge - Discharge Clinical Impression: Hypokalemia, Hypomagnesemia Altered mental status Qualifiers: Altered mental status type: delirium Qualified Code(s): R41.0 - Disorientation, unspecified Urinary tract infection Qualifiers: Urinary tract infection type: site unspecified Hematuria presence: without hematuria Qualified Code(s): N39.0 - Urinary tract infection, site not specified Condition: Stable Disposition: ADMITTED INPATIENT Admitting Provider: [facility] Unit Admitted: Telemetry
[2020-02-04 21:51] LABS: INTERNATIONAL RATION (INR) 1.45; PARTIAL THROMBOPLASTIN TIME 32.4 SEC (23.5-35.8); PROTHROMBIN TIME 17.8 SEC (11.4-15.4)
--- NOTE | 2020-02-04 21:52 | RADIOLOGY REPORT (SQ) ---
EXAM DESCRIPTION: XR CHEST 1 VIEW CLINICAL HISTORY: 79 years, Female, altered mental status COMPARISON: Chest x-ray 01/07/2020. CT chest 01/08/2020. TECHNIQUE: Upright portable chest x-ray FINDINGS: Mild cardiomegaly. Subtle groundglass opacities in the left lower lobe or lingula. No significant change. No new findings. IMPRESSION: Nonspecific unchanged groundglass opacities in the left lower lung. No new findings. CT from 01/08/2020 demonstrated significant bilateral PE.
[2020-02-04 22:02] LABS: ABSOLUTE BASOPHILS # (AUTO) 0.1 10^3/uL (0.0-0.2); ABSOLUTE MONOCYTES (AUTO) 0.5 10^3/uL (0.1-1.4); ABSOLUTE NEUT (AUTO) 6.6 10^3/uL (1.7-8.2); BASOPHILS % (AUTO) 0.6 % (0-2); EOSINOPHILS % (AUTO) 0.3 % (0-6); HEMATOCRIT 36.6 % (36.0-47.0); HEMOGLOBIN 12.1 g/dL (12.0-15.5); LYMPHOCYTES % (AUTO) 11.8 % (13-45); MEAN CORPUSCULAR HEMOGLOBIN 29.3 pg (27.0-33.4); MEAN CORPUSCULAR HGB CONC 33.1 g/dL (32.0-36.0); MEAN CORPUSCULAR VOLUME 88 fl (80-97); MONOCYTES % (AUTO) 5.9 % (3-13); PLATELET COUNT 433 10^3/uL (150-450); RED BLOOD COUNT 4.15 10^6/uL (3.72-5.28); RED CELL DISTRIBUTION WIDTH 16.2 % (11.5-14.0); SEGMENTED NEUTROPHILS % (AUTO) 81.4 % (42-78); TOTAL CELLS COUNTED % (AUTO) 100 %; WHITE BLOOD COUNT 8.1 10^3/uL (4.0-10.5)
[2020-02-04 22:26] LABS: ALBUMIN 3.4 g/dL (3.5-5.0); ALKALINE PHOSPHATASE 93 U/L (38-126); ANION GAP 18 (5-19); ASPARTATE AMINO TRANSFERASE 29 U/L (14-36); BILIRUBIN,DIRECT 0.2 mg/dL (0.0-0.4); BILIRUBIN,TOTAL 1.3 mg/dL (0.2-1.3); BLOOD UREA NITROGEN 3 mg/dL (7-20); CALCIUM 9.7 mg/dL (8.4-10.2); CARBON DIOXIDE 26 mmol/L (22-30); CHLORIDE 93 mmol/L (98-107); CREATINE KINASE 45 U/L (30-135); GLUCOSE 144 mg/dL (75-110)
--- NOTE | 2020-02-04 22:28 | RADIOLOGY REPORT (SQ) ---
INDICATION: altered mental status, hypertensive, on Eliquis. COMPARISON: January 07, 2020 CORRELATION: None TECHNIQUE: Noncontrast spiral axial CT images were obtained from the skull base to vertex. This exam was performed according to our departmental dose-optimization program, which includes automated exposure control, adjustment of the mA and/or kV according to patient size and/or use of iterative reconstruction techniques. FINDINGS: There is no evidence of acute intracranial hemorrhage, midline shift, mass effect or mass lesion. Perla-white differentiation is normal. There is no evidence of acute large territory infarct. Ventricles and extracerebral spaces are within normal limits, for age. The visualized paranasal sinuses are grossly clear. The orbits and eyeballs are unremarkable. The mastoid air cells are clear. Skull base and calvarium appear intact. IMPRESSION: Imaging is degraded by patient motion, with resultant artifact. The best possible images were obtained. No acute intracranial process is identified.
[2020-02-04 22:29] LABS: POTASSIUM 2.4 mmol/L (3.6-5.0)
[2020-02-04 22:34] LABS: APPEARANCE,URINE SLIGHTLY-CLOUDY; BILIRUBIN,URINE NEGATIVE (NEGATIVE); COLOR,URINE YELLOW; GLUCOSE, URINE NEGATIVE (NEGATIVE); KETONES,URINE 80 mg/dL (NEGATIVE); LEUKOCYTE ESTERASE,URINE TRACE (NEGATIVE); NITRITE,URINE POSITIVE (NEGATIVE); PROTEIN,URINE 30 mg/dL (NEGATIVE); URINE SPECIFIC GRAVITY 1.011; UROBILINOGEN,URINE NEGATIVE mg/dL (<2.0)
[2020-02-04] MEDS ORDERED: CEFTRIAXONE 1 GM/D5W RTU 1 GM/50 ML RTUPB IV ONE (22:52)
[2020-02-04] MEDS ORDERED: RINGERS SOLUTION,LACTATED 1,000 ML IV PRN (23:41)
[2020-02-05] MEDS: MAGNESIUM SULFATE/D5W 1 GM/100 ML RTUPB IV SCH ×2 (00:09→02:07)
[2020-02-05] MEDS: POTASSI CL 20 MEQ/50 ML RIDER 20 MEQ/50 ML RTUPB IV SCH ×6 (00:09→18:14)
[2020-02-05 00:18] LABS: FREE T4 (FREE THYROXINE) 2.06 ng/dL (0.78-2.19)
[2020-02-05] MEDS ORDERED: LORAZEPAM INJ 2 MG/1 ML VIAL IV ONE (00:18)
[2020-02-05 00:32] LABS: THYROID STIMULATING HORMONE 0.31 uIU/mL (0.47-4.68)
[2020-02-05 01:28] LABS: ANION GAP 16 (5-19); BLOOD UREA NITROGEN 4 mg/dL (7-20); CALCIUM 9.5 mg/dL (8.4-10.2); CARBON DIOXIDE 26 mmol/L (22-30); CHLORIDE 96 mmol/L (98-107); GLUCOSE 152 mg/dL (75-110); PHOSPHORUS 2.5 mg/dL (2.5-4.5)
[2020-02-05 01:37] LABS: POTASSIUM 2.2 mmol/L (3.6-5.0)
[2020-02-05 01:47] LABS: CREATINE KINASE MB 0.76 ng/mL (<4.55)
[2020-02-05 01:54] LABS: TROPONIN I 0.057 ng/mL
[2020-02-05] MEDS ORDERED: GLUCAGON,HUMAN RECOMB 1 MG INJ IM PRN (05:33)
[2020-02-05] MEDS ORDERED: DEXTROSE 40% GEL 15 GM TUBE PO PRN ×2 (05:33)
[2020-02-05] MEDS ORDERED: DEXTROSE 50%-WATER 25 GM/50 ML DISP.SYRIN IV PRN ×2 (05:33)
[2020-02-05] MEDS ORDERED: APIXABAN 5 MG TABLET PO SCH ×2 (06:00→19:45)
[2020-02-05 07:58] LABS: ABSOLUTE BASOPHILS # (AUTO) 0.1 10^3/uL (0.0-0.2); ABSOLUTE MONOCYTES (AUTO) 0.7 10^3/uL (0.1-1.4); ABSOLUTE NEUT (AUTO) 7.7 10^3/uL (1.7-8.2); BASOPHILS % (AUTO) 0.9 % (0-2); EOSINOPHILS % (AUTO) 0.1 % (0-6); HEMATOCRIT 37.2 % (36.0-47.0); LYMPHOCYTES % (AUTO) 10.1 % (13-45); MEAN CORPUSCULAR HEMOGLOBIN 28.2 pg (27.0-33.4); MEAN CORPUSCULAR HGB CONC 32.4 g/dL (32.0-36.0); MEAN CORPUSCULAR VOLUME 87 fl (80-97); MONOCYTES % (AUTO) 7.5 % (3-13); PLATELET COUNT 391 10^3/uL (150-450); RED BLOOD COUNT 4.26 10^6/uL (3.72-5.28); RED CELL DISTRIBUTION WIDTH 15.9 % (11.5-14.0); SEGMENTED NEUTROPHILS % (AUTO) 81.4 % (42-78); TOTAL CELLS COUNTED % (AUTO) 100 %; WHITE BLOOD COUNT 9.5 10^3/uL (4.0-10.5)
[2020-02-05 08:25] LABS: CREATINE KINASE MB 1.26 ng/mL (<4.55)
[2020-02-05 08:33] LABS: ALBUMIN 3.4 g/dL (3.5-5.0); ALKALINE PHOSPHATASE 90 U/L (38-126); ANION GAP 15 (5-19); ASPARTATE AMINO TRANSFERASE 27 U/L (14-36); BILIRUBIN,DIRECT 0.1 mg/dL (0.0-0.4); BILIRUBIN,TOTAL 1.1 mg/dL (0.2-1.3); BLOOD UREA NITROGEN 3 mg/dL (7-20); CALCIUM 9.6 mg/dL (8.4-10.2); CARBON DIOXIDE 27 mmol/L (22-30); CHLORIDE 95 mmol/L (98-107); GLUCOSE 126 mg/dL (75-110)
[2020-02-05 08:38] LABS: POTASSIUM 2.3 mmol/L (3.6-5.0); TROPONIN I 0.167 ng/mL
[2020-02-05] MEDS: INSULIN LISPRO 100 UNIT/ML 3 ML VIAL SUBCUT SCH ×4 (09:59→22:44)
[2020-02-05] MEDS ORDERED: VALSARTAN 160 MG TABLET PO SCH (10:00)
--- NOTE | 2020-02-05 10:13 | EKG REPORT ---
SEVERITY:- ABNORMAL ECG - SINUS RHYTHM SINUS PAUSE/ARREST WITH ATRIAL ESCAPE : Confirmed by: Stefania Mitchell MD 05-Feb-2020 10:12:57
[2020-02-05 13:56] LABS: ALBUMIN 3.2 g/dL (3.5-5.0); ALKALINE PHOSPHATASE 81 U/L (38-126); ANION GAP 10 (5-19); ASPARTATE AMINO TRANSFERASE 26 U/L (14-36); BILIRUBIN,DIRECT 0.1 mg/dL (0.0-0.4); BLOOD UREA NITROGEN 2 mg/dL (7-20); CALCIUM 9.3 mg/dL (8.4-10.2); CARBON DIOXIDE 29 mmol/L (22-30); CHLORIDE 98 mmol/L (98-107); GLUCOSE 133 mg/dL (75-110); TOTAL PROTEIN 6.6 g/dL (6.3-8.2)
[2020-02-05 14:07] LABS: CREATINE KINASE MB 1.6 ng/mL (<4.55)
[2020-02-05 14:10] LABS: POTASSIUM 2.6 mmol/L (3.6-5.0)
[2020-02-05 14:18] LABS: TROPONIN I 0.301 ng/mL
[2020-02-05] MEDS ORDERED: ACETAMINOPHEN 650 MG SUPP.RECT PR PRN (15:49)
[2020-02-05] MEDS ORDERED: DEXTROSE 5%-WATER 1000 ML 1,000 ML with POTASSIUM CHLORIDE 20 MEQ IV PRN ×2 (17:21)
--- NOTE | 2020-02-05 18:21 | RADIOLOGY REPORT (SQ) ---
EXAM DESCRIPTION: MRI HEAD WITHOUT IMAGES COMPLETED DATE/TIME: 02/05/2020 5:07 pm REASON FOR STUDY: unresponsive ? CVA COMPARISON: CT head without IV contrast. TECHNIQUE: Multiplanar imaging includes non-contrasted T1, T2, FLAIR, and diffusion with ADC map seq uences. Images stored on PACS. LIMITATIONS: The examination is very limited due to motion artifact. FINDINGS: ANATOMY: No anomalies. Normal vascular flow voids. Pituitary fossa normal. CSF SPACES: Normal in size and contour. No hemorrhage. CEREBRUM: There are multiple T2 FLAIR foci of increased signal intensity in the bilateral periventri cular white matter and subcortical white matter in the bilateral high convex to the regions, frontal and parietal lobes occipital lobes, temporal lobe on the right. These findings do not demonstrate ev idence of restricted diffusion. Considerations for these findings include possible white matter dise ase, metastatic disease, metabolic disorders, viral etiologies, toxic processes, as well as other agustin ologies. Sulci and gyri normal in size and contour. No evidence of hemorrhage, mass, or extraaxial fluid perry ection. POSTERIOR FOSSA: Several foci of increased signal intensity in the bilateral cerebellar hemispheres. These findings appear to demonstrate increased signal intensity on both diffusion-weighted imaging and ADC mapping images. Considerations for these findings include prior remote infarcts. No surroun ding edema or mass effect. No hemorrhage. Internal auditory canals, cerebello-pontine angles, masto ids normal. DIFFUSION IMAGING: See above discussion. ORBITS: No masses. Globes normal. PARANASAL SINUSES: No fluid levels. Mucosa normal. OTHER: No other significant finding. IMPRESSION: 1. Motion artifact markedly limits the examination. There are multiple various size fo ci of increased T2 FLAIR signal intensity within the cerebrum bilaterally. No evidence of mass effec t, midline shift or surrounding edema. Differential includes possible white matter disease, metastat ic disease, metabolic disorders, viral etiologies, toxic etiologies, as well as other etiologies. A follow-up examination with an with out IV contrast is suggested. 2. Several foci of increased signal intensity in the bilateral cerebellar hemispheres maybe on the b asis of prior old remote infarcts. EVIDENCE OF ACUTE STROKE: NO. TECHNICAL DOCUMENTATION: JOB ID: [id number] 2010 [employer]- All Rights Reserved Reading location - IP/workstation name: [facility]
[2020-02-05] MEDS: NYSTATIN TOPICAL POWDER 15 GM TP SCH (18:41)
[2020-02-05] MEDS: APIXABAN 5 MG TABLET NG SCH (19:00)
--- NOTE | 2020-02-05 19:33 | PDOC H&P ---
History of Present Illness Admission Date/PCP: 02/05/20 00:13 DULCE BAPTISTE MD History of Present Illness: SITA ROLLINS is a 79 year old female, She was brought to the emergency room by the daughter for evaluation of altered mental status. She was recently discharged from this hospital on January 18, 2020, at the time she was diagnosed with severe bilateral pulmonary embolism, bilateral deep vein thrombosis of the lower extremities, primary hyperparathyroidism with parathyroid adenoma, disabling right knee arthropathy.. In the emergency room she was evaluated, a CAT scan of the head was done which was negative, she also was found to have abnormal urinalysis. When I saw patient on the floor she does not communicate verbally, she have eyes closed,, she has impaired language skills, there was loss of nasolabial fold more so on the right side,. The daughter was in the r oom, I asked her about CODE STATUS, she wants her to be a full code, she is only child. MRI of the brain was done without contrast, it demonstrated in the cerebrum multiple T2 flair foci of increased signal intensity in the bilateral periventricular white matter and subcortical white matter in the bilateral and converse today regions, frontal, parietal lobes, occipital lobes temporal lobe on the right differently did not demonstrate any restricted diffusion in the posterior fossa, there was several foci of increased signal intensity in the bilateral cerebellar hemisphere these findings appear to demonstrate increased signal intensity on both diffusion-weighted imaging and ADC mapping images suggesting old cerebellar infarcts clearly the MRI is abnormal IV contrast was suggested this to be obtained tomorrow. Patient is not able to eat by mouth because of depressed sensorium, NG tube inserted for the purpose of nutrition and also administration of medication, prognosis is guarded Past Medical History Cardiac Medical History: Reports: Hyperlipidema Endocrine Medical History: Reports: Diabetes Mellitus Type 2 Musculoskeltal Medical History: 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 Denies: Fibromyalgia Psychiatric Medical History: Reports: Depression Past Surgical History Past Surgical History: Reports: Hysterectomy Social History Lives with: Family Smoking Status: Current Every Day Smoker Cigarettes Packs Per Day: 1 Electronic Cigarette use?: No Cigars Per Day: 8 Number of Years Smokin Last Time Smoked: 02/04/2020 Frequency of Alcohol Use: None Hx Recreational Drug Use: No Hx Prescription Drug Abuse: No Family History Family History: Reviewed & Not Pertinent, Other - Unable to obtain, unaware of patient's family medical history Parental Family History Reviewed: Yes Children Family History Reviewed: Yes Sibling(s) Family History Reviewed.: Yes Medication/Allergy Home Medications: Atorvastatin Calcium [Lipitor 20 mg Tablet] 20 mg PO DAILY 12/08/12 Sitagliptin Phosphate [Januvia] 100 mg PO DAILY 12/08/12 Telmisartan/Hydrochlorothiazid [Micardis HCT 80-25 mg Tablet] 1 each PO DAILY 12/08/12 Duloxetine HCl 60 mg PO DAILY 01/07/20 Apixaban [Eliquis 5 mg Tablet] 5 mg PO Q12 02/05/20 Aspirin [Ecotrin 81 mg EC Tablet] 81 mg PO DAILY 02/05/20 Diltiazem HCl [Diltiazem 24Hr ER] 240 mg PO DAILY 02/05/20 Donepezil HCl [Aricept 5 mg Tablet] 5 mg PO QHS 02/05/20 Oxycodone HCl/Acetaminophen [Percocet 10-325 mg Tablet] 1 tab PO Q8HP PRN 02/05/20 Allergies/Adverse Reactions: No Known Allergies Allergy (Verified 01/07/20 12:13) Review of Systems ROS unobtainable: Due to mental status Physical Exam Vital Signs: Temp Pulse Resp BP Pulse Ox 98.0 F 110 H 16 140/99 H 93 02/05/20 16:21 02/05/20 16:21 02/05/20 16:21 02/05/20 16:21 02/05/20 16:21 Intake & Output 02/04/20 02/05/20 02/06/20 06:59 06:59 06:59 Intake Total 249 1241 Balance 249 1241 Weight 93.4 kg General appearance: PRESENT: other - Patient with depressed sensorium, respond to noxious stimulus, Eye exam: PRESENT: PERRLA Respiratory exam: PRESENT: clear to auscultation jason Cardiovascular exam: PRESENT: +S1, +S2 GI/Abdominal exam: PRESENT: soft Neurological exam: PRESENT: altered, motor sensory deficit Results Laboratory Results: 02/05/20 07:36 02/05/20 13:26 02/04/20 02/04/20 02/04/20 20:45 20:45 20:45 WBC 8.1 RBC 4.15 Hgb 12.1 Hct 36.6 MCV 88 MCH 29.3 MCHC 33.1 RDW 16.2 H Plt Count 433 Seg Neutrophils % 81.4 H Sodium 137.1 Potassium 2.4 L* Chloride 93 L Carbon Dioxide 26 Anion Gap 18 BUN 3 L Creatinine 0.53 Est GFR ( Amer) > 60 Glucose 144 H Calcium 9.7 Phosphorus Magnesium 1.5 L Total Bilirubin 1.3 AST 29 Alkaline Phosphatase 93 Total Protein 7.0 Albumin 3.4 L TSH Free T4 Urine Color Urine Appearance Urine pH Ur Specific Blain Urine Protein Urine Glucose (UA) Urine Ketones Urine Blood Urine Nitrite Ur Leukocyte Esterase Urine WBC (Auto) Urine RBC (Auto) 02/04/20 02/04/20 02/05/20 20:45 22:05 00:51 WBC RBC Hgb Hct MCV MCH MCHC RDW Plt Count Seg Neutrophils % Sodium 137.5 Potassium 2.2 L* Chloride 96 L Carbon Dioxide 26 Anion Gap 16 BUN 4 L Creatinine 0.48 L Est GFR ( Amer) > 60 Glucose 152 H Calcium 9.5 Phosphorus 2.5 Magnesium 1.6 Total Bilirubin AST Alkaline Phosphatase Total Protein Albumin TSH 0.31 L Free T4 2.06 Urine Color YELLOW Urine Appearance SLIGHTLY-CLOUDY Urine pH 6.0 Ur Specific Blain 1.011 Urine Protein 30 H Urine Glucose (UA) NEGATIVE Urine Ketones 80 H Urine Blood SMALL H Urine Nitrite POSITIVE H Ur Leukocyte Esterase TRACE H Urine WBC (Auto) 38 Urine RBC (Auto) 3 02/05/20 02/05/20 02/05/20 07:36 07:36 13:26 WBC 9.5 RBC 4.26 Hgb 12.0 Hct 37.2 MCV 87 MCH 28.2 MCHC 32.4 RDW 15.9 H Plt Count 391 Seg Neutrophils % 81.4 H Sodium 137.1 137.2 Potassium 2.3 L* 2.6 L* Chloride 95 L 98 Carbon Dioxide 27 29 Anion Gap 15 10 BUN 3 L 2 L Creatinine 0.49 L 0.47 L Est GFR ( Amer) > 60 > 60 Glucose 126 H 133 H Calcium 9.6 9.3 Phosphorus Magnesium Total Bilirubin 1.1 1.0 AST 27 26 Alkaline Phosphatase 90 81 Total Protein 7.0 6.6 Albumin 3.4 L 3.2 L TSH Free T4 Urine Color Urine Appearance Urine pH Ur Specific Blain Urine Protein Urine Glucose (UA) Urine Ketones Urine Blood Urine Nitrite Ur Leukocyte Esterase Urine WBC (Auto) Urine RBC (Auto) 02/04/20 02/04/20 02/05/20 20:45 20:45 00:51 Creatine Kinase 45 41 CK-MB (CK-2) Troponin I 0.027 02/05/20 02/05/20 02/05/20 00:51 07:36 07:36 Creatine Kinase 43 CK-MB (CK-2) 0.76 1.26 Troponin I 0.057 0.167 02/05/20 02/05/20 13:26 13:26 Creatine Kinase 44 CK-MB (CK-2) 1.60 Troponin I 0.301 Impressions: Chest X-Ray 02/04/20 21:20 IMPRESSION: Nonspecific unchanged groundglass opacities in the left lower lung. No new findings. CT from 01/08/2020 demonstrated significant bilateral PE. Head CT 02/04/20 21:20 IMPRESSION: Imaging is degraded by patient motion, with resultant artifact. The best possible images were obtained. No acute intracranial process is identified. Head MRI 02/05/20 00:00 IMPRESSION: 1. Motion artifact markedly limits the examination. There are multiple various size foci of increased T2 FLAIR signal intensity within the cerebrum bilaterally. No evidence of mass effect, midline shift or surrounding edema. Differential includes possible white matter disease, metastatic disease, metabolic disorders, viral etiologies, toxic etiologies, as well as other etiologies. A follow-up examination with an with out IV contrast is suggested. 2. Several foci of increased signal intensity in the bilateral cerebellar hemispheres maybe on the basis of prior old remote infarcts. EVIDENCE OF ACUTE STROKE: NO. Assessment & Plan - Diagnosis (1) Metabolic encephalopathy Is this a current diagnosis for this admission?: Yes Plan: Patient presenting with altered mental status, the MRI of the brain did not demonstrate acute CVA but it was abnormal MRI there was increase T2 flair signal intensity within the cerebrum bilaterally, no evidence of mass-effect, no midline shift or surrounding edema but the potential etiology was long IV contrast recommended, this will be obtained in the morning also EEG be obtained as well. 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 Is this a current diagnosis for this admission?: Yes Plan: The MRI of the brain demonstrated old bilateral cerebellar infarcts (3) History of pulmonary embolism Is this a current diagnosis for this admission?: Yes (4) Urinary tract infection Qualifiers: Urinary tract infection type: site unspecified Hematuria presence: without hematuria Qualified Code(s): N39.0 - Urinary tract infection, site not specified Is this a current diagnosis for this admission?: Yes Plan: Start Rocephin IV (5) T2DM (type 2 diabetes mellitus) Qualifiers: Diabetes mellitus mcc insulin use: without director of sustainability programs use Diabetes mellitus complication status: with neurologic complications Diabetes mellitus complication detail: with polyneuropathy Qualified Code(s): E11.42 - Type 2 diabetes mellitus with diabetic polyneuropathy Is this a current diagnosis for this admission?: Yes - Time Time Spent: Greater than 70 Minutes Medications reviewed and adjusted accordingly: Yes Anticipated Discharge Disposition: [facility] Facility Anticipated Discharge: Other - Inpatient Certification Based on my medical assessment, after consideration of the patient's comorbidities, presenting symptoms, or acuity I expect that the services needed warrant INPATIENT care.: Yes I certify that my determination is in accordance with my understanding of Medicare's requirements for reasonable and necessary INPATIENT services [42 CFR 412.3e].: Yes
[2020-02-05] MEDS ORDERED: (PENDING PHARMACY ID) (Oxycodone Hcl/Acetaminophen [Percocet 10-325 Mg Tablet] 1 TAB) PO PRN (19:38)
[2020-02-05] MEDS ORDERED: (PENDING PHARMACY ID) (Duloxetine Hcl [Duloxetine Hcl] 60 MG) PO SCH (19:45)
[2020-02-05] MEDS ORDERED: (PENDING PHARMACY ID) (Diltiazem Hcl [Diltiazem 24hr Er] 240 MG) PO SCH (19:45)
[2020-02-05] MEDS ORDERED: LORAZEPAM INJ 2 MG/1 ML VIAL IV PRN (20:12)
--- NOTE | 2020-02-05 20:19 | RADIOLOGY REPORT (SQ) ---
EXAM DESCRIPTION: XR ABDOMEN 1 VIEW (KUB) COMPLETED DATE/TME: 02/05/2020 00:00 CLINICAL HISTORY: 79 years, Female, NG tube placement COMPARISON: None. NUMBER OF VIEWS: One TECHNIQUE: Single frontal view of the chest was obtained LIMITATIONS: None. FINDINGS: Enteric drainage tube tip projects over the gastric body. The bowel gas pattern is indeterminate. Mild colonic stool load. Multilevel thoracolumbar spondylosis is evident. Assessment for subdiaphragmatic free air is limited by supine technique. IMPRESSION: Enteric drainage tube tip projects over the gastric body. Otherwise, indeterminate bowel gas pattern. copyright 2010 [employer]- All Rights Reserved
[2020-02-05] MEDS ORDERED: CEFTRIAXONE 1 GM/D5W RTU 1 GM/50 ML RTUPB IV SCH (22:00)
[2020-02-05] MEDS: ATORVASTATIN CALCIUM 20 MG TABLET PO SCH (22:44)
[2020-02-05] MEDS: VALSARTAN 160 MG TABLET NG SCH (22:44)
--- NOTE | 2020-02-05 23:10 | RADIOLOGY REPORT (SQ) ---
EXAM DESCRIPTION: MR BRAIN WITHOUT THEN WITH IV CONTRAST COMPLETED DATE/TME: 02/05/2020 00:00 CLINICAL HISTORY: 79 years, Female, abnormal uncontrasted MRI brain COMPARISON: Prior CT head from 02/04/2020 TECHNIQUE: Multiplanar, multisequence MR images of the brain were obtained both prior to and after the administration of 15 mL of ProHance intravenous contrast. Images stored on PACS. LIMITATIONS: Substantially limited examination secondary to excessive motion artifact. FINDINGS: Midline structures show no suspicious abnormality. Diffusion weighted images reveal no foci of diffusion restriction. Susceptibility weighted images reveal no foci of susceptibility artifact. Evaluation of the brain parenchyma reveals mild periventricular and patchy subcortical white matter signal alteration. However, more focal areas of hyperintense T2/FLAIR signal are noted about the bilateral cerebellar hemispheres, bilateral occipital lobes, and throughout the stanley. This appears unchanged in configuration from the previous MR performed earlier the same day. The ventricles and sulcal spaces are mildly enlarged. No extra-axial fluid collections are identified. Globes and orbits show no suspicious abnormality. Paranasal sinuses and mastoid air cells are clear. Postcontrast images are severely limited secondary to excessive motion artifact. Specifically, the sagittal and coronal postcontrast T1 weighted sequences are essentially nondiagnostic. There is questionable nodular enhancement located about the left cerebellar hemisphere on image 20 of series 11. This measures up to 0.7 x 0.4 cm in size. A few additional suspected tiny nodular foci of enhancement are noted about the right cerebellar hemisphere on image 18 of series 11. IMPRESSION: Significantly limited study secondary to excessive motion artifact. The coronal and sagittal T1-weighted postcontrast sequences are essentially nondiagnostic as a result. Persistent confluent areas of hyperintense T2/FLAIR signal located about the bilateral cerebellar hemispheres, stanley, and bilateral occipital lobes. In addition, there are likely a few foci of nodular enhancement about the cerebellar hemispheres, especially on the left. Again, these findings are entirely nonspecific, with considerations including inflammatory process such as posterior reversible encephalopathy syndrome (PRES), malignancy/metastatic disease, or potentially infection. Late subacute infarcts are considered less likely given the absence of significant volume loss. Continued close interval follow-up is recommended. Superimposed mild chronic microvascular ischemic change with generalized atrophy. copyright 2010 [employer]- All Rights Reserved
[2020-02-06] MEDS: NORMAL SALINE 1000 ML 1,000 ML IV PRN (05:14)
[2020-02-06 07:21] LABS: ABSOLUTE BASOPHILS # (AUTO) 0.1 10^3/uL (0.0-0.2); ABSOLUTE LYMPHOCYTES (AUTO) 1.3 10^3/uL (0.5-4.7); ABSOLUTE MONOCYTES (AUTO) 1.1 10^3/uL (0.1-1.4); ABSOLUTE NEUT (AUTO) 7.9 10^3/uL (1.7-8.2); BASOPHILS % (AUTO) 0.5 % (0-2); EOSINOPHILS % (AUTO) 0.2 % (0-6); HEMATOCRIT 36.3 % (36.0-47.0); HEMOGLOBIN 11.9 g/dL (12.0-15.5); LYMPHOCYTES % (AUTO) 12.3 % (13-45); MEAN CORPUSCULAR HEMOGLOBIN 28.6 pg (27.0-33.4); MEAN CORPUSCULAR HGB CONC 32.8 g/dL (32.0-36.0); MEAN CORPUSCULAR VOLUME 87 fl (80-97); MONOCYTES % (AUTO) 10.3 % (3-13); PLATELET COUNT 387 10^3/uL (150-450); RED BLOOD COUNT 4.15 10^6/uL (3.72-5.28); RED CELL DISTRIBUTION WIDTH 16.2 % (11.5-14.0); SEGMENTED NEUTROPHILS % (AUTO) 76.7 % (42-78); TOTAL CELLS COUNTED % (AUTO) 100 %; WHITE BLOOD COUNT 10.3 10^3/uL (4.0-10.5)
[2020-02-06 09:00] LABS: ALBUMIN 3.4 g/dL (3.5-5.0); ALKALINE PHOSPHATASE 76 U/L (38-126); ANION GAP 6 (5-19); ASPARTATE AMINO TRANSFERASE 30 U/L (14-36); BILIRUBIN,DIRECT 0.2 mg/dL (0.0-0.4); BILIRUBIN,TOTAL 0.9 mg/dL (0.2-1.3); CALCIUM 9.3 mg/dL (8.4-10.2); CARBON DIOXIDE 31 mmol/L (22-30); CHLORIDE 98 mmol/L (98-107); GLUCOSE 128 mg/dL (75-110); TOTAL PROTEIN 7.2 g/dL (6.3-8.2)
[2020-02-06] MEDS ORDERED: AMPICILLIN SODIUM 750 GM in NORMAL SALINE 50 ML IV SCH (09:00)
[2020-02-06 09:08] LABS: BLOOD UREA NITROGEN < 2 mg/dL (7-20)
[2020-02-06 09:09] LABS: POTASSIUM 2.7 mmol/L (3.6-5.0)
[2020-02-06] MEDS: DULOXETINE HCL 30 MG CAPSULE.DR PO SCH (10:00)
[2020-02-06] MEDS: SITAGLIPTIN PHOSPHATE 50 MG TABLET PO SCH (10:50)
[2020-02-06] MEDS: AMPICILLIN SODIUM 500 MG in NORMAL SALINE 25 ML IV SCH ×3 (10:50→20:18)
[2020-02-06] MEDS: ATORVASTATIN CALCIUM 20 MG TABLET PO SCH (10:51)
[2020-02-06] MEDS: APIXABAN 5 MG TABLET NG SCH ×2 (10:51→17:51)
[2020-02-06] MEDS: VALSARTAN 160 MG TABLET NG SCH ×2 (10:51→21:07)
[2020-02-06] MEDS: DILTIAZEM HCL 240 MG CAPSULE.CR PO SCH (10:52)
[2020-02-06] MEDS: INSULIN LISPRO 100 UNIT/ML 3 ML VIAL SUBCUT SCH ×4 (10:53→23:52)
--- NOTE | 2020-02-06 12:02 | NEURO WORKBENCH EEG REPORT ---
EEG Report Patient: Tyson Milliganead ID: [id number] Referring Doctor: Cassy Zamorano MD DOS: 02/06/2020 Medications: Eliquis, Lipitor, Rocephin, Cardizem, Cymbalta, Insulin, Nystatin, Januvia, Diovan History This is a 79 year old female with a history of hypercholesterolemia, breast biopsy, hysterectomy, type 2 diabetes, depression, former alcohol use, cigarette smoker, arthritis in knee. She came to the ER on 02/04/2020 not acting appropriates, admitted with metabolic encephalopathy and UT. This EEG was requested for encephalopathy. EEG Interpretation This EEG was recorded in the unresponsive state. The EEG is characterized by a disorganized background without a posterior dominant rhythm noted with passive eye opening/closing. The remainder of the background was characterized by a combination of primarily theta with some alpha and radha frequencies. There was a slight asymmetry with attenuation of the background frequencies over the right hemisphere. There were generalized periodic discharges with a triphasic appearance throughout the recording. Photic stimulation resulted in no significant changes. There were no epileptiform abnormalities. The EKG showed an irregularly irregular rhythm with heart rate over 100 BPM. There was artifact that impaired interpretation. EEG Classification * Generalized periodic discharges * Triphasic waves * Asymmetry, right attenuation * Generalized background slowing * Disorganization * Poorly reactive * EKG irregular rhythm and tachycardia EEG Impression This EEG is severely abnormal. It is consistent with nonspecific but severe diffuse cerebral dysfunction (e.g. etiologies include but not limited to metabolic, infections, toxic, epileptic, etc.). There were no noted epileptiform abnormalities. There was an asymmetry noted that may be further investigated with neuroimaging. The EKG showed an irregular pattern that may require further investigation. INTERPRETING NEUROLOGIST: Stefanie Casas MD, [facility] Board Certified in Neurology, with special qualification in Child Neurology, and in Clinical Neurophysiology [facility]
[2020-02-06] MEDS: POTASSI CL 20 MEQ/50 ML RIDER 20 MEQ/50 ML RTUPB IV SCH ×5 (14:28→22:23)
[2020-02-06] MEDS: NYSTATIN TOPICAL POWDER 15 GM TP SCH ×2 (15:36→17:52)
--- NOTE | 2020-02-06 16:11 | RADIOLOGY REPORT (SQ) ---
EXAM DESCRIPTION: CT ABD/PELVIS WITH IV ONLY IMAGES COMPLETED DATE/TIME: 02/06/2020 3:49 pm REASON FOR STUDY: suspect metastatic disease COMPARISON: None. TECHNIQUE: CT scan of the abdomen and pelvis performed using helical scanning technique with dynamic intravenous contrast injection. No oral contrast. Images reviewed with lung, soft tissue, and bone windows. Reconstructed coronal and sagittal MPR images reviewed. Delayed images for evaluation of the urinary system also acquired. All images stored on PACS. All CT scanners at this facility use dose modulation, iterative reconstruction, and/or weight based d osing when appropriate to reduce radiation dose to as low as reasonably achievable (ALARA). [facility]: Dose Right [facility]: CareDose [facility]: Dose Right [facility]: Teradose 4D [facility]: Pionetics CONTRAST TYPE AND DOSE: contrast/concentration: Isovue 350.00 mmol/ml; Total Contrast Delivered: 94. 0 ml; Total Saline Delivered: 71.0 ml RENAL FUNCTION: GFR > 60. RADIATION DOSE: CT Rad equipment meets quality standard of care and radiation dose reduction techniq ues were employed. CTDIvol: 23.5 - 23.6 mGy. DLP: 2478 mGy-cm.. LIMITATIONS: None. FINDINGS: LOWER CHEST: Trace left pleural effusion. LIVER: Normal size. No masses. No dilated ducts. SPLEEN: Normal size. No focal lesions. PANCREAS: No masses. No significant calcifications. No adjacent inflammation or peripancreatic fluid collections. Pancreatic duct not dilated. GALLBLADDER: Distended with numerous dependent tiny stones or milk of calcium. No CT evidence of act nahid inflammation. ADRENAL GLANDS: No significant masses or asymmetry. RIGHT KIDNEY AND URETER: No solid masses. No significant calcification. No hydronephrosis or hydroure ter. LEFT KIDNEY AND URETER: No solid masses. No significant calcification. No hydronephrosis or hydrouret er. AORTA AND VESSELS: Atherosclerotic without aneurysm or dissection or arterial occlusion. Persistent low density in the vena cava and in the right common femoral vein. Suspicious for thrombus. RETROPERITONEUM: No retroperitoneal adenopathy, hemorrhage or masses. BOWEL AND PERITONEAL CAVITY: No mass or inflammatory process. Mild ileus. No evidence of mechanical bowel obstruction, however. No ascites or abnormal gas. APPENDIX: Surgically absent. PELVIS: No mass. No free fluid. Normal bladder. ABDOMINAL WALL: No masses. No hernias. BONES: No significant or acute findings. OTHER: Nasogastric tube down. IMPRESSION: 1. Suspicious for thrombus in the lower IVC and right common iliac vein. Recommend further evaluatio n with IVC and lower extremity venous Doppler studies. 2. Cholelithiasis. 3. Other findings as above. Call report tasked to the [facility] team at the time of interpretation. TECHNICAL DOCUMENTATION: JOB ID: [id number] Quality ID # [id number]: Final reports with documentation of one or more dose reduction techniques (e.g., Au tomated exposure control, adjustment of the mA and/or kV according to patient size, use of iterative reconstruction technique) 2010 [employer]- All Rights Reserved Reading location - IP/workstation name: [email or web address]
--- NOTE | 2020-02-06 17:26 | PDOC PROGRESS REPORT ---
Subjective Progress Note for:: 02/06/20 Subjective:: Patient seen by the bedside, sensorium still diminished/depressed. She had MRI with IV contrast last night, it revealed diffusion weighted images revealed no foci of diffusion restriction. Evaluation of the brain parenchyma revealed mild periventricular and patchy subcortical white matter signal alteration. However more focal areas of hyperintense T2/flair signal are noted about the bilateral cerebellar hemispheres, bilateral occipital lobes and throughout the stanley this appears unchanged in configuration from the previous MRI performed without contrast also found was few foci of nodular enhancement about the cerebellar hemispheres especially on the left defined these are nonspecific possible diagnoses include inflammatory process such as posterior reversible encephalopathy syndrome, malignancy, metastatic disease potentially infection because of this finding CT scan of the abdomen and pelvis with contrast was obtained, it was negative for any mass lesion 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 EEG was also done today severely abnormal, it consists of nonspecific but severe diffuse cerebral dysfunction there was no noted epileptiform normalities. Patient may need lumbar puncture, I have to discuss this with family, she is presently on Eliquis through NG tube we have to stop this for 3 to 5 days. It is probably reasonable to treat empirically with acyclovir. Reason For Visit: METABOLIC ENCEPHALOPATHY,UTI,ADULT FAILURE TO Physical Exam Vital Signs: Temp Pulse Resp BP Pulse Ox 98.3 F 107 H 17 127/78 H 97 02/06/20 11:54 02/06/20 14:00 02/06/20 11:54 02/06/20 11:54 02/06/20 11:54 Intake & Output 02/05/20 02/06/20 02/07/20 06:59 06:59 06:59 Intake Total 249 1241 25 Balance 249 1241 25 Weight 81.9 kg General appearance: PRESENT: other - Patient with diminished sensorium, respond to noxious stimulus and then returns back to unconsciousness Head exam: PRESENT: atraumatic, normocephalic Eye exam: PRESENT: PERRLA Ear exam: PRESENT: normal external ear exam Mouth exam: PRESENT: moist, tongue midline Neck exam: PRESENT: full ROM Respiratory exam: PRESENT: clear to auscultation jason Cardiovascular exam: PRESENT: RRR, +S1, +S2 Pulses: PRESENT: normal dorsalis pedis pul, +2 pedal pulses bilateral Vascular exam: PRESENT: normal capillary refill GI/Abdominal exam: PRESENT: normal bowel sounds, soft Rectal exam: PRESENT: deferred Neurological exam: PRESENT: altered Psychiatric exam: PRESENT: appropriate affect, normal mood Skin exam: PRESENT: dry, intact, warm Results Laboratory Results: 02/06/20 06:11 02/06/20 06:11 02/06/20 02/06/20 06:11 06:11 WBC 10.3 RBC 4.15 Hgb 11.9 L Hct 36.3 MCV 87 MCH 28.6 MCHC 32.8 RDW 16.2 H Plt Count 387 Seg Neutrophils % 76.7 Sodium 134.6 L Potassium 2.7 L* Chloride 98 Carbon Dioxide 31 H Anion Gap 6 BUN < 2 L Creatinine 0.43 L Est GFR ( Amer) > 60 Glucose 128 H Calcium 9.3 Total Bilirubin 0.9 AST 30 Alkaline Phosphatase 76 Total Protein 7.2 Albumin 3.4 L 02/04/20 22:05 Clean Catch Midstream Urine Culture - Final Enterococcus Faecalis(Group D) 02/04/20 02/04/20 02/05/20 20:45 20:45 00:51 Creatine Kinase 45 41 CK-MB (CK-2) Troponin I 0.027 02/05/20 02/05/20 02/05/20 00:51 07:36 07:36 Creatine Kinase 43 CK-MB (CK-2) 0.76 1.26 Troponin I 0.057 0.167 02/05/20 02/05/20 13:26 13:26 Creatine Kinase 44 CK-MB (CK-2) 1.60 Troponin I 0.301 Impressions: Chest X-Ray 02/04/20 21:20 IMPRESSION: Nonspecific unchanged groundglass opacities in the left lower lung. No new findings. CT from 01/08/2020 demonstrated significant bilateral PE. Head CT 02/04/20 21:20 IMPRESSION: Imaging is degraded by patient motion, with resultant artifact. The best possible images were obtained. No acute intracranial process is identified. Head MRI 02/05/20 00:00 IMPRESSION: Significantly limited study secondary to excessive motion artifact. The coronal and sagittal T1-weighted postcontrast sequences are essentially nondiagnostic as a result. Persistent confluent areas of hyperintense T2/FLAIR signal located about the bilateral cerebellar hemispheres, stanley, and bilateral occipital lobes. In addition, there are likely a few foci of nodular enhancement about the cerebellar hemispheres, especially on the left. Again, these findings are entirely nonspecific, with considerations including inflammatory process such as posterior reversible encephalopathy syndrome (PRES), malignancy/metastatic disease, or potentially infection. Late subacute infarcts are considered less likely given the absence of significant volume loss. Continued close interval follow-up is recommended. Superimposed mild chronic microvascular ischemic change with generalized atrophy. copyright 2010 [employer]- All Rights Reserved KUB X-Ray 02/05/20 00:00 IMPRESSION: Enteric drainage tube tip projects over the gastric body. Otherwise, indeterminate bowel gas pattern. copyright 2011 [employer]- All Rights Reserved Abdomen/Pelvis CT 02/06/20 00:00 IMPRESSION: 1. Suspicious for thrombus in the lower IVC and right common iliac vein. Recommend further evaluation with IVC and lower extremity venous Doppler studies. 2. Cholelithiasis. 3. Other findings as above. Call report tasked to the [facility] team at the time of interpretation. Assessment & Plan - Diagnosis (1) Metabolic encephalopathy Is this a current diagnosis for this admission?: Yes Plan: She has severe encephalopathy on the basis of clinical grounds, diffusion imaging, EEG, patient needs to have lumbar puncture but she has severe thrombosis, very extensive, involving the inferior vena cava, lower extremities, pulmonary embolism presently on Eliquis to NG tube. 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 Is this a current diagnosis for this admission?: Yes (3) History of pulmonary embolism Is this a current diagnosis for this admission?: Yes (4) Urinary tract infection Qualifiers: Urinary tract infection type: site unspecified Hematuria presence: without hematuria Qualified Code(s): N39.0 - Urinary tract infection, site not specified Is this a current diagnosis for this admission?: Yes (5) T2DM (type 2 diabetes mellitus) Qualifiers: Diabetes mellitus ferry terminal supervisor insulin use: without ferry terminal supervisor use Diabetes mellitus complication status: with neurologic complications Diabetes mellitus complication detail: with polyneuropathy Qualified Code(s): E11.42 - Type 2 diabetes mellitus with diabetic polyneuropathy Is this a current diagnosis for this admission?: Yes (6) UTI (urinary tract infection) due to Enterococcus Is this a current diagnosis for this admission?: Yes Plan: Start patient on ampicillin, the urine culture grew Enterococcus faecalis presently on Rocephin, DC Rocephin (7) IVC thrombosis Is this a current diagnosis for this admission?: Yes - Time Time Spent with patient: 35 or more minutes Level of Care: IMCU Medications reviewed and adjusted accordingly: Yes Anticipated discharge: Home Anticipated DC Timeframe: Other - Inpatient Certification Based on my medical assessment, after consideration of the patient's comorbidities, presenting symptoms, or acuity I expect that the services needed warrant INPATIENT care.: Yes I certify that my determination is in accordance with my understanding of Medicare's requirements for reasonable and necessary INPATIENT services [42 CFR 412.3e].: Yes
[2020-02-06] MEDS: METOPROLOL TARTRATE PF/INJ 5 MG/5 ML SDV IV SCH ×2 (20:19→23:52)
[2020-02-06] MEDS: ACYCLOVIR SODIUM 750 MG in NORMAL SALINE 250 ML IV SCH (21:06)
[2020-02-07] MEDS: AMPICILLIN SODIUM 500 MG in NORMAL SALINE 25 ML IV SCH ×4 (02:28→21:49)
[2020-02-07] MEDS: NORMAL SALINE 1000 ML 1,000 ML IV PRN (03:25)
[2020-02-07 04:50] LABS: ABSOLUTE BASOPHILS # (AUTO) 0.1 10^3/uL (0.0-0.2); ABSOLUTE EOSINOPHILS # (AUTO) 0.1 10^3/uL (0.0-0.6); ABSOLUTE LYMPHOCYTES (AUTO) 1.5 10^3/uL (0.5-4.7); ABSOLUTE MONOCYTES (AUTO) 0.8 10^3/uL (0.1-1.4); ABSOLUTE NEUT (AUTO) 5.7 10^3/uL (1.7-8.2); BASOPHILS % (AUTO) 0.7 % (0-2); EOSINOPHILS % (AUTO) 0.9 % (0-6); LYMPHOCYTES % (AUTO) 18.3 % (13-45); MEAN CORPUSCULAR HEMOGLOBIN 29.2 pg (27.0-33.4); MEAN CORPUSCULAR HGB CONC 33.4 g/dL (32.0-36.0); MEAN CORPUSCULAR VOLUME 88 fl (80-97); MONOCYTES % (AUTO) 10.2 % (3-13); PLATELET COUNT 326 10^3/uL (150-450); RED BLOOD COUNT 3.32 10^6/uL (3.72-5.28); RED CELL DISTRIBUTION WIDTH 16.4 % (11.5-14.0); SEGMENTED NEUTROPHILS % (AUTO) 69.9 % (42-78); TOTAL CELLS COUNTED % (AUTO) 100 %; WHITE BLOOD COUNT 8.1 10^3/uL (4.0-10.5)
[2020-02-07 04:52] LABS: HEMOGLOBIN 9.7 g/dL (12.0-15.5)
[2020-02-07] MEDS: ACYCLOVIR SODIUM 750 MG in NORMAL SALINE 250 ML IV SCH ×3 (05:46→22:44)
[2020-02-07] MEDS: METOPROLOL TARTRATE PF/INJ 5 MG/5 ML SDV IV SCH ×3 (05:46→18:29)
[2020-02-07] MEDS: DULOXETINE HCL 30 MG CAPSULE.DR PO SCH (10:16)
[2020-02-07] MEDS: VALSARTAN 160 MG TABLET NG SCH ×2 (10:16→21:50)
[2020-02-07] MEDS: APIXABAN 5 MG TABLET NG SCH ×2 (10:16→18:29)
[2020-02-07] MEDS: SITAGLIPTIN PHOSPHATE 50 MG TABLET PO SCH (10:16)
[2020-02-07] MEDS: INSULIN LISPRO 100 UNIT/ML 3 ML VIAL SUBCUT SCH ×4 (10:16→22:40)
[2020-02-07] MEDS: ATORVASTATIN CALCIUM 20 MG TABLET PO SCH (10:16)
[2020-02-07] MEDS: POTASSIUM CHLORIDE 20 MEQ PACKET NG SCH ×2 (10:16→18:29)
[2020-02-07] MEDS: POTASSI CL 40 MEQ/NS 1L 1,000 ML IV PRN (10:22)
[2020-02-07] MEDS: NYSTATIN TOPICAL POWDER 15 GM TP SCH ×2 (10:29→18:37)
--- NOTE | 2020-02-07 20:24 | PDOC PROGRESS REPORT ---
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 She has increased residual from tube feed Reason For Visit: METABOLIC ENCEPHALOPATHY,UTI,ADULT FAILURE TO Physical Exam Vital Signs: Temp Pulse Resp BP Pulse Ox 98.4 F 101 H 18 133/69 H 100 02/07/20 16:22 02/07/20 16:22 02/07/20 16:22 02/07/20 16:22 02/07/20 16:22 Intake & Output 02/06/20 02/07/20 02/08/20 06:59 06:59 06:59 Intake Total 1241 2219 336 Output Total 200 Balance 1242019 336 Weight 81.9 kg 84.5 kg 84.5 kg General appearance: PRESENT: no acute distress Eye exam: PRESENT: PERRLA Respiratory exam: PRESENT: clear to auscultation jason Cardiovascular exam: PRESENT: +S1, +S2 GI/Abdominal exam: PRESENT: soft Results Laboratory Results: 02/07/20 03:50 02/07/20 03:50 02/07/20 02/07/20 03:50 03:50 WBC 8.1 RBC 3.32 L Hgb 9.7 L D Hct 29.0 L MCV 88 MCH 29.2 MCHC 33.4 RDW 16.4 H Plt Count 326 Seg Neutrophils % 69.9 Potassium 2.8 L* 02/04/20 02/04/20 02/05/20 20:45 20:45 00:51 Creatine Kinase 45 41 CK-MB (CK-2) Troponin I 0.027 02/05/20 02/05/20 02/05/20 00:51 07:36 07:36 Creatine Kinase 43 CK-MB (CK-2) 0.76 1.26 Troponin I 0.057 0.167 02/05/20 02/05/20 13:26 13:26 Creatine Kinase 44 CK-MB (CK-2) 1.60 Troponin I 0.301 Impressions: Chest X-Ray 02/04/20 21:20 IMPRESSION: Nonspecific unchanged groundglass opacities in the left lower lung. No new findings. CT from 01/08/2020 demonstrated significant bilateral PE. Head CT 02/04/20 21:20 IMPRESSION: Imaging is degraded by patient motion, with resultant artifact. The best possible images were obtained. No acute intracranial process is identified. Head MRI 02/05/20 00:00 IMPRESSION: Significantly limited study secondary to excessive motion artifact. The coronal and sagittal T1-weighted postcontrast sequences are essentially nondiagnostic as a result. Persistent confluent areas of hyperintense T2/FLAIR signal located about the bilateral cerebellar hemispheres, stanley, and bilateral occipital lobes. In addition, there are likely a few foci of nodular enhancement about the cerebellar hemispheres, especially on the left. Again, these findings are entirely nonspecific, with considerations including inflammatory process such as posterior reversible encephalopathy syndrome (PRES), malignancy/metastatic disease, or potentially infection. Late subacute infarcts are considered less likely given the absence of significant volume loss. Continued close interval follow-up is recommended. Superimposed mild chronic microvascular ischemic change with generalized atrophy. copyright 2010 [employer]- All Rights Reserved KUB X-Ray 02/05/20 00:00 IMPRESSION: Enteric drainage tube tip projects over the gastric body. Otherwise, indeterminate bowel gas pattern. copyright 2011 [employer]- All Rights Reserved Abdomen/Pelvis CT 02/06/20 00:00 IMPRESSION: 1. Suspicious for thrombus in the lower IVC and right common iliac vein. Recommend further evaluation with IVC and lower extremity venous Doppler studies. 2. Cholelithiasis. 3. Other findings as above. Call report tasked to the [facility] team at the time of interpretation. 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 Patient needed lumbar puncture but to have lumbar puncture patient have to stop anticoagulation for 5 days which is not a good idea in this patient because she has extensive thrombosis involving the lower extremities, the IVC and also pulmonary embolism. 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 Is this a current diagnosis for this admission?: Yes (3) History of pulmonary embolism Is this a current diagnosis for this admission?: Yes Plan: Continue anticoagulation with Eliquis (4) Urinary tract infection Qualifiers: Urinary tract infection type: site unspecified Hematuria presence: without hematuria Qualified Code(s): N39.0 - Urinary tract infection, site not specified Is this a current diagnosis for this admission?: Yes (5) T2DM (type 2 diabetes mellitus) Qualifiers: Diabetes mellitus intermediate project manager insulin use: without intermediate project manager use Diabetes m ellitus complication status: with neurologic complications Diabetes mellitus complication detail: with polyneuropathy Qualified Code(s): E11.42 - Type 2 diabetes mellitus with diabetic polyneuropathy Is this a current diagnosis for this admission?: Yes (6) UTI (urinary tract infection) due to Enterococcus Is this a current diagnosis for this admission?: Yes Plan: Continue IV ampicillin (7) IVC thrombosis Is this a current diagnosis for this admission?: Yes Plan: Continue anticoagulation (8) Hypokalemia Is this a current diagnosis for this admission?: Yes Plan: Replace potassium, the hypokalemia is most likely from transcellular shift of potassium (9) Gastrointestinal dysmotility Is this a current diagnosis for this admission?: Yes Plan: Patient with increased residual from tube feed, start Reglan a prokinetic drug to improve GI motility for 7 days - Time Time Spent with patient: 35 or more minutes Level of Care: IMCU Medications reviewed and adjusted accordingly: Yes Anticipated discharge: Home Anticipated DC Timeframe: Other
[2020-02-07] MEDS: METOCLOPRAMIDE HCL ORAL SOLN 10 MG/10 ML UDCUP NG SCH (21:50)
[2020-02-08] MEDS: METOPROLOL TARTRATE PF/INJ 5 MG/5 ML SDV IV SCH ×4 (00:11→18:02)
[2020-02-08] MEDS: POTASSIUM CHLORIDE 20 MEQ PACKET NG SCH (02:42)
[2020-02-08] MEDS: METOCLOPRAMIDE HCL ORAL SOLN 10 MG/10 ML UDCUP NG SCH ×4 (02:43→21:56)
[2020-02-08] MEDS: AMPICILLIN SODIUM 500 MG in NORMAL SALINE 25 ML IV SCH ×4 (02:43→21:55)
[2020-02-08] MEDS: ACYCLOVIR SODIUM 750 MG in NORMAL SALINE 250 ML IV SCH ×3 (06:08→22:25)
[2020-02-08] MEDS: INSULIN LISPRO 100 UNIT/ML 3 ML VIAL SUBCUT SCH ×4 (08:51→22:21)
[2020-02-08 09:47] LABS: ABSOLUTE BASOPHILS # (AUTO) 0.1 10^3/uL (0.0-0.2); ABSOLUTE EOSINOPHILS # (AUTO) 0.2 10^3/uL (0.0-0.6); ABSOLUTE LYMPHOCYTES (AUTO) 1.3 10^3/uL (0.5-4.7); ABSOLUTE MONOCYTES (AUTO) 0.7 10^3/uL (0.1-1.4); BASOPHILS % (AUTO) 0.9 % (0-2); EOSINOPHILS % (AUTO) 2.4 % (0-6); HEMOGLOBIN 11.2 g/dL (12.0-15.5); LYMPHOCYTES % (AUTO) 15.6 % (13-45); MEAN CORPUSCULAR HEMOGLOBIN 28.7 pg (27.0-33.4); MEAN CORPUSCULAR HGB CONC 32.8 g/dL (32.0-36.0); MEAN CORPUSCULAR VOLUME 87 fl (80-97); MONOCYTES % (AUTO) 8.8 % (3-13); PLATELET COUNT 386 10^3/uL (150-450); RED BLOOD COUNT 3.89 10^6/uL (3.72-5.28); RED CELL DISTRIBUTION WIDTH 16.7 % (11.5-14.0); SEGMENTED NEUTROPHILS % (AUTO) 72.3 % (42-78); TOTAL CELLS COUNTED % (AUTO) 100 %; WHITE BLOOD COUNT 8.3 10^3/uL (4.0-10.5)
[2020-02-08] MEDS: DULOXETINE HCL 30 MG CAPSULE.DR PO SCH (09:55)
[2020-02-08] MEDS: VALSARTAN 160 MG TABLET NG SCH ×2 (09:55→21:56)
[2020-02-08] MEDS: SITAGLIPTIN PHOSPHATE 50 MG TABLET PO SCH (09:55)
[2020-02-08] MEDS: POTASSI CL 40 MEQ/NS 1L 1,000 ML IV PRN (09:56)
[2020-02-08] MEDS: ATORVASTATIN CALCIUM 20 MG TABLET PO SCH (09:56)
[2020-02-08] MEDS: APIXABAN 5 MG TABLET NG SCH ×2 (09:56→18:00)
[2020-02-08] MEDS: NYSTATIN TOPICAL POWDER 15 GM TP SCH ×2 (09:57→18:17)
[2020-02-08 10:07] LABS: ALBUMIN 2.8 g/dL (3.5-5.0); ALKALINE PHOSPHATASE 80 U/L (38-126); ANION GAP 7 (5-19); ASPARTATE AMINO TRANSFERASE 29 U/L (14-36); BILIRUBIN,TOTAL 0.7 mg/dL (0.2-1.3); BLOOD UREA NITROGEN 6 mg/dL (7-20); CALCIUM 9.7 mg/dL (8.4-10.2); CARBON DIOXIDE 26 mmol/L (22-30); CHLORIDE 111 mmol/L (98-107); GLUCOSE 106 mg/dL (75-110); POTASSIUM 4.9 mmol/L (3.6-5.0); TOTAL PROTEIN 6.4 g/dL (6.3-8.2)
--- NOTE | 2020-02-08 20:47 | PDOC PROGRESS REPORT ---
Subjective Progress Note for:: 02/08/20 Subjective:: Patient seen by the bedside, condition remains guarded monitor response still minimal but encouraging Reason For Visit: METABOLIC ENCEPHALOPATHY,UTI,ADULT FAILURE TO Physical Exam Vital Signs: Temp Pulse Resp BP Pulse Ox 98.1 F 101 H 18 152/85 H 96 02/08/20 19:40 02/08/20 19:40 02/08/20 19:40 02/08/20 19:40 02/08/20 19:40 Intake & Output 02/07/20 02/08/20 02/09/20 06:59 06:59 06:59 Intake Total 2220 2112 905 Output Total 200 Balance 2019 2112 90 Weight 84.5 kg 84.9 kg General appearance: PRESENT: no acute distress Head exam: PRESENT: atraumatic, normocephalic Eye exam: PRESENT: PERRLA Ear exam: PRESENT: normal external ear exam Neck exam: PRESENT: full ROM Respiratory exam: PRESENT: clear to auscultation jason Cardiovascular exam: PRESENT: RRR, +S1, +S2 Pulses: PRESENT: normal dorsalis pedis pul, +2 pedal pulses bilateral Vascular exam: PRESENT: normal capillary refill GI/Abdominal exam: PRESENT: normal bowel sounds, soft Rectal exam: PRESENT: deferred Neurological exam: PRESENT: alert Psychiatric exam: PRESENT: appropriate affect, normal mood Skin exam: PRESENT: dry, intact, warm Results Laboratory Results: 02/08/20 08:52 02/08/20 08:52 02/08/20 02/08/20 08:52 08:52 WBC 8.3 RBC 3.89 Hgb 11.2 L Hct 34.0 L MCV 87 MCH 28.7 MCHC 32.8 RDW 16.7 H Plt Count 386 Seg Neutrophils % 72.3 Sodium 143.7 Potassium 4.9 Chloride 111 H Carbon Dioxide 26 Anion Gap 7 BUN 6 L Creatinine 0.57 Est GFR ( Amer) > 60 Glucose 106 Calcium 9.7 Total Bilirubin 0.7 AST 29 Alkaline Phosphatase 80 Total Protein 6.4 Albumin 2.8 L 02/04/20 02/04/20 02/05/20 20:45 20:45 00:51 Creatine Kinase 45 41 CK-MB (CK-2) Troponin I 0.027 02/05/20 02/05/20 02/05/20 00:51 07:36 07:36 Creatine Kinase 43 CK-MB (CK-2) 0.76 1.26 Troponin I 0.057 0.167 02/05/20 02/05/20 13:26 13:26 Creatine Kinase 44 CK-MB (CK-2) 1.60 Troponin I 0.301 Impressions: Chest X-Ray 02/04/20 21:20 IMPRESSION: Nonspecific unchanged groundglass opacities in the left lower lung. No new findings. CT from 01/08/2020 demonstrated significant bilateral PE. Head CT 02/04/20 21:20 IMPRESSION: Imaging is degraded by patient motion, with resultant artifact. The best possible images were obtained. No acute intracranial process is identified. Head MRI 02/05/20 00:00 IMPRESSION: Significantly limited study secondary to excessive motion artifact. The coronal and sagittal T1-weighted postcontrast sequences are essentially nondiagnostic as a result. Persistent confluent areas of hyperintense T2/FLAIR signal located about the bilateral cerebellar hemispheres, stanley, and bilateral occipital lobes. In addition, there are likely a few foci of nodular enhancement about the cerebellar hemispheres, especially on the left. Again, these findings are entirely nonspecific, with considerations including inflammatory process such as posterior reversible encephalopathy syndrome (PRES), malignancy/metastatic disease, or potentially infection. Late subacute infarcts are considered less likely given the absence of significant volume loss. Continued close interval follow-up is recommended. Superimposed mild chronic microvascular ischemic change with generalized atrophy. copyright 2010 [employer]- All Rights Reserved KUB X-Ray 02/05/20 00:00 IMPRESSION: Enteric drainage tube tip projects over the gastric body. Otherwise, indeterminate bowel gas pattern. copyright 2011 [employer]- All Rights Reserved Abdomen/Pelvis CT 02/06/20 00:00 IMPRESSION: 1. Suspicious for thrombus in the lower IVC and right common iliac vein. Recommend further evaluation with IVC and lower extremity venous Doppler studies. 2. Cholelithiasis. 3. Other findings as above. Call report tasked to the [facility] team at the time of interpretation. 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 Patient needed lumbar puncture but to have lumbar puncture patient have to stop anticoagulation for 5 days which is not a good idea in this patient because she has extensive thrombosis involving the lower extremities, the IVC and also pulmonary embolism. 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 Is this a current diagnosis for this admission?: Yes (3) History of pulmonary embolism Is this a current diagnosis for this admission?: Yes Plan: Continue anticoagulation with Eliquis (4) Urinary tract infection Qualifiers: Urinary tract infection type: site unspecified Hematuria presence: without hematuria Qualified Code(s): N39.0 - Urinary tract infection, site not specified Is this a current diagnosis for this admission?: Yes (5) T2DM (type 2 diabetes mellitus) Qualifiers: Diabetes mellitus fci insulin use: without fci use Diabetes mellitus complication status: with neurologic complications Diabetes mellitus complication detail: with polyneuropathy Qualified Code(s): E11.42 - Type 2 diabetes mellitus with diabetic polyneuropathy Is this a current diagnosis for this admission?: Yes (6) UTI (urinary tract infection) due to Enterococcus Is this a current diagnosis for this admission?: Yes Plan: Continue IV ampicillin (7) IVC thrombosis Is this a current diagnosis for this admission?: Yes Plan: Continue anticoagulation (8) Hypokalemia Is this a current diagnosis for this admission?: Yes Plan: Resolved (9) Gastrointestinal dysmotility Is this a current diagnosis for this admission?: Yes Plan: Patient with increased residual from tube feed, start Reglan a prokinetic drug to improve GI motility for 7 days - Time Time Spent with patient: 25-34 minutes Level of Care: IMCU Medications reviewed and adjusted accordingly: Yes Anticipated discharge: Home Anticipated DC Timeframe: Other
[2020-02-09] MEDS: METOPROLOL TARTRATE PF/INJ 5 MG/5 ML SDV IV SCH ×5 (00:24→23:48)
[2020-02-09] MEDS: AMPICILLIN SODIUM 500 MG in NORMAL SALINE 25 ML IV SCH ×4 (03:25→21:05)
[2020-02-09] MEDS: METOCLOPRAMIDE HCL ORAL SOLN 10 MG/10 ML UDCUP NG SCH ×4 (03:30→21:05)
[2020-02-09] MEDS: ACYCLOVIR SODIUM 750 MG in NORMAL SALINE 250 ML IV SCH ×3 (06:12→22:23)
[2020-02-09] MEDS: INSULIN LISPRO 100 UNIT/ML 3 ML VIAL SUBCUT SCH ×3 (09:25→18:35)
[2020-02-09] MEDS: VALSARTAN 160 MG TABLET NG SCH ×2 (09:57→22:23)
[2020-02-09] MEDS: APIXABAN 5 MG TABLET NG SCH ×2 (09:57→17:29)
[2020-02-09] MEDS: ATORVASTATIN CALCIUM 20 MG TABLET PO SCH (09:57)
[2020-02-09] MEDS: SITAGLIPTIN PHOSPHATE 50 MG TABLET PO SCH (09:57)
[2020-02-09] MEDS: NYSTATIN TOPICAL POWDER 15 GM TP SCH ×2 (09:58→17:30)
[2020-02-09] MEDS: DULOXETINE HCL 30 MG CAPSULE.DR PO SCH (10:04)
--- NOTE | 2020-02-09 13:40 | PDOC PROGRESS REPORT ---
Subjective Progress Note for:: 02/09/20 Subjective:: Patient condition still precarious, diminished sensorium, Fluctuating cognition Reason For Visit: METABOLIC ENCEPHALOPATHY,UTI,ADULT FAILURE TO Physical Exam Vital Signs: Temp Pulse Resp BP Pulse Ox 98.4 F 118 H 20 137/86 H 99 02/09/20 11:52 02/09/20 11:52 02/09/20 11:52 02/09/20 11:52 02/09/20 11:52 Intake & Output 02/08/20 02/09/20 02/10/20 06:59 06:59 06:59 Intake Total 3 2621 290 Balance 3 2621 290 Weight 84.9 kg 85.8 kg General appearance: PRESENT: no acute distress Eye exam: PRESENT: PERRLA Respiratory exam: PRESENT: clear to auscultation jason Cardiovascular exam: PRESENT: +S1, +S2 GI/Abdominal exam: PRESENT: soft Neurological exam: PRESENT: alert Psychiatric exam: PRESENT: flat affect Results Laboratory Results: 02/08/20 08:52 02/08/20 08:52 02/04/20 02/04/20 02/05/20 20:45 20:45 00:51 Creatine Kinase 45 41 CK-MB (CK-2) Troponin I 0.027 02/05/20 02/05/20 02/05/20 00:51 07:36 07:36 Creatine Kinase 43 CK-MB (CK-2) 0.76 1.26 Troponin I 0.057 0.167 02/05/20 02/05/20 13:26 13:26 Creatine Kinase 44 CK-MB (CK-2) 1.60 Troponin I 0.301 Impressions: Chest X-Ray 02/04/20 21:20 IMPRESSION: Nonspecific unchanged groundglass opacities in the left lower lung. No new findings. CT from 01/08/2020 demonstrated significant bilateral PE. Head CT 02/04/20 21:20 IMPRESSION: Imaging is degraded by patient motion, with resultant artifact. The best possible images were obtained. No acute intracranial process is identified. Head MRI 02/05/20 00:00 IMPRESSION: Significantly limited study secondary to excessive motion artifact. The coronal and sagittal T1-weighted postcontrast sequences are essentially nondiagnostic as a result. Persistent confluent areas of hyperintense T2/FLAIR signal located about the bilateral cerebellar hemispheres, stanley, and bilateral occipital lobes. In addition, there are likely a few foci of nodular enhancement about the cerebellar hemispheres, especially on the left. Again, these findings are entirely nonspecific, with considerations including inflammatory process such as posterior reversible encephalopathy syndrome (PRES), malignancy/metastatic disease, or potentially infection. Late subacute infarcts are considered less likely given the absence of significant volume loss. Continued close interval follow-up is recommended. Superimposed mild chronic microvascular ischemic change with generalized atrophy. copyright 2010 [employer]- All Rights Reserved KUB X-Ray 02/05/20 00:00 IMPRESSION: Enteric drainage tube tip projects over the gastric body. Otherwise, indeterminate bowel gas pattern. copyright 2011 [employer]- All Rights Reserved Abdomen/Pelvis CT 02/06/20 00:00 IMPRESSION: 1. Suspicious for thrombus in the lower IVC and right common iliac vein. Recommend further evaluation with IVC and lower extremity venous Doppler studies. 2. Cholelithiasis. 3. Other findings as above. Call report tasked to the [facility] team at the time of interpretation. 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 Patient needed lumbar puncture but to have lumbar puncture patient have to stop anticoagulation for 5 days which is not a good idea in this patient because she has extensive thrombosis involving the lower extremities, the IVC and also pulmonary embolism. 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 Is this a current diagnosis for this admission?: Yes (3) History of pulmonary embolism Is this a current diagnosis for this admission?: Yes Plan: Continue anticoagulation with Eliquis (4) Urinary tract infection Qualifiers: Urinary tract infection type: site unspecified Hematuria presence: without hematuria Qualified Code(s): N39.0 - Urinary tract infection, site not specified Is this a current diagnosis for this admission?: Yes (5) T2DM (type 2 diabetes mellitus) Qualifiers: Diabetes mellitus nursing home insulin use: without nursing home use Diabetes mellitus complication status: with neurologic complications Diabetes mellitus complication detail: with polyneuropathy Qualified Code(s): E11.42 - Type 2 diabetes mellitus with diabetic polyneuropathy Is this a current diagnosis for this admission?: Yes (6) UTI (urinary tract infection) due to Enterococcus Is this a current diagnosis for this admission?: Yes Plan: Continue IV ampicillin (7) IVC thrombosis Is this a current diagnosis for this admission?: Yes Plan: Continue anticoagulation (8) Hypokalemia Is this a current diagnosis for this admission?: Yes Plan: Replenished (9) Gastrointestinal dysmotility Is this a current diagnosis for this admission?: Yes Plan: Patient with increased residual from tube feed, continue Reglan a prokinetic drug to improve GI motility for 7 days (10) Depression Qualifiers: Depression Type: major depressive disorder Major depression recurrence: recurrent Active/Remission status: currently active Major depression episode severity: severe Psychotic features: without psychotic features Qualified Code(s): F33.2 - Major depressive disorder, recurrent severe without psychotic features Is this a current diagnosis for this admission?: Yes Plan: Patient presently on Cymbalta, very flat affect, the medication will be changed to Effexor,Partly because of the NG tubThere is a drug to drug interaction, SSRI with Reglan which is very adverse, will hold off SSRI for now until Reglan is discontinued - Time Time Spent with patient: 35 or more minutes Level of Care: IMCU Medications reviewed and adjusted accordingly: Yes Anticipated discharge: Home Anticipated DC Timeframe: Other
[2020-02-09 14:19] LABS: ABSOLUTE BASOPHILS # (AUTO) 0.1 10^3/uL (0.0-0.2); ABSOLUTE EOSINOPHILS # (AUTO) 0.2 10^3/uL (0.0-0.6); ABSOLUTE LYMPHOCYTES (AUTO) 1.2 10^3/uL (0.5-4.7); ABSOLUTE MONOCYTES (AUTO) 0.7 10^3/uL (0.1-1.4); ABSOLUTE NEUT (AUTO) 6.9 10^3/uL (1.7-8.2); BASOPHILS % (AUTO) 1.1 % (0-2); EOSINOPHILS % (AUTO) 2.1 % (0-6); HEMOGLOBIN 10.7 g/dL (12.0-15.5); LYMPHOCYTES % (AUTO) 13.1 % (13-45); MEAN CORPUSCULAR HEMOGLOBIN 29.3 pg (27.0-33.4); MEAN CORPUSCULAR HGB CONC 33.4 g/dL (32.0-36.0); MEAN CORPUSCULAR VOLUME 88 fl (80-97); MONOCYTES % (AUTO) 8.1 % (3-13); PLATELET COUNT 372 10^3/uL (150-450); RED BLOOD COUNT 3.64 10^6/uL (3.72-5.28); SEGMENTED NEUTROPHILS % (AUTO) 75.6 % (42-78); TOTAL CELLS COUNTED % (AUTO) 100 %; WHITE BLOOD COUNT 9.1 10^3/uL (4.0-10.5)
[2020-02-09 14:38] LABS: ALBUMIN 2.7 g/dL (3.5-5.0); ALKALINE PHOSPHATASE 96 U/L (38-126); ASPARTATE AMINO TRANSFERASE 21 U/L (14-36); BILIRUBIN,TOTAL 0.6 mg/dL (0.2-1.3); BLOOD UREA NITROGEN 9 mg/dL (7-20); CALCIUM 10.2 mg/dL (8.4-10.2); CARBON DIOXIDE 26 mmol/L (22-30); CHLORIDE 117 mmol/L (98-107); GLUCOSE 151 mg/dL (75-110); POTASSIUM 4.7 mmol/L (3.6-5.0)
[2020-02-09 14:44] LABS: ANION GAP 3 (5-19)
[2020-02-09] MEDS ORDERED: ACETAMINOPHEN SOLN 325 MG/10.15 ML UDCUP ONE (23:38)
[2020-02-09] MEDS: ACETAMINOPHEN SOLN 325 MG/10.15 ML UDCUP NG PRN (23:55)
[2020-02-10] MEDS: INSULIN LISPRO 100 UNIT/ML 3 ML VIAL SUBCUT SCH ×4 (00:15→18:41)
[2020-02-10] MEDS: METOCLOPRAMIDE HCL ORAL SOLN 10 MG/10 ML UDCUP NG SCH ×4 (02:08→21:55)
[2020-02-10] MEDS: AMPICILLIN SODIUM 500 MG in NORMAL SALINE 25 ML IV SCH ×4 (02:08→21:55)
[2020-02-10] MEDS: ACYCLOVIR SODIUM 750 MG in NORMAL SALINE 250 ML IV SCH ×3 (06:13→21:56)
[2020-02-10] MEDS: METOPROLOL TARTRATE PF/INJ 5 MG/5 ML SDV IV SCH ×3 (06:13→17:32)
[2020-02-10] MEDS: ATORVASTATIN CALCIUM 20 MG TABLET PO SCH (09:05)
[2020-02-10] MEDS: APIXABAN 5 MG TABLET NG SCH ×2 (09:05→17:33)
[2020-02-10] MEDS: VALSARTAN 160 MG TABLET NG SCH ×2 (09:05→21:55)
[2020-02-10] MEDS: SITAGLIPTIN PHOSPHATE 50 MG TABLET PO SCH (09:05)
[2020-02-10] MEDS: NYSTATIN TOPICAL POWDER 15 GM TP SCH ×2 (09:05→17:33)
[2020-02-10 11:24] LABS: ABSOLUTE BASOPHILS # (AUTO) 0.1 10^3/uL (0.0-0.2); ABSOLUTE EOSINOPHILS # (AUTO) 0.3 10^3/uL (0.0-0.6); ABSOLUTE LYMPHOCYTES (AUTO) 1.4 10^3/uL (0.5-4.7); ABSOLUTE MONOCYTES (AUTO) 0.9 10^3/uL (0.1-1.4); ABSOLUTE NEUT (AUTO) 7.5 10^3/uL (1.7-8.2); EOSINOPHILS % (AUTO) 2.7 % (0-6); HEMATOCRIT 31.4 % (36.0-47.0); HEMOGLOBIN 10.3 g/dL (12.0-15.5); MEAN CORPUSCULAR HEMOGLOBIN 28.8 pg (27.0-33.4); MEAN CORPUSCULAR HGB CONC 32.7 g/dL (32.0-36.0); MEAN CORPUSCULAR VOLUME 88 fl (80-97); PLATELET COUNT 355 10^3/uL (150-450); RED BLOOD COUNT 3.56 10^6/uL (3.72-5.28); RED CELL DISTRIBUTION WIDTH 16.6 % (11.5-14.0); SEGMENTED NEUTROPHILS % (AUTO) 73.3 % (42-78); TOTAL CELLS COUNTED % (AUTO) 100 %; WHITE BLOOD COUNT 10.3 10^3/uL (4.0-10.5)
[2020-02-10 11:31] LABS: ALBUMIN 2.7 g/dL (3.5-5.0); ALKALINE PHOSPHATASE 92 U/L (38-126); ASPARTATE AMINO TRANSFERASE 19 U/L (14-36); BILIRUBIN,TOTAL 0.5 mg/dL (0.2-1.3); BLOOD UREA NITROGEN 9 mg/dL (7-20); CALCIUM 10.5 mg/dL (8.4-10.2); GLUCOSE 142 mg/dL (75-110); POTASSIUM 4.3 mmol/L (3.6-5.0); TOTAL PROTEIN 6.1 g/dL (6.3-8.2)
[2020-02-10 11:36] LABS: CARBON DIOXIDE 26 mmol/L (22-30); CHLORIDE 116 mmol/L (98-107)
[2020-02-10 11:40] LABS: ANION GAP 3 (5-19)
--- NOTE | 2020-02-10 14:01 | PDOC PROGRESS REPORT ---
Subjective Progress Note for:: 02/10/20 Subjective:: She was seen by the bedside, she has severe encephalopathy, she respond to verbal stimulus very sluggishly, presently on IV acyclovir empirically for herpes encephalitis, she will continue treatment for 14 days. Lumbar puncture was not done because patient is also on anticoagulation for thrombo embolic disease she has extensive deep vein thrombosis, IVC with a PE Reason For Visit: METABOLIC ENCEPHALOPATHY,UTI,ADULT FAILURE TO Physical Exam Vital Signs: Temp Pulse Resp BP Pulse Ox 98.4 F 105 H 14 170/89 H 96 02/10/20 11:31 02/10/20 11:31 02/10/20 11:31 02/10/20 11:31 02/10/20 11:31 Intake & Output 02/09/20 02/10/20 02/11/20 06:59 06:59 06:59 Intake Total 2621 1731 265 Balance 2621 1731 265 Weight 85.8 kg 87.6 kg Eye exam: PRESENT: PERRLA Respiratory exam: PRESENT: clear to auscultation jason Cardiovascular exam: PRESENT: +S1, +S2 Neurological exam: PRESENT: altered Results Laboratory Results: 02/10/20 10:59 02/10/20 10:59 02/09/20 02/09/20 02/10/20 14:05 14:05 10:59 WBC 9.1 10.3 RBC 3.64 L 3.56 L Hgb 10.7 L 10.3 L Hct 32.0 L 31.4 L MCV 88 88 MCH 29.3 28.8 MCHC 33.4 32.7 RDW 17.0 H 16.6 H Plt Count 372 355 Seg Neutrophils % 75.6 73.3 Sodium 145.7 H Potassium 4.7 Chloride 117 H Carbon Dioxide 26 Anion Gap 3 L BUN 9 Creatinine 0.61 Est GFR ( Amer) > 60 Glucose 151 H Calcium 10.2 Total Bilirubin 0.6 AST 21 Alkaline Phosphatase 96 Total Protein 6.0 L Albumin 2.7 L 02/10/20 10:59 WBC RBC Hgb Hct MCV MCH MCHC RDW Plt Count Seg Neutrophils % Sodium 144.9 Potassium 4.3 Chloride 116 H Carbon Dioxide 26 Anion Gap 3 L BUN 9 Creatinine 0.64 Est GFR ( Amer) > 60 Glucose 142 H Calcium 10.5 H Total Bilirubin 0.5 AST 19 Alkaline Phosphatase 92 Total Protein 6.1 L Albumin 2.7 L 02/05/20 00:51 Blood Blood Culture - Final NO GROWTH IN 5 DAYS 02/04/20 02/04/20 02/05/20 20:45 20:45 00:51 Creatine Kinase 45 41 CK-MB (CK-2) Troponin I 0.027 02/05/20 02/05/20 02/05/20 00:51 07:36 07:36 Creatine Kinase 43 CK-MB (CK-2) 0.76 1.26 Troponin I 0.057 0.167 02/05/20 02/05/20 13:26 13:26 Creatine Kinase 44 CK-MB (CK-2) 1.60 Troponin I 0.301 Impressions: Chest X-Ray 02/04/20 21:20 IMPRESSION: Nonspecific unchanged groundglass opacities in the left lower lung. No new findings. CT from 01/08/2020 demonstrated significant bilateral PE. Head CT 02/04/20 21:20 IMPRESSION: Imaging is degraded by patient motion, with resultant artifact. The best possible images were obtained. No acute intracranial process is identified. Head MRI 02/05/20 00:00 IMPRESSION: Significantly limited study secondary to excessive motion artifact. The coronal and sagittal T1-weighted postcontrast sequences are essentially nondiagnostic as a result. Persistent confluent areas of hyperintense T2/FLAIR signal located about the bilateral cerebellar hemispheres, stanley, and bilateral occipital lobes. In addition, there are likely a few foci of nodular enhancement about the cerebellar hemispheres, especially on the left. Again, these findings are entirely nonspecific, with considerations including inflammatory process such as posterior reversible encephalopathy syndrome (PRES), malignancy/metastatic disease, or potentially infection. Late subacute infarcts are considered less likely given the absence of significant volume loss. Continued close interval follow-up is recommended. Superimposed mild chronic microvascular ischemic change with generalized atrophy. copyright 2010 [employer]- All Rights Reserved KUB X-Ray 02/05/20 00:00 IMPRESSION: Enteric drainage tube tip projects over the gastric body. Otherwise, indeterminate bowel gas pattern. copyright 2010 [employer]- All Rights Reserved Abdomen/Pelvis CT 02/06/20 00:00 IMPRESSION: 1. Suspicious for thrombus in the lower IVC and right common iliac vein. Recommend further evaluation with IVC and lower extremity venous Doppler studies. 2. Cholelithiasis. 3. Other findings as above. Call report tasked to the [facility] team at the time of interpretation. 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 Patient needed lumbar puncture but to have lumbar puncture patient have to stop anticoagulation for 5 days which is not a good idea in this patient because she has extensive thrombosis involving the lower extremities, the IVC and also pulmonary embolism. 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 Is this a current diagnosis for this admission?: Yes (3) History of pulmonary embolism Is this a current diagnosis for this admission?: Yes Plan: Continue anticoagulation with Eliquis (4) Urinary tract infection Qualifiers: Urinary tract infection type: site unspecified Hematuria presence: without hematuria Qualified Code(s): N39.0 - Urinary tract infection, site not specified Is this a current diagnosis for this admission?: Yes (5) T2DM (type 2 diabetes mellitus) Qualifiers: Diabetes mellitus longterm insulin use: without longterm use Diabetes mellitus complication status: with neurologic complications Diabetes mellitus complication detail: with polyneuropathy Qualified Code(s): E11.42 - Type 2 diabetes mellitus with diabetic polyneuropathy Is this a current diagnosis for this admission?: Yes (6) UTI (urinary tract infection) due to Enterococcus Is this a current diagnosis for this admission?: Yes Plan: Continue IV ampicillin (7) IVC thrombosis Is this a current diagnosis for this admission?: Yes Plan: Continue anticoagulation (8) Hypokalemia Is this a current diagnosis for this admission?: Yes Plan: Replenished (9) Gastrointestinal dysmotility Is this a current diagnosis for this admission?: Yes Plan: The GI motility is improved on Reglan, normal residue, increase tube feed flow rate (10) Depression Qualifiers: Depression Type: major depressive disorder Major depression recurrence: recurrent Active/Remission status: currently active Major depression episode severity: severe Psychotic features: without psychotic features Qualified Code(s): F33.2 - Major depressive disorder, recurrent severe without psychotic features Is this a current diagnosis for this admission?: Yes Plan: There is a drug drug interaction between SSRI and Reglan, she will be started on Cymbalta once she is off Reglan - Time Time Spent with patient: 35 or more minutes Level of Care: [facility] Medications reviewed and adjusted accordingly: Yes Anticipated discharge: Home Anticipated DC Timeframe: Other
[2020-02-11] MEDS: METOPROLOL TARTRATE PF/INJ 5 MG/5 ML SDV IV SCH ×4 (01:00→17:37)
[2020-02-11] MEDS: AMPICILLIN SODIUM 500 MG in NORMAL SALINE 25 ML IV SCH ×4 (02:28→20:50)
[2020-02-11] MEDS: METOCLOPRAMIDE HCL ORAL SOLN 10 MG/10 ML UDCUP NG SCH ×3 (02:28→20:50)
[2020-02-11] MEDS: INSULIN LISPRO 100 UNIT/ML 3 ML VIAL SUBCUT SCH ×4 (02:29→18:37)
[2020-02-11] MEDS: OXYCODONE HCL IR 5 MG TABLET PO PRN ×2 (03:36→20:32)
[2020-02-11] MEDS: OXYCODONE-ACETAMINOPHEN 5-325 MG TABLET PO PRN ×2 (03:37→20:32)
[2020-02-11] MEDS: ACYCLOVIR SODIUM 750 MG in NORMAL SALINE 250 ML IV SCH ×3 (05:07→23:00)
[2020-02-11 07:02] LABS: ABSOLUTE BASOPHILS # (AUTO) 0.1 10^3/uL (0.0-0.2); ABSOLUTE EOSINOPHILS # (AUTO) 0.2 10^3/uL (0.0-0.6); ABSOLUTE LYMPHOCYTES (AUTO) 1.4 10^3/uL (0.5-4.7); ABSOLUTE MONOCYTES (AUTO) 0.9 10^3/uL (0.1-1.4); ABSOLUTE NEUT (AUTO) 6.7 10^3/uL (1.7-8.2); BASOPHILS % (AUTO) 0.8 % (0-2); EOSINOPHILS % (AUTO) 2.7 % (0-6); HEMATOCRIT 31.4 % (36.0-47.0); HEMOGLOBIN 10.3 g/dL (12.0-15.5); LYMPHOCYTES % (AUTO) 15.3 % (13-45); MEAN CORPUSCULAR HGB CONC 32.8 g/dL (32.0-36.0); MEAN CORPUSCULAR VOLUME 88 fl (80-97); MONOCYTES % (AUTO) 9.3 % (3-13); PLATELET COUNT 347 10^3/uL (150-450); RED BLOOD COUNT 3.55 10^6/uL (3.72-5.28); RED CELL DISTRIBUTION WIDTH 16.5 % (11.5-14.0); SEGMENTED NEUTROPHILS % (AUTO) 71.9 % (42-78); TOTAL CELLS COUNTED % (AUTO) 100 %; WHITE BLOOD COUNT 9.3 10^3/uL (4.0-10.5)
[2020-02-11 07:21] LABS: ALBUMIN 2.7 g/dL (3.5-5.0); ALKALINE PHOSPHATASE 94 U/L (38-126); ANION GAP 5 (5-19); ASPARTATE AMINO TRANSFERASE 25 U/L (14-36); BILIRUBIN,TOTAL 0.5 mg/dL (0.2-1.3); BLOOD UREA NITROGEN 10 mg/dL (7-20); CALCIUM 10.4 mg/dL (8.4-10.2); CARBON DIOXIDE 24 mmol/L (22-30); CHLORIDE 114 mmol/L (98-107); GLUCOSE 133 mg/dL (75-110); POTASSIUM 4.3 mmol/L (3.6-5.0); TOTAL PROTEIN 6.1 g/dL (6.3-8.2)
[2020-02-11] MEDS: APIXABAN 5 MG TABLET NG SCH ×2 (09:18→17:38)
[2020-02-11] MEDS: ATORVASTATIN CALCIUM 20 MG TABLET PO SCH (09:18)
[2020-02-11] MEDS: SITAGLIPTIN PHOSPHATE 50 MG TABLET PO SCH (09:18)
[2020-02-11] MEDS: VALSARTAN 160 MG TABLET NG SCH ×2 (09:18→23:00)
[2020-02-11] MEDS: NYSTATIN TOPICAL POWDER 15 GM TP SCH ×2 (11:17→17:41)
--- NOTE | 2020-02-11 19:20 | PDOC PROGRESS REPORT ---
Subjective Progress Note for:: 02/11/20 Subjective:: Patient seen by the bedside, she is more alert and responsive today she is being fed by the daughter, NG tube still in place. Patient on empiric IV acyclovir for presumptive herpes encephalitis. She will receive a total of 14 days of IV acyclovir Reason For Visit: METABOLIC ENCEPHALOPATHY,UTI,ADULT FAILURE TO Physical Exam Vital Signs: Temp Pulse Resp BP Pulse Ox 98.3 F 105 H 17 154/88 H 99 02/11/20 11:29 02/11/20 14:00 02/11/20 11:29 02/11/20 12:37 02/11/20 11:29 Intake & Output 02/10/20 02/11/20 02/12/20 06:59 06:59 06:59 Intake Total 1731 2187 1097 Balance 1731 2187 1097 Weight 87.6 kg 88.4 kg General appearance: PRESENT: no acute distress Eye exam: PRESENT: PERRLA Respiratory exam: PRESENT: clear to auscultation jason Cardiovascular exam: PRESENT: +S1, +S2 GI/Abdominal exam: PRESENT: soft Neurological exam: PRESENT: alert Results Laboratory Results: 02/11/20 06:14 02/11/20 06:14 02/11/20 02/11/20 06:14 06:14 WBC 9.3 RBC 3.55 L Hgb 10.3 L Hct 31.4 L MCV 88 MCH 29.0 MCHC 32.8 RDW 16.5 H Plt Count 347 Seg Neutrophils % 71.9 Sodium 142.6 Potassium 4.3 Chloride 114 H Carbon Dioxide 24 Anion Gap 5 BUN 10 Creatinine 0.59 Est GFR ( Amer) > 60 Glucose 133 H Calcium 10.4 H Total Bilirubin 0.5 AST 25 Alkaline Phosphatase 94 Total Protein 6.1 L Albumin 2.7 L 02/05/20 15:40 Blood Blood Culture - Final NO GROWTH IN 5 DAYS 02/04/20 02/04/20 02/05/20 20:45 20:45 00:51 Creatine Kinase 45 41 CK-MB (CK-2) Troponin I 0.027 02/05/20 02/05/20 02/05/20 00:51 07:36 07:36 Creatine Kinase 43 CK-MB (CK-2) 0.76 1.26 Troponin I 0.057 0.167 02/05/20 02/05/20 13:26 13:26 Creatine Kinase 44 CK-MB (CK-2) 1.60 Troponin I 0.301 Impressions: Chest X-Ray 02/04/20 21:20 IMPRESSION: Nonspecific unchanged groundglass opacities in the left lower lung. No new findings. CT from 01/08/2020 demonstrated significant bilateral PE. Head CT 02/04/20 21:20 IMPRESSION: Imaging is degraded by patient motion, with resultant artifact. The best possible images were obtained. No acute intracranial process is identified. Head MRI 02/05/20 00:00 IMPRESSION: Significantly limited study secondary to excessive motion artifact. The coronal and sagittal T1-weighted postcontrast sequences are essentially nondiagnostic as a result. Persistent confluent areas of hyperintense T2/FLAIR signal located about the bilateral cerebellar hemispheres, stanley, and bilateral occipital lobes. In addition, there are likely a few foci of nodular enhancement about the cerebellar hemispheres, especially on the left. Again, these findings are entirely nonspecific, with considerations including inflammatory process such as posterior reversible encephalopathy syndrome (PRES), malignancy/metastatic disease, or potentially infection. Late subacute infarcts are considered less likely given the absence of significant volume loss. Continued close interval follow-up is recommended. Superimposed mild chronic microvascular ischemic change with generalized atrophy. copyright 2010 [employer]- All Rights Reserved KUB X-Ray 02/05/20 00:00 IMPRESSION: Enteric drainage tube tip projects over the gastric body. Otherwise, indeterminate bowel gas pattern. copyright 2011 [employer]- All Rights Reserved Abdomen/Pelvis CT 02/06/20 00:00 IMPRESSION: 1. Suspicious for thrombus in the lower IVC and right common iliac vein. Recommend further evaluation with IVC and lower extremity venous Doppler studies. 2. Cholelithiasis. 3. Other findings as above. Call report tasked to the [facility] team at the time of interpretation. 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 Patient needed lumbar puncture but to have lumbar puncture patient have to stop anticoagulation for 5 days which is not a good idea in this patient because she has extensive thrombosis involving the lower extremities, the IVC and also pulmonary embolism. 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 Is this a current diagnosis for this admission?: Yes (3) History of pulmonary embolism Is this a current diagnosis for this admission?: Yes Plan: Continue anticoagulation with Eliquis (4) Urinary tract infection Qualifiers: Urinary tract infection type: site unspecified Hematuria presence: without hematuria Qualified Code(s): N39.0 - Urinary tract infection, site not specified Is this a current diagnosis for this admission?: Yes (5) T2DM (type 2 diabetes mellitus) Qualifiers: Diabetes mellitus half-way insulin use: without termite inspector use Diabetes mellitus complication status: with neurologic complications Diabetes mellitus complication detail: with polyneuropathy Qualified Code(s): E11.42 - Type 2 diabetes mellitus with diabetic polyneuropathy Is this a current diagnosis for this admission?: Yes (6) UTI (urinary tract infection) due to Enterococcus Is this a current diagnosis for this admission?: Yes Plan: Continue IV ampicillin (7) IVC thrombosis Is this a current diagnosis for this admission?: Yes Plan: Continue anticoagulation (8) Hypokalemia Is this a current diagnosis for this admission?: Yes (9) Gastrointestinal dysmotility Is this a current diagnosis for this admission?: Yes Plan: GI motility is improved (10) Depression Qualifiers: Depression Type: major depressive disorder Major depression recurrence: recurrent Active/Remission status: currently active Major depression episode severity: severe Psychotic features: without psychotic features Qualified Code(s): F33.2 - Major depressive disorder, recurrent severe without psychotic features Is this a current diagnosis for this admission?: Yes Plan: There is a drug drug interaction between SSRI and Reglan, she will be started on Cymbalta once she is off Reglan - Time Time Spent with patient: 35 or more minutes Level of Care: IMCU Medications reviewed and adjusted accordingly: Yes Anticipated discharge: SNF Anticipated DC Timeframe: Other - Inpatient Certification Based on my medical assessment, after consideration of the patient's comorbidities, presenting symptoms, or acuity I expect that the services needed warrant INPATIENT care.: Yes I certify that my determination is in accordance with my understanding of Medicare's requirements for reasonable and necessary INPATIENT services [42 CFR 412.3e].: Yes
[2020-02-12] MEDS: INSULIN LISPRO 100 UNIT/ML 3 ML VIAL SUBCUT SCH ×4 (00:07→18:51)
[2020-02-12] MEDS: METOPROLOL TARTRATE PF/INJ 5 MG/5 ML SDV IV SCH ×5 (00:08→23:14)
[2020-02-12] MEDS: AMPICILLIN SODIUM 500 MG in NORMAL SALINE 25 ML IV SCH ×4 (03:12→20:52)
[2020-02-12] MEDS: METOCLOPRAMIDE HCL ORAL SOLN 10 MG/10 ML UDCUP NG SCH (03:12)
[2020-02-12] MEDS: ACYCLOVIR SODIUM 750 MG in NORMAL SALINE 250 ML IV SCH ×3 (05:35→22:51)
--- NOTE | 2020-02-12 08:28 | PDOC PROGRESS REPORT ---
Subjective Progress Note for:: 02/12/20 Subjective:: Patient seen by the bedside, she is showing signs of recovery, more responsive and engaging to verbal conversation, she will continue IV acyclovir for a total of 14 days. Reason For Visit: METABOLIC ENCEPHALOPATHY,UTI,ADULT FAILURE TO Physical Exam Vital Signs: Temp Pulse Resp BP Pulse Ox 98.1 F 91 14 165/87 H 97 02/12/20 04:18 02/12/20 04:18 02/12/20 04:18 02/12/20 04:18 02/12/20 04:18 Intake & Output 02/11/20 02/12/20 02/13/20 06:59 06:59 06:59 Intake Total 2187 2127 Balance 2187 2127 Weight 88.4 kg 88.5 kg General appearance: PRESENT: no acute distress Eye exam: PRESENT: PERRLA Respiratory exam: PRESENT: clear to auscultation jason Cardiovascular exam: PRESENT: +S1, +S2 GI/Abdominal exam: PRESENT: soft Neurological exam: PRESENT: alert Results Laboratory Results: 02/11/20 06:14 02/11/20 06:14 02/04/20 02/04/20 02/05/20 20:45 20:45 00:51 Creatine Kinase 45 41 CK-MB (CK-2) Troponin I 0.027 02/05/20 02/05/20 02/05/20 00:51 07:36 07:36 Creatine Kinase 43 CK-MB (CK-2) 0.76 1.26 Troponin I 0.057 0.167 02/05/20 02/05/20 13:26 13:26 Creatine Kinase 44 CK-MB (CK-2) 1.60 Troponin I 0.301 Impressions: Chest X-Ray 02/04/20 21:20 IMPRESSION: Nonspecific unchanged groundglass opacities in the left lower lung. No new findings. CT from 01/08/2020 demonstrated significant bilateral PE. Head CT 02/04/20 21:20 IMPRESSION: Imaging is degraded by patient motion, with resultant artifact. The best possible images were obtained. No acute intracranial process is identified. Head MRI 02/05/20 00:00 IMPRESSION: Significantly limited study secondary to excessive motion artifact. The coronal and sagittal T1-weighted postcontrast sequences are essentially nondiagnostic as a result. Persistent confluent areas of hyperintense T2/FLAIR signal located about the bilateral cerebellar hemispheres, stanley, and bilateral occipital lobes. In addition, there are likely a few foci of nodular enhancement about the cerebellar hemispheres, especially on the left. Again, these findings are entirely nonspecific, with considerations including inflammatory process such as posterior reversible encephalopathy syndrome (PRES), malignancy/metastatic disease, or potentially infection. Late subacute infarcts are considered less likely given the absence of significant volume loss. Continued close interval follow-up is recommended. Superimposed mild chronic microvascular ischemic change with generalized atrophy. copyright 2011 [employer]- All Rights Reserved KUB X-Ray 02/05/20 00:00 IMPRESSION: Enteric drainage tube tip projects over the gastric body. Otherwise, indeterminate bowel gas pattern. copyright 2011 [employer]- All Rights Reserved Abdomen/Pelvis CT 02/06/20 00:00 IMPRESSION: 1. Suspicious for thrombus in the lower IVC and right common iliac vein. Recommend further evaluation with IVC and lower extremity venous Doppler studies. 2. Cholelithiasis. 3. Other findings as above. Call report tasked to the [facility] team at the time of interpretation. 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 Patient needed lumbar puncture but to have lumbar puncture patient have to stop anticoagulation for 5 days which is not a good idea in this patient because she has extensive thrombosis involving the lower extremities, the IVC and also pulmonary embolism. 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 Is this a current diagnosis for this admission?: Yes (3) History of pulmonary embolism Is this a current diagnosis for this admission?: Yes Plan: Continue anticoagulation with Eliquis (4) Urinary tract infection Qualifiers: Urinary tract infection type: site unspecified Hematuria presence: without hematuria Qualified Code(s): N39.0 - Urinary tract infection, site not specified Is this a current diagnosis for this admission?: Yes (5) T2DM (type 2 diabetes mellitus) Qualifiers: Diabetes mellitus mcc insulin use: without mcc use Diabetes mellitus complication status: with neurologic complications Diabetes mellitus complication detail: with polyneuropathy Qualified Code(s): E11.42 - Type 2 diabetes mellitus with diabetic polyneuropathy Is this a current diagnosis for this admission?: Yes (6) UTI (urinary tract infection) due to Enterococcus Is this a current diagnosis for this admission?: Yes Plan: Continue IV ampicillin (7) IVC thrombosis Is this a current diagnosis for this admission?: Yes Plan: Continue anticoagulation (8) Hypokalemia Is this a current diagnosis for this admission?: Yes (9) Gastrointestinal dysmotility Is this a current diagnosis for this admission?: Yes Plan: GI motility is improved (10) Depression Qualifiers: Depression Type: major depressive disorder Major depression recurrence: recurrent Active/Remission status: currently active Major depression episode severity: severe Psychotic features: without psychotic features Qualified Code(s): F33.2 - Major depressive disorder, recurrent severe without psychotic features Is this a current diagnosis for this admission?: Yes Plan: Start antidepressant Cymbalta 60 every 12, DC Reglan - Time Time Spent with patient: 35 or more minutes Level of Care: IMCU Medications reviewed and adjusted accordingly: Yes Anticipated discharge: SNF Anticipated DC Timeframe: Other
[2020-02-12] MEDS: SERTRALINE HCL 50 MG TABLET PO SCH (09:37)
[2020-02-12] MEDS: SITAGLIPTIN PHOSPHATE 50 MG TABLET PO SCH (09:38)
[2020-02-12] MEDS: APIXABAN 5 MG TABLET NG SCH ×2 (09:38→18:54)
[2020-02-12] MEDS: ATORVASTATIN CALCIUM 20 MG TABLET PO SCH (09:38)
[2020-02-12] MEDS: VALSARTAN 160 MG TABLET NG SCH ×2 (10:00→22:50)
[2020-02-12] MEDS: NYSTATIN TOPICAL POWDER 15 GM TP SCH (16:23)
[2020-02-13] MEDS: INSULIN LISPRO 100 UNIT/ML 3 ML VIAL SUBCUT SCH ×4 (01:03→21:54)
[2020-02-13] MEDS: AMPICILLIN SODIUM 500 MG in NORMAL SALINE 25 ML IV SCH ×2 (03:23→10:22)
[2020-02-13] MEDS: ACYCLOVIR SODIUM 750 MG in NORMAL SALINE 250 ML IV SCH ×2 (06:04→14:00)
[2020-02-13] MEDS: METOPROLOL TARTRATE PF/INJ 5 MG/5 ML SDV IV SCH ×3 (06:05→18:14)
[2020-02-13] MEDS: SERTRALINE HCL 50 MG TABLET PO SCH (10:23)
[2020-02-13] MEDS: SITAGLIPTIN PHOSPHATE 50 MG TABLET PO SCH (10:23)
[2020-02-13] MEDS: APIXABAN 5 MG TABLET NG SCH ×2 (10:24→18:15)
[2020-02-13] MEDS: DILTIAZEM HCL 240 MG CAPSULE.CR PO SCH (10:24)
[2020-02-13] MEDS: VALSARTAN 160 MG TABLET NG SCH ×2 (10:24→21:49)
[2020-02-13] MEDS: ATORVASTATIN CALCIUM 20 MG TABLET PO SCH (10:24)
--- NOTE | 2020-02-13 14:16 | PDOC PROGRESS REPORT ---
Subjective Progress Note for:: 02/13/20 Subjective:: Patient seen by the bedside, she has fluctuating sensorium, yesterday she was more alert and engaging, today she is very sleepy though arousable Reason For Visit: METABOLIC ENCEPHALOPATHY,UTI,ADULT FAILURE TO Physical Exam Vital Signs: Temp Pulse Resp BP Pulse Ox 98.2 F 102 H 18 143/57 H 95 02/13/20 11:33 02/13/20 11:33 02/13/20 11:33 02/13/20 11:33 02/13/20 11:33 Intake & Output 02/12/20 02/13/20 02/14/20 06:59 06:59 06:59 Intake Total 2126 2512 566 Balance 2126 2512 566 Weight 88.5 kg 87.9 kg General appearance: PRESENT: no acute distress Eye exam: PRESENT: PERRLA Respiratory exam: PRESENT: clear to auscultation jason Cardiovascular exam: PRESENT: +S1, +S2 GI/Abdominal exam: PRESENT: soft Neurological exam: PRESENT: alert Results Laboratory Results: 02/11/20 06:14 02/11/20 06:14 02/04/20 02/04/20 02/05/20 20:45 20:45 00:51 Creatine Kinase 45 41 CK-MB (CK-2) Troponin I 0.027 02/05/20 02/05/20 02/05/20 00:51 07:36 07:36 Creatine Kinase 43 CK-MB (CK-2) 0.76 1.26 Troponin I 0.057 0.167 02/05/20 02/05/20 13:26 13:26 Creatine Kinase 44 CK-MB (CK-2) 1.60 Troponin I 0.301 Impressions: Chest X-Ray 02/04/20 21:20 IMPRESSION: Nonspecific unchanged groundglass opacities in the left lower lung. No new findings. CT from 01/08/2020 demonstrated significant bilateral PE. Head CT 02/04/20 21:20 IMPRESSION: Imaging is degraded by patient motion, with resultant artifact. The best possible images were obtained. No acute intracranial process is identified. Head MRI 02/05/20 00:00 IMPRESSION: Significantly limited study secondary to excessive motion artifact. The coronal and sagittal T1-weighted postcontrast sequences are essentially nondiagnostic as a result. Persistent confluent areas of hyperintense T2/FLAIR signal located about the bilateral cerebellar hemispheres, stanley, and bilateral occipital lobes. In addition, there are likely a few foci of nodular enhancement about the cerebellar hemispheres, especially on the left. Again, these findings are entirely nonspecific, with considerations including inflammatory process such as posterior reversible encephalopathy syndrome (PRES), malignancy/metastatic disease, or potentially infection. Late subacute infarcts are considered less likely given the absence of significant volume loss. Continued close interval follow-up is recommended. Superimposed mild chronic microvascular ischemic change with generalized atrophy. copyright 2011 [employer]- All Rights Reserved KUB X-Ray 02/05/20 00:00 IMPRESSION: Enteric drainage tube tip projects over the gastric body. Otherwise, indeterminate bowel gas pattern. copyright 2011 [employer]- All Rights Reserved Abdomen/Pelvis CT 02/06/20 00:00 IMPRESSION: 1. Suspicious for thrombus in the lower IVC and right common iliac vein. Recommend further evaluation with IVC and lower extremity venous Doppler studies. 2. Cholelithiasis. 3. Other findings as above. Call report tasked to the [facility] team at the time of interpretation. 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 Patient needed lumbar puncture but to have lumbar puncture patient have to stop anticoagulation for 5 days which is not a good idea in this patient because she has extensive thrombosis involving the lower extremities, the IVC and also pulmonary embolism. 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 Is this a current diagnosis for this admission?: Yes (3) History of pulmonary embolism Is this a current diagnosis for this admission?: Yes Plan: Continue anticoagulation with Eliquis (4) Urinary tract infection Qualifiers: Urinary tract infection type: site unspecified Hematuria presence: without hematuria Qualified Code(s): N39.0 - Urinary tract infection, site not specified Is this a current diagnosis for this admission?: Yes (5) T2DM (type 2 diabetes mellitus) Qualifiers: Diabetes mellitus intermediate manager insulin use: without intermediate manager use Diabetes mellitus complication status: with neurologic complications Diabetes mellitus complication detail: with polyneuropathy Qualified Code(s): E11.42 - Type 2 diabetes mellitus with diabetic polyneuropathy Is this a current diagnosis for this admission?: Yes (6) UTI (urinary tract infection) due to Enterococcus Is this a current diagnosis for this admission?: Yes Plan: Continue IV ampicillin (7) IVC thrombosis Is this a current diagnosis for this admission?: Yes Plan: Continue anticoagulation (8) Hypokalemia Is this a current diagnosis for this admission?: Yes (9) Gastrointestinal dysmotility Is this a current diagnosis for this admission?: Yes (10) Depression Qualifiers: Depression Type: major depressive disorder Major depression recurrence: recurrent Active/Remission status: currently active Major depression episode severity: severe Psychotic features: without psychotic features Qualified Code(s): F33.2 - Major depressive disorder, recurrent severe without psychotic features Is this a current diagnosis for this admission?: Yes - Time Time Spent with patient: 35 or more minutes Level of Care: IMCU Medications reviewed and adjusted accordingly: Yes Anticipated discharge: SNF Anticipated DC Timeframe: Other - Inpatient Certification Based on my medical assessment, after consideration of the patient's comorbidities, presenting symptoms, or acuity I expect that the services needed warrant INPATIENT care.: Yes I certify that my determination is in accordance with my understanding of Medicare's requirements for reasonable and necessary INPATIENT services [42 CFR 412.3e].: Yes
[2020-02-14] MEDS: INSULIN LISPRO 100 UNIT/ML 3 ML VIAL SUBCUT SCH ×4 (05:13→17:37)
[2020-02-14] MEDS: METOPROLOL TARTRATE PF/INJ 5 MG/5 ML SDV IV SCH ×4 (05:14→17:37)
[2020-02-14 09:04] LABS: ABSOLUTE BASOPHILS # (AUTO) 0.1 10^3/uL (0.0-0.2); ABSOLUTE EOSINOPHILS # (AUTO) 0.2 10^3/uL (0.0-0.6); ABSOLUTE LYMPHOCYTES (AUTO) 1.2 10^3/uL (0.5-4.7); ABSOLUTE MONOCYTES (AUTO) 0.9 10^3/uL (0.1-1.4); ABSOLUTE NEUT (AUTO) 5.1 10^3/uL (1.7-8.2); BASOPHILS % (AUTO) 0.7 % (0-2); EOSINOPHILS % (AUTO) 2.9 % (0-6); HEMATOCRIT 29.8 % (36.0-47.0); LYMPHOCYTES % (AUTO) 16.3 % (13-45); MEAN CORPUSCULAR HEMOGLOBIN 29.3 pg (27.0-33.4); MEAN CORPUSCULAR HGB CONC 33.4 g/dL (32.0-36.0); MEAN CORPUSCULAR VOLUME 88 fl (80-97); MONOCYTES % (AUTO) 11.7 % (3-13); PLATELET COUNT 358 10^3/uL (150-450); RED CELL DISTRIBUTION WIDTH 16.2 % (11.5-14.0); SEGMENTED NEUTROPHILS % (AUTO) 68.4 % (42-78); TOTAL CELLS COUNTED % (AUTO) 100 %; WHITE BLOOD COUNT 7.5 10^3/uL (4.0-10.5)
[2020-02-14] MEDS: DILTIAZEM HCL 240 MG CAPSULE.CR PO SCH (09:20)
[2020-02-14] MEDS: SERTRALINE HCL 50 MG TABLET PO SCH (09:20)
[2020-02-14] MEDS: SITAGLIPTIN PHOSPHATE 50 MG TABLET PO SCH (09:20)
[2020-02-14] MEDS: ATORVASTATIN CALCIUM 20 MG TABLET PO SCH (09:20)
[2020-02-14] MEDS: VALSARTAN 160 MG TABLET NG SCH ×2 (09:20→21:07)
[2020-02-14] MEDS: APIXABAN 5 MG TABLET NG SCH ×2 (09:20→17:37)
[2020-02-14 16:44] LABS: ALBUMIN 2.9 g/dL (3.5-5.0); ALKALINE PHOSPHATASE 111 U/L (38-126); ASPARTATE AMINO TRANSFERASE 29 U/L (14-36); BILIRUBIN,TOTAL 0.4 mg/dL (0.2-1.3); BLOOD UREA NITROGEN 10 mg/dL (7-20); CALCIUM 10.6 mg/dL (8.4-10.2); CARBON DIOXIDE 28 mmol/L (22-30); CHLORIDE 107 mmol/L (98-107); GLUCOSE 124 mg/dL (75-110); TOTAL PROTEIN 6.1 g/dL (6.3-8.2)
[2020-02-14 16:50] LABS: ANION GAP 4 (5-19)
--- NOTE | 2020-02-14 19:43 | PDOC PROGRESS REPORT ---
Subjective Progress Note for:: 02/14/20 Subjective:: Patient seen by the bedside, she is alert more responsive today condition still very precarious, discussed with patient daughter Reason For Visit: METABOLIC ENCEPHALOPATHY,UTI,ADULT FAILURE TO Physical Exam Vital Signs: Temp Pulse Resp BP Pulse Ox 98.5 F 109 H 19 171/87 H 95 02/14/20 15:24 02/14/20 15:24 02/14/20 15:24 02/14/20 15:24 02/14/20 15:24 Intake & Output 02/13/20 02/14/20 02/15/20 06:59 06:59 06:59 Intake Total 2512 1641 620 Balance 2512 1641 620 Weight 87.9 kg 86.6 kg General appearance: PRESENT: no acute distress Eye exam: PRESENT: PERRLA Respiratory exam: PRESENT: clear to auscultation jason Cardiovascular exam: PRESENT: +S1, +S2 GI/Abdominal exam: PRESENT: soft Neurological exam: PRESENT: alert Results Laboratory Results: 02/14/20 08:47 02/14/20 16:10 02/14/20 02/14/20 08:47 16:10 WBC 7.5 RBC 3.40 L Hgb 10.0 L Hct 29.8 L MCV 88 MCH 29.3 MCHC 33.4 RDW 16.2 H Plt Count 358 Seg Neutrophils % 68.4 Sodium 139.0 Potassium 4.0 Chloride 107 Carbon Dioxide 28 Anion Gap 4 L BUN 10 Creatinine 0.61 Est GFR ( Amer) > 60 Glucose 124 H Calcium 10.6 H Total Bilirubin 0.4 AST 29 Alkaline Phosphatase 111 Total Protein 6.1 L Albumin 2.9 L 02/04/20 02/04/20 02/05/20 20:45 20:45 00:51 Creatine Kinase 45 41 CK-MB (CK-2) Troponin I 0.027 02/05/20 02/05/20 02/05/20 00:51 07:36 07:36 Creatine Kinase 43 CK-MB (CK-2) 0.76 1.26 Troponin I 0.057 0.167 02/05/20 02/05/20 13:26 13:26 Creatine Kinase 44 CK-MB (CK-2) 1.60 Troponin I 0.301 Impressions: Chest X-Ray 02/04/20 21:20 IMPRESSION: Nonspecific unchanged groundglass opacities in the left lower lung. No new findings. CT from 01/08/2020 demonstrated significant bilateral PE. Head CT 02/04/20 21:20 IMPRESSION: Imaging is degraded by patient motion, with resultant artifact. The best possible images were obtained. No acute intracranial process is identified. Head MRI 02/05/20 00:00 IMPRESSION: Significantly limited study secondary to excessive motion artifact. The coronal and sagittal T1-weighted postcontrast sequences are essentially nondiagnostic as a result. Persistent confluent areas of hyperintense T2/FLAIR signal located about the bilateral cerebellar hemispheres, stanley, and bilateral occipital lobes. In addition, there are likely a few foci of nodular enhancement about the cerebellar hemispheres, especially on the left. Again, these findings are entirely nonspecific, with considerations including inflammatory process such as posterior reversible encephalopathy syndrome (PRES), malignancy/metastatic disease, or potentially infection. Late subacute infarcts are considered less likely given the absence of significant volume loss. Continued close interval follow-up is recommended. Superimposed mild chronic microvascular ischemic change with generalized atrophy. copyright 2011 [employer]- All Rights Reserved KUB X-Ray 02/05/20 00:00 IMPRESSION: Enteric drainage tube tip projects over the gastric body. Otherwise, indeterminate bowel gas pattern. copyright 2011 [employer]- All Rights Reserved Abdomen/Pelvis CT 02/06/20 00:00 IMPRESSION: 1. Suspicious for thrombus in the lower IVC and right common iliac vein. Recommend further evaluation with IVC and lower extremity venous Doppler studies. 2. Cholelithiasis. 3. Other findings as above. Call report tasked to the [facility] team at the time of interpretation. 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 Patient needed lumbar puncture but to have lumbar puncture patient have to stop anticoagulation for 5 days which is not a good idea in this patient because she has extensive thrombosis involving the lower extremities, the IVC and also pulmonary embolism. 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 Is this a current diagnosis for this admission?: Yes (3) History of pulmonary embolism Is this a current diagnosis for this admission?: Yes Plan: Continue anticoagulation with Eliquis (4) Urinary tract infection Qualifiers: Urinary tract infection type: site unspecified Hematuria presence: without hematuria Qualified Code(s): N39.0 - Urinary tract infection, site not specified Is this a current diagnosis for this admission?: Yes (5) T2DM (type 2 diabetes mellitus) Qualifiers: Diabetes mellitus moth exterminator insulin use: without [facility] use Diabetes mellitus complication status: with neurologic complications Diabetes mellitus complication detail: with polyneuropathy Qualified Code(s): E11.42 - Type 2 diabetes mellitus with diabetic polyneuropathy Is this a current diagnosis for this admission?: Yes (6) UTI (urinary tract infection) due to Enterococcus Is this a current diagnosis for this admission?: Yes Plan: Continue IV ampicillin (7) IVC thrombosis Is this a current diagnosis for this admission?: Yes Plan: Continue anticoagulation (8) Hypokalemia Is this a current diagnosis for this admission?: Yes (9) Gastrointestinal dysmotility Is this a current diagnosis for this admission?: Yes (10) Depression Qualifiers: Depression Type: major depressive disorder Major depression recurrence: recurrent Active/Remission status: currently active Major depression episode severity: severe Psychotic features: without psychotic features Qualified Code(s): F33.2 - Major depressive disorder, recurrent severe without psychotic features Is this a current diagnosis for this admission?: Yes - Time Time Spent with patient: 15-24 minutes Level of Care: IMCU Medications reviewed and adjusted accordingly: Yes Anticipated discharge: SNF Anticipated DC Timeframe: when bed available
[2020-02-15] MEDS: INSULIN LISPRO 100 UNIT/ML 3 ML VIAL SUBCUT SCH ×5 (00:54→23:59)
[2020-02-15] MEDS: ACETAMINOPHEN SOLN 325 MG/10.15 ML UDCUP NG PRN (00:57)
[2020-02-15] MEDS: METOPROLOL TARTRATE PF/INJ 5 MG/5 ML SDV IV SCH ×5 (00:57→23:57)
[2020-02-15 07:12] LABS: ALBUMIN 2.7 g/dL (3.5-5.0); ALKALINE PHOSPHATASE 98 U/L (38-126); ASPARTATE AMINO TRANSFERASE 37 U/L (14-36); BILIRUBIN,TOTAL 0.3 mg/dL (0.2-1.3); BLOOD UREA NITROGEN 11 mg/dL (7-20); CALCIUM 10.6 mg/dL (8.4-10.2); CHLORIDE 110 mmol/L (98-107); GLUCOSE 124 mg/dL (75-110); POTASSIUM 4.1 mmol/L (3.6-5.0); TOTAL PROTEIN 5.9 g/dL (6.3-8.2)
[2020-02-15 07:18] LABS: CARBON DIOXIDE 25 mmol/L (22-30)
[2020-02-15 07:19] LABS: ANION GAP 4 (5-19)
[2020-02-15 07:27] LABS: ABSOLUTE EOSINOPHILS # (AUTO) 0.2 10^3/uL (0.0-0.6); ABSOLUTE LYMPHOCYTES (AUTO) 1.1 10^3/uL (0.5-4.7); ABSOLUTE MONOCYTES (AUTO) 0.8 10^3/uL (0.1-1.4); BASOPHILS % (AUTO) 0.8 % (0-2); EOSINOPHILS % (AUTO) 3.1 % (0-6); HEMATOCRIT 27.5 % (36.0-47.0); HEMOGLOBIN 9.4 g/dL (12.0-15.5); MEAN CORPUSCULAR HGB CONC 34.1 g/dL (32.0-36.0); MEAN CORPUSCULAR VOLUME 88 fl (80-97); MONOCYTES % (AUTO) 13.7 % (3-13); PLATELET COUNT 346 10^3/uL (150-450); RED BLOOD COUNT 3.12 10^6/uL (3.72-5.28); RED CELL DISTRIBUTION WIDTH 16.1 % (11.5-14.0); SEGMENTED NEUTROPHILS % (AUTO) 64.4 % (42-78); TOTAL CELLS COUNTED % (AUTO) 100 %; WHITE BLOOD COUNT 6.1 10^3/uL (4.0-10.5)
[2020-02-15] MEDS: VALSARTAN 160 MG TABLET NG SCH ×2 (10:20→22:03)
[2020-02-15] MEDS: SITAGLIPTIN PHOSPHATE 50 MG TABLET PO SCH (10:20)
[2020-02-15] MEDS: DILTIAZEM HCL 240 MG CAPSULE.CR PO SCH (10:20)
[2020-02-15] MEDS: APIXABAN 5 MG TABLET NG SCH ×2 (10:20→17:42)
[2020-02-15] MEDS: ATORVASTATIN CALCIUM 20 MG TABLET PO SCH (10:20)
[2020-02-15] MEDS: SERTRALINE HCL 50 MG TABLET PO SCH (10:20)
--- NOTE | 2020-02-15 17:55 | PDOC PROGRESS REPORT ---
Subjective Progress Note for:: 02/15/20 Subjective:: Patient seen by the bedside, her condition is still very guarded, she does respond to verbal conversation today Reason For Visit: METABOLIC ENCEPHALOPATHY,UTI,ADULT FAILURE TO Physical Exam Vital Signs: Temp Pulse Resp BP Pulse Ox 98.0 F 85 21 H 164/96 H 94 02/15/20 12:18 02/15/20 14:00 02/15/20 12:18 02/15/20 12:18 02/15/20 12:18 Intake & Output 02/14/20 02/15/20 02/16/20 06:59 06:59 06:59 Intake Total 1641 620 Balance 1641 620 Weight 86.6 kg 84.4 kg General appearance: PRESENT: no acute distress Eye exam: PRESENT: PERRLA Respiratory exam: PRESENT: clear to auscultation jason Cardiovascular exam: PRESENT: +S1, +S2 GI/Abdominal exam: PRESENT: soft Results Laboratory Results: 02/15/20 06:16 02/15/20 06:16 02/15/20 02/15/20 06:16 06:16 WBC 6.1 RBC 3.12 L Hgb 9.4 L Hct 27.5 L MCV 88 MCH 30.0 MCHC 34.1 RDW 16.1 H Plt Count 346 Seg Neutrophils % 64.4 Sodium 139.1 Potassium 4.1 Chloride 110 H Carbon Dioxide 25 Anion Gap 4 L BUN 11 Creatinine 0.54 Est GFR ( Amer) > 60 Glucose 124 H Calcium 10.6 H Total Bilirubin 0.3 AST 37 H Alkaline Phosphatase 98 Total Protein 5.9 L Albumin 2.7 L 02/04/20 02/04/20 02/05/20 20:45 20:45 00:51 Creatine Kinase 45 41 CK-MB (CK-2) Troponin I 0.027 02/05/20 02/05/20 02/05/20 00:51 07:36 07:36 Creatine Kinase 43 CK-MB (CK-2) 0.76 1.26 Troponin I 0.057 0.167 02/05/20 02/05/20 13:26 13:26 Creatine Kinase 44 CK-MB (CK-2) 1.60 Troponin I 0.301 Impressions: Chest X-Ray 02/04/20 21:20 IMPRESSION: Nonspecific unchanged groundglass opacities in the left lower lung. No new findings. CT from 01/08/2020 demonstrated significant bilateral PE. Head CT 02/04/20 21:20 IMPRESSION: Imaging is degraded by patient motion, with resultant artifact. The best possible images were obtained. No acute intracranial process is identified. Head MRI 02/05/20 00:00 IMPRESSION: Significantly limited study secondary to excessive motion artifact. The coronal and sagittal T1-weighted postcontrast sequences are essentially nondiagnostic as a result. Persistent confluent areas of hyperintense T2/FLAIR signal located about the bilateral cerebellar hemispheres, stanley, and bilateral occipital lobes. In addition, there are likely a few foci of nodular enhancement about the cerebellar hemispheres, especially on the left. Again, these findings are entirely nonspecific, with considerations including inflammatory process such as posterior reversible encephalopathy syndrome (PRES), malignancy/metastatic disease, or potentially infection. Late subacute infarcts are considered less likely given the absence of significant volume loss. Continued close interval follow-up is recommended. Superimposed mild chronic microvascular ischemic change with generalized atrophy. copyright 2010 [employer]- All Rights Reserved KUB X-Ray 02/05/20 00:00 IMPRESSION: Enteric drainage tube tip projects over the gastric body. Otherwise, indeterminate bowel gas pattern. copyright 2011 [employer]- All Rights Reserved Abdomen/Pelvis CT 02/06/20 00:00 IMPRESSION: 1. Suspicious for thrombus in the lower IVC and right common iliac vein. Recommend further evaluation with IVC and lower extremity venous Doppler studies. 2. Cholelithiasis. 3. Other findings as above. Call report tasked to the [facility] team at the time of interpretation. 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 Patient needed lumbar puncture but to have lumbar puncture patient have to stop anticoagulation for 5 days which is not a good idea in this patient because she has extensive thrombosis involving the lower extremities, the IVC and also pulmonary embolism. 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 Is this a current diagnosis for this admission?: Yes (3) History of pulmonary embolism Is this a current diagnosis for this admission?: Yes Plan: Continue anticoagulation with Eliquis (4) Urinary tract infection Qualifiers: Urinary tract infection type: site unspecified Hematuria presence: without hematuria Qualified Code(s): N39.0 - Urinary tract infection, site not specified Is this a current diagnosis for this admission?: Yes (5) T2DM (type 2 diabetes mellitus) Qualifiers: Diabetes mellitus chcf insulin use: without chcf use Diabetes mellitus complication status: with neurologic complications Diabetes mellitus complication detail: with polyneuropathy Qualified Code(s): E11.42 - Type 2 diabetes mellitus with diabetic polyneuropathy Is this a current diagnosis for this admission?: Yes (6) UTI (urinary tract infection) due to Enterococcus Is this a current diagnosis for this admission?: Yes Plan: Continue IV ampicillin (7) IVC thrombosis Is this a current diagnosis for this admission?: Yes Plan: Continue anticoagulation (8) Hypokalemia Is this a current diagnosis for this admission?: Yes (9) Gastrointestinal dysmotility Is this a current diagnosis for this admission?: Yes (10) Depression Qualifiers: Depression Type: major depressive disorder Major depression recurrence: recurrent Active/Remission status: currently active Major depression episode severity: severe Psychotic features: without psychotic features Qualified Code(s): F33.2 - Major depressive disorder, recurrent severe without psychotic features Is this a current diagnosis for this admission?: Yes - Time Time Spent with patient: 35 or more minutes Level of Care: IMCU Medications reviewed and adjusted accordingly: Yes Anticipated discharge: SNF Anticipated DC Timeframe: when bed available
[2020-02-16] MEDS: METOPROLOL TARTRATE PF/INJ 5 MG/5 ML SDV IV SCH ×4 (05:55→23:35)
[2020-02-16] MEDS: INSULIN LISPRO 100 UNIT/ML 3 ML VIAL SUBCUT SCH ×4 (05:55→23:12)
[2020-02-16] MEDS: VALSARTAN 160 MG TABLET NG SCH ×2 (09:23→21:35)
[2020-02-16] MEDS: SERTRALINE HCL 50 MG TABLET PO SCH (09:23)
[2020-02-16] MEDS: APIXABAN 5 MG TABLET NG SCH ×2 (09:23→17:14)
[2020-02-16] MEDS: SITAGLIPTIN PHOSPHATE 50 MG TABLET PO SCH (09:24)
[2020-02-16] MEDS: ATORVASTATIN CALCIUM 20 MG TABLET PO SCH (09:24)
[2020-02-16] MEDS: DILTIAZEM HCL 240 MG CAPSULE.CR PO SCH (09:24)
--- NOTE | 2020-02-16 11:33 | PDOC PROGRESS REPORT ---
Subjective Progress Note for:: 02/16/20 Subjective:: Patient was admitted for the altered mental status metabolic encephalopathy sepsis suspicious for encephalitis Patient is currently on IV acyclovir Patient have a history of the DVT PE currently on a Eliquis Patient have a urinary tract infection with enterococcus will start on amoxicillin Patient is alert awake but ill looking Reason For Visit: METABOLIC ENCEPHALOPATHY,UTI,ADULT FAILURE TO Physical Exam Vital Signs: Temp Pulse Resp BP Pulse Ox 98.1 F 84 16 146/77 H 94 02/16/20 03:19 02/16/20 07:00 02/16/20 03:19 02/16/20 03:19 02/16/20 03:19 Intake & Output 02/15/20 02/16/20 02/17/20 06:59 06:59 06:59 Intake Total 620 Balance 620 Weight 84.4 kg 82.2 kg General appearance: PRESENT: no acute distress Eye exam: PRESENT: PERRLA Mouth exam: PRESENT: neck supple Respiratory exam: PRESENT: decreased breath sounds Cardiovascular exam: PRESENT: +S1, +S2 GI/Abdominal exam: PRESENT: normal bowel sounds, soft Neurological exam: PRESENT: alert, awake Results Laboratory Results: 02/15/20 06:16 02/15/20 06:16 02/04/20 02/04/20 02/05/20 20:45 20:45 00:51 Creatine Kinase 45 41 CK-MB (CK-2) Troponin I 0.027 02/05/20 02/05/20 02/05/20 00:51 07:36 07:36 Creatine Kinase 43 CK-MB (CK-2) 0.76 1.26 Troponin I 0.057 0.167 02/05/20 02/05/20 13:26 13:26 Creatine Kinase 44 CK-MB (CK-2) 1.60 Troponin I 0.301 Impressions: Chest X-Ray 02/04/20 21:20 IMPRESSION: Nonspecific unchanged groundglass opacities in the left lower lung. No new findings. CT from 01/08/2020 demonstrated significant bilateral PE. Head CT 02/04/20 21:20 IMPRESSION: Imaging is degraded by patient motion, with resultant artifact. The best possible images were obtained. No acute intracranial process is identified. Head MRI 02/05/20 00:00 IMPRESSION: Significantly limited study secondary to excessive motion artifact. The coronal and sagittal T1-weighted postcontrast sequences are essentially nondiagnostic as a result. Persistent confluent areas of hyperintense T2/FLAIR signal located about the bilateral cerebellar hemispheres, stanley, and bilateral occipital lobes. In addition, there are likely a few foci of nodular enhancement about the cerebellar hemispheres, especially on the left. Again, these findings are entirely nonspecific, with considerations including inflammatory process such as posterior reversible encephalopathy syndrome (PRES), malignancy/metastatic disease, or potentially infection. Late subacute infarcts are considered less likely given the absence of significant volume loss. Continued close interval follow-up is recommended. Superimposed mild chronic microvascular ischemic change with generalized atrophy. copyright 2010 [employer]- All Rights Reserved KUB X-Ray 02/05/20 00:00 IMPRESSION: Enteric drainage tube tip projects over the gastric body. Otherwise, indeterminate bowel gas pattern. copyright 2010 [employer]- All Rights Reserved Abdomen/Pelvis CT 02/06/20 00:00 IMPRESSION: 1. Suspicious for thrombus in the lower IVC and right common iliac vein. Recommend further evaluation with IVC and lower extremity venous Doppler studies. 2. Cholelithiasis. 3. Other findings as above. Call report tasked to the [facility] team at the time of interpretation. 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 Is this a current diagnosis for this admission?: Yes (3) History of pulmonary embolism Is this a current diagnosis for this admission?: Yes Plan: Continue anticoagulation with Eliquis (4) Hypomagnesemia Is this a current diagnosis for this admission?: Yes (5) IVC thrombosis Is this a current diagnosis for this admission?: Yes Plan: Continue anticoagulation (6) UTI (urinary tract infection) due to Enterococcus Is this a current diagnosis for this admission?: Yes Plan: Start the patient on amoxicillin (7) Metabolic encephalopathy Is this a current diagnosis for this admission?: Yes (8) Parathyroid adenoma Is this a current diagnosis for this admission?: Yes (9) Primary hyperparathyroidism Is this a current diagnosis for this admission?: Yes - Time Time Spent with patient: 15-24 minutes Level of Care: IMCU Medications reviewed and adjusted accordingly: Yes Anticipated discharge: Other Anticipated DC Timeframe: Other - Plan Summary Plan Summary: We will recheck the urine culture Check a CBC and Chem-7
[2020-02-16] MEDS: AMOXICILLIN TRIHYDRATE 500 MG CAPSULE PO SCH ×2 (15:14→21:35)
[2020-02-17] MEDS: AMOXICILLIN TRIHYDRATE 500 MG CAPSULE PO SCH ×3 (05:41→22:30)
[2020-02-17] MEDS: METOPROLOL TARTRATE PF/INJ 5 MG/5 ML SDV IV SCH ×3 (05:42→18:21)
[2020-02-17] MEDS: INSULIN LISPRO 100 UNIT/ML 3 ML VIAL SUBCUT SCH ×3 (05:42→18:38)
[2020-02-17 06:39] LABS: ABSOLUTE BASOPHILS # (AUTO) 0.1 10^3/uL (0.0-0.2); ABSOLUTE EOSINOPHILS # (AUTO) 0.2 10^3/uL (0.0-0.6); ABSOLUTE LYMPHOCYTES (AUTO) 1.2 10^3/uL (0.5-4.7); ABSOLUTE MONOCYTES (AUTO) 0.9 10^3/uL (0.1-1.4); ABSOLUTE NEUT (AUTO) 6.3 10^3/uL (1.7-8.2); BASOPHILS % (AUTO) 0.6 % (0-2); EOSINOPHILS % (AUTO) 2.3 % (0-6); HEMATOCRIT 30.6 % (36.0-47.0); HEMOGLOBIN 10.1 g/dL (12.0-15.5); LYMPHOCYTES % (AUTO) 13.8 % (13-45); MEAN CORPUSCULAR VOLUME 88 fl (80-97); MONOCYTES % (AUTO) 10.8 % (3-13); PLATELET COUNT 426 10^3/uL (150-450); RED BLOOD COUNT 3.48 10^6/uL (3.72-5.28); RED CELL DISTRIBUTION WIDTH 16.4 % (11.5-14.0); SEGMENTED NEUTROPHILS % (AUTO) 72.5 % (42-78); TOTAL CELLS COUNTED % (AUTO) 100 %; WHITE BLOOD COUNT 8.7 10^3/uL (4.0-10.5)
[2020-02-17 07:35] LABS: ANION GAP 8 (5-19); BLOOD UREA NITROGEN 13 mg/dL (7-20); CALCIUM 10.7 mg/dL (8.4-10.2); CARBON DIOXIDE 23 mmol/L (22-30); CHLORIDE 107 mmol/L (98-107); GLUCOSE 142 mg/dL (75-110); POTASSIUM 4.3 mmol/L (3.6-5.0)
--- NOTE | 2020-02-17 10:36 | PDOC PROGRESS REPORT ---
Subjective Progress Note for:: 02/17/20 Subjective:: Patient was admitted for the altered mental status metabolic encephalopathy sepsis suspicious for encephalitis Patient is currently on IV acyclovir Patient have a history of the DVT PE currently on a Eliquis Patient have a urinary tract infection with enterococcus will start on amoxicillin Patient is alert awake but ill looking Reason For Visit: METABOLIC ENCEPHALOPATHY,UTI,ADULT FAILURE TO Physical Exam Vital Signs: Temp Pulse Resp BP Pulse Ox 98.0 F 96 14 156/66 H 95 02/17/20 03:39 02/17/20 07:00 02/17/20 03:39 02/17/20 03:39 02/17/20 03:39 Intake & Output 02/16/20 02/17/20 02/18/20 06:59 06:59 06:59 Intake Total 458 Balance 458 Weight 82.2 kg 82 kg General appearance: PRESENT: no acute distress Head exam: PRESENT: atraumatic, normocephalic Eye exam: PRESENT: conjunctiva pink, EOMI, PERRLA. ABSENT: scleral icterus Ear exam: PRESENT: normal external ear exam Mouth exam: PRESENT: moist, tongue midline Neck exam: PRESENT: full ROM. ABSENT: carotid bruit, JVD, lymphadenopathy, thyromegaly Respiratory exam: PRESENT: clear to auscultation jason Cardiovascular exam: PRESENT: RRR. ABSENT: diastolic murmur, rubs, systolic murmur Vascular exam: PRESENT: normal capillary refill GI/Abdominal exam: PRESENT: normal bowel sounds, soft. ABSENT: distended, guarding, mass, organolmegaly, rebound, tenderness Rectal exam: PRESENT: deferred Neurological exam: PRESENT: alert, awake. ABSENT: motor sensory deficit Psychiatric exam: PRESENT: appropriate affect, normal mood. ABSENT: homicidal ideation, suicidal ideation Skin exam: PRESENT: dry, intact, warm. ABSENT: cyanosis, rash Results Laboratory Results: 02/17/20 06:05 02/17/20 06:05 02/17/20 02/17/20 06:05 06:05 WBC 8.7 RBC 3.48 L Hgb 10.1 L Hct 30.6 L MCV 88 MCH 29.0 MCHC 33.0 RDW 16.4 H Plt Count 426 Seg Neutrophils % 72.5 Sodium 137.8 Potassium 4.3 Chloride 107 Carbon Dioxide 23 Anion Gap 8 BUN 13 Creatinine 0.56 Est GFR ( Amer) > 60 Glucose 142 H Calcium 10.7 H 02/04/20 02/04/20 02/05/20 20:45 20:45 00:51 Creatine Kinase 45 41 CK-MB (CK-2) Troponin I 0.027 02/05/20 02/05/20 02/05/20 00:51 07:36 07:36 Creatine Kinase 43 CK-MB (CK-2) 0.76 1.26 Troponin I 0.057 0.167 02/05/20 02/05/20 13:26 13:26 Creatine Kinase 44 CK-MB (CK-2) 1.60 Troponin I 0.301 Impressions: Chest X-Ray 02/04/20 21:20 IMPRESSION: Nonspecific unchanged groundglass opacities in the left lower lung. No new findings. CT from 01/08/2020 demonstrated significant bilateral PE. Head CT 02/04/20 21:20 IMPRESSION: Imaging is degraded by patient motion, with resultant artifact. The best possible images were obtained. No acute intracranial process is identified. Head MRI 02/05/20 00:00 IMPRESSION: Significantly limited study secondary to excessive motion artifact. The coronal and sagittal T1-weighted postcontrast sequences are essentially nondiagnostic as a result. Persistent confluent areas of hyperintense T2/FLAIR signal located about the bilateral cerebellar hemispheres, stanley, and bilateral occipital lobes. In addition, there are likely a few foci of nodular enhancement about the cerebellar hemispheres, especially on the left. Again, these findings are entirely nonspecific, with considerations including inflammatory process such as posterior reversible encephalopathy syndrome (PRES), malignancy/metastatic disease, or potentially infection. Late subacute infarcts are considered less likely given the absence of significant volume loss. Continued close interval follow-up is recommended. Superimposed mild chronic microvascular ischemic change with generalized atrophy. copyright 2011 [employer]- All Rights Reserved KUB X-Ray 02/05/20 00:00 IMPRESSION: Enteric drainage tube tip projects over the gastric body. Otherwise, indeterminate bowel gas pattern. copyright 2010 [employer]- All Rights Reserved Abdomen/Pelvis CT 02/06/20 00:00 IMPRESSION: 1. Suspicious for thrombus in the lower IVC and right common iliac vein. Recommend further evaluation with IVC and lower extremity venous Doppler studies. 2. Cholelithiasis. 3. Other findings as above. Call report tasked to the [facility] team at the time of interpretation. 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 Is this a current diagnosis for this admission?: Yes (3) History of pulmonary embolism Is this a current diagnosis for this admission?: Yes (4) Hypomagnesemia Is this a current diagnosis for this admission?: Yes (5) IVC thrombosis Is this a current diagnosis for this admission?: Yes (6) UTI (urinary tract infection) due to Enterococcus Is this a current diagnosis for this admission?: Yes (7) Metabolic encephalopathy Is this a current diagnosis for this admission?: Yes (8) Parathyroid adenoma Is this a current diagnosis for this admission?: Yes (9) Primary hyperparathyroidism Is this a current diagnosis for this admission?: Yes - Time Time Spent with patient: 15-24 minutes Level of Care: IMCU Medications reviewed and adjusted accordingly: Yes Anticipated discharge: Other Anticipated DC Timeframe: when bed available - Plan Summary Plan Summary: Continues to current medications all blood work is stable
[2020-02-17] MEDS: ACYCLOVIR SODIUM 750 MG in NORMAL SALINE 250 ML IV SCH ×2 (10:42→18:21)
[2020-02-17] MEDS: SITAGLIPTIN PHOSPHATE 50 MG TABLET PO SCH (10:44)
[2020-02-17] MEDS: SERTRALINE HCL 50 MG TABLET PO SCH (10:44)
[2020-02-17] MEDS: DILTIAZEM HCL 240 MG CAPSULE.CR PO SCH (10:44)
[2020-02-17] MEDS: ATORVASTATIN CALCIUM 20 MG TABLET PO SCH (10:44)
[2020-02-17] MEDS: VALSARTAN 160 MG TABLET NG SCH ×2 (10:44→22:30)
[2020-02-17] MEDS: APIXABAN 5 MG TABLET NG SCH ×2 (10:45→18:21)
[2020-02-18] MEDS: INSULIN LISPRO 100 UNIT/ML 3 ML VIAL SUBCUT SCH ×4 (00:08→18:46)
[2020-02-18] MEDS: METOPROLOL TARTRATE PF/INJ 5 MG/5 ML SDV IV SCH ×4 (00:09→17:45)
[2020-02-18] MEDS: ACYCLOVIR SODIUM 750 MG in NORMAL SALINE 250 ML IV SCH ×3 (02:54→17:46)
[2020-02-18] MEDS: AMOXICILLIN TRIHYDRATE 500 MG CAPSULE PO SCH ×3 (05:46→21:04)
[2020-02-18 07:34] LABS: BLOOD UREA NITROGEN 13 mg/dL (7-20); CALCIUM 10.3 mg/dL (8.4-10.2); CARBON DIOXIDE 25 mmol/L (22-30); CHLORIDE 107 mmol/L (98-107); GLUCOSE 119 mg/dL (75-110); POTASSIUM 4.3 mmol/L (3.6-5.0)
[2020-02-18 07:55] LABS: ANION GAP 7 (5-19)
[2020-02-18] MEDS: SITAGLIPTIN PHOSPHATE 50 MG TABLET PO SCH (10:32)
[2020-02-18] MEDS: SERTRALINE HCL 50 MG TABLET PO SCH (10:32)
[2020-02-18] MEDS: VALSARTAN 160 MG TABLET NG SCH ×2 (10:33→21:04)
[2020-02-18] MEDS: APIXABAN 5 MG TABLET NG SCH ×2 (10:33→17:45)
[2020-02-18] MEDS: ATORVASTATIN CALCIUM 20 MG TABLET PO SCH (10:33)
--- NOTE | 2020-02-18 19:24 | PDOC PROGRESS REPORT ---
Subjective Progress Note for:: 02/18/20 Subjective:: Patient seen by the bedside, she is awake today she engages in conversation Reason For Visit: METABOLIC ENCEPHALOPATHY,UTI,ADULT FAILURE TO Physical Exam Vital Signs: Temp Pulse Resp BP Pulse Ox 97.9 F 85 21 H 140/57 H 92 02/18/20 11:37 02/18/20 14:00 02/18/20 11:37 02/18/20 11:37 02/18/20 11:37 Intake & Output 02/17/20 02/18/20 02/19/20 06:59 06:59 06:59 Intake Total 458 1904 1367 Balance 458 1904 1367 Weight 82 kg 80 kg General appearance: PRESENT: no acute distress Eye exam: PRESENT: PERRLA Respiratory exam: PRESENT: clear to auscultation jason Cardiovascular exam: PRESENT: +S1, +S2 GI/Abdominal exam: PRESENT: soft Neurological exam: PRESENT: alert Results Laboratory Results: 02/17/20 06:05 02/18/20 05:50 02/18/20 05:50 Sodium 138.9 Potassium 4.3 Chloride 107 Carbon Dioxide 25 Anion Gap 7 BUN 13 Creatinine 0.56 Est GFR ( Amer) > 60 Glucose 119 H Calcium 10.3 H 02/04/20 02/04/20 02/05/20 20:45 20:45 00:51 Creatine Kinase 45 41 CK-MB (CK-2) Troponin I 0.027 02/05/20 02/05/20 02/05/20 00:51 07:36 07:36 Creatine Kinase 43 CK-MB (CK-2) 0.76 1.26 Troponin I 0.057 0.167 02/05/20 02/05/20 13:26 13:26 Creatine Kinase 44 CK-MB (CK-2) 1.60 Troponin I 0.301 Impressions: Chest X-Ray 02/04/20 21:20 IMPRESSION: Nonspecific unchanged groundglass opacities in the left lower lung. No new findings. CT from 01/08/2020 demonstrated significant bilateral PE. Head CT 02/04/20 21:20 IMPRESSION: Imaging is degraded by patient motion, with resultant artifact. The best possible images were obtained. No acute intracranial process is identified. Head MRI 02/05/20 00:00 IMPRESSION: Significantly limited study secondary to excessive motion artifact. The coronal and sagittal T1-weighted postcontrast sequences are essentially nondiagnostic as a result. Persistent confluent areas of hyperintense T2/FLAIR signal located about the bilateral cerebellar hemispheres, stanley, and bilateral occipital lobes. In addition, there are likely a few foci of nodular enhancement about the cerebellar hemispheres, especially on the left. Again, these findings are entirely nonspecific, with considerations including inflammatory process such as posterior reversible encephalopathy syndrome (PRES), malignancy/metastatic disease, or potentially infection. Late subacute infarcts are considered less likely given the absence of significant volume loss. Continued close interval follow-up is recommended. Superimposed mild chronic microvascular ischemic change with generalized atrophy. copyright 2010 [employer]- All Rights Reserved KUB X-Ray 02/05/20 00:00 IMPRESSION: Enteric drainage tube tip projects over the gastric body. Otherwise, indeterminate bowel gas pattern. copyright 2010 [employer]- All Rights Reserved Abdomen/Pelvis CT 02/06/20 00:00 IMPRESSION: 1. Suspicious for thrombus in the lower IVC and right common iliac vein. Recommend further evaluation with IVC and lower extremity venous Doppler studi es. 2. Cholelithiasis. 3. Other findings as above. Call report tasked to the [facility] team at the time of interpretation. 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 Is this a current diagnosis for this admission?: Yes (3) History of pulmonary embolism Is this a current diagnosis for this admission?: Yes Plan: Continue anticoagulant (4) Urinary tract infection Qualifiers: Urinary tract infection type: site unspecified Hematuria presence: without hematuria Qualified Code(s): N39.0 - Urinary tract infection, site not specified Is this a current diagnosis for this admission?: Yes (5) T2DM (type 2 diabetes mellitus) Qualifiers: Diabetes mellitus care home insulin use: without care home use Diabetes mellitus complication status: with neurologic complications Diabetes mellitus complication detail: with polyneuropathy Qualified Code(s): E11.42 - Type 2 diabetes mellitus with diabetic polyneuropathy Is this a current diagnosis for this admission?: Yes (6) UTI (urinary tract infection) due to Enterococcus Is this a current diagnosis for this admission?: Yes (7) IVC thrombosis Is this a current diagnosis for this admission?: Yes (8) Hypokalemia Is this a current diagnosis for this admission?: Yes (9) Gastrointestinal dysmotility Is this a current diagnosis for this admission?: Yes (10) Depression Qualifiers: Depression Type: major depressive disorder Major depression recurrence: recurrent Active/Remission status: currently active Major depression episode severity: severe Psychotic features: without psychotic features Qualified Code(s): F33.2 - Major depressive disorder, recurrent severe without psychotic features Is this a current diagnosis for this admission?: Yes - Time Time Spent with patient: 25-34 minutes Level of Care: IMCU Medications reviewed and adjusted accordingly: Yes Anticipated discharge: SNF Anticipated DC Timeframe: when bed available
[2020-02-19] MEDS: INSULIN LISPRO 100 UNIT/ML 3 ML VIAL SUBCUT SCH ×4 (00:37→18:58)
[2020-02-19] MEDS: METOPROLOL TARTRATE PF/INJ 5 MG/5 ML SDV IV SCH ×5 (00:39→23:45)
[2020-02-19] MEDS: ACYCLOVIR SODIUM 750 MG in NORMAL SALINE 250 ML IV SCH ×3 (02:28→19:04)
[2020-02-19] MEDS: AMOXICILLIN TRIHYDRATE 500 MG CAPSULE PO SCH ×2 (06:29→19:06)
[2020-02-19 07:32] LABS: BLOOD UREA NITROGEN 13 mg/dL (7-20); CALCIUM 10.3 mg/dL (8.4-10.2); CARBON DIOXIDE 27 mmol/L (22-30); CHLORIDE 108 mmol/L (98-107); GLUCOSE 125 mg/dL (75-110); POTASSIUM 4.5 mmol/L (3.6-5.0)
[2020-02-19 07:39] LABS: ANION GAP 4 (5-19)
[2020-02-19] MEDS: VALSARTAN 160 MG TABLET NG SCH ×2 (09:47→21:35)
[2020-02-19] MEDS: SERTRALINE HCL 50 MG TABLET PO SCH (09:47)
[2020-02-19] MEDS: ATORVASTATIN CALCIUM 20 MG TABLET PO SCH (09:47)
[2020-02-19] MEDS: SITAGLIPTIN PHOSPHATE 50 MG TABLET PO SCH (09:47)
[2020-02-19] MEDS: APIXABAN 5 MG TABLET NG SCH ×2 (09:47→19:04)
--- NOTE | 2020-02-19 18:15 | PDOC PROGRESS REPORT ---
Subjective Progress Note for:: 02/19/20 Subjective:: I saw patient today by the bedside, at this stage patient need to be transition to long-term care, on admission she was virtually unresponsive, with IV acyclovir patient has regained some cognition though still confused, not alert enough to obtain adequate nutrition orally, she will need a PEG tube to be inserted for the purpose of nutrition and to administer medication. I spoke with the surgeon, regarding PEG tube placement I also discussed with the daughter, the POA the only child about the plan of care, she is on board with the plan of care for her mother Reason For Visit: METABOLIC ENCEPHALOPATHY,UTI,ADULT FAILURE TO Physical Exam Vital Signs: Temp Pulse Resp BP Pulse Ox 98.0 F 95 18 164/58 H 95 02/19/20 11:20 02/19/20 14:00 02/19/20 11:20 02/19/20 11:20 02/19/20 11:20 Intake & Output 02/18/20 02/19/20 02/20/20 06:59 06:59 06:59 Intake Total 1903 189 Balance 1903 189 Weight 80 kg 83.1 kg General appearance: PRESENT: no acute distress Eye exam: PRESENT: PERRLA Respiratory exam: PRESENT: clear to auscultation jason Cardiovascular exam: PRESENT: +S1, +S2 GI/Abdominal exam: PRESENT: soft Neurological exam: PRESENT: alert Results Laboratory Results: 02/17/20 06:05 02/19/20 05:59 02/19/20 05:59 Sodium 138.7 Potassium 4.5 Chloride 108 H Carbon Dioxide 27 Anion Gap 4 L BUN 13 Creatinine 0.54 Est GFR ( Amer) > 60 Glucose 125 H Calcium 10.3 H 02/17/20 04:25 Catheterized Urine Urine Culture - Final NO GROWTH 2 DAYS 02/04/20 02/04/20 02/05/20 20:45 20:45 00:51 Creatine Kinase 45 41 CK-MB (CK-2) Troponin I 0.027 02/05/20 02/05/20 02/05/20 00:51 07:36 07:36 Creatine Kinase 43 CK-MB (CK-2) 0.76 1.26 Troponin I 0.057 0.167 02/05/20 02/05/20 13:26 13:26 Creatine Kinase 44 CK-MB (CK-2) 1.60 Troponin I 0.301 Impressions: Chest X-Ray 02/04/20 21:20 IMPRESSION: Nonspecific unchanged groundglass opacities in the left lower lung. No new findings. CT from 01/08/2020 demonstrated significant bilateral PE. Head CT 02/04/20 21:20 IMPRESSION: Imaging is degraded by patient motion, with resultant artifact. The best possible images were obtained. No acute intracranial process is identified. Head MRI 02/05/20 00:00 IMPRESSION: Significantly limited study secondary to excessive motion artifact. The coronal and sagittal T1-weighted postcontrast sequences are essentially nondiagnostic as a result. Persistent confluent areas of hyperintense T2/FLAIR signal located about the bilateral cerebellar hemispheres, stanley, and bilateral occipital lobes. In addition, there are likely a few foci of nodular enhancement about the cerebellar hemispheres, especially on the left. Again, these findings are entirely nonspecific, with considerations including inflammatory process such as posterior reversible encephalopathy syndrome (PRES), malignancy/metastatic disease, or potentially infection. Late subacute infarcts are considered less likely given the absence of significant volume loss. Continued close interval follow-up is recommended. Superimposed mild chronic microvascular ischemic change with generalized atrophy. copyright 2010 [employer]- All Rights Reserved KUB X-Ray 02/05/20 00:00 IMPRESSION: Enteric drainage tube tip projects over the gastric body. Otherwise, indeterminate bowel gas pattern. copyright 2011 [employer]- All Rights Reserved Abdomen/Pelvis CT 02/06/20 00:00 IMPRESSION: 1. Suspicious for thrombus in the lower IVC and right common iliac vein. Recommend further evaluation with IVC and lower extremity venous Doppler studies . 2. Cholelithiasis. 3. Other findings as above. Call report tasked to the [facility] team at the time of interpretation. 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 Is this a current diagnosis for this admission?: Yes (3) History of pulmonary embolism Is this a current diagnosis for this admission?: Yes (4) Urinary tract infection Qualifiers: Urinary tract infection type: site unspecified Hematuria presence: without hematuria Qualified Code(s): N39.0 - Urinary tract infection, site not specified Is this a current diagnosis for this admission?: Yes (5) T2DM (type 2 diabetes mellitus) Qualifiers: Diabetes mellitus terminal worker insulin use: without penitentiary use Diabetes mellitus complication status: with neurologic complications Diabetes mellitus complication detail: with polyneuropathy Qualified Code(s): E11.42 - Type 2 diabetes mellitus with diabetic polyneuropathy Is this a current diagnosis for this admission?: Yes (6) UTI (urinary tract infection) due to Enterococcus Is this a current diagnosis for this admission?: Yes (7) IVC thrombosis Is this a current diagnosis for this admission?: Yes (8) Hypokalemia Is this a current diagnosis for this admission?: Yes (9) Gastrointestinal dysmotility Is this a current diagnosis for this admission?: Yes (10) Depression Qualifiers: Depression Type: major depressive disorder Major depression recurrence: recurrent Active/Remission status: currently active Major depression episode severity: severe Psychotic features: without psychotic features Qualified Code(s): F33.2 - Major depressive disorder, recurrent severe without psychotic features Is this a current diagnosis for this admission?: Yes - Time Time Spent with patient: 25-34 minutes Level of Care: IMCU Medications reviewed and adjusted accordingly: Yes Anticipated discharge: SNF Anticipated DC Timeframe: within 72 hours
[2020-02-20] MEDS: ACYCLOVIR SODIUM 750 MG in NORMAL SALINE 250 ML IV SCH ×3 (02:00→21:17)
--- NOTE | 2020-02-20 03:51 | PDOC CONSULTATION ---
Consultation Consult Date: 02/20/20 Attending physician:: DULCE BAPTISTE Provider Consulted: MONSERRAT GTZ Consult reason:: peg tube History of Present Illness Admission Date/PCP: 02/05/20 00:13 DULCE BAPTISTE MD History of Present Illness: SITA ROLLINS is a 79 year old female was admitted for the altered mental status metabolic encephalopathy sepsis suspicious for encephalitis Patient is currently on IV acyclovir Patient have a history of the DVT PE currently on a Eliquis Patient have a urinary tract infection with enterococcus will start on amoxicillin Patient is alert awake but ill looking she has been given nurtrition via ng tuube a will need exterminator helper termite access hx 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 Past Medical History Cardiac Medical History: Reports: Hyperlipidema Denies: Atrial Fibrillation, Congestive Heart Failure, Coronary Artery Disease, Myocardial Infarction, Hypertension, Peripheral Vascular Disease, Pulmonary Embolism, Heart Murmur Pulmonary Medical History: Denies: Asthma, Bronchitis, Chronic Obstructive Pulmonary Disease (COPD), Pneumonia, Respiratory Failure, Sleep Apnea, Tuberculosis Neurological Medical History: Denies: Seizures Endocrine Medical History: Reports: Diabetes Mellitus Type 2 Denies: Hyperthyroidism, Hypothyroidism Renal/ Medical History: Denies: End Stage Renal Disease Malignancy Medical History: Denies: Breast Cancer, Cervical Cancer, Leukemia, Lung Cancer, Ovarian Cancer GI Medical History: Denies: Crohn's Disease, Gastroesophageal Reflux Disease, Hiatal Hernia Musculoskeltal Medical History: 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 Denies: Fibromyalgia Psychiatric Medical History: Reports: Depression Denies: Bipolar Disorder, Dementia, Post Traumatic Stress Disorder Hematology: Denies: Anemia, Hemophilia, Sickle Cell Disease Infectious Medical History: Denies: HIV Past Surgical History Past Surgical History: Reports: Hysterectomy Denies: Amputation, Appendectomy, Section, Cholecystectomy, Colostomy, Coronary Artery Bypass Graft, Gastric Bypass Surgery, Herniorrhaphy, Mastectomy, Pacemaker, Tonsillectomy, Tubal Ligation Social History Lives with: Family Smoking Status: Current Every Day Smoker Cigarettes Packs Per Day: 1 Electronic Cigarette use?: No Cigars Per Day: 8 Number of Years Smokin Last Time Smoked: 02/04/2020 Frequency of Alcohol Use: None Hx Recreational Drug Use: No Hx Prescription Drug Abuse: No Family History Family History: Reviewed & Not Pertinent, Other - Unable to obtain, unaware of patient's family medical history Parental Family History Reviewed: No Children Family History Reviewed: NA Sibling(s) Family History Reviewed.: NA Medication/Allergy Home Medications: Atorvastatin Calcium [Lipitor 20 mg Tablet] 20 mg PO DAILY 12/08/12 Sitagliptin Phosphate [Januvia] 100 mg PO DAILY 12/08/12 Telmisartan/Hydrochlorothiazid [Micardis HCT 80-25 mg Tablet] 1 each PO DAILY 12/08/12 Duloxetine HCl 60 mg PO DAILY 01/07/20 Apixaban [Eliquis 5 mg Tablet] 5 mg PO Q12 02/05/20 Aspirin [Ecotrin 81 mg EC Tablet] 81 mg PO DAILY 02/05/20 Diltiazem HCl [Diltiazem 24Hr ER] 240 mg PO DAILY 02/05/20 Donepezil HCl [Aricept 5 mg Tablet] 5 mg PO QHS 02/05/20 Oxycodone HCl/Acetaminophen [Percocet 10-325 mg Tablet] 1 tab PO Q8HP PRN 02/05/20 Allergies/Adverse Reactions: No Known Allergies Allergy (Verified 01/07/20 12:13) Review of Systems ROS unobtainable: Due to mental status Physical Exam Vital Signs: Temp Pulse Resp BP Pulse Ox 98.5 F 93 18 166/71 H 99 02/19/20 23:08 02/19/20 23:08 02/19/20 23:08 02/19/20 23:08 02/19/20 23:08 Intake & Output 02/18/20 02/19/20 02/20/20 06:59 06:59 06:59 Intake Total 1903 1896 265 Balance 190 1897 265 Weight 80 kg 83.1 kg General appearance: PRESENT: no acute distress Head exam: PRESENT: normocephalic Eye exam: PRESENT: EOMI Ear exam: PRESENT: normal external ear exam Mouth exam: PRESENT: moist Teeth exam: PRESENT: poor dentation Neck exam: PRESENT: full ROM Respiratory exam: PRESENT: clear to auscultation jason Cardiovascular exam: PRESENT: RRR Pulses: PRESENT: normal femoral pulses, normal dorsalis pedis pul Vascular exam: PRESENT: normal capillary refill Breast: PRESENT: Normal GI/Abdominal exam: PRESENT: soft Rectal exam: PRESENT: deferred Extremities exam: PRESENT: full ROM Neurological exam: PRESENT: awake Psychiatric exam: PRESENT: other Skin exam: PRESENT: dry Results Laboratory Results: 02/17/20 06:05 02/19/20 05:59 02/19/20 05:59 Sodium 138.7 Potassium 4.5 Chloride 108 H Carbon Dioxide 27 Anion Gap 4 L BUN 13 Creatinine 0.54 Est GFR ( Amer) > 60 Glucose 125 H Calcium 10.3 H 02/17/20 04:25 Catheterized Urine Urine Culture - Final NO GROWTH 2 DAYS 02/04/20 02/04/20 02/05/20 20:45 20:45 00:51 Creatine Kinase 45 41 CK-MB (CK-2) Troponin I 0.027 02/05/20 02/05/20 02/05/20 00:51 07:36 07:36 Creatine Kinase 43 CK-MB (CK-2) 0.76 1.26 Troponin I 0.057 0.167 02/05/20 02/05/20 13:26 13:26 Creatine Kinase 44 CK-MB (CK-2) 1.60 Troponin I 0.301 Impressions: Chest X-Ray 02/04/20 21:20 IMPRESSION: Nonspecific unchanged groundglass opacities in the left lower lung. No new findings. CT from 01/08/2020 demonstrated significant bilateral PE. Head CT 02/04/20 21:20 IMPRESSION: Imaging is degraded by patient motion, with resultant artifact. The best possible images were obtained. No acute intracranial process is identified. Head MRI 02/05/20 00:00 IMPRESSION: Significantly limited study secondary to excessive motion artifact. The coronal and sagittal T1-weighted postcontrast sequences are essentially nondiagnostic as a result. Persistent confluent areas of hyperintense T2/FLAIR signal located about the bilateral cerebellar hemispheres, stanley, and bilateral occipital lobes. In addition, there are likely a few foci of nodular enhancement about the cerebellar hemispheres, especially on the left. Again, these findings are entirely nonspecific, with considerations including inflammatory process such as posterior reversible encephalopathy syndrome (PRES), malignancy/metastatic disease, or potentially infection. Late subacute infarcts are considered less likely given the absence of significant volume loss. Continued close interval follow-up is recommended. Superimposed mild chronic microvascular ischemic change with generalized atrophy. copyright 2010 [employer]- All Rights Reserved KUB X-Ray 02/05/20 00:00 IMPRESSION: Enteric drainage tube tip projects over the gastric body. Otherwise, indeterminate bowel gas pattern. copyright 2010 [employer]- All Rights Reserved Abdomen/Pelvis CT 02/06/20 00:00 IMPRESSION: 1. Suspicious for thrombus in the lower IVC and right common iliac vein. Recommend further evaluation with IVC and lower extremity venous Doppler studies. 2. Cholelithiasis. 3. Other findings as above. Call report tasked to the [facility] team at the time of interpretation. 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
[2020-02-20] MEDS: METOPROLOL TARTRATE PF/INJ 5 MG/5 ML SDV IV SCH ×3 (05:35→18:25)
[2020-02-20] MEDS: INSULIN LISPRO 100 UNIT/ML 3 ML VIAL SUBCUT SCH ×4 (06:15→20:59)
[2020-02-20] MEDS: APIXABAN 5 MG TABLET NG SCH (10:12)
[2020-02-20] MEDS: VALSARTAN 160 MG TABLET NG SCH ×2 (13:03→21:17)
[2020-02-20] MEDS: ATORVASTATIN CALCIUM 20 MG TABLET PO SCH (13:05)
[2020-02-20] MEDS: SITAGLIPTIN PHOSPHATE 50 MG TABLET PO SCH (13:05)
[2020-02-20] MEDS: SERTRALINE HCL 50 MG TABLET PO SCH (13:06)
[2020-02-20] MEDS ORDERED: HEPARIN SOD (PORCINE) 5,000 UNIT/ML 1 ML VIAL SUBCUT SCH (14:00)
--- NOTE | 2020-02-20 15:10 | PDOC PROGRESS REPORT ---
Subjective Progress Note for:: 02/20/20 Subjective:: Patient seen by the bedside she is not as responsive as she was yesterday, plan is for a PEG tube, the Eliquis will be held Reason For Visit: METABOLIC ENCEPHALOPATHY,UTI,ADULT FAILURE TO Physical Exam Vital Signs: Temp Pulse Resp BP Pulse Ox 97.7 F 97 15 173/88 H 97 02/20/20 11:29 02/20/20 11:29 02/20/20 11:29 02/20/20 11:29 02/20/20 11:29 Intake & Output 02/19/20 02/20/20 02/21/20 06:59 06:59 06:59 Intake Total 1897 530 0 Balance 1897 530 0 Weight 83.1 kg 79.5 kg 79.5 kg General appearance: PRESENT: no acute distress Eye exam: PRESENT: PERRLA Respiratory exam: PRESENT: clear to auscultation jason Cardiovascular exam: PRESENT: +S1, +S2 GI/Abdominal exam: PRESENT: soft Neurological exam: PRESENT: altered Results Laboratory Results: 02/17/20 06:05 02/19/20 05:59 02/04/20 02/04/20 02/05/20 20:45 20:45 00:51 Creatine Kinase 45 41 CK-MB (CK-2) Troponin I 0.027 02/05/20 02/05/20 02/05/20 00:51 07:36 07:36 Creatine Kinase 43 CK-MB (CK-2) 0.76 1.26 Troponin I 0.057 0.167 02/05/20 02/05/20 13:26 13:26 Creatine Kinase 44 CK-MB (CK-2) 1.60 Troponin I 0.301 Impressions: Chest X-Ray 02/04/20 21:20 IMPRESSION: Nonspecific unchanged groundglass opacities in the left lower lung. No new findings. CT from 01/08/2020 demonstrated significant bilateral PE. Head CT 02/04/20 21:20 IMPRESSION: Imaging is degraded by patient motion, with resultant artifact. The best possible images were obtained. No acute intracranial process is identified. Head MRI 02/05/20 00:00 IMPRESSION: Significantly limited study secondary to excessive motion artifact. The coronal and sagittal T1-weighted postcontrast sequences are essentially nondiagnostic as a result. Persistent confluent areas of hyperintense T2/FLAIR signal located about the bilateral cerebellar hemispheres, stanley, and bilateral occipital lobes. In addition, there are likely a few foci of nodular enhancement about the cerebellar hemispheres, especially on the left. Again, these findings are entirely nonspecific, with considerations including inflammatory process such as posterior reversible encephalopathy syndrome (PRES), malignancy/metastatic disease, or potentially infection. Late subacute infarcts are considered less likely given the absence of significant volume loss. Continued close interval follow-up is recommended. Superimposed mild chronic microvascular ischemic change with generalized atrophy. copyright 2011 [employer]- All Rights Reserved KUB X-Ray 02/05/20 00:00 IMPRESSION: Enteric drainage tube tip projects over the gastric body. Otherwise, indeterminate bowel gas pattern. copyright 2011 [employer]- All Rights Reserved Abdomen/Pelvis CT 02/06/20 00:00 IMPRESSION: 1. Suspicious for thrombus in the lower IVC and right common iliac vein. Recommend further evaluation with IVC and lower extremity venous Doppler studies. 2. Cholelithiasis. 3. Other findings as above. Call report tasked to the [facility] team at the time of interpretation. 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 Is this a current diagnosis for this admission?: Yes (3) History of pulmonary embolism Is this a current diagnosis for this admission?: Yes (4) Urinary tract infection Qualifiers: Urinary tract infection type: site unspecified Hematuria presence: without hematuria Qualified Code(s): N39.0 - Urinary tract infection, site not specified Is this a current diagnosis for this admission?: Yes (5) T2DM (type 2 diabetes mellitus) Qualifiers: Diabetes mellitus terminal carman insulin use: without terminal carman use Diabetes mellitus complication status: with neurologic complications Diabetes mellitus complication detail: with polyneuropathy Qualified Code(s): E11.42 - Type 2 diabetes mellitus with diabetic polyneuropathy Is this a current diagnosis for this admission?: Yes (6) UTI (urinary tract infection) due to Enterococcus Is this a current diagnosis for this admission?: Yes (7) IVC thrombosis Is this a current diagnosis for this admission?: Yes (8) Hypokalemia Is this a current diagnosis for this admission?: Yes (9) Gastrointestinal dysmotility Is this a current diagnosis for this admission?: Yes (10) Depression Qualifiers: Depression Type: major depressive disorder Major depression recurrence: recurrent Active/Remission status: currently active Major depression episode severity: severe Psychotic features: without psychotic features Qualified Code(s): F33.2 - Major depressive disorder, recurrent severe without psychotic features Is this a current diagnosis for this admission?: Yes - Time Time Spent with patient: 25-34 minutes Level of Care: IMCU Medications reviewed and adjusted accordingly: Yes Anticipated discharge: Home, SNF Anticipated DC Timeframe: when bed available
[2020-02-20 16:00] LABS: INTERNATIONAL RATION (INR) 1.06
[2020-02-20 16:01] LABS: PARTIAL THROMBOPLASTIN TIME 30.4 SEC (23.5-35.8)
--- NOTE | 2020-02-20 17:55 | Progress Note ---
Provider Note Provider Note: Long discussion held with the daughter regarding risks and benefits of PEG tube placement. The daughter would like to pursue PEG tube placement. Her Eliquis is on hold. Start heparin drip, in its place. Plan for PEG tube placement on Tuesday, once Eliquis has been eliminated from her system. I discussed the case with Dr. Madera as well.
[2020-02-20] MEDS ORDERED: HEPARIN SOD (PORCINE) 1,000 UNIT/ML 10 ML VIAL IV PRN (18:00)
[2020-02-20] MEDS ORDERED: HEPARIN SODIUM,PORCINE/D5W 25,000 UNIT/250 ML RTUINJ IV PRN (18:00)
[2020-02-21] MEDS: METOPROLOL TARTRATE PF/INJ 5 MG/5 ML SDV IV SCH ×4 (00:25→21:30)
[2020-02-21] MEDS ORDERED: HEPARIN SODIUM,PORCINE/D5W 25,000 UNIT/250 ML RTUINJ IV PRN (01:25)
[2020-02-21] MEDS: ACYCLOVIR SODIUM 750 MG in NORMAL SALINE 250 ML IV SCH ×3 (02:00→17:36)
[2020-02-21] MEDS: INSULIN LISPRO 100 UNIT/ML 3 ML VIAL SUBCUT SCH ×4 (05:51→19:23)
[2020-02-21] MEDS: SITAGLIPTIN PHOSPHATE 50 MG TABLET PO SCH (10:42)
[2020-02-21] MEDS: VALSARTAN 160 MG TABLET NG SCH ×2 (10:42→21:31)
[2020-02-21] MEDS: SERTRALINE HCL 50 MG TABLET PO SCH (10:43)
[2020-02-21] MEDS: ATORVASTATIN CALCIUM 20 MG TABLET PO SCH (10:43)
--- NOTE | 2020-02-21 15:46 | Progress Note ---
Provider Note Provider Note: N.p.o. after midnight in preparation for PEG tube placement. Hold heparin 2 hours prior to surgery. Risk/benefits discussed with daughter, informed consent obtained, and all questions answered.
--- NOTE | 2020-02-21 20:10 | PDOC PROGRESS REPORT ---
Subjective Progress Note for:: 02/21/20 Subjective:: Patient seen by the bedside, scheduled for PEG tube tomorrow, hopefully discharge to retirement home for rehabilitation Reason For Visit: METABOLIC ENCEPHALOPATHY,UTI,ADULT FAILURE TO Physical Exam Vital Signs: Temp Pulse Resp BP Pulse Ox 98.1 F 94 18 146/61 H 96 02/21/20 16:39 02/21/20 16:39 02/21/20 16:39 02/21/20 16:39 02/21/20 16:39 Intake & Output 02/20/20 02/21/20 02/22/20 06:59 06:59 06:59 Intake Total 795 894 265 Balance 795 894 265 Weight 79.5 kg 78.7 kg General appearance: PRESENT: no acute distress Eye exam: PRESENT: PERRLA Respiratory exam: PRESENT: clear to auscultation jason Cardiovascular exam: PRESENT: +S1, +S2 Results Laboratory Results: 02/17/20 06:05 02/19/20 05:59 02/04/20 02/04/20 02/05/20 20:45 20:45 00:51 Creatine Kinase 45 41 CK-MB (CK-2) Troponin I 0.027 02/05/20 02/05/20 02/05/20 00:51 07:36 07:36 Creatine Kinase 43 CK-MB (CK-2) 0.76 1.26 Troponin I 0.057 0.167 02/05/20 02/05/20 13:26 13:26 Creatine Kinase 44 CK-MB (CK-2) 1.60 Troponin I 0.301 Impressions: Chest X-Ray 02/04/20 21:20 IMPRESSION: Nonspecific unchanged groundglass opacities in the left lower lung. No new findings. CT from 01/08/2020 demonstrated significant bilateral PE. Head CT 02/04/20 21:20 IMPRESSION: Imaging is degraded by patient motion, with resultant artifact. The best possible images were obtained. No acute intracranial process is identified. Head MRI 02/05/20 00:00 IMPRESSION: Significantly limited study secondary to excessive motion artifact. The coronal and sagittal T1-weighted postcontrast sequences are essentially nondiagnostic as a result. Persistent confluent areas of hyperintense T2/FLAIR signal located about the bilateral cerebellar hemispheres, stanley, and bilateral occipital lobes. In addition, there are likely a few foci of nodular enhancement about the cerebellar hemispheres, especially on the left. Again, these findings are entirely nonspecific, with considerations including inflammatory process such as posterior reversible encephalopathy syndrome (PRES), malignancy/metastatic disease, or potentially infection. Late subacute infarcts are considered less likely given the absence of significant volume loss. Continued close interval follow-up is recommended. Superimposed mild chronic microvascular ischemic change with generalized atrophy. copyright 2011 [employer]- All Rights Reserved KUB X-Ray 02/05/20 00:00 IMPRESSION: Enteric drainage tube tip projects over the gastric body. Otherwise, indeterminate bowel gas pattern. copyright 2011 [employer]- All Rights Reserved Abdomen/Pelvis CT 02/06/20 00:00 IMPRESSION: 1. Suspicious for thrombus in the lower IVC and right common iliac vein. Recommend further evaluation with IVC and lower extremity venous Doppler studie s. 2. Cholelithiasis. 3. Other findings as above. Call report tasked to the [facility] team at the time of interpretation. 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 Is this a current diagnosis for this admission?: Yes (3) History of pulmonary embolism Is this a current diagnosis for this admission?: Yes (4) Urinary tract infection Qualifiers: Urinary tract infection type: site unspecified Hematuria presence: without hematuria Qualified Code(s): N39.0 - Urinary tract infection, site not specified Is this a current diagnosis for this admission?: Yes (5) T2DM (type 2 diabetes mellitus) Qualifiers: Diabetes mellitus half-way insulin use: without half-way use Diabetes mellitus complication status: with neurologic complications Diabetes mellitus complication detail: with polyneuropathy Qualified Code(s): E11.42 - Type 2 diabetes mellitus with diabetic polyneuropathy Is this a current diagnosis for this admission?: Yes (6) UTI (urinary tract infection) due to Enterococcus Is this a current diagnosis for this admission?: Yes (7) IVC thrombosis Is this a current diagnosis for this admission?: Yes (8) Hypokalemia Is this a current diagnosis for this admission?: Yes (9) Gastrointestinal dysmotility Is this a current diagnosis for this admission?: Yes (10) Depression Qualifiers: Depression Type: major depressive disorder Major depression recurrence: recurrent Active/Remission status: currently active Major depression episode severity: severe Psychotic features: without psychotic features Qualified Code(s): F33.2 - Major depressive disorder, recurrent severe without psychotic features Is this a current diagnosis for this admission?: Yes - Time Time Spent with patient: 25-34 minutes Level of Care: IMCU Medications reviewed and adjusted accordingly: Yes Anticipated discharge: SNF Anticipated DC Timeframe: when bed available - Inpatient Certification Based on my medical assessment, after consideration of the patient's comorbidities, presenting symptoms, or acuity I expect that the services needed warrant INPATIENT care.: Yes I certify that my determination is in accordance with my understanding of Medicare's requirements for reasonable and necessary INPATIENT services [42 CFR 412.3e].: Yes
[2020-02-22] MEDS: INSULIN LISPRO 100 UNIT/ML 3 ML VIAL SUBCUT SCH ×4 (00:27→18:37)
[2020-02-22] MEDS: METOPROLOL TARTRATE PF/INJ 5 MG/5 ML SDV IV SCH ×4 (00:32→18:38)
[2020-02-22] MEDS ORDERED: PROPOFOL INJ 200 MG/20 ML VIAL IV ONE ×2 (06:33→06:36)
--- NOTE | 2020-02-22 07:30 | PDOC PROGRESS REPORT ---
Subjective Progress Note for:: 02/22/20 Subjective:: 79-year-old female with encephalopathy. She is minimally responsive. No appreciable review of systems is obtainable. No new changes overnight per the nursing staff. Reason For Visit: METABOLIC ENCEPHALOPATHY,UTI,ADULT FAILURE TO Physical Exam Vital Signs: Temp Pulse Resp BP Pulse Ox 98.2 F 93 16 148/62 H 97 02/22/20 04:01 02/22/20 07:00 02/22/20 04:01 02/22/20 04:01 02/22/20 04:01 Intake & Output 02/21/20 02/22/20 02/23/20 06:59 06:59 06:59 Intake Total 894 530 Balance 894 530 Weight 78.7 kg General appearance: PRESENT: no acute distress Head exam: PRESENT: atraumatic Eye exam: ABSENT: scleral icterus Mouth exam: PRESENT: neck supple Neck exam: ABSENT: tracheal deviation Respiratory exam: PRESENT: unlabored. ABSENT: tachypnea Cardiovascular exam: ABSENT: tachycardia Vascular exam: PRESENT: normal capillary refill GI/Abdominal exam: PRESENT: soft. ABSENT: distended Rectal exam: PRESENT: deferred Extremities exam: ABSENT: clubbing Musculoskeletal exam: ABSENT: ambulatory Neurological exam: ABSENT: alert, oriented to person, oriented to place, oriented to time, oriented to situation Psychiatric exam: ABSENT: agitated, anxious Skin exam: ABSENT: cyanosis, erythema, jaundice Results Laboratory Results: 02/17/20 06:05 02/19/20 05:59 02/04/20 02/04/20 02/05/20 20:45 20:45 00:51 Creatine Kinase 45 41 CK-MB (CK-2) Troponin I 0.027 02/05/20 02/05/20 02/05/20 00:51 07:36 07:36 Creatine Kinase 43 CK-MB (CK-2) 0.76 1.26 Troponin I 0.057 0.167 02/05/20 02/05/20 13:26 13:26 Creatine Kinase 44 CK-MB (CK-2) 1.60 Troponin I 0.301 Impressions: Chest X-Ray 02/04/20 21:20 IMPRESSION: Nonspecific unchanged groundglass opacities in the left lower lung. No new findings. CT from 01/08/2020 demonstrated significant bilateral PE. Head CT 02/04/20 21:20 IMPRESSION: Imaging is degraded by patient motion, with resultant artifact. The best possible images were obtained. No acute intracranial process is identified. Head MRI 02/05/20 00:00 IMPRESSION: Significantly limited study secondary to excessive motion artifact. The coronal and sagittal T1-weighted postcontrast sequences are essentially nondiagnostic as a result. Persistent confluent areas of hyperintense T2/FLAIR signal located about the bilateral cerebellar hemispheres, stanley, and bilateral occipital lobes. In addition, there are likely a few foci of nodular enhancement about the cerebellar hemispheres, especially on the left. Again, these findings are entirely nonspecific, with considerations including inflammatory process such as posterior reversible encephalopathy syndrome (PRES), malignancy/metastatic disease, or potentially infection. Late subacute infarcts are considered less likely given the absence of significant volume loss. Continued close interval follow-up is recommended. Superimposed mild chronic microvascular ischemic change with generalized atrophy. copyright 2011 [employer]- All Rights Reserved KUB X-Ray 02/05/20 00:00 IMPRESSION: Enteric drainage tube tip projects over the gastric body. Otherwise, indeterminate bowel gas pattern. copyright 2011 [employer]- All Rights Reserved Abdomen/Pelvis CT 02/06/20 00:00 IMPRESSION: 1. Suspicious for thrombus in the lower IVC and right common iliac vein. Recommend further evaluation with IVC and lower extremity venous Doppler studies. 2. Cholelithiasis. 3. Other findings as above. Call report tasked to the [facility] team at the time of interpretation. Assessment & Plan - Diagnosis (1) Metabolic encephalopathy Is this a current diagnosis for this admission?: Yes (2) Inanition Is this a current diagnosis for this admission?: Yes - Time Anticipated Discharge Disposition: unknown Anticipated Discharge Timeframe: unknown - Plan Summary Plan Summary: Patient with encephalopathy, and unable to eat. She is in need of a gastrostomy for enteral nutrition. Plan to stop heparin 2 hours prior to procedure. Plan for PEG tube today. Lengthy discussion was held with the daughter, and she agrees with the treatment plan.
--- NOTE | 2020-02-22 14:20 | Operative Report ---
Nonrecallable Operative Report DATE OF SURGERY: 02/22/20 PREOPERATIVE DIAGNOSIS: 1. Encephalopathy. 2. Inanition. POSTOPERATIVE DIAGNOSIS: Same as above OPERATION: Percutaneous endoscopic gastrostomy placement SURGEON: JOSE PIERSON ANESTHESIA: LMAC TISSUE REMOVED OR ALTERED: None COMPLICATIONS: None apparent ESTIMATED BLOOD LOSS: Minimal PROCEDURE: Drains/implants: 20 Italian PEG tube. Procedure in detail: After informed consent was obtained, the patient was brought to the operating room and laid in the supine position. The flexible gastroscope was inserted into the oropharynx. It was passed down the oropharynx, esophagus, and into the stomach. The stomach was insufflated with air. An appropriate place on the abdominal wall was chosen using one-to-one ballottement as well as transillumination. Next, the abdomen was prepped and draped in a normal sterile fashion. Direct pressure was applied to the abdominal wall, and the needle was inserted percutaneously, into the lumen of the stomach. This was confirmed via endoscopy. A wire was then inserted into the needle. The wire was grasped with a snare, and pulled out the mouth. The tube was attached to the wire, and pulled down the esophagus, and out the anterior abdominal wall. This left the internal bumper in place against the gastric mucosa. Next, the tube was assembled, and the procedure was concluded. All sponge, instrument, and needle counts were correct x2. Condition: Fair.
[2020-02-22] MEDS ORDERED: HYDRALAZINE HCL INJ/PF 20 MG/1 ML SDV IV ONE (14:28)
[2020-02-22] MEDS ORDERED: DIPHENHYDRAMINE HCL 50 MG/ML VIAL IV PRN (14:30)
[2020-02-22] MEDS ORDERED: PROMETHAZINE HCL INJ 25 MG/1 ML VIAL IV PRN ×2 (14:30)
[2020-02-22] MEDS ORDERED: FENTANYL CITRATE INJ/PF 100 MCG/2 ML AMPUL IV PRN ×3 (14:30)
[2020-02-22] MEDS ORDERED: HYDRALAZINE HCL INJ/PF 20 MG/1 ML SDV ONE (14:32)
[2020-02-22] MEDS: ATORVASTATIN CALCIUM 20 MG TABLET PO SCH (15:29)
[2020-02-22] MEDS: VALSARTAN 160 MG TABLET NG SCH ×2 (15:29→22:38)
[2020-02-22] MEDS: SITAGLIPTIN PHOSPHATE 50 MG TABLET PO SCH (15:29)
[2020-02-22] MEDS: SERTRALINE HCL 50 MG TABLET PO SCH (15:43)
--- NOTE | 2020-02-22 20:02 | PDOC PROGRESS REPORT ---
Subjective Progress Note for:: 02/22/20 Subjective:: Patient seen by the bedside, she was very feisty today, she had the PEG tube placement today Reason For Visit: METABOLIC ENCEPHALOPATHY,UTI,ADULT FAILURE TO Physical Exam Vital Signs: Temp Pulse Resp BP Pulse Ox 97.7 F 96 16 115/38 L 91 L 02/22/20 15:58 02/22/20 15:58 02/22/20 15:58 02/22/20 15:58 02/22/20 15:58 Intake & Output 02/21/20 02/22/20 02/23/20 06:59 06:59 06:59 Intake Total 894 530 150 Output Total 0 Balance 894 530 150 Weight 78.7 kg 78.3 kg Results Laboratory Results: 02/17/20 06:05 02/19/20 05:59 02/04/20 02/04/20 02/05/20 20:45 20:45 00:51 Creatine Kinase 45 41 CK-MB (CK-2) Troponin I 0.027 02/05/20 02/05/20 02/05/20 00:51 07:36 07:36 Creatine Kinase 43 CK-MB (CK-2) 0.76 1.26 Troponin I 0.057 0.167 02/05/20 02/05/20 13:26 13:26 Creatine Kinase 44 CK-MB (CK-2) 1.60 Troponin I 0.301 Impressions: Chest X-Ray 02/04/20 21:20 IMPRESSION: Nonspecific unchanged groundglass opacities in the left lower lung. No new findings. CT from 01/08/2020 demonstrated significant bilateral PE. Head CT 02/04/20 21:20 IMPRESSION: Imaging is degraded by patient motion, with resultant artifact. The best possible images were obtained. No acute intracranial process is identified. Head MRI 02/05/20 00:00 IMPRESSION: Significantly limited study secondary to excessive motion artifact. The coronal and sagittal T1-weighted postcontrast sequences are essentially nondiagnostic as a result. Persistent confluent areas of hyperintense T2/FLAIR signal located about the bilateral cerebellar hemispheres, stanley, and bilateral occipital lobes. In addition, there are likely a few foci of nodular enhancement about the cerebellar hemispheres, especially on the left. Again, these findings are entirely nonspecific, with considerations including inflammatory process such as posterior reversible encephalopathy syndrome (PRES), malignancy/metastatic disease, or potentially infection. Late subacute infarcts are considered less likely given the absence of significant volume loss. Continued close interval follow-up is recommended. Superimposed mild chronic microvascular ischemic change with generalized atrophy. copyright 2010 [employer]- All Rights Reserved KUB X-Ray 02/05/20 00:00 IMPRESSION: Enteric drainage tube tip projects over the gastric body. Otherwise, indeterminate bowel gas pattern. copyright 2010 [employer]- All Rights Reserved Abdomen/Pelvis CT 02/06/20 00:00 IMPRESSION: 1. Suspicious for thrombus in the lower IVC and right common iliac vein. Recommend further evaluation with IVC and lower extremity venous Doppler studies. 2. Cholelithiasis. 3. Other findings as above. Call report tasked to the [facility] CORE team at the time of interpretation. 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 Is this a current diagnosis for this admission?: Yes (3) History of pulmonary embolism Is this a current diagnosis for this admission?: Yes (4) Urinary tract infection Qualifiers: Urinary tract infection type: site unspecified Hematuria presence: without hematuria Qualified Code(s): N39.0 - Urinary tract infection, site not specified Is this a current diagnosis for this admission?: Yes (5) T2DM (type 2 diabetes mellitus) Qualifiers: Diabetes mellitus custodial insulin use: without custodial use Diabetes mellitus complication status: with neurologic complications Diabetes mellitus complication detail: with polyneuropathy Qualified Code(s): E11.42 - Type 2 diabetes mellitus with diabetic polyneuropathy Is this a current diagnosis for this admission?: Yes (6) UTI (urinary tract infection) due to Enterococcus Is this a current diagnosis for this admission?: Yes (7) IVC thrombosis Is this a current diagnosis for this admission?: Yes (8) Hypokalemia Is this a current diagnosis for this admission?: Yes (9) Gastrointestinal dysmotility Is this a current diagnosis for this admission?: Yes (10) Depression Qualifiers: Depression Type: major depressive disorder Major depression recurrence: recurrent Active/Remission status: currently active Major depression episode severity: severe Psychotic features: without psychotic features Qualified Code(s): F33.2 - Major depressive disorder, recurrent severe without psychotic features Is this a current diagnosis for this admission?: Yes - Time Time Spent with patient: 15-24 minutes Level of Care: IMCU Medications reviewed and adjusted accordingly: Yes Anticipated discharge: SNF Anticipated DC Timeframe: within 72 hours - Inpatient Certification Based on my medical assessment, after consideration of the patient's comorbidities, presenting symptoms, or acuity I expect that the services needed warrant INPATIENT care.: No I certify that my determination is in accordance with my understanding of Medicare's requirements for reasonable and necessary INPATIENT services [42 CFR 412.3e].: No
[2020-02-22] MEDS: APIXABAN 5 MG TABLET NG SCH (22:14)
[2020-02-23] MEDS: INSULIN LISPRO 100 UNIT/ML 3 ML VIAL SUBCUT SCH ×4 (00:10→18:00)
[2020-02-23] MEDS: METOPROLOL TARTRATE PF/INJ 5 MG/5 ML SDV IV SCH ×4 (00:38→18:01)
--- NOTE | 2020-02-23 09:34 | PDOC PROGRESS REPORT ---
Subjective Progress Note for:: 02/23/20 Subjective:: awake Reason For Visit: METABOLIC ENCEPHALOPATHY,UTI,ADULT FAILURE TO Physical Exam Vital Signs: Temp Pulse Resp BP Pulse Ox 98.4 F 109 H 16 153/68 H 93 02/23/20 08:09 02/23/20 08:09 02/23/20 08:09 02/23/20 08:09 02/23/20 08:09 Intake & Output 02/22/20 02/23/20 02/24/20 06:59 06:59 06:59 Intake Total 530 150 Output Total 0 Balance 530 150 Weight 78.3 kg 76.6 kg General appearance: PRESENT: no acute distress Head exam: PRESENT: normocephalic Eye exam: PRESENT: EOMI Mouth exam: PRESENT: moist Respiratory exam: PRESENT: clear to auscultation jason Cardiovascular exam: PRESENT: RRR Pulses: PRESENT: normal radial pulses, normal femoral pulses Breast: PRESENT: Normal GI/Abdominal exam: PRESENT: other - soft, peg tube site clean. Rectal exam: PRESENT: deferred Extremities exam: PRESENT: full ROM Neurological exam: PRESENT: awake Psychiatric exam: PRESENT: appropriate affect Skin exam: PRESENT: dry Results Laboratory Results: 02/17/20 06:05 02/19/20 05:59 02/04/20 02/04/20 02/05/20 20:45 20:45 00:51 Creatine Kinase 45 41 CK-MB (CK-2) Troponin I 0.027 02/05/20 02/05/20 02/05/20 00:51 07:36 07:36 Creatine Kinase 43 CK-MB (CK-2) 0.76 1.26 Troponin I 0.057 0.167 02/05/20 02/05/20 13:26 13:26 Creatine Kinase 44 CK-MB (CK-2) 1.60 Troponin I 0.301 Impressions: Chest X-Ray 02/04/20 21:20 IMPRESSION: Nonspecific unchanged groundglass opacities in the left lower lung. No new findings. CT from 01/08/2020 demonstrated significant bilateral PE. Head CT 02/04/20 21:20 IMPRESSION: Imaging is degraded by patient motion, with resultant artifact. The best possible images were obtained. No acute intracranial process is identified. Head MRI 02/05/20 00:00 IMPRESSION: Significantly limited study secondary to excessive motion artifact. The coronal and sagittal T1-weighted postcontrast sequences are essentially nondiagnostic as a result. Persistent confluent areas of hyperintense T2/FLAIR signal located about the bilateral cerebellar hemispheres, stanley, and bilateral occipital lobes. In addition, there are likely a few foci of nodular enhancement about the cerebellar hemispheres, especially on the left. Again, these findings are entirely nonspecific, with considerations including inflammatory process such as posterior reversible encephalopathy syndrome (PRES), malignancy/metastatic disease, or potentially infection. Late subacute infarcts are considered less likely given the absence of significant volume loss. Continued close interval follow-up is recommended. Superimposed mild chronic microvascular ischemic change with generalized atrophy. copyright 2011 [employer]- All Rights Reserved KUB X-Ray 02/05/20 00:00 IMPRESSION: Enteric drainage tube tip projects over the gastric body. Otherwise, indeterminate bowel gas pattern. copyright 2011 [employer]- All Rights Reserved Abdomen/Pelvis CT 02/06/20 00:00 IMPRESSION: 1. Suspicious for thrombus in the lower IVC and right common iliac vein. Recommend further evaluation with IVC and lower extremity venous Doppler studies. 2. Cholelithiasis. 3. Other findings as above. Call report tasked to the [facility] team at the time of interpretation. Assessment & Plan - Time Anticipated Discharge Disposition: unk Anticipated Discharge Timeframe: unk - Plan Summary Plan Summary: peg tube inserted yesterday functioning ok to start using tube. please reconsult surgery as necessary.
[2020-02-23] MEDS: SITAGLIPTIN PHOSPHATE 50 MG TABLET PO SCH (09:54)
[2020-02-23] MEDS: VALSARTAN 160 MG TABLET NG SCH ×2 (09:55→22:58)
[2020-02-23] MEDS: ATORVASTATIN CALCIUM 20 MG TABLET PO SCH (09:55)
[2020-02-23] MEDS: SERTRALINE HCL 50 MG TABLET PO SCH (09:55)
[2020-02-23] MEDS: APIXABAN 5 MG TABLET NG SCH ×2 (09:56→22:57)
[2020-02-23 14:26] LABS: ABSOLUTE BASOPHILS # (AUTO) 0.1 10^3/uL (0.0-0.2); ABSOLUTE LYMPHOCYTES (AUTO) 1.3 10^3/uL (0.5-4.7); BASOPHILS % (AUTO) 0.5 % (0-2); EOSINOPHILS % (AUTO) 0.3 % (0-6); HEMATOCRIT 32.7 % (36.0-47.0); HEMOGLOBIN 10.9 g/dL (12.0-15.5); LYMPHOCYTES % (AUTO) 11.1 % (13-45); MEAN CORPUSCULAR HEMOGLOBIN 29.6 pg (27.0-33.4); MEAN CORPUSCULAR HGB CONC 33.3 g/dL (32.0-36.0); MEAN CORPUSCULAR VOLUME 89 fl (80-97); PLATELET COUNT 468 10^3/uL (150-450); RED BLOOD COUNT 3.68 10^6/uL (3.72-5.28); RED CELL DISTRIBUTION WIDTH 16.9 % (11.5-14.0); SEGMENTED NEUTROPHILS % (AUTO) 79.1 % (42-78); TOTAL CELLS COUNTED % (AUTO) 100 %; WHITE BLOOD COUNT 11.4 10^3/uL (4.0-10.5)
[2020-02-23 14:40] LABS: ANION GAP 5 (5-19); BLOOD UREA NITROGEN 9 mg/dL (7-20); CALCIUM 11.1 mg/dL (8.4-10.2); CARBON DIOXIDE 26 mmol/L (22-30); CHLORIDE 108 mmol/L (98-107); GLUCOSE 141 mg/dL (75-110); POTASSIUM 3.9 mmol/L (3.6-5.0)
--- NOTE | 2020-02-23 15:19 | PDOC PROGRESS REPORT ---
Subjective Progress Note for:: 02/23/20 Subjective:: Patient seen by the bedside, she had PEG tube yesterday, the nursing staff stated that she will be ready for Tuesday discharge Reason For Visit: METABOLIC ENCEPHALOPATHY,UTI,ADULT FAILURE TO Physical Exam Vital Signs: Temp Pulse Resp BP Pulse Ox 99.3 F 98 16 164/54 H 94 02/23/20 11:24 02/23/20 14:00 02/23/20 11:24 02/23/20 11:24 02/23/20 11:24 Intake & Output 02/22/20 02/23/20 02/24/20 06:59 06:59 06:59 Intake Total 530 150 Output Total 0 Balance 530 150 Weight 78.3 kg 76.6 kg 76.6 kg Results Laboratory Results: 02/23/20 14:15 02/23/20 14:15 02/23/20 02/23/20 14:15 14:15 WBC 11.4 H RBC 3.68 L Hgb 10.9 L Hct 32.7 L MCV 89 MCH 29.6 MCHC 33.3 RDW 16.9 H Plt Count 468 H Seg Neutrophils % 79.1 H Sodium 139.3 Potassium 3.9 Chloride 108 H Carbon Dioxide 26 Anion Gap 5 BUN 9 Creatinine 0.44 L Est GFR ( Amer) > 60 Glucose 141 H Calcium 11.1 H 02/04/20 02/04/20 02/05/20 20:45 20:45 00:51 Creatine Kinase 45 41 CK-MB (CK-2) Troponin I 0.027 02/05/20 02/05/20 02/05/20 00:51 07:36 07:36 Creatine Kinase 43 CK-MB (CK-2) 0.76 1.26 Troponin I 0.057 0.167 02/05/20 02/05/20 13:26 13:26 Creatine Kinase 44 CK-MB (CK-2) 1.60 Troponin I 0.301 Impressions: Chest X-Ray 02/04/20 21:20 IMPRESSION: Nonspecific unchanged groundglass opacities in the left lower lung. No new findings. CT from 01/08/2020 demonstrated significant bilateral PE. Head CT 02/04/20 21:20 IMPRESSION: Imaging is degraded by patient motion, with resultant artifact. The best possible images were obtained. No acute intracranial process is identified. Head MRI 02/05/20 00:00 IMPRESSION: Significantly limited study secondary to excessive motion artifact. The coronal and sagittal T1-weighted postcontrast sequences are essentially nondiagnostic as a result. Persistent confluent areas of hyperintense T2/FLAIR signal located about the bilateral cerebellar hemispheres, stanley, and bilateral occipital lobes. In addition, there are likely a few foci of nodular enhancement about the cerebellar hemispheres, especially on the left. Again, these findings are entirely nonspecific, with considerations including inflammatory process such as posterior reversible encephalopathy syndrome (PRES), malignancy/metastatic disease, or potentially infection. Late subacute infarcts are considered less likely given the absence of significant volume loss. Continued close interval follow-up is recommended. Superimposed mild chronic microvascular ischemic change with generalized atrophy. copyright 2010 [employer]- All Rights Reserved KUB X-Ray 02/05/20 00:00 IMPRESSION: Enteric drainage tube tip projects over the gastric body. Otherwise, indeterminate bowel gas pattern. copyright 2011 [employer]- All Rights Reserved Abdomen/Pelvis CT 02/06/20 00:00 IMPRESSION: 1. Suspicious for thrombus in the lower IVC and right common iliac vein. R ecommend further evaluation with IVC and lower extremity venous Doppler studies. 2. Cholelithiasis. 3. Other findings as above. Call report tasked to the [facility] team at the time of int erpretation. 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 Is this a current diagnosis for this admission?: Yes (3) History of pulmonary embolism Is this a current diagnosis for this admission?: Yes (4) Urinary tract infection Qualifiers: Urinary tract infection type: site unspecified Hematuria presence: without hematuria Qualified Code(s): N39.0 - Urinary tract infection, site not specified Is this a current diagnosis for this admission?: Yes (5) T2DM (type 2 diabetes mellitus) Qualifiers: Diabetes mellitus mcfp insulin use: without mcfp use Diabetes mellitus complication status: with neurologic complications Diabetes mellitus complication detail: with polyneuropathy Qualified Code(s): E11.42 - Type 2 diabetes mellitus with diabetic polyneuropathy Is this a current diagnosis for this admission?: Yes (6) UTI (urinary tract infection) due to Enterococcus Is this a current diagnosis for this admission?: Yes (7) IVC thrombosis Is this a current diagnosis for this admission?: Yes (8) Hypokalemia Is this a current diagnosis for this admission?: Yes (9) Gastrointestinal dysmotility Is this a current diagnosis for this admission?: Yes (10) Depression Qualifiers: Depression Type: major depressive disorder Major depression recurrence: recurrent Active/Remission status: currently active Major depression episode severity: severe Psychotic features: without psychotic features Qualified Code(s): F33.2 - Major depressive disorder, recurrent severe without psychotic features Is this a current diagnosis for this admission?: Yes - Time Time Spent with patient: 15-24 minutes Level of Care: IMCU Anticipated discharge: SNF Anticipated DC Timeframe: when bed available
[2020-02-24] MEDS: METOPROLOL TARTRATE PF/INJ 5 MG/5 ML SDV IV SCH ×5 (00:48→23:15)
[2020-02-24] MEDS: INSULIN LISPRO 100 UNIT/ML 3 ML VIAL SUBCUT SCH ×4 (00:49→17:55)
[2020-02-24] MEDS: VALSARTAN 160 MG TABLET NG SCH ×2 (10:36→23:15)
[2020-02-24] MEDS: SITAGLIPTIN PHOSPHATE 50 MG TABLET PO SCH (10:36)
[2020-02-24] MEDS: ATORVASTATIN CALCIUM 20 MG TABLET PO SCH (10:36)
[2020-02-24] MEDS: SERTRALINE HCL 50 MG TABLET PO SCH (10:36)
[2020-02-24] MEDS: APIXABAN 5 MG TABLET NG SCH ×2 (10:36→23:15)
--- NOTE | 2020-02-24 12:05 | PDOC TRANSFER SUMMARY ---
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 Is this a current diagnosis for this admission?: Yes (3) History of pulmonary embolism Is this a current diagnosis for this admission?: Yes (4) Urinary tract infection Is this a current diagnosis for this admission?: Yes (5) T2DM (type 2 diabetes mellitus) Is this a current diagnosis for this admission?: Yes (6) UTI (urinary tract infection) due to Enterococcus Is this a current diagnosis for this admission?: Yes (7) IVC thrombosis Is this a current diagnosis for this admission?: Yes (8) Hypokalemia Is this a current diagnosis for this admission?: Yes (9) Gastrointestinal dysmotility Is this a current diagnosis for this admission?: Yes (10) Depression Is this a current diagnosis for this admission?: Yes (11) Osteoarthritis of right knee Is this a current diagnosis for this admission?: Yes (12) Parathyroid adenoma Is this a current diagnosis for this admission?: Yes (13) Primary hyperparathyroidism Is this a current diagnosis for this admission?: Yes - Additional Information Resuscitation Status: Full Code Discharge Diet: Tube Feeding (Comments) - follow the present treatment Discharge Activity: Activity As Tolerated Referrals: DULCE BAPTISTE MD [Primary Care Provider] - Follow up as needed Home Medications: Atorvastatin Calcium [Lipitor 20 mg Tablet] 20 mg PO DAILY 12/08/12 Sitagliptin Phosphate [Januvia] 100 mg PO DAILY 12/08/12 Telmisartan/Hydrochlorothiazid [Micardis HCT 80-25 mg Tablet] 1 each PO DAILY 12/08/12 Duloxetine HCl 60 mg PO DAILY 01/07/20 Apixaban [Eliquis 5 mg Tablet] 5 mg PO Q12 02/05/20 Diltiazem HCl [Diltiazem 24Hr ER] 240 mg PO DAILY 02/05/20 Donepezil HCl [Aricept 5 mg Tablet] 5 mg PO QHS 02/05/20 Acetaminophen [Tylenol Soln 325 mg/10.15 ml Udcup] 650 mg NG Q4HP PRN udc 02/24/20 Apixaban [Eliquis 5 mg Tablet] 5 mg NG Q12 tablet 02/24/20 Sitagliptin Phosphate [Januvia 50 mg Tablet] 100 mg PO DAILY tablet 02/24/20 History of Present Illiness History of Present Illness: SITA ROLLINS is a 79 year old female, She was brought to the emergency room by the daughter for evaluation of altered mental status. She was recently discharged from this hospital on January 18, 2020, at the time she was diagnosed with severe bilateral pulmonary embolism, bilateral deep vein thrombosis of the lower extremities, primary hyperparathyroidism with parathyroid adenoma, disabling right knee arthropathy.. In the emergency room she was evaluated, a CAT scan of the head was done which was negative, she also was found to have abnormal urinalysis. When I saw patient on the floor she does not communicate verbally, she have eyes closed,, she has impaired language skills, there was l oss of nasolabial fold more so on the right side,. The daughter was in the room, I asked her about CODE STATUS, she wants her to be a full code, she is only child. MRI of the brain was done without contrast, it demonstrated in the cerebrum multiple T2 flair foci of increased signal intensity in the bilateral periventricular white matter and subcortical white matter in the bilateral and converse today regions, frontal, parietal lobes, occipital lobes temporal lobe on the right differently did not demonstrate any restricted diffusion in the posterior fossa, there was several foci of increased signal intensity in the bilateral cerebellar hemisphere these findings appear to demonstrate increased signal intensity on both diffusion-weighted imaging and ADC mapping images suggesting old cerebellar infarcts clearly the MRI is abnormal IV contrast was suggested this to be obtained tomorrow. Patient is not able to eat by mouth because of depressed sensorium, NG tube inserted for the purpose of nutrition and also administration of medication, prognosis is guarded Hospital Course Hospital Course: Patient was admitted for the management of metabolic encephalopathy, on admission she was virtually unresponsive, MRI of the brain was done, it was abnormal, EEG was done, it was abnormal, a lumbar puncture could not be done because she has a recent history of extensive thrombosis including pulmonary embolism, bilateral deep vein thrombosis, IVC thrombosis, to do a lumbar puncture will have to hold the anticoagulant for 3 to 5 days, I felt the risk of holding anticoagulant is too high so she was empirically treated with IV acyclovir for presumptive herpes encephalitis for 2 weeks. At the initiation of the IV acyclovir patient regained consciousness, there was dramatic improvement but over the course of hospital stay the sensorium has been fluctuating. She was given NG tube for nutrition and also to administer medications. NG tube is now converted to a PEG tube. She is extremity deconditioned she will need intensive physical therapy and rehabilitation. She also had Enterococcus faecalis UTI that was treated with IV ampicillin. She has other comorbid conditions including type 2 diabetes mellitus severe osteoarthritis of the right knee, primary hyperparathyroidism with parathyroid adenoma., Mild cognitive impairment.not full-blown dementia yet. Physical Exam Vital Signs: Temp Pulse Resp BP Pulse Ox 98.4 F 106 H 16 129/66 H 95 02/24/20 07:56 02/24/20 07:56 02/24/20 07:56 02/24/20 07:56 02/24/20 07:56 Intake & Output 02/23/20 02/24/20 02/25/20 06:59 06:59 06:59 Intake Total 150 595 Output Total 0 Balance 150 595 Weight 76.6 kg 77.4 kg Results Laboratory Results: WBC 11.4 10^3/uL (4.0-10.5) H 02/23/20 14:15 RBC 3.68 10^6/uL (3.72-5.28) L 02/23/20 14:15 Hgb 10.9 g/dL (12.0-15.5) L 02/23/20 14:15 Hct 32.7 % (36.0-47.0) L 02/23/20 14:15 MCV 89 fl (80-97) 02/23/20 14:15 MCH 29.6 pg (27.0-33.4) 02/23/20 14:15 MCHC 33.3 g/dL (32.0-36.0) 02/23/20 14:15 RDW 16.9 % (11.5-14.0) H 02/23/20 14:15 Plt Count 468 10^3/uL (150-450) H 02/23/20 14:15 Lymph % (Auto) 11.1 % (13-45) L 02/23/20 14:15 [place] % (Auto) 9.0 % (3-13) 02/23/20 14:15 Eos % (Auto) 0.3 % (0-6) 02/23/20 14:15 Baso % (Auto) 0.5 % (0-2) 02/23/20 14:15 Absolute Neuts (auto) 9.0 10^3/uL (1.7-8.2) H 02/23/20 14:15 Absolute Lymphs (auto) 1.3 10^3/uL (0.5-4.7) 02/23/20 14:15 Absolute Monos (auto) 1.0 10^3/uL (0.1-1.4) 02/23/20 14:15 Absolute Eos (auto) 0.0 10^3/uL (0.0-0.6) 02/23/20 14:15 Absolute Basos (auto) 0.1 10^3/uL (0.0-0.2) 02/23/20 14:15 Seg Neutrophils % 79.1 % (42-78) H 02/23/20 14:15 PT 14.0 SEC (11.4-15.4) 02/20/20 15:39 INR 1.06 02/20/20 15:39 APTT 84.6 SEC (23.5-35.8) H 02/22/20 05:19 Sodium 139.3 mmol/L (137-145) 02/23/20 14:15 Potassium 3.9 mmol/L (3.6-5.0) 02/23/20 14:15 Chloride 108 mmol/L (98-107) H 02/23/20 14:15 Carbon Dioxide 26 mmol/L (22-30) 02/23/20 14:15 Anion Gap 5 (5-19) 02/23/20 14:15 BUN 9 mg/dL (7-20) 02/23/20 14:15 Creatinine 0.44 mg/dL (0.52-1.25) L 02/23/20 14:15 Est GFR ( Amer) > 60 (>60) 02/23/20 14:15 Est GFR (MDRD) Non-Af > 60 (>60) 02/23/20 14:15 Glucose 141 mg/dL (75-110) H 02/23/20 14:15 POC Glucose 185 mg/dL (70-110) H 02/24/20 06:30 Calcium 11.1 mg/dL (8.4-10.2) H 02/23/20 14:15 Phosphorus 2.5 mg/dL (2.5-4.5) 02/05/20 00:51 Magnesium 1.6 mg/dL (1.6-2.3) 02/05/20 00:51 Total Bilirubin 0.3 mg/dL (0.2-1.3) 02/15/20 06:16 Direct Bilirubin 0.0 mg/dL (0.0-0.4) 02/15/20 06:16 Neonat Total Bilirubin Not Reportable 02/15/20 06:16 Neonat Direct Bilirubin Not Reportable 02/15/20 06:16 Neonat Indirect Bili Not Reportable 02/15/20 06:16 AST 37 U/L (14-36) H 02/15/20 06:16 ALT 18 U/L (<35) 02/15/20 06:16 Alkaline Phosphatase 98 U/L (38-126) 02/15/20 06:16 Creatine Kinase 44 U/L (30-135) 02/05/20 13:26 CK-MB (CK-2) 1.60 ng/mL (<4.55) 02/05/20 13:26 Troponin I 0.301 ng/mL 02/05/20 13:26 Total Protein 5.9 g/dL (6.3-8.2) L 02/15/20 06:16 Albumin 2.7 g/dL (3.5-5.0) L 02/15/20 06:16 TSH 0.31 uIU/mL (0.47-4.68) L 02/04/20 20:45 Free T4 2.06 ng/dL (0.78-2.19) 02/04/20 20:45 Urine Color YELLOW 02/04/20 22:05 Urine Appearance SLIGHTLY-CLOUDY 02/04/20 22:05 Urine pH 6.0 (5.0-9.0) 02/04/20 22:05 Ur Specific [place] 1.011 02/04/20 22:05 Urine Protein 30 mg/dL (NEGATIVE) H 02/04/20 22:05 Urine Glucose (UA) NEGATIVE mg/dL (NEGATIVE) 02/04/20 22:05 Urine Ketones 80 mg/dL (NEGATIVE) H 02/04/20 22:05 Urine Blood SMALL (NEGATIVE) H 02/04/20 22:05 Urine Nitrite POSITIVE (NEGATIVE) H 02/04/20 22:05 Urine Bilirubin NEGATIVE (NEGATIVE) 02/04/20 22:05 Urine Urobilinogen NEGATIVE mg/dL (<2.0) 02/04/20 22:05 Ur Leukocyte Esterase TRACE (NEGATIVE) H 02/04/20 22:05 Urine WBC (Auto) 38 /HPF 02/04/20 22:05 Urine RBC (Auto) 3 /HPF 02/04/20 22:05 U Hyaline Cast (Auto) 11 /LPF 02/04/20 22:05 Urine Bacteria (Auto) 1+ /HPF 02/04/20 22:05 Squamous Epi Cells Auto <1 /HPF 02/04/20 22:05 Urine Mucus (Auto) FEW /LPF 02/04/20 22:05 Urine Ascorbic Acid NEGATIVE (NEGATIVE) 02/04/20 22:05 COVID-19 Source NASOPHARYNGEAL 02/11/20 11:55 COVID-19 (BRENNA) NOT DETECTED 02/11/20 11:55 02/04/20 02/05/20 02/05/20 20:45 00:51 07:36 CK-MB (CK-2) 0.76 1.26 Troponin I 0.027 0.057 0.167 02/05/20 13:26 CK-MB (CK-2) 1.60 Troponin I 0.301 Impressions: Chest X-Ray 02/04/20 21:20 IMPRESSION: Nonspecific unchanged groundglass opacities in the left lower lung. No new findings. CT from 01/08/2020 demonstrated significant bilateral PE. Head CT 02/04/20 21:20 IMPRESSION: Imaging is degraded by patient motion, with resultant artifact. The best possible images were obtained. No acute intracranial process is identified. Head MRI 02/05/20 00:00 IMPRESSION: 1. Motion artifact markedly limits the examination. There are multiple various size foci of increased T2 FLAIR signal intensity within the cerebrum bilaterally. No evidence of mass effect, midline shift or surrounding edema. Differential includes possible white matter disease, metastatic disease, metabolic disorders, viral etiologies, toxic etiologies, as well as other etiologies. A follow-up examination with an with out IV contrast is suggested. 2. Several foci of increased signal intensity in the bilateral cerebellar hemispheres maybe on the basis of prior old remote infarcts. EVIDENCE OF ACUTE STROKE: NO. Head MRI 02/05/20 00:00 IMPRESSION: Significantly limited study secondary to excessive motion artifact. The coronal and sagittal T1-weighted postcontrast sequences are essentially nondiagnostic as a result. Persistent confluent areas of hyperintense T2/FLAIR signal located about the bilateral cerebellar hemispheres, stanley, and bilateral occipital lobes. In addition, there are likely a few foci of nodular enhancement about the cerebellar hemispheres, especially on the left. Again, these findings are entirely nonspecific, with considerations including inflammatory process such as posterior reversible encephalopathy syndrome (PRES), malignancy/metastatic disease, or potentially infection. Late subacute infarcts are considered less likely given the absence of significant volume loss. Continued close interval follow-up is recommended. Superimposed mild chronic microvascular ischemic change with generalized atrophy. copyright 2011 [employer]- All Rights Reserved KUB X-Ray 02/05/20 00:00 IMPRESSION: Enteric drainage tube tip projects over the gastric body. Otherwise, indeterminate bowel gas pattern. copyright 2011 [employer]- All Rights Reserved Abdomen/Pelvis CT 02/06/20 00:00 IMPRESSION: 1. Suspicious for thrombus in the lower IVC and right common iliac vein. Recommend further evaluation with IVC and lower extremity venous Doppler studies. 2. Cholelithiasis. 3. Other findings as above. Call report tasked to the [facility] CORE team at the time of interpretation. Stroke Is this a Stroke Patient?: No Acute Heart Failure - Is this a Heart Failure Patient?: No
--- NOTE | 2020-02-24 12:07 | PDOC PROGRESS REPORT ---
Subjective Progress Note for:: 02/24/20 Subjective:: Patient seen by the bedside, she had PEG tube yesterday, the nursing staff stated that she will be ready for Tuesday discharge Reason For Visit: METABOLIC ENCEPHALOPATHY,UTI,ADULT FAILURE TO Physical Exam Vital Signs: Temp Pulse Resp BP Pulse Ox 98.4 F 106 H 16 129/66 H 95 02/24/20 07:56 02/24/20 07:56 02/24/20 07:56 02/24/20 07:56 02/24/20 07:56 Intake & Output 02/23/20 02/24/20 02/25/20 06:59 06:59 06:59 Intake Total 150 595 Output Total 0 Balance 150 595 Weight 76.6 kg 77.4 kg Results Laboratory Results: 02/23/20 14:15 02/23/20 14:15 02/23/20 02/23/20 14:15 14:15 WBC 11.4 H RBC 3.68 L Hgb 10.9 L Hct 32.7 L MCV 89 MCH 29.6 MCHC 33.3 RDW 16.9 H Plt Count 468 H Seg Neutrophils % 79.1 H Sodium 139.3 Potassium 3.9 Chloride 108 H Carbon Dioxide 26 Anion Gap 5 BUN 9 Creatinine 0.44 L Est GFR ( Amer) > 60 Glucose 141 H Calcium 11.1 H 02/04/20 02/04/20 02/05/20 20:45 20:45 00:51 Creatine Kinase 45 41 CK-MB (CK-2) Troponin I 0.027 02/05/20 02/05/20 02/05/20 00:51 07:36 07:36 Creatine Kinase 43 CK-MB (CK-2) 0.76 1.26 Troponin I 0.057 0.167 02/05/20 02/05/20 13:26 13:26 Creatine Kinase 44 CK-MB (CK-2) 1.60 Troponin I 0.301 Impressions: Chest X-Ray 02/04/20 21:20 IMPRESSION: Nonspecific unchanged groundglass opacities in the left lower lung. No new findings. CT from 01/08/2020 demonstrated significant bilateral PE. Head CT 02/04/20 21:20 IMPRESSION: Imaging is degraded by patient motion, with resultant artifact. The best possible images were obtained. No acute intracranial process is identified. Head MRI 02/05/20 00:00 IMPRESSION: Significantly limited study secondary to excessive motion artifact. The coronal and sagittal T1-weighted postcontrast sequences are essentially nondiagnostic as a result. Persistent confluent areas of hyperintense T2/FLAIR signal located about the bilateral cerebellar hemispheres, [place], and bilateral occipital lobes. In addition, there are likely a few foci of nodular enhancement about the cerebellar hemispheres, especially on the left. Again, these findings are entirely nonspecific, with considerations including inflammatory process such as posterior reversible encephalopathy syndrome (PRES), malignancy/metastatic disease, or potentially infection. Late subacute infarcts are considered less likely given the absence of significant volume loss. Continued close interval follow-up is recommended. Superimposed mild chronic microvascular ischemic change with generalized atrophy. copyright 2010 [employer]- All Rights Reserved KUB X-Ray 02/05/20 00:00 IMPRESSION: Enteric drainage tube tip projects over the gastric body. Otherwise, indeterminate bowel gas pattern. copyright 2010 [employer]- All Rights Reserved Abdomen/Pelvis CT 02/06/20 00:00 IMPRESSION: 1. Suspicious for thrombus in the lower IVC and right common iliac vein. Recomm end further evaluation with IVC and lower extremity venous Doppler studies. 2. Cholelithiasis. 3. Other findings as above. Call report tasked to the [facility] CORE team at the time of interpre tation. 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 Is this a current diagnosis for this admission?: Yes (3) History of pulmonary embolism Is this a current diagnosis for this admission?: Yes (4) Urinary tract infection Qualifiers: Urinary tract infection type: site unspecified Hematuria presence: without hematuria Qualified Code(s): N39.0 - Urinary tract infection, site not specified Is this a current diagnosis for this admission?: Yes (5) T2DM (type 2 diabetes mellitus) Qualifiers: Diabetes mellitus shelter insulin use: without meterman use Diabetes mellitus complication status: with neurologic complications Diabetes mellitus complication detail: with polyneuropathy Qualified Code(s): E11.42 - Type 2 diabetes mellitus with diabetic polyneuropathy Is this a current diagnosis for this admission?: Yes (6) UTI (urinary tract infection) due to Enterococcus Is this a current diagnosis for this admission?: Yes (7) IVC thrombosis Is this a current diagnosis for this admission?: Yes (8) Hypokalemia Is this a current diagnosis for this admission?: Yes (9) Gastrointestinal dysmotility Is this a current diagnosis for this admission?: Yes (10) Depression Qualifiers: Depression Type: major depressive disorder Major depression recurrence: recurrent Active/Remission status: currently active Major depression episode severity: severe Psychotic features: without psychotic features Qualified Code(s): F33.2 - Major depressive disorder, recurrent severe without psychotic features Is this a current diagnosis for this admission?: Yes (11) Osteoarthritis of right knee Qualifiers: Osteoarthritis type: primary Qualified Code(s): M17.11 - Unilateral primary osteoarthritis, right knee Is this a current diagnosis for this admission?: Yes (12) Parathyroid adenoma Is this a current diagnosis for this admission?: Yes (13) Primary hyperparathyroidism Is this a current diagnosis for this admission?: Yes - Time Time Spent with patient: 35 or more minutes Level of Care: IMCU Anticipated discharge: SNF Anticipated DC Timeframe: within 24 hours
[2020-02-24] MEDS: ACETAMINOPHEN SOLN 325 MG/10.15 ML UDCUP NG PRN (18:09)
[2020-02-25] MEDS: INSULIN LISPRO 100 UNIT/ML 3 ML VIAL SUBCUT SCH ×5 (00:41→23:45)
[2020-02-25] MEDS: METOPROLOL TARTRATE PF/INJ 5 MG/5 ML SDV IV SCH ×4 (06:07→23:45)
--- NOTE | 2020-02-25 08:51 | RADIOLOGY REPORT (SQ) ---
EXAM DESCRIPTION: CHEST SINGLE VIEW IMAGES COMPLETED DATE/TIME: 02/25/2020 8:37 am REASON FOR STUDY: pneumonia COMPARISON: 02/04/2020 FINDINGS: One-view chest AP portable upright. Low lung volumes. This accentuates heart size. Mild left basilar subsegmental atelectasis suggested . Minimal streaky opacity left upper lobe also noted. Possibly infiltrate bursae additional subsegm ental volume loss. No pneumothorax. No pleural effusion. No evidence congestive failure. TECHNICAL DOCUMENTATION: JOB ID: [id number] Reading location - IP/workstation name: [email or web address]
[2020-02-25] MEDS: SITAGLIPTIN PHOSPHATE 50 MG TABLET PO SCH (10:27)
[2020-02-25] MEDS: ATORVASTATIN CALCIUM 20 MG TABLET PO SCH (10:28)
[2020-02-25] MEDS: VALSARTAN 160 MG TABLET NG SCH ×2 (10:28→23:12)
[2020-02-25] MEDS: APIXABAN 5 MG TABLET NG SCH ×2 (10:28→23:11)
[2020-02-25] MEDS: SERTRALINE HCL 50 MG TABLET PO SCH (10:28)
[2020-02-25 13:13] LABS: ABSOLUTE LYMPHOCYTES (AUTO) 1.2 10^3/uL (0.5-4.7); ABSOLUTE MONOCYTES (AUTO) 1.3 10^3/uL (0.1-1.4); ABSOLUTE NEUT (AUTO) 15.7 10^3/uL (1.7-8.2); BASOPHILS % (AUTO) 0.2 % (0-2); EOSINOPHILS % (AUTO) 0.2 % (0-6); HEMATOCRIT 33.2 % (36.0-47.0); HEMOGLOBIN 10.8 g/dL (12.0-15.5); LYMPHOCYTES % (AUTO) 6.3 % (13-45); MEAN CORPUSCULAR HEMOGLOBIN 29.5 pg (27.0-33.4); MEAN CORPUSCULAR HGB CONC 32.5 g/dL (32.0-36.0); MEAN CORPUSCULAR VOLUME 91 fl (80-97); MONOCYTES % (AUTO) 7.1 % (3-13); PLATELET COUNT 481 10^3/uL (150-450); RED BLOOD COUNT 3.64 10^6/uL (3.72-5.28); RED CELL DISTRIBUTION WIDTH 18.6 % (11.5-14.0); SEGMENTED NEUTROPHILS % (AUTO) 86.2 % (42-78); TOTAL CELLS COUNTED % (AUTO) 100 %; WHITE BLOOD COUNT 18.2 10^3/uL (4.0-10.5)
[2020-02-25 13:17] LABS: ALBUMIN 3.2 g/dL (3.5-5.0); ALKALINE PHOSPHATASE 129 U/L (38-126); ANION GAP 6 (5-19); ASPARTATE AMINO TRANSFERASE 26 U/L (14-36); BILIRUBIN,TOTAL 0.5 mg/dL (0.2-1.3); BLOOD UREA NITROGEN 16 mg/dL (7-20); CALCIUM 11.7 mg/dL (8.4-10.2); CARBON DIOXIDE 27 mmol/L (22-30); CHLORIDE 107 mmol/L (98-107); GLUCOSE 198 mg/dL (75-110)
[2020-02-25] MEDS: ACETAMINOPHEN SOLN 325 MG/10.15 ML UDCUP NG PRN (13:47)
[2020-02-25] MEDS ORDERED: LEVOFLOXACIN 750 MG/D5W RTU 750 MG/150 ML RTUPB IV SCH (18:00)
[2020-02-25] MEDS ORDERED: VANCOMYCIN HCL 0 MG in DEXTROSE 5%-WATER 250 ML IV NR (18:30)
--- NOTE | 2020-02-25 18:33 | PDOC PROGRESS REPORT ---
Subjective Progress Note for:: 02/25/20 Subjective:: Patient was thought to be discharged to alf today for rehabilitation, she developed low-grade fever temperature 100, her sensorium is also depressed, patient may be source of infection, the skin looks clean, chest x-ray that was done questionable infiltrate, there is a new leukocytosis, she will empirically be treated with vancomycin and Levaquin Reason For Visit: METABOLIC ENCEPHALOPATHY,UTI,ADULT FAILURE TO Physical Exam Vital Signs: Temp Pulse Resp BP Pulse Ox 99.1 F 109 H 31 H 150/99 H 100 02/25/20 16:55 02/25/20 16:55 02/25/20 12:54 02/25/20 16:55 02/25/20 16:55 Intake & Output 02/24/20 02/25/20 02/26/20 06:59 06:59 06:59 Intake Total 595 531 488 Balance 595 531 488 Weight 77.4 kg 77.8 kg General appearance: PRESENT: other - depressed sensorium Respiratory exam: PRESENT: clear to auscultation jason Cardiovascular exam: PRESENT: +S1, +S2 Neurological exam: PRESENT: altered Results Laboratory Results: 02/25/20 09:30 02/25/20 09:30 02/25/20 02/25/20 09:30 09:30 WBC 18.2 H RBC 3.64 L Hgb 10.8 L Hct 33.2 L MCV 91 MCH 29.5 MCHC 32.5 RDW 18.6 H Plt Count 481 H Seg Neutrophils % 86.2 H Sodium 140.0 Potassium 4.0 Chloride 107 Carbon Dioxide 27 Anion Gap 6 BUN 16 Creatinine 0.51 L Est GFR ( Amer) > 60 Glucose 198 H Calcium 11.7 H Total Bilirubin 0.5 AST 26 Alkaline Phosphatase 129 H Total Protein 7.0 Albumin 3.2 L 02/04/20 02/04/20 02/05/20 20:45 20:45 00:51 Creatine Kinase 45 41 CK-MB (CK-2) Troponin I 0.027 02/05/20 02/05/20 02/05/20 00:51 07:36 07:36 Creatine Kinase 43 CK-MB (CK-2) 0.76 1.26 Troponin I 0.057 0.167 02/05/20 02/05/20 13:26 13:26 Creatine Kinase 44 CK-MB (CK-2) 1.60 Troponin I 0.301 Impressions: Head CT 02/04/20 21:20 IMPRESSION: Imaging is degraded by patient motion, with resultant artifact. The best possible images were obtained. No acute intracranial process is identified. Head MRI 02/05/20 00:00 IMPRESSION: Significantly limited study secondary to excessive motion artifact. The coronal and sagittal T1-weighted postcontrast sequences are essentially nondiagnostic as a result. Persistent confluent areas of hyperintense T2/FLAIR signal located about the bilateral cerebellar hemispheres, stanley, and bilateral occipital lobes. In addition, there are likely a few foci of nodular enhancement about the cerebellar hemispheres, especially on the left. Again, these findings are entirely nonspecific, with considerations including inflammatory process such as posterior reversible encephalopathy syndrome (PRES), malignancy/metastatic disease, or potentially infection. Late subacute infarcts are considered less likely given the absence of significant volume loss. Continued close interval follow-up is recommended. Superimposed mild chronic microvascular ischemic change with generalized atrophy. copyright 2010 [employer]- All Rights Reserved KUB X-Ray 02/05/20 00:00 IMPRESSION: Enteric drainage tube tip projects over the gastric body. Otherwise, indeterminate bowel gas pattern. copyright 2011 [employer]- All Rights Reserved Abdomen/Pelvis CT 02/06/20 00:00 IMPRESSION: 1. Suspicious for thrombus in the lower IVC and right common iliac vein. Recommend further evaluation with IVC and lower extremity venous Doppler studies. 2. Cholelithiasis. 3. Other findings as above. Call report tasked to the [facility] team at the time of interpretation. 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 Is this a current diagnosis for this admission?: Yes (3) History of pulmonary embolism Is this a current diagnosis for this admission?: Yes (4) Urinary tract infection Qualifiers: Urinary tract infection type: site unspecified Hematuria presence: without hematuria Qualified Code(s): N39.0 - Urinary tract infection, site not specified Is this a current diagnosis for this admission?: Yes (5) T2DM (type 2 diabetes mellitus) Qualifiers: Diabetes mellitus ad terminal makeup operator insulin use: without snf use Diabetes mellitus complication status: with neurologic complications Diabetes mellitus complication detail: with polyneuropathy Qualified Code(s): E11.42 - Type 2 diabetes mellitus with diabetic polyneuropathy Is this a current diagnosis for this admission?: Yes (6) UTI (urinary tract infection) due to Enterococcus Is this a current diagnosis for this admission?: Yes (7) IVC thrombosis Is this a current diagnosis for this admission?: Yes (8) Hypokalemia Is this a current diagnosis for this admission?: Yes (9) Gastrointestinal dysmotility Is this a current diagnosis for this admission?: Yes (10) Depression Qualifiers: Depression Type: major depressive disorder Major depression recurrence: recurrent Active/Remission status: currently active Major depression episode severity: severe Psychotic features: without psychotic features Qualified Code(s): F33.2 - Major depressive disorder, recurrent severe without psychotic features Is this a current diagnosis for this admission?: Yes (11) Osteoarthritis of right knee Qualifiers: Osteoarthritis type: primary Qualified Code(s): M17.11 - Unilateral primary osteoarthritis, right knee Is this a current diagnosis for this admission?: Yes (12) Parathyroid adenoma Is this a current diagnosis for this admission?: Yes (13) Primary hyperparathyroidism Is this a current diagnosis for this admission?: Yes (14) Fever Qualifiers: Fever type: unspecified Qualified Code(s): R50.9 - Fever, unspecified Is this a current diagnosis for this admission?: Yes Plan: She was supposed to be discharged to alf today for rehabilitation, she was noticed to be febrile with low-grade temperature 100, the source of infection is not clear, there are many potential etiology, UTI, pneumonia, there is no skin breakdown, the stoma at the site of the PEG tube there is mild erythema, questionable infection, probably due to the PEG tube, she will empirically be treated with IV antibiotic, vancomycin, Levaquin, to cover potential pathogens, MRSA, gram-negative gram-positive, do blood culture urine culture. chest x-ray suggests infiltrate - Time Time Spent with patient: 35 or more minutes Level of Care: IMCU Medications reviewed and adjusted accordingly: Yes Anticipated discharge: SNF Anticipated DC Timeframe: Other - Plan Summary Plan Summary: I discussed the plan of care with the daughter and apologize for the for the fever, she also would need to have SARS-CoV-2 testing done 7 days before transfer the last time it was done was many weeks ago
[2020-02-25] MEDS: LEVOFLOXACIN 750 MG/D5W RTU 750 MG/150 ML RTUPB IV SCH (22:03)
[2020-02-25] MEDS: VANCOMYCIN HCL 1,000 MG in DEXTROSE 5%-WATER 250 ML IV SCH (23:10)
[2020-02-26] MEDS: INSULIN LISPRO 100 UNIT/ML 3 ML VIAL SUBCUT SCH ×3 (06:17→17:59)
[2020-02-26] MEDS: METOPROLOL TARTRATE PF/INJ 5 MG/5 ML SDV IV SCH ×3 (06:17→17:59)
[2020-02-26 09:12] LABS: ABSOLUTE EOSINOPHILS # (AUTO) 0.1 10^3/uL (0.0-0.6); ABSOLUTE LYMPHOCYTES (AUTO) 1.2 10^3/uL (0.5-4.7); ABSOLUTE MONOCYTES (AUTO) 1.5 10^3/uL (0.1-1.4); ABSOLUTE NEUT (AUTO) 14.3 10^3/uL (1.7-8.2); BASOPHILS % (AUTO) 0.2 % (0-2); EOSINOPHILS % (AUTO) 0.7 % (0-6); HEMATOCRIT 32.6 % (36.0-47.0); HEMOGLOBIN 10.4 g/dL (12.0-15.5); LYMPHOCYTES % (AUTO) 7.2 % (13-45); MEAN CORPUSCULAR HEMOGLOBIN 29.1 pg (27.0-33.4); MEAN CORPUSCULAR VOLUME 91 fl (80-97); MONOCYTES % (AUTO) 8.6 % (3-13); PLATELET COUNT 462 10^3/uL (150-450); RED BLOOD COUNT 3.58 10^6/uL (3.72-5.28); RED CELL DISTRIBUTION WIDTH 18.9 % (11.5-14.0); SEGMENTED NEUTROPHILS % (AUTO) 83.3 % (42-78); TOTAL CELLS COUNTED % (AUTO) 100 %; WHITE BLOOD COUNT 17.2 10^3/uL (4.0-10.5)
[2020-02-26 09:27] LABS: ALKALINE PHOSPHATASE 110 U/L (38-126); ANION GAP 6 (5-19); ASPARTATE AMINO TRANSFERASE 22 U/L (14-36); BILIRUBIN,TOTAL 0.4 mg/dL (0.2-1.3); BLOOD UREA NITROGEN 16 mg/dL (7-20); CALCIUM 11.7 mg/dL (8.4-10.2); CARBON DIOXIDE 30 mmol/L (22-30); CHLORIDE 108 mmol/L (98-107); GLUCOSE 154 mg/dL (75-110); POTASSIUM 3.8 mmol/L (3.6-5.0); TOTAL PROTEIN 6.7 g/dL (6.3-8.2)
[2020-02-26] MEDS: SERTRALINE HCL 50 MG TABLET PO SCH (10:38)
[2020-02-26] MEDS: APIXABAN 5 MG TABLET NG SCH ×2 (10:38→21:54)
[2020-02-26] MEDS: VALSARTAN 160 MG TABLET NG SCH ×2 (10:38→21:54)
[2020-02-26] MEDS: ATORVASTATIN CALCIUM 20 MG TABLET PO SCH (10:38)
[2020-02-26] MEDS: SITAGLIPTIN PHOSPHATE 50 MG TABLET PO SCH (10:38)
[2020-02-26] MEDS: VANCOMYCIN HCL 1,000 MG in DEXTROSE 5%-WATER 250 ML IV SCH ×2 (10:41→21:54)
--- NOTE | 2020-02-26 19:43 | PDOC PROGRESS REPORT ---
Subjective Progress Note for:: 02/26/20 Subjective:: Patient seen today by the bedside, she is more alert, more engaging today compared to yesterday, she was supposed to be discharged yesterday to retirement but because she developed fever with low-grade temperature, she is also been screened for SARS-CoV-2. Blood culture, urine culture chest x-ray was done yesterday presently empirically on IV antibiotic pending specific pathogen culture. Reason For Visit: METABOLIC ENCEPHALOPATHY,UTI,ADULT FAILURE TO Physical Exam Vital Signs: Temp Pulse Resp BP Pulse Ox 98.2 F 90 20 151/83 H 97 02/26/20 12:07 02/26/20 14:00 02/26/20 12:07 02/26/20 12:07 02/26/20 12:07 Intake & Output 02/25/20 02/26/20 02/27/20 06:59 06:59 06:59 Intake Total 531 888 Output Total 0 Balance 531 888 Weight 77.8 kg 76.5 kg General appearance: PRESENT: no acute distress Eye exam: PRESENT: PERRLA Cardiovascular exam: PRESENT: +S1, +S2 GI/Abdominal exam: PRESENT: soft Neurological exam: PRESENT: alert Results Laboratory Results: 02/26/20 08:36 02/26/20 08:36 02/26/20 02/26/20 08:36 08:36 WBC 17.2 H RBC 3.58 L Hgb 10.4 L Hct 32.6 L MCV 91 MCH 29.1 MCHC 32.0 RDW 18.9 H Plt Count 462 H Seg Neutrophils % 83.3 H Sodium 144.0 Potassium 3.8 Chloride 108 H Carbon Dioxide 30 Anion Gap 6 BUN 16 Creatinine 0.48 L Est GFR ( Amer) > 60 Glucose 154 H Calcium 11.7 H Total Bilirubin 0.4 AST 22 Alkaline Phosphatase 110 Total Protein 6.7 Albumin 3.0 L 02/04/20 02/04/20 02/05/20 20:45 20:45 00:51 Creatine Kinase 45 41 CK-MB (CK-2) Troponin I 0.027 02/05/20 02/05/20 02/05/20 00:51 07:36 07:36 Creatine Kinase 43 CK-MB (CK-2) 0.76 1.26 Troponin I 0.057 0.167 02/05/20 02/05/20 13:26 13:26 Creatine Kinase 44 CK-MB (CK-2) 1.60 Troponin I 0.301 Impressions: Head CT 02/04/20 21:20 IMPRESSION: Imaging is degraded by patient motion, with resultant artifact. The best possible images were obtained. No acute intracranial process is identified. Head MRI 02/05/20 00:00 IMPRESSION: Significantly limited study secondary to excessive motion artifact. The coronal and sagittal T1-weighted postcontrast sequences are essentially nondiagnostic as a result. Persistent confluent areas of hyperintense T2/FLAIR signal located about the bilateral cerebellar hemispheres, stanley, and bilateral occipital lobes. In addition, there are likely a few foci of nodular enhancement about the cerebellar hemispheres, especially on the left. Again, these findings are entirely nonspecific, with considerations including inflammatory process such as posterior reversible encephalopathy syndrome (PRES), malignancy/metastatic disease, or potentially infection. Late subacute infarcts are considered less likely given the absence of significant volume loss. Continued close interval follow-up is recommended. Superimposed mild chronic microvascular ischemic change with generalized atrophy. copyright 2010 [employer]- All Rights Reserved KUB X-Ray 02/05/20 00:00 IMPRESSION: Enteric drainage tube tip projects over the gastric body. Otherwise, indeterminate bowel gas pattern. copyright 2011 [employer]- All Rights Reserved Abdomen/Pelvis CT 02/06/20 00:00 IMPRESSION: 1. Suspicious for thrombus in the lower IVC and right common iliac vein. Recommend further evaluation with IVC and lower extremity venous Doppler studies. 2. Cholelithiasis. 3. Other findings as above. Call report tasked to the [facility] team at the time of interpretation. 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 Is this a current diagnosis for this admission?: Yes (3) History of pulmonary embolism Is this a current diagnosis for this admission?: Yes (4) Urinary tract infection Qualifiers: Urinary tract infection type: site unspecified Hematuria presence: without hematuria Qualified Code(s): N39.0 - Urinary tract infection, site not specified Is this a current diagnosis for this admission?: Yes (5) T2DM (type 2 diabetes mellitus) Qualifiers: Diabetes mellitus fpc insulin use: without fpc use Diabetes mellitus complication status: with neurologic complications Diabetes mellitus complication detail: with polyneuropathy Qualified Code(s): E11.42 - Type 2 diabetes mellitus with diabetic polyneuropathy Is this a current diagnosis for this admission?: Yes (6) UTI (urinary tract infection) due to Enterococcus Is this a current diagnosis for this admission?: Yes (7) IVC thrombosis Is this a current diagnosis for this admission?: Yes (8) Hypokalemia Is this a current diagnosis for this admission?: Yes (9) Gastrointestinal dysmotility Is this a current diagnosis for this admission?: Yes (10) Depression Qualifiers: Depression Type: major depressive disorder Major depression recurrence: recurrent Active/Remission status: currently active Major depression episode severity: severe Psychotic features: without psychotic features Qualified Code(s): F33.2 - Major depressive disorder, recurrent severe without psychotic features Is this a current diagnosis for this admission?: Yes (11) Osteoarthritis of right knee Qualifiers: Osteoarthritis type: primary Qualified Code(s): M17.11 - Unilateral primary osteoarthritis, right knee Is this a current diagnosis for this admission?: Yes (12) Parathyroid adenoma Is this a current diagnosis for this admission?: Yes (13) Primary hyperparathyroidism Is this a current diagnosis for this admission?: Yes (14) Fever Qualifiers: Fever type: unspecified Qualified Code(s): R50.9 - Fever, unspecified Is this a current diagnosis for this admission?: Yes Plan: She will continue antibiotic - Time Time Spent with patient: 25-34 minutes Level of Care: IMCU Medications reviewed and adjusted accordingly: Yes Anticipated discharge: SNF Anticipated DC Timeframe: within 72 hours
[2020-02-26] MEDS: LEVOFLOXACIN 750 MG/D5W RTU 750 MG/150 ML RTUPB IV SCH (21:49)
[2020-02-27] MEDS: INSULIN LISPRO 100 UNIT/ML 3 ML VIAL SUBCUT SCH ×4 (00:20→18:45)
[2020-02-27] MEDS: METOPROLOL TARTRATE PF/INJ 5 MG/5 ML SDV IV SCH ×3 (00:20→11:59)
[2020-02-27 07:48] LABS: ABSOLUTE BASOPHILS # (AUTO) 0.1 10^3/uL (0.0-0.2); ABSOLUTE EOSINOPHILS # (AUTO) 0.2 10^3/uL (0.0-0.6); ABSOLUTE LYMPHOCYTES (AUTO) 1.8 10^3/uL (0.5-4.7); ABSOLUTE MONOCYTES (AUTO) 1.2 10^3/uL (0.1-1.4); ABSOLUTE NEUT (AUTO) 10.1 10^3/uL (1.7-8.2); BASOPHILS % (AUTO) 0.5 % (0-2); EOSINOPHILS % (AUTO) 1.8 % (0-6); HEMATOCRIT 32.9 % (36.0-47.0); HEMOGLOBIN 10.6 g/dL (12.0-15.5); LYMPHOCYTES % (AUTO) 13.6 % (13-45); MEAN CORPUSCULAR HGB CONC 32.1 g/dL (32.0-36.0); MEAN CORPUSCULAR VOLUME 91 fl (80-97); MONOCYTES % (AUTO) 8.9 % (3-13); PLATELET COUNT 467 10^3/uL (150-450); RED BLOOD COUNT 3.63 10^6/uL (3.72-5.28); RED CELL DISTRIBUTION WIDTH 17.7 % (11.5-14.0); SEGMENTED NEUTROPHILS % (AUTO) 75.2 % (42-78); TOTAL CELLS COUNTED % (AUTO) 100 %; WHITE BLOOD COUNT 13.5 10^3/uL (4.0-10.5)
[2020-02-27 08:00] LABS: ALBUMIN 3.2 g/dL (3.5-5.0); ALKALINE PHOSPHATASE 119 U/L (38-126); ANION GAP 7 (5-19); ASPARTATE AMINO TRANSFERASE 37 U/L (14-36); BILIRUBIN,DIRECT 0.1 mg/dL (0.0-0.4); BILIRUBIN,TOTAL 0.5 mg/dL (0.2-1.3); BLOOD UREA NITROGEN 17 mg/dL (7-20); CARBON DIOXIDE 31 mmol/L (22-30); CHLORIDE 105 mmol/L (98-107); GLUCOSE 122 mg/dL (75-110); POTASSIUM 3.8 mmol/L (3.6-5.0); TOTAL PROTEIN 6.9 g/dL (6.3-8.2)
[2020-02-27 08:12] LABS: CALCIUM 12.1 mg/dL (8.4-10.2)
[2020-02-27] MEDS: ATORVASTATIN CALCIUM 20 MG TABLET PO SCH (11:56)
[2020-02-27] MEDS: VANCOMYCIN HCL 1,000 MG in DEXTROSE 5%-WATER 250 ML IV SCH ×2 (11:56→18:48)
[2020-02-27] MEDS: SITAGLIPTIN PHOSPHATE 50 MG TABLET PO SCH (11:56)
[2020-02-27] MEDS: APIXABAN 5 MG TABLET NG SCH ×2 (11:56→23:20)
[2020-02-27] MEDS: SERTRALINE HCL 50 MG TABLET PO SCH (11:57)
[2020-02-27] MEDS: VALSARTAN 160 MG TABLET NG SCH ×2 (11:58→23:19)
[2020-02-27] MEDS: NORMAL SALINE 1000 ML 1,000 ML IV PRN (15:12)
--- NOTE | 2020-02-27 15:22 | PDOC PROGRESS REPORT ---
Subjective Progress Note for:: 02/27/20 Subjective:: Patient seen by the bedside, she continues to improve she is more alert, the SARS-CoV-2 was negative, she has hypercalcemia due to primary hyperparathyroidism, with parathyroid adenoma, treatment of choice surgery, not is a good candidate, start IV fluid Reason For Visit: METABOLIC ENCEPHALOPATHY,UTI,ADULT FAILURE TO Physical Exam Vital Signs: Temp Pulse Resp BP Pulse Ox 98.6 F 88 16 129/58 H 94 02/27/20 12:04 02/27/20 12:04 02/27/20 12:04 02/27/20 12:04 02/27/20 12:04 Intake & Output 02/26/20 02/27/20 02/28/20 06:59 06:59 06:59 Intake Total 888 900 Output Total 0 Balance 888 900 Weight 76.5 kg 76.9 kg Results Laboratory Results: 02/27/20 07:13 02/27/20 10:13 02/27/20 02/27/20 02/27/20 07:13 07:13 10:13 WBC 13.5 H RBC 3.63 L Hgb 10.6 L Hct 32.9 L MCV 91 MCH 29.0 MCHC 32.1 RDW 17.7 H Plt Count 467 H Seg Neutrophils % 75.2 Sodium 143.2 Potassium 3.8 Chloride 105 Carbon Dioxide 31 H Anion Gap 7 BUN 17 Creatinine 0.50 L 0.52 Est GFR ( Amer) > 60 > 60 Glucose 122 H Calcium 12.1 H* Total Bilirubin 0.5 AST 37 H Alkaline Phosphatase 119 Total Protein 6.9 Albumin 3.2 L 02/04/20 02/04/20 02/05/20 20:45 20:45 00:51 Creatine Kinase 45 41 CK-MB (CK-2) Troponin I 0.027 02/05/20 02/05/20 02/05/20 00:51 07:36 07:36 Creatine Kinase 43 CK-MB (CK-2) 0.76 1.26 Troponin I 0.057 0.167 02/05/20 02/05/20 13:26 13:26 Creatine Kinase 44 CK-MB (CK-2) 1.60 Troponin I 0.301 Impressions: Head CT 02/04/20 21:20 IMPRESSION: Imaging is degraded by patient motion, with resultant artifact. The best possible images were obtained. No acute intracranial process is identified. Head MRI 02/05/20 00:00 IMPRESSION: Significantly limited study secondary to excessive motion artifact. The coronal and sagittal T1-weighted postcontrast sequences are essentially nondiagnostic as a result. Persistent confluent areas of hyperintense T2/FLAIR signal located about the bilateral cerebellar hemispheres, stanley, and bilateral occipital lobes. In addition, there are likely a few foci of nodular enhancement about the cerebellar hemispheres, especially on the left. Again, these findings are entirely nonspecific, with considerations including inflammatory process such as posterior reversible encephalopathy syndrome (PRES), malignancy/metastatic disease, or potentially infection. Late subacute infarcts are considered less likely given the absence of significant volume loss. Continued close interval follow-up is recommended. Superimposed mild chronic microvascular ischemic change with generalized atrophy. copyright 2010 [employer]- All Rights Reserved KUB X-Ray 02/05/20 00:00 IMPRESSION: Enteric drainage tube tip projects over the gastric body. Otherwise, indeterminate bowel gas pattern. copyright 2011 [employer]- All Rights Reserved Abdomen/Pelvis CT 02/06/20 00:00 IMPRESSION: 1. Suspicious for thrombus in the lower IVC and right common iliac vein. Recommend further evaluation with IVC and lower extremity venous Doppler studies. 2. Cholelithiasis. 3. Other findings as above. Call report tasked to the [facility] team at the time of interpretation. 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 Is this a current diagnosis for this admission?: Yes (3) History of pulmonary embolism Is this a current diagnosis for this admission?: Yes (4) Urinary tract infection Qualifiers: Urinary tract infection type: site unspecified Hematuria presence: without hematuria Qualified Code(s): N39.0 - Urinary tract infection, site not specified Is this a current diagnosis for this admission?: Yes (5) T2DM (type 2 diabetes mellitus) Qualifiers: Diabetes mellitus meterman insulin use: without jail use Diabetes mellitus complication status: with neurologic complications Diabetes mellitus complication detail: with polyneuropathy Qualified Code(s): E11.42 - Type 2 diabetes mellitus with diabetic polyneuropathy Is this a current diagnosis for this admission?: Yes (6) UTI (urinary tract infection) due to Enterococcus Is this a current diagnosis for this admission?: Yes (7) IVC thrombosis Is this a current diagnosis for this admission?: Yes (8) Hypokalemia Is this a current diagnosis for this admission?: Yes (9) Gastrointestinal dysmotility Is this a current diagnosis for this admission?: Yes (10) Depression Qualifiers: Depression Type: major depressive disorder Major depression recurrence: recurrent Active/Remission status: currently active Major depression episode severity: severe Psychotic features: without psychotic features Qualified Code(s): F33.2 - Major depressive disorder, recurrent severe without psychotic features Is this a current diagnosis for this admission?: Yes (11) Osteoarthritis of right knee Qualifiers: Osteoarthritis type: primary Qualified Code(s): M17.11 - Unilateral primary osteoarthritis, right knee Is this a current diagnosis for this admission?: Yes (12) Parathyroid adenoma Is this a current diagnosis for this admission?: Yes (13) Primary hyperparathyroidism Is this a current diagnosis for this admission?: Yes Plan: Patient is a poor candidate for surgery, she is symptomatic with cognitive impairment she will be treated with calcimimetics, cinacalcet 30 mg p.o. twice daily follow calcium level within 1 week of initiation of treatment (14) Fever Qualifiers: Fever type: unspecified Qualified Code(s): R50.9 - Fever, unspecified Is this a current diagnosis for this admission?: Yes Plan: Patient is showing signs of response to antibiotic with progressive declining white blood cell count, the source of the Infection is not known (15) Hypercalcemia Is this a current diagnosis for this admission?: Yes Plan: Start normal saline at 100 cc/h for the immediate treatment of hypercalcemia - Time Time Spent with patient: 35 or more minutes Level of Care: IMCU Medications reviewed and adjusted accordingly: Yes Anticipated discharge: SNF Anticipated DC Timeframe: Other
[2020-02-27] MEDS: CINACALCET HCL 30 MG TABLET PO SCH (18:48)
[2020-02-27] MEDS: LEVOFLOXACIN 750 MG/D5W RTU 750 MG/150 ML RTUPB IV SCH (20:55)
[2020-02-28] MEDS: INSULIN LISPRO 100 UNIT/ML 3 ML VIAL SUBCUT SCH ×4 (00:59→17:58)
[2020-02-28] MEDS: VANCOMYCIN HCL 1,000 MG in DEXTROSE 5%-WATER 250 ML IV SCH ×3 (00:59→18:01)
[2020-02-28] MEDS: NORMAL SALINE 1000 ML 1,000 ML IV PRN ×2 (06:23→20:36)
[2020-02-28] MEDS: CINACALCET HCL 30 MG TABLET PO SCH ×2 (06:23→18:01)
[2020-02-28 09:34] LABS: ABSOLUTE EOSINOPHILS # (AUTO) 0.3 10^3/uL (0.0-0.6); ABSOLUTE LYMPHOCYTES (AUTO) 1.5 10^3/uL (0.5-4.7); ABSOLUTE NEUT (AUTO) 7.6 10^3/uL (1.7-8.2); BASOPHILS % (AUTO) 0.3 % (0-2); HEMATOCRIT 31.8 % (36.0-47.0); HEMOGLOBIN 10.4 g/dL (12.0-15.5); LYMPHOCYTES % (AUTO) 14.6 % (13-45); MEAN CORPUSCULAR HEMOGLOBIN 29.4 pg (27.0-33.4); MEAN CORPUSCULAR HGB CONC 32.9 g/dL (32.0-36.0); MEAN CORPUSCULAR VOLUME 89 fl (80-97); MONOCYTES % (AUTO) 9.3 % (3-13); PLATELET COUNT 435 10^3/uL (150-450); RED BLOOD COUNT 3.56 10^6/uL (3.72-5.28); RED CELL DISTRIBUTION WIDTH 17.7 % (11.5-14.0); SEGMENTED NEUTROPHILS % (AUTO) 72.8 % (42-78); TOTAL CELLS COUNTED % (AUTO) 100 %; WHITE BLOOD COUNT 10.5 10^3/uL (4.0-10.5)
[2020-02-28 09:54] LABS: ALBUMIN 2.9 g/dL (3.5-5.0); ALKALINE PHOSPHATASE 111 U/L (38-126); ANION GAP 7 (5-19); ASPARTATE AMINO TRANSFERASE 67 U/L (14-36); BILIRUBIN,TOTAL 0.4 mg/dL (0.2-1.3); BLOOD UREA NITROGEN 16 mg/dL (7-20); CALCIUM 11.3 mg/dL (8.4-10.2); CARBON DIOXIDE 29 mmol/L (22-30); CHLORIDE 104 mmol/L (98-107); GLUCOSE 122 mg/dL (75-110); POTASSIUM 4.1 mmol/L (3.6-5.0); TOTAL PROTEIN 6.5 g/dL (6.3-8.2)
[2020-02-28 10:03] LABS: ANISOCYTOSIS 1+; HYPOCHROMASIA 1+; POIKILOCYTOSIS SLIGHT; POLYCHROMASIA 1+; SCHISTOCYTES SLIGHT
[2020-02-28 10:04] LABS: STOMATOCYTES 1+
[2020-02-28 10:05] LABS: PLATELET COMMENT ADEQUATE
[2020-02-28] MEDS: ATORVASTATIN CALCIUM 20 MG TABLET PO SCH (10:15)
[2020-02-28] MEDS: SITAGLIPTIN PHOSPHATE 50 MG TABLET PO SCH (10:15)
[2020-02-28] MEDS: SERTRALINE HCL 50 MG TABLET PO SCH (10:15)
[2020-02-28] MEDS: APIXABAN 5 MG TABLET NG SCH ×2 (10:15→22:24)
[2020-02-28] MEDS: VALSARTAN 160 MG TABLET NG SCH ×2 (10:26→22:24)
[2020-02-28 18:37] LABS: VANCOMYCIN,TROUGH 18.9 ug/mL (5.0-20.0)
--- NOTE | 2020-02-28 19:14 | PDOC TRANSFER SUMMARY ---
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 Is this a current diagnosis for this admission?: Yes (3) History of pulmonary embolism Is this a current diagnosis for this admission?: Yes (4) Urinary tract infection Is this a current diagnosis for this admission?: Yes (5) T2DM (type 2 diabetes mellitus) Is this a current diagnosis for this admission?: Yes (6) UTI (urinary tract infection) due to Enterococcus Is this a current diagnosis for this admission?: Yes (7) IVC thrombosis Is this a current diagnosis for this admission?: Yes (8) Hypokalemia Is this a current diagnosis for this admission?: Yes (9) Gastrointestinal dysmotility Is this a current diagnosis for this admission?: Yes (10) Depression Is this a current diagnosis for this admission?: Yes (11) Osteoarthritis of right knee Is this a current diagnosis for this admission?: Yes (12) Parathyroid adenoma Is this a current diagnosis for this admission?: Yes (13) Primary hyperparathyroidism Is this a current diagnosis for this admission?: Yes (14) Fever Is this a current diagnosis for this admission?: Yes (15) Hypercalcemia Is this a current diagnosis for this admission?: Yes - Additional Information Resuscitation Status: Full Code Discharge Diet: Tube Feeding (Comments) - follow the present treatment Discharge Activity: Activity As Tolerated Referrals: DULCE BAPTISTE MD [Primary Care Provider] - 03/05/20 9:30 am Home Medications: Atorvastatin Calcium [Lipitor 20 mg Tablet] 20 mg PO DAILY 12/08/12 Sitagliptin Phosphate [Januvia] 100 mg PO DAILY 12/08/12 Telmisartan/Hydrochlorothiazid [Micardis HCT 80-25 mg Tablet] 1 each PO DAILY 12/08/12 Duloxetine HCl 60 mg PO DAILY 01/07/20 Apixaban [Eliquis 5 mg Tablet] 5 mg PO Q12 02/05/20 Diltiazem HCl [Diltiazem 24Hr ER] 240 mg PO DAILY 02/05/20 Donepezil HCl [Aricept 5 mg Tablet] 5 mg PO QHS 02/05/20 Acetaminophen [Tylenol Soln 325 mg/10.15 ml Udcup] 650 mg NG Q4HP PRN udc 02/24/20 Apixaban [Eliquis 5 mg Tablet] 5 mg NG Q12 tablet 02/24/20 Sitagliptin Phosphate [Januvia 50 mg Tablet] 100 mg PO DAILY tablet 02/24/20 Cinacalcet HCl [Sensipar 30 mg Tablet] 30 mg PO Q12A tablet 02/28/20 History of Present Illiness History of Present Illness: SITA ROLLINS is a 79 year old female, She was brought to the emergency room by the daughter for evaluation of altered mental status. She was recently discharged from this hospital on January 18, 2020, at the time she was diagnosed with severe bilateral pulmonary embolism, bilateral deep vein thrombosis of the lower extremities, primary hyperparathyroidism with parathyroid adenoma, disabling right knee arthropathy.. In the emergency room she was evaluated, a CAT scan of the head was done which was negative, she also was found to have abnormal urinalysis. When I saw patient on the floor she does not communicate verbally, she have eyes closed,, she has impaired language skills, there was loss of nasolabial fold more so on the right side,. The daughter was in the room, I asked her about CODE STATUS, she wants her to be a full code, she is only child. MRI of the brain was done without contrast, it demonstrated in the cerebrum multiple T2 flair foci of increased signal intensity in the bilateral periventricular white matter and subcortical white matter in the bilateral and converse today regions, frontal, parietal lobes, occipital lobes temporal lobe on the right differently did not demonstrate any restricted diffusion in the posterior fossa, there was several foci of increased signal intensity in the bilateral cerebellar hemisphere these findings appear to demonstrate increased signal intensity on both diffusion-weighted imaging and ADC mapping images suggesting old cerebellar infarcts clearly the MRI is abnormal IV contrast was suggested this to be obtained tomorrow. Patient is not able to eat by mouth because of depressed sensorium, NG tube inserted for the purpose of nutrition and also administration of medication, prognosis is guarded Hospital Course Hospital Course: Patient was admitted for the management of metabolic encephalopathy, on admission she was virtually unresponsive, MRI of the brain was done, it was abnormal, EEG was done, it was abnormal, a lumbar puncture could not be done because she has a recent history of extensive thrombosis including pulmonary embolism, bilateral deep vein thrombosis, IVC thrombosis, to do a lumbar puncture will have to hold the anticoagulant for 3 to 5 days, I felt the risk of holding anticoagulant is too high so she was empirically treated with IV acyclovir for presumptive herpes encephalitis for 2 weeks. At the initiation of the IV acyclovir patient regained consciousness, there was dramatic improvement but over the course of hospital stay the sensorium has been fluctuating. She was given NG tube for nutrition and also to administer medications. NG tube is now converted to a PEG tube. She is extremity deconditioned she will need intensive physical therapy and rehabilitation. She also had Enterococcus faecalis UTI that was treated with IV ampicillin. She has other comorbid conditions including type 2 diabetes mellitus severe osteoarthritis of the right knee, primary hyperparathyroidism with parathyroid adenoma., Mild cognitive impairment.not full-blown dementia yet.She had hypercalcemia, this was treated with intravenous fluid, because she is not a candidate for parathyroidectomy which is the treatment of choice for primary hyperparathyroidism with parathyroid adenoma, she was started on Sensipar, She also had fever of unknown source couple of days ago, this was treated empirically with IV antibiotic with resolution of fever, leukocytosis Physical Exam Vital Signs: Temp Pulse Resp BP Pulse Ox 98.3 F 91 15 159/62 H 98 02/28/20 11:42 02/28/20 14:00 02/28/20 11:42 02/28/20 11:42 02/28/20 11:42 Intake & Output 02/27/20 02/28/20 02/29/20 06:59 06:59 06:59 Intake Total 900 1650 250 Output Total 0 Balance 900 1650 250 Weight 76.9 kg 78.4 kg 78.4 kg General appearance: PRESENT: no acute distress Eye exam: PRESENT: PERRLA Respiratory exam: PRESENT: clear to auscultation jason Cardiovascular exam: PRESENT: +S1, +S2 GI/Abdominal exam: PRESENT: soft Neurological exam: PRESENT: alert Results Laboratory Results: WBC 10.5 10^3/uL (4.0-10.5) 02/28/20 09:10 RBC 3.56 10^6/uL (3.72-5.28) L 02/28/20 09:10 Hgb 10.4 g/dL (12.0-15.5) L 02/28/20 09:10 Hct 31.8 % (36.0-47.0) L 02/28/20 09:10 MCV 89 fl (80-97) 02/28/20 09:10 MCH 29.4 pg (27.0-33.4) 02/28/20 09:10 MCHC 32.9 g/dL (32.0-36.0) 02/28/20 09:10 RDW 17.7 % (11.5-14.0) H 02/28/20 09:10 Plt Count 435 10^3/uL (150-450) 02/28/20 09:10 Lymph % (Auto) 14.6 % (13-45) 02/28/20 09:10 Barron % (Auto) 9.3 % (3-13) 02/28/20 09:10 Eos % (Auto) 3.0 % (0-6) 02/28/20 09:10 Baso % (Auto) 0.3 % (0-2) 02/28/20 09:10 Absolute Neuts (auto) 7.6 10^3/uL (1.7-8.2) 02/28/20 09:10 Absolute Lymphs (auto) 1.5 10^3/uL (0.5-4.7) 02/28/20 09:10 Absolute Monos (auto) 1.0 10^3/uL (0.1-1.4) 02/28/20 09:10 Absolute Eos (auto) 0.3 10^3/uL (0.0-0.6) 02/28/20 09:10 Absolute Basos (auto) 0.0 10^3/uL (0.0-0.2) 02/28/20 09:10 Seg Neutrophils % 72.8 % (42-78) 02/28/20 09:10 Platelet Comment ADEQUATE 02/28/20 09:10 Polychromasia 1+ 02/28/20 09:10 Hypochromasia 1+ 02/28/20 09:10 Poikilocytosis SLIGHT 02/28/20 09:10 Anisocytosis 1+ 02/28/20 09:10 Stomatocytes 1+ 02/28/20 09:10 Schistocytes SLIGHT 02/28/20 09:10 PT 14.0 SEC (11.4-15.4) 02/20/20 15:39 INR 1.06 02/20/20 15:39 APTT 84.6 SEC (23.5-35.8) H 02/22/20 05:19 Sodium 139.9 mmol/L (137-145) 02/28/20 09:10 Potassium 4.1 mmol/L (3.6-5.0) 02/28/20 09:10 Chloride 104 mmol/L (98-107) 02/28/20 09:10 Carbon Dioxide 29 mmol/L (22-30) 02/28/20 09:10 Anion Gap 7 (5-19) 02/28/20 09:10 BUN 16 mg/dL (7-20) 02/28/20 09:10 Creatinine 0.47 mg/dL (0.52-1.25) L 02/28/20 09:10 Est GFR ( Amer) > 60 (>60) 02/28/20 09:10 Est GFR (MDRD) Non-Af > 60 (>60) 02/28/20 09:10 Glucose 122 mg/dL (75-110) H 02/28/20 09:10 POC Glucose 108 mg/dL (70-110) 02/28/20 17:57 Calcium 11.3 mg/dL (8.4-10.2) H 02/28/20 09:10 Phosphorus 2.5 mg/dL (2.5-4.5) 02/05/20 00:51 Magnesium 1.6 mg/dL (1.6-2.3) 02/05/20 00:51 Total Bilirubin 0.4 mg/dL (0.2-1.3) 02/28/20 09:10 Direct Bilirubin 0.0 mg/dL (0.0-0.4) 02/28/20 09:10 Neonat Total Bilirubin Not Reportable 02/28/20 09:10 Neonat Direct Bilirubin Not Reportable 02/28/20 09:10 Neonat Indirect Bili Not Reportable 02/28/20 09:10 AST 67 U/L (14-36) H 02/28/20 09:10 ALT 50 U/L (<35) H 02/28/20 09:10 Alkaline Phosphatase 111 U/L (38-126) 02/28/20 09:10 Creatine Kinase 44 U/L (30-135) 02/05/20 13:26 CK-MB (CK-2) 1.60 ng/mL (<4.55) 02/05/20 13:26 Troponin I 0.301 ng/mL 02/05/20 13:26 Total Protein 6.5 g/dL (6.3-8.2) 02/28/20 09:10 Albumin 2.9 g/dL (3.5-5.0) L 02/28/20 09:10 TSH 0.31 uIU/mL (0.47-4.68) L 02/04/20 20:45 Free T4 2.06 ng/dL (0.78-2.19) 02/04/20 20:45 Urine Color YELLOW 02/04/20 22:05 Urine Appearance SLIGHTLY-CLOUDY 02/04/20 22:05 Urine pH 6.0 (5.0-9.0) 02/04/20 22:05 Ur Specific [place] 1.011 02/04/20 22:05 Urine Protein 30 mg/dL (NEGATIVE) H 02/04/20 22:05 Urine Glucose (UA) NEGATIVE mg/dL (NEGATIVE) 02/04/20 22:05 Urine Ketones 80 mg/dL (NEGATIVE) H 02/04/20 22:05 Urine Blood SMALL (NEGATIVE) H 02/04/20 22:05 Urine Nitrite POSITIVE (NEGATIVE) H 02/04/20 22:05 Urine Bilirubin NEGATIVE (NEGATIVE) 02/04/20 22:05 Urine Urobilinogen NEGATIVE mg/dL (<2.0) 02/04/20 22:05 Ur Leukocyte Esterase TRACE (NEGATIVE) H 02/04/20 22:05 Urine WBC (Auto) 38 /HPF 02/04/20 22:05 Urine RBC (Auto) 3 /HPF 02/04/20 22:05 U Hyaline Cast (Auto) 11 /LPF 02/04/20 22:05 Urine Bacteria (Auto) 1+ /HPF 02/04/20 22:05 Squamous Epi Cells Auto <1 /HPF 02/04/20 22:05 Urine Mucus (Auto) FEW /LPF 02/04/20 22:05 Urine Ascorbic Acid NEGATIVE (NEGATIVE) 02/04/20 22:05 Time Trough Drawn 1747 02/28/20 17:47 Vancomycin Trough 18.9 ug/mL (5.0-20.0) 02/28/20 17:47 COVID-19 Source NASOPHARYNGEAL 02/26/20 05:35 COVID-19 (BRENNA) NOT DETECTED 02/26/20 05:35 02/04/20 02/05/20 02/05/20 20:45 00:51 07:36 CK-MB (CK-2) 0.76 1.26 Troponin I 0.027 0.057 0.167 02/05/20 13:26 CK-MB (CK-2) 1.60 Troponin I 0.301 Impressions: Chest X-Ray 02/04/20 21:20 IMPRESSION: Nonspecific unchanged groundglass opacities in the left lower lung. No new findings. CT from 01/08/2020 demonstrated significant bilateral PE. Head CT 02/04/20 21: IMPRESSION: Imaging is degraded by patient motion, with resultant artifact. The best possible images were obtained. No acute intracranial process is identified. Head MRI 02/05/20 00:00 IMPRESSION: 1. Motion artifact markedly limits the examination. There are multiple various size foci of increased T2 FLAIR signal intensity within the cerebrum bilaterally. No evidence of mass effect, midline shift or surrounding edema. Differential includes possible white matter disease, metastatic disease, metabolic disorders, viral etiologies, toxic etiologies, as well as other etiologies. A follow-up examination with an with out IV contrast is suggested. 2. Several foci of increased signal intensity in the bilateral cerebellar hemispheres maybe on the basis of prior old remote infarcts. EVIDENCE OF ACUTE STROKE: NO. Head MRI 02/05/20 00:00 IMPRESSION: Significantly limited study secondary to excessive motion artifact. The coronal and sagittal T1-weighted postcontrast sequences are essentially nondiagnostic as a result. Persistent confluent areas of hyperintense T2/FLAIR signal located about the bilateral cerebellar hemispheres, stan[place], and bilateral occipital lobes. In addition, there are likely a few foci of nodular enhancement about the cerebellar hemispheres, especially on the left. Again, these findings are entirely nonspecific, with considerations including inflammatory process such as posterior reversible encephalopathy syndrome (PRES), malignancy/metastatic disease, or potentially infection. Late subacute infarcts are considered less likely given the absence of significant volume loss. Continued close interval follow-up is recommended. Superimposed mild chronic microvascular ischemic change with generalized atrophy. copyright 2010 [employer]- All Rights Reserved KUB X-Ray 02/05/20 00:00 IMPRESSION: Enteric drainage tube tip projects over the gastric body. Otherwise, indeterminate bowel gas pattern. copyright 2010 [employer]- All Rights Reserved Abdomen/Pelvis CT 02/06/20 00:00 IMPRESSION: 1. Suspicious for thrombus in the lower IVC and right common iliac vein. Recommend further evaluation with IVC and lower extremity venous Doppler studies. 2. Cholelithiasis. 3. Other findings as above. Call report tasked to the [facility] CORE team at the time of interpretation. Stroke Is this a Stroke Patient?: No Acute Heart Failure - Is this a Heart Failure Patient?: No
--- NOTE | 2020-02-28 19:16 | PDOC PROGRESS REPORT ---
Subjective Progress Note for:: 02/28/20 Subjective:: Patient is alert scheduled for discharge tomorrow Reason For Visit: METABOLIC ENCEPHALOPATHY,UTI,ADULT FAILURE TO Physical Exam Vital Signs: Temp Pulse Resp BP Pulse Ox 98.3 F 91 15 159/62 H 98 02/28/20 11:42 02/28/20 14:00 02/28/20 11:42 02/28/20 11:42 02/28/20 11:42 Intake & Output 02/27/20 02/28/20 02/29/20 06:59 06:59 06:59 Intake Total 900 1650 250 Output Total 0 Balance 900 1650 250 Weight 76.9 kg 78.4 kg 78.4 kg General appearance: PRESENT: no acute distress Eye exam: PRESENT: PERRLA Respiratory exam: PRESENT: clear to auscultation jason Cardiovascular exam: PRESENT: +S1, +S2 Results Laboratory Results: 02/28/20 09:10 02/28/20 09:10 02/28/20 02/28/20 09:10 09:10 WBC 10.5 RBC 3.56 L Hgb 10.4 L Hct 31.8 L MCV 89 MCH 29.4 MCHC 32.9 RDW 17.7 H Plt Count 435 Seg Neutrophils % 72.8 Sodium 139.9 Potassium 4.1 Chloride 104 Carbon Dioxide 29 Anion Gap 7 BUN 16 Creatinine 0.47 L Est GFR ( Amer) > 60 Glucose 122 H Calcium 11.3 H Total Bilirubin 0.4 AST 67 H Alkaline Phosphatase 111 Total Protein 6.5 Albumin 2.9 L 02/04/20 02/04/20 02/05/20 20:45 20:45 00:51 Creatine Kinase 45 41 CK-MB (CK-2) Troponin I 0.027 02/05/20 02/05/20 02/05/20 00:51 07:36 07:36 Creatine Kinase 43 CK-MB (CK-2) 0.76 1.26 Troponin I 0.057 0.167 02/05/20 02/05/20 13:26 13:26 Creatine Kinase 44 CK-MB (CK-2) 1.60 Troponin I 0.301 Impressions: Head CT 02/04/20 21:20 IMPRESSION: Imaging is degraded by patient motion, with resultant artifact. The best possible images were obtained. No acute intracranial process is identified. Head MRI 02/05/20 00:00 IMPRESSION: Significantly limited study secondary to excessive motion artifact. The coronal and sagittal T1-weighted postcontrast sequences are essentially nondiagnostic as a result. Persistent confluent areas of hyperintense T2/FLAIR signal located about the bilateral cerebellar hemispheres, stanley, and bilateral occipital lobes. In addition, there are likely a few foci of nodular enhancement about the cerebellar hemispheres, especially on the left. Again, these findings are entirely nonspecific, with considerations including inflammatory process such as posterior reversible encephalopathy syndrome (PRES), malignancy/metastatic disease, or potentially infection. Late subacute infarcts are considered less likely given the absence of significant volume loss. Continued close interval follow-up is recommended. Superimposed mild chronic microvascular ischemic change with generalized atrophy. copyright 2010 [employer]- All Rights Reserved KUB X-Ray 02/05/20 00:00 IMPRESSION: Enteric drainage tube tip projects over the gastric body. Otherwise, indeterminate bowel gas pattern. copyright 2010 [employer]- All Rights Reserved Abdomen/Pelvis CT 02/06/20 00:00 IMPRESSION: 1. Suspicious for thrombus in the lower IVC and right common iliac vein. Recommend further evaluation with IVC and lower extremity venous Doppler studies. 2. Cholelithiasis. 3. Other findings as above. Call report tasked to the [facility] CORE team at the time of interpretation. 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 Is this a current diagnosis for this admission?: Yes (3) History of pulmonary embolism Is this a current diagnosis for this admission?: Yes (4) Urinary tract infection Qualifiers: Urinary tract infection type: site unspecified Hematuria presence: without hematuria Qualified Code(s): N39.0 - Urinary tract infection, site not specified Is this a current diagnosis for this admission?: Yes (5) T2DM (type 2 diabetes mellitus) Qualifiers: Diabetes mellitus care home insulin use: without manager intermediate use Diabetes mellitus complication status: with neurologic complications Diabetes mellitus complication detail: with polyneuropathy Qualified Code(s): E11.42 - Type 2 diabetes mellitus with diabetic polyneuropathy Is this a current diagnosis for this admission?: Yes (6) UTI (urinary tract infection) due to Enterococcus Is this a current diagnosis for this admission?: Yes (7) IVC thrombosis Is this a current diagnosis for this admission?: Yes (8) Hypokalemia Is this a current diagnosis for this admission?: Yes (9) Gastrointestinal dysmotility Is this a current diagnosis for this admission?: Yes (10) Depression Qualifiers: Depression Type: major depressive disorder Major depression recurrence: recurrent Active/Remission status: currently active Major depression episode severity: severe Psychotic features: without psychotic features Qualified Code(s): F33.2 - Major depressive disorder, recurrent severe without psychotic features Is this a current diagnosis for this admission?: Yes (11) Osteoarthritis of right knee Qualifiers: Osteoarthritis type: primary Qualified Code(s): M17.11 - Unilateral primary osteoarthritis, right knee Is this a current diagnosis for this admission?: Yes (12) Parathyroid adenoma Is this a current diagnosis for this admission?: Yes (13) Primary hyperparathyroidism Is this a current diagnosis for this admission?: Yes (14) Fever Qualifiers: Fever type: unspecified Qualified Code(s): R50.9 - Fever, unspecified Is this a current diagnosis for this admission?: Yes (15) Hypercalcemia Is this a current diagnosis for this admission?: Yes - Time Time Spent with patient: 15-24 minutes Level of Care: IMCU Medications reviewed and adjusted accordingly: Yes Anticipated discharge: SNF Anticipated DC Timeframe: within 24 hours
[2020-02-28] MEDS: LEVOFLOXACIN 750 MG/D5W RTU 750 MG/150 ML RTUPB IV SCH (20:44)
[2020-02-29] MEDS: INSULIN LISPRO 100 UNIT/ML 3 ML VIAL SUBCUT SCH ×3 (00:26→12:56)
[2020-02-29] MEDS: VANCOMYCIN HCL 1,000 MG in DEXTROSE 5%-WATER 250 ML IV SCH ×2 (01:15→09:07)
[2020-02-29] MEDS: CINACALCET HCL 30 MG TABLET PO SCH (06:22)
[2020-02-29] MEDS: SERTRALINE HCL 50 MG TABLET PO SCH (09:05)
[2020-02-29] MEDS: VALSARTAN 160 MG TABLET NG SCH (09:06)
[2020-02-29] MEDS: SITAGLIPTIN PHOSPHATE 50 MG TABLET PO SCH (09:06)
[2020-02-29] MEDS: ATORVASTATIN CALCIUM 20 MG TABLET PO SCH (09:06)
[2020-02-29] MEDS: APIXABAN 5 MG TABLET NG SCH (09:07)
[2020-02-29 13:25] VITALS: BP 154/63
== END 2020-02-29 14:12 | DRG 73 ==
LOC: ER 20:31 → EH 02-05 00:13 → 3W 02-05 14:19
PROVIDERS: ADMIT Internal Medicine; ATTEND Internal Medicine
PROC: 0DH68UZ Insertion of Feeding Device into Stomach, Via Natural or Artificial Opening Endoscopic (ICD-10-PCS; principal; 2020-02-22 11:30)
DX: B02.0 Zoster encephalitis (principal); G93.41 Metabolic encephalopathy; N39.0 Urinary tract infection, site not specified; F33.2 Major depressive disorder, recurrent severe without psychotic features; I82.421 Acute embolism and thrombosis of right iliac vein; R64 Cachexia; R62.7 Adult failure to thrive; E05.90 Thyrotoxicosis, unspecified without thyrotoxic crisis or storm; E87.6 Hypokalemia; B95.2 Enterococcus as the cause of diseases classified elsewhere; M17.11 Unilateral primary osteoarthritis, right knee; D35.1 Benign neoplasm of parathyroid gland; E83.52 Hypercalcemia; E21.3 Hyperparathyroidism, unspecified; E78.5 Hyperlipidemia, unspecified; K30 Functional dyspepsia; E83.42 Hypomagnesemia; R40.2422 Glasgow coma scale score 9-12, at arrival to emergency department; E11.42 Type 2 diabetes mellitus with diabetic polyneuropathy; E78.00 Pure hypercholesterolemia, unspecified; F17.210 Nicotine dependence, cigarettes, uncomplicated; I69.393 Ataxia following cerebral infarction; Z11.59 Encounter for screening for other viral diseases; Z86.718 Personal history of other venous thrombosis and embolism; Z78.1 Physical restraint status; Z68.32 Body mass index [BMI] 32.0-32.9, adult; Z86.711 Personal history of pulmonary embolism; Z79.899 Other long term (current) drug therapy; Z79.01 Long term (current) use of anticoagulants; Z79.82 Long term (current) use of aspirin
CPT/HCPCS: 36415; 43246; 51701; 70450; 70551; 70553; 71045; 731; 74018; 74177; 80048; 80053; 80202; 81001; 82550; 82553; 82565; 82962; 83735; 84100; 84132; 84439; 84443; 84484; 85025; 85610; 85730; 87040; 87070; 87086; 87088; 87186; 87635; 93005; 93010; 95819; 96365; 99285; A9576; C9803; J0133; J0290; J0360; J0696; J1644; J1815; J1956; J2060; J2704; J3370; J3475; J3480; J3490; J7030; J7050; J7060; J7120